=== PATIENT | female | born 1960 | race Caucasian/White ===

== ENCOUNTER → 2016-09-26 | Outpatient (CLI) | payer OTHER ==
[~2016-09-26] MED LIST: ALBUAER19 INH; DIPH-437 PO; FRRS300 PO; LISI-725 PO; METO-217 PO; NAPR-1169 PO; PANT40TA PO; TRAM-453 PO; ZNTT/150 PO
[2016-09-26 13:14] LABS: BASO % 0.7 %; BASO ABS # 0.03 K/uL (0-0.2); COMPLETE YES; EOS % 5.9 %; HEMATOCRIT 54.7 % (37-47); IG% 0.2 %; LYMPH % 27.8 %; LYMPH ABS # 1.28 K/uL (1.2-3.4); MEAN CELL VOLUME 90.3 fL (80-100); MEAN CORPUSCULAR HEMOGLOBIN 30.7 pg (25-34); MEAN PLATELET VOLUME 10.7 fL (7.4-10.4); MONO % 6.7 %; NEUT % 58.7 %; PLATELET COUNT 149 K/uL (130-400); RED BLOOD COUNT 6.06 M/uL (4.2-5.4); WHITE BLOOD COUNT 4.61 K/uL (4.8-10.8)
[2016-09-26 13:47] LABS: ALKALINE PHOSPHATASE 100 U/L (45-117); ALT/SGPT 27 U/L (12-78); AST/SGOT 24 U/L (15-37); BLOOD UREA NITROGEN 14 mg/dl (7-18); BUN/CREATININE RATIO 17.1 (10-20); CARBON DIOXIDE 25 mmol/L (21-32); CHLORIDE 109 mmol/L (98-107); CHOLESTEROL 177 mg/dl (0-200); CHOLESTEROL/HDL RATIO 3.1; CREATININE 0.81 mg/dl (0.60-1.20); GLUCOSE 104 mg/dl (70-99); HDL CHOLESTEROL 58 mg/dl; LDL CHOLESTEROL CALCULATED 87 mg/dl; POTASSIUM 4.4 mmol/L (3.5-5.1); SODIUM 142 mmol/L (136-145); TRIGLYCERIDES 161 mg/dl (0-150); VERY LOW DENSITY LIPOPROT CALC 32 mg/dl
== END | disposition home or self-care (01) ==
LOC: C.LABPVFM 08:36
PROVIDERS: ATTEND Nurse Practitioner
DX: I10 Essential (primary) hypertension (principal); D64.9 Anemia, unspecified

== ENCOUNTER → 2016-10-13 | Outpatient (CLI) | payer OTHER ==
[2016-10-13 12:59] LABS: BASO % 1.5 %; BASO ABS # 0.06 K/uL (0-0.2); COMPLETE YES; EOS % 4.6 %; HEMATOCRIT 40.9 % (37-47); LYMPH % 31.7 %; LYMPH ABS # 1.31 K/uL (1.2-3.4); MEAN CELL VOLUME 90.5 fL (80-100); MEAN CORPUSCULAR HEMOGLOBIN 31.4 pg (25-34); MEAN CORPUSCULAR HGB CONC 34.7 g/dl (32-36); MEAN PLATELET VOLUME 11.5 fL (7.4-10.4); MONO % 7.3 %; NEUT % 54.9 %; PLATELET COUNT 203 K/uL (130-400); RED BLOOD COUNT 4.52 M/uL (4.2-5.4); WHITE BLOOD COUNT 4.13 K/uL (4.8-10.8)
== END | disposition home or self-care (01) ==
LOC: C.LABPVFM 10:41
PROVIDERS: ATTEND Nurse Practitioner
DX: D64.9 Anemia, unspecified (principal)

== ENCOUNTER → 2016-10-13 | Outpatient (CLI) | payer OTHER ==
--- NOTE | 2016-10-14 13:34 | MAMMOGRAPHY REPORT ---
BILATERAL DIGITAL SCREENING MAMMOGRAM TOMOSYNTHESIS WITH CAD: 10/13/2016 CLINICAL HISTORY: Routine screening examination. TECHNIQUE: Breast tomosynthesis in addition to standard 2D mammography was performed. Current study was also evaluated with a Computer Aided Detection (CAD) system. COMPARISON: Comparison is made to exams dated: 03/22/2015 mammogram, 03/20/2013 mammogram, 03/21/2014 mammogram, 03/25/2012 ultrasound, 03/17/2011 mammogram - [facility], and 02/08/2008. BREAST COMPOSITION: The tissue of both breasts is heterogeneously dense, which may obscure small ma sses. FINDINGS: There are scattered round and punctate benign-appearing microcalcifications, stable in eac h breast. Mild vascular calcification bilaterally. No suspicious mass, architectural distortion or cluster of microcalcifications is seen. IMPRESSION: ACR BI-RADS CATEGORY 1: NEGATIVE There is no mammographic evidence of malignancy. A 1 year screening mammogram is recommended. The p atient will receive written notification of the results. Approximately 10% of breast cancers are not detected with mammography. A negative mammographic repor t should not delay biopsy if a clinically suggestive mass is present. Felisha Tay M.D. ay/:10/13/2016 21:56:28 Shoemaking Finisher: Mary WALL(Larisa)(Max), [facility] letter sent: Normal 1/2 BI-RADS Code: ACR BI-RADS Category 1: Negative
== END | disposition home or self-care (01) ==
LOC: C.MAMM 10:05
PROVIDERS: ATTEND Nurse Practitioner
DX: Z12.31 Encounter for screening mammogram for malignant neoplasm of breast (principal)

== ENCOUNTER → 2017-07-06 | Outpatient (CLI) | payer OTHER ==
--- NOTE | 2017-07-06 09:54 | DIAGNOSTIC IMAGING REPORT ---
TEMPORAL BONE CT HISTORY: EAR CHOLESTEATOMA TECHNIQUE: Multiaxial CT images of the temporal bones were performed and reformatted in the coronal plane without the use of intravenous contrast. COMPARISON STUDY: Temporal bone 12/06/2008. FINDINGS: On the right, there is a small tympanostomy tube. Small amount of soft tissue medial and anterior to the ossicles within the epitympanic recess best seen on axial image 132. This is new compared to the prior study. There is no erosions of the ossicles at this time. The scutum appears intact. No evidence for inner ear dysplasia. The mastoid air cells are clear. The 7th cranial nerve describes a normal course. On the left, the external auditory canal is patent. There is progressive soft tissue opacification throughout the epitympanic recess and surrounding the ossicles with associated partial erosion of the ossicles. There is associated erosion of the scutum. Therefore, this is consistent with a cholesteatoma. There is probable focal erosion through tegmen tympani. No evidence for any or dysplasia. The 7th cranial nerve describes a normal course. IMPRESSION: 1. Progressive soft tissue opacification throughout the left epitympanic recess with associated partial erosion of the ossicles, scutum, and probable focal erosion through the tegmen tympani. Therefore, this is consistent with a cholesteatoma. 2. Small amount of soft tissue medial and anterior to the ossicles within the right epitympanic recess which is new compared the prior study. No erosions at this time. Therefore, this could represent inflammatory change or possibly a small cholesteatoma. Electronically signed by: Austin Calderon M.D. 07/06/2017 9:53 AM Dictated Date/Time: 07/06/2017 9:40 AM
== END | disposition home or self-care (01) ==
LOC: C.CTS 09:05
PROVIDERS: ATTEND Otolaryngology
DX: H71.01 Cholesteatoma of attic, right ear (principal)

== ENCOUNTER 2017-07-23 05:29 | Day surgery (SDC) | payer OTHER ==
[2017-07-13 09:32] VITALS: BMI 36.0
--- NOTE | 2017-07-13 10:07 | PAT Medication Instructions ---
Service Date Jul 13, 2017. Current Home Medication List Acetaminophen/Diphenhydramine (Tylenol Pm), 2 TABLETS PO HS PRN for Sleep Ferrous Sulfate (Kp Ferrous Sulfate), 1 TAB PO 2XWK Metoprolol Succ (Toprol Xl) (Toprol-Xl ), 100 MG PO QPM Naproxen (Naprosyn), 500 MG PO BID PRN for Pain Pantoprazole Sodium (Protonix), 40 MG PO QPM Tramadol Hcl (Ultram), 50 MG PO Q8H PRN for Pain [ketoconazole cream], 1 DOSE TOP UD Medication Instructions For Your Scheduled Surgery - Check with surgeon for instructions: Naproxen (Naprosyn), 500 MG PO BID PRN for Pain - Hold the following medications 24 hours prior to surgery: [ketoconazole cream], 1 DOSE TOP UD - Hold the following medications the morning of surgery: Ferrous Sulfate (Kp Ferrous Sulfate), 1 TAB PO 2XWK - Take the following medications the morning of surgery with a sip of water: Tramadol Hcl (Ultram), 50 MG PO Q8H PRN for Pain (okay to take up to 4 hours prior to surgery if needed) - Take the following medications as scheduled the night before surgery: Tramadol Hcl (Ultram), 50 MG PO Q8H PRN for Pain (if needed) Pantoprazole Sodium (Protonix), 40 MG PO QPM Metoprolol Succ (Toprol Xl) (Toprol-Xl ), 100 MG PO QPM Acetaminophen/Diphenhydramine (Tylenol Pm), 2 TABLETS PO HS PRN for Sleep (if needed) If you have any questions please call us at [phone] or [phone] or [phone]
[~2017-07-23] VITALS: Ht 162.6 cm; Wt 94.8 kg
[~2017-07-23 05:29] MED LIST changes: -ALBUAER19 INH; +FERR1TAB13 PO; -FRRS300 PO; -LISI-725 PO; -METO-217 PO; +METO100T44 PO; -ZNTT/150 PO; +ketoconazole cream TOP
[2017-07-23 06:00] VITALS: BP 180/100; PULSE 65; TEMP 36.5; O2SAT 94; Ht 162.6 cm; Wt 94.8 kg
[2017-07-23] MEDS ORDERED: CEFAZOLIN 2000MG IV PUSH 10 ML IV SCH (06:00)
[2017-07-23] MEDS ORDERED: LACTATED RINGER'S 1000ML 1,000 ML IV SCH (06:00)
[2017-07-23] MEDS ORDERED: PROPOFOL IV EMULSION 10 MG/ML 100 ML VIAL IV ONE (06:19)
[2017-07-23] MEDS ORDERED: REMIFENTANIL 1 MG VIAL ONE (06:19)
[2017-07-23] MEDS ORDERED: ROCURONIUM BROMIDE 10 MG/ML 5 ML VIAL IV ONE (06:30)
[2017-07-23] MEDS ORDERED: FENTANYL CITRATE INJ 50 MCG/1 ML 2 ML VIAL ONE (06:30)
[2017-07-23] MEDS ORDERED: PROPOFOL IV EMULSION 10 MG/ML 20 ML VIAL IV ONE ×2 (06:30→08:35)
[2017-07-23] MEDS ORDERED: ONDANSETRON INJ 2 MG/ML 2 ML VIAL ONE (06:30)
[2017-07-23] MEDS ORDERED: DEXAMETHASONE SOD INJ 4 MG/ML VIAL ONE ×2 (06:30→08:10)
[2017-07-23] MEDS ORDERED: LIDOCAINE HCL 2% 2 ML VIAL (20MG/ML) ONE (06:30)
[2017-07-23] MEDS ORDERED: MIDAZOLAM HCL 1 MG/ML 2ML VIAL ONE (06:52)
[2017-07-23] MEDS ORDERED: LIDO 2%/EPINEPHRINE 1:100000 20 ML VIAL INFIL ONE (06:54)
[2017-07-23] MEDS ORDERED: GELATIN SPONGE 12-7MM ONE (06:54)
[2017-07-23] MEDS ORDERED: NEOMYCIN/POLYMYX/BACITR OINT 15 GM TUBE ONE (06:54)
[2017-07-23] MEDS ORDERED: NEOMYCIN/POLYMYX/HYDROCORT OT SUSP 10 ML BTL ONE (06:54)
[2017-07-23] MEDS ORDERED: EpINEphrine INJ 1MG/ML AMP 1 MG/ML AMP ONE (06:55)
[2017-07-23] MEDS ORDERED: EpINEphrine HCL INJ 1 MG/ML 5ML SYRINGE ONE (06:55)
--- NOTE | 2017-07-23 07:03 | History & Physical Bridge Note ---
H&P Re-Evaluation Bridge Note: I have examined the patient, reviewed the History & Physical and in the interval since the performance of the History & Physical I have noted the following changes of clinical significance: No changes noted
[2017-07-23] MEDS ORDERED: OFLOXACIN 0.3% OP SOLN 5 ML BTL ONE (07:22)
[2017-07-23] MEDS ORDERED: NEOMYC/POLYMYX/BACITR/HC OP OI 3.5 GM TUBE ONE (07:23)
[2017-07-23] MEDS ORDERED: NALOXONE HCL 0.4 MG/1 ML VIAL/CARP IV PRN (07:30)
[2017-07-23] MEDS ORDERED: PHENYLEPHRINE 100MCG/ML 5ML SYR IV PRN (07:30)
[2017-07-23] MEDS ORDERED: EpHEDrine SULFATE INJ 50 MG/ML AMP IV PRN (07:30)
[2017-07-23] MEDS ORDERED: HYDROmorphone INJ 2 MG/ML SYR/VIAL IV PRN (07:30)
[2017-07-23] MEDS ORDERED: ATROPINE SULFATE 0.1 MG/ML 5ML SYR IV PRN (07:30)
[2017-07-23] MEDS ORDERED: MEPERIDINE HCL 25 MG/ML CARP IV PRN (07:30)
[2017-07-23] MEDS ORDERED: FLUMAZENIL 0.1 MG/1 ML 10 ML VIAL IV PRN (07:30)
[2017-07-23] MEDS ORDERED: FENTANYL CITRATE INJ 50 MCG/1 ML 2 ML VIAL IV PRN (07:30)
[2017-07-23] MEDS ORDERED: LABETALOL HCL IV 5 MG/ML 20ML IV PRN (07:30)
[2017-07-23] MEDS ORDERED: ONDANSETRON INJ 2 MG/ML 2 ML VIAL IV PRN ×2 (07:30→10:15)
[2017-07-23] MEDS ORDERED: NEOSTIGMINE METHYLSULFATE 5 MG/5 ML SYR ONE (08:09)
[2017-07-23] MEDS ORDERED: GLYCOPYRROLATE INJ 0.2 MG/ML VIAL ONE (08:09)
[2017-07-23] MEDS ORDERED: SODIUM CHLORIDE 0.9% 1000ML 1,000 ML IV SCH (10:09)
[2017-07-23] MEDS ORDERED: OXYC-57 PO (10:10)
--- NOTE | 2017-07-23 10:11 | Discharge Instructions ---
Discharge Instructions Date of Service Jul 23, 2017. Admission Reason for Admission: Right Ear Cholesteatoma, Left Ear Otitis Meidal Discharge Discharge Diagnosis / Problem: same Discharge Goals Goal(s): Improve function, Improve disease control, Therapeutic intervention, Prevent Disease Progression Activity Recommendations Activity Limitations: per Instructions/Follow-up section . Instructions / Follow-Up Instructions / Follow-Up ACTIVITY RECOMMENDATIONS: No limitations OVER THE COUNTER MEDICATIONS: Continue any other previous medications unless otherwise indicated by your surgeon. * You may use Tylenol for mild pain as per bottle instructions. SPECIAL CARE INSTRUCTIONS: * Keep operative ear dry. * Change cotton balls 4 times per day. Leave packing in ear. * Sneeze with your mouth open. * Do not blow your nose. Sniff back instead. * Please call with any increasing pain, increasing drainage, active bleeding, redness and/or swelling, or any concerns. Dr. Cortes's office number is . FOLLOW UP VISIT: If not already scheduled, please call to schedule follow-up appointment with Dr. Cortes. Current Hospital Diet Patient's current hospital diet: Discharge Diet Recommended Diet: Regular Diet Procedures Procedures Performed: Right Tympanomastoidectomy, Left Pressure Equalizer Tube, Balloon Bilateral Eustachian Tube Pending Studies Studies pending at discharge: no Medical Emergencies . Who to Call and When: Medical Emergencies: If at any time you feel your situation is an emergency, please call 911 immediately. . Non-Emergent Contact Non-Emergency issues call your: Primary Care Provider . "Provider Documentation" section prepared by Dary Cortes. . VTE Core Measure Inpt VTE Proph given/why not?: SCD's [place] Drug Monitoring Program Search Results: no issues identified
[2017-07-23] MEDS ORDERED: OXYCODONE/ACETAMINOPHEN 5-325 TAB PO PRN ×2 (10:15)
[2017-07-23 11:15] VITALS: BP 177/81; PULSE 63; TEMP 36.7; O2SAT 96
--- NOTE | 2017-07-23 11:16 | Anesthesiology Progress Note ---
Anesthesia Post Op Note Date & Time Jul 23, 2017 at 11:16 Vital Signs Pain Intensity: 4 Vital Signs Past 12 Hours Date Time Temp Pulse Resp B/P (MAP) Pulse Ox O2 Delivery O2 Flow Rate FiO2 07/23/17 11:10 64 17 145/84 93 Nasal Cannula 2 07/23/17 11:00 61 18 147/83 90 Room Air 07/23/17 10:50 58 13 153/86 90 Room Air 07/23/17 10:40 36.5 61 19 145/89 92 Room Air 07/23/17 10:30 65 22 146/87 91 Room Air 07/23/17 10:20 36.4 75 24 148/87 100 Oxymask 10 07/23/17 10:10 67 16 172/115 99 Oxymask 10 07/23/17 10:02 36.0 68 20 149/82 97 Oxymask 10 07/23/17 06:00 36.5 65 18 180/100 (126) 94 Room Air Notes Mental Status: alert / awake / arousable, participated in evaluation Pt Amnestic to Procedure: Yes Nausea / Vomiting: adequately controlled Pain: adequately controlled Airway Patency, RR, SpO2: stable & adequate BP & HR: stable & adequate Hydration State: stable & adequate Anesthetic Complications: no major complications apparent
--- NOTE | 2017-07-23 11:27 | OPERATIVE REPORT ---
DATE OF OPERATION: 07/23/2017 DIAGNOSES: Cholesteatoma of the right ear and chronic otitis media with effusion of the left ear. PROCEDURES: 1. Tympanomastoidectomy of the right ear, facial recess approach. 2. PE tube insertion, left ear. SURGEON: Dary Cortes MD ANESTHESIA: General endotracheal. COMPLICATIONS: None. BLOOD LOSS: 25 mL HISTORY: This 56-year-old lady had mastoidectomy of the left ear by me 7 years ago and PE tubes inserted by ut 5 years ago; however, she had not returned for a followup until recently when she developed drainage and hearing loss of both ears, was found to have middle ear cholesteatoma of the right ear and retracted tympanic membrane with effusion of the left ear. CT scan documented opacified left mastoid and soft tissue in the middle ear space on the right side. She also has visible cholesteatoma in the right middle ear space. DESCRIPTION OF PROCEDURE: The patient was brought to the operating room and placed in supine position. General endotracheal anesthesia was induced, prepped with Betadine scrubbing and paint and draped in usual sterile manner. The right ear was visualized. The tympanomeatal flap was elevated by incising with a huslia blade at the 6 and 12 o'clock positions and then connecting across the posterior canal wall. The tympanomeatal flap was elevated using round knife. Middle ear space was entered and the hypotympanum. Cholesteatoma was encountered in the middle ear space extending inferiorly into the hypotympanum, extending into the opening of the round window, extending anteriorly underneath the malleus and then extending posteriorly into the facial recess. Superiorly, there was also a retraction pocket. The retraction pocket was elevated and the dissection was started superiorly encountering the chorda tympani nerve, which was preserved through the entire procedure. The chorda tympani nerve was retracted superiorly as the cholesteatoma was dissected around the foot plate of the stapes and around the tensor tympani tendon and from underneath the handle of the malleus. Dissection was continued inferiorly into the hypotympanum. Using Kaye, the [place], the round knife and the triangular knife, also the cholesteatoma and the round window had to be lifted out using an incudostapedial joint knife and also with right angled picks. In this manner, the cholesteatoma and the middle ear space was left attached posterior superiorly. At this point, the postauricular incision was made using the 15 blade, carried down through the skin and subcutaneous layer using the 15 blade exposing the temporalis fascia, which was harvested and set aside for use later in the fascia press. The periosteal incision was made in the shape of a reverse 7. The periosteum was elevated using the [place] and the freer elevators. The Jennifer flap was elevated and the ear was reflected anteriorly with a self-retaining retractor exposing the mastoid and the middle ear space. Cortical mastoidectomy was performed using the Xomed drill at first using the 5 and then using the 3, and then using the 1.5-mm bur exposing the mastoid by delineating the skull base superiorly, which was very tight and also delineating the sinodural angle posteriorly. The mastoid air cells were exposed. The Jennifer septum was opened and the mastoid cavity was widened using the 5 and then the 3-mm drill bit. At this point, the facial recess approach was opened using the 1.5-mm bur exposing the body of the incus and then exposing the malleus to incus joint and then exposing the entire facial recess thinning the canal wall bone from posteriorly. In this manner, the facial recess was opened and was probed on both sides using the Kaye needle and the [place] and the angled picks resecting all evidence of cholesteatoma in the facial recess and the entire cholesteatoma was removed and sent for pathology. The tegmen was low and the sigmoid sinus was anterior, the small bleeder posteriorly had to be packed with bone wax and then packed with bone dust at the end of the procedure. The middle ear space was filled with pieces of dry Gelfoam as a platform and the temporalis fascia was cut so that there was a notch in it and the superior portion was placed over the superior canal wall, over the head of malleus and over the incus. Inferiorly, the graft was tucked underneath the handle of the malleus on top of the Gelfoam bed and then draped on to the posterior canal wall. Tympanomeatal flap was reflected back in its original position and then packed in position with pieces of dry Gelfoam and then pieces of Gelfoam dipped in Cortisporin and then also with Cortisporin ointment. The postauricular incision was closed in layers with interrupted 3-0 chromic sutures on the periosteum and then interrupted 3-0 chromic suture subcutaneously and then a continuous 4-0 nylon suture on the skin. A mastoid dressing was placed on the right side. Attention was turned to the left ear where the middle ear was exposed. There was a retraction pocket inferiorly, which had to be cleaned of cerumen. Laryngotomy incision was made anterior inferiorly and a Paparella tube was inserted. The patient tolerated the procedure well and was taken to the recovery area in satisfactory condition. I attest to the content of the Intraoperative Record and any orders documented therein. Any exceptions are noted below. BELL
[2017-07-23 11:45] VITALS: BP 180/81; PULSE 60; TEMP 36.6; O2SAT 95
[2017-07-23 12:15] VITALS: BP 175/87; PULSE 64; TEMP 36.4; O2SAT 92
== END 2017-07-23 13:00 | disposition home or self-care (01) ==
LOC: C.ACU 05:29
PROVIDERS: ATTEND Otolaryngology
DX: H71.91 Unspecified cholesteatoma, right ear (principal); H65.492 Other chronic nonsuppurative otitis media, left ear

== ENCOUNTER → 2017-10-15 | Outpatient (CLI) | payer OTHER ==
[~2017-10-15] MED LIST changes: +OXYC-57 PO
--- NOTE | 2017-10-18 08:07 | MAMMOGRAPHY REPORT ---
BILATERAL DIGITAL SCREENING MAMMOGRAM TOMOSYNTHESIS WITH CAD: 10/15/2017 CLINICAL HISTORY: Routine screening. Patient has no complaints. TECHNIQUE: Breast tomosynthesis in addition to standard 2D mammography was performed. Current study was also evaluated with a Computer Aided Detection (CAD) system. COMPARISON: Comparison is made to exams dated: 10/13/2016 mammogram, 03/22/2015 mammogram, 03/21/2014 m ammogram, 03/20/2013 mammogram, 03/25/2012 ultrasound, and 03/25/2012 mammogram - [facility]. BREAST COMPOSITION: The tissue of both breasts is heterogeneously dense, which may obscure small mas ses. FINDINGS: There are diffuse bilateral punctate microcalcifications, most numerous in the left upper outer quadrant, which appear similar dating back to at least 03/17/2011, therefore likely benign. Th ere are mild vascular calcifications in the breasts. No new suspicious mass, architectural distortio n or cluster of microcalcifications is seen. IMPRESSION: ACR BI-RADS CATEGORY 1: NEGATIVE There is no mammographic evidence of malignancy. A 1 year screening mammogram is recommended. The pa tient will receive written notification of the results. Approximately 10% of breast cancers are not detected with mammography. A negative mammographic report should not delay biopsy if a clinically suggestive mass is present. Felisha Tay M.D. ay/:10/15/2017 16:26:34 Manager Managed Care: Mary Garcia, [facility] letter sent: Normal 1/2 BI-RADS Code: ACR BI-RADS Category 1: Negative
== END | disposition home or self-care (01) ==
LOC: C.MAMM 10:16
PROVIDERS: ATTEND Nurse Practitioner
DX: Z12.31 Encounter for screening mammogram for malignant neoplasm of breast (principal)

== ENCOUNTER → 2017-10-15 | Outpatient (CLI) | payer OTHER ==
--- NOTE | 2017-10-15 12:01 | DIAGNOSTIC IMAGING REPORT ---
ULTRASOUND SOFT TISSUES NECK CLINICAL HISTORY: Left-sided neck mass. COMPARISON STUDY: No priors. FINDINGS: Real-time, grayscale, and color flow sonography of the soft tissues of the left neck is performed at the indicated site of interest. There are prominent cervical lymph nodes identified at the site of interest. These maintain a normal fatty hilum and are of low suspicion. The largest measures 2.2 x 0.7 x 1.1 cm. No fluid collection is seen. IMPRESSION: The finding of palpable concern corresponds to low suspicion cervical lymph nodes. Clinical follow-up is recommended. If these nodes continue to enlarge then consider a repeat ultrasound. Electronically signed by: Milton Miguel M.D. 10/15/2017 12:00 PM Dictated Date/Time: 10/15/2017 11:58 AM
== END | disposition home or self-care (01) ==
LOC: C.ULTR 11:00
PROVIDERS: ATTEND Nurse Practitioner
DX: R22.1 Localized swelling, mass and lump, neck (principal)

== ENCOUNTER → 2017-10-25 | Outpatient (CLI) | payer OTHER ==
--- NOTE | 2017-10-25 16:30 | DIAGNOSTIC IMAGING REPORT ---
CHEST 2 VIEWS ROUTINE CLINICAL HISTORY: Sternal pain pain COMPARISON STUDY: No previous studies for comparison. FINDINGS: The bones soft tissues and hemidiaphragms are normal. The cardiomediastinal silhouette is normal. The lungs are clear. The pulmonary vasculature is normal. Small hiatal hernia IMPRESSION: Small hiatal hernia. Otherwise negative chest. The above report was generated using voice recognition software. It may contain grammatical, syntax or spelling errors. Electronically signed by: Edilberto Skelton M.D. 10/25/2017 4:28 PM Dictated Date/Time: 10/25/2017 4:28 PM
== END | disposition home or self-care (01) ==
LOC: C.RADPV 16:13
PROVIDERS: ATTEND Nurse Practitioner
DX: K44.9 Diaphragmatic hernia without obstruction or gangrene (principal); R07.89 Other chest pain

== ENCOUNTER → 2017-10-29 | Outpatient (CLI) | payer OTHER ==
--- NOTE | 2017-10-29 11:26 | DIAGNOSTIC IMAGING REPORT ---
GI W/AIR SMALL BOWEL ROUTINE CLINICAL HISTORY: ESOPHAGITIS,STERNAL PAINdysphagia COMPARISON STUDY: None FLUOROSCOPY TIME: 4.4 minutes. FINDINGS: Patient initiates his swallowing function well. Esophageal motility is unremarkable. There is a fixed hiatal hernia. There is mild gastroesophageal reflux. The remainder the stomach is unremarkable in appearance. The duodenal bulb fills well. Mucosal pattern and transit time throughout small bowel are within normal limits. Specific images of the terminal ileum are unremarkable. IMPRESSION: 1. Fixed hiatal hernia.. 2. Mild gastroesophageal reflux. 3. Otherwise normal exam. The above report was generated using voice recognition software. It may contain grammatical, syntax or spelling errors. Electronically signed by: Edilberto Skelton M.D. 10/29/2017 11:25 AM Dictated Date/Time: 10/29/2017 11:20 AM
== END | disposition home or self-care (01) ==
LOC: C.RAD 09:38
PROVIDERS: ATTEND Nurse Practitioner
DX: K44.9 Diaphragmatic hernia without obstruction or gangrene (principal); K20.9 Esophagitis, unspecified

== ENCOUNTER → 2017-11-19 | Day surgery (SDC) | payer OTHER ==
[~2017-11-19] MED LIST changes: +HYDR-5688 PO; +LACTATED RINGER'S 1000ML 1,000 ML IV SCH; +METH-307 PO
--- NOTE | 2017-11-19 10:01 | PAT Medication Instructions ---
Service Date Nov 19, 2017. Current Home Medication List Acetaminophen/Diphenhydramine (Tylenol Pm), 2 TABLETS PO HS PRN for Sleep Ferrous Sulfate (Kp Ferrous Sulfate), 1 TAB PO Q2D Methocarbamol (Robaxin), 0.5-1 TAB PO PRN Metoprolol Succ (Toprol Xl) (Toprol-Xl ), 100 MG PO QPM Naproxen (Naprosyn), 500 MG PO BID PRN for Pain Pantoprazole Sodium (Protonix), 40 MG PO QPM Tramadol Hcl (Ultram), 50 MG PO Q8H PRN for Pain Medication Instructions For Your Scheduled Surgery -Contact your surgeon for instructions for: Naproxen (Naprosyn), 500 MG PO BID PRN for Pain - Hold the following medications the morning of surgery: Ferrous Sulfate (Kp Ferrous Sulfate), 1 TAB PO Q2D Methocarbamol (Robaxin), 0.5-1 TAB PO PRN - Take the following medications the morning of surgery with a sip of water: Tramadol Hcl (Ultram), 50 MG PO Q8H PRN for Pain (if needed, can be taken up to four hours before surgery) - Take the following medications as scheduled the night before surgery: Acetaminophen/Diphenhydramine (Tylenol Pm), 2 TABLETS PO HS PRN for Sleep (if needed) Metoprolol Succ (Toprol Xl) (Toprol-Xl ), 100 MG PO QPM Methocarbamol (Robaxin), 0.5-1 TAB PO PRN (if needed) Pantoprazole Sodium (Protonix), 40 MG PO QPM Tramadol Hcl (Ultram), 50 MG PO Q8H PRN for Pain (if needed) If you have any questions please call us at [phone] or [phone] or [phone]
[2017-11-19 10:19] LABS: BASO % 0.8 %; BASO ABS # 0.04 K/uL (0-0.2); EOS % 3.7 %; EOS ABS # 0.19 K/uL (0-0.5); HEMATOCRIT 43.7 % (37-47); HEMOGLOBIN 14.9 g/dL (12.0-16.0); IG# 0.01 K/uL (0.00-0.02); LYMPH % 25.6 %; MEAN CELL VOLUME 90.1 fL (80-100); MEAN CORPUSCULAR HEMOGLOBIN 30.7 pg (25-34); MEAN CORPUSCULAR HGB CONC 34.1 g/dl (32-36); MONO % 9.1 %; MONO ABS # 0.46 K/uL (0.11-0.59); NEUT % 60.6 %; NEUT ABS # 3.07 K/uL (1.4-6.5); PLATELET COUNT 190 K/uL (130-400); RED CELL DISTRIBUTION WIDTH CV 12.7 % (11.5-14.5); RED CELL DISTRIBUTION WIDTH SD 41.6 fL (36.4-46.3); WHITE BLOOD COUNT 5.07 K/uL (4.8-10.8)
[2017-11-19 10:31] LABS: BLOOD UREA NITROGEN 18 mg/dl (7-18); CALCIUM 8.9 mg/dl (8.5-10.1); CARBON DIOXIDE 25 mmol/L (21-32); CREATININE 0.76 mg/dl (0.60-1.20); GLUCOSE 105 mg/dl (70-99); POTASSIUM 3.9 mmol/L (3.5-5.1); SODIUM 139 mmol/L (136-145)
--- NOTE | 2017-11-25 07:43 | EDITING REQUIRED CODING QUERY ---
Preop testingTREATMENT RENDERED WITHOUT A DIAGNOSIS To promote full compliance with coding requirements relating to patient care, physician participation is requested in all cases of tissue packer uncertainty. Please assist us with the question(s) below: Coding Question: The patient is receiving CBC W/ AUTO DIFF and PARTIAL RENAL PROFILE, as noted in the ORDER HISTORY of the record. Please document the diagnosis that is being addressed by the medication/treatment. Provider Response: Thank you Celeste Murillo
== END | disposition home or self-care (01) ==
LOC: C.ACU 08:36
PROVIDERS: ATTEND Otolaryngology
DX: Z01.812 Encounter for preprocedural laboratory examination (principal)

== ENCOUNTER → 2017-11-26 | Day surgery (SDC) | payer OTHER ==
[2017-11-23 11:40] VITALS: BMI 38.0
--- NOTE | 2017-11-25 15:14 | History and Physical ---
History & Physical Date Nov 25, 2017. Chief Complaint Cholesteatoma of the right mastoid History of Present Illness The patient is a 57 year old female with complaints of cholesteatoma of the right mastoid, status post tympanomastoidectomy of the right ear in July, returns for second look procedure for possible recurrence of cholesteatoma. 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) DO NOT ADMINISTER Inhaled General Anesthetics Desflurane Enflurane Ether Halothane Isoflurane Methoxyflurane Sevoflurane Succinylcholine Adhesives (Verified Allergy, Unknown, SKIN IRRITATION WITH EKG STICKIES, ) Codeine (Verified Adverse Reaction, Mild, TYL W/ CODEINE= HOANG/NAUSEA, ) Home Medications Scheduled Ferrous Sulfate (Kp Ferrous Sulfate), 1 TAB PO Q2D Methocarbamol (Robaxin), 0.5-1 TAB PO PRN Metoprolol Succ (Toprol Xl) (Toprol-Xl ), 100 MG PO QPM Pantoprazole Sodium (Protonix), 40 MG PO QPM Scheduled PRN Acetaminophen/Diphenhydramine (Tylenol Pm), 2 TABLETS PO HS PRN for Sleep Naproxen (Naprosyn), 500 MG PO BID PRN for Pain Tramadol Hcl (Ultram), 50 MG PO Q8H PRN for Pain Physical Examination Skin: warm/dry, no rash Eyes: normal inspection, EOMI, sclerae normal ENT: + pertinent finding (Retracted tympanic membrane with possible recurrence of cholesteatoma in the right ear) Head: normocephalic, atraumatic Neck: supple, no adenopathy, trachea midline Respiratory/Chest: lungs clear, normal breath sounds, no respiratory distress Cardiovascular: regular rate, rhythm, no edema, no murmur Abdomen / GI: normal bowel sounds, non tender Back: normal inspection Extremities: normal inspection, normal range of motion Diagnosis Cholesteatoma of the right ear Plan of Treatment Tympanomastoidectomy of the right ear
[~2017-11-26] VITALS: Ht 157.5 cm; Wt 94.9 kg
[~2017-11-26] MED LIST changes: +ATROPINE SULFATE 0.1 MG/ML 5ML SYR IV PRN; +CEFAZOLIN SOD 2000MG/15 ML IV PUSH IV ONE; +DEXAMETHASONE SOD INJ 4 MG/ML VIAL ONE; +EpHEDrine SULFATE 50MG/5ML SYR ONE; +EpHEDrine SULFATE INJ 50 MG/ML AMP IV PRN; +EpINEphrine HCL INJ 1 MG/ML 1ML SYRINGE ONE; +FENTANYL CITRATE INJ 50 MCG/1 ML 2 ML VIAL ONE; +FLUMAZENIL 0.1 MG/1 ML 10 ML VIAL IV PRN; +GELATIN SPONGE SZ 100 ONE; +GLYCOPYRROLATE INJ 0.2 MG/ML VIAL ONE; +HYDROCODONE/ACETAMIN 5/325MG TAB PO PRN; +HYDROmorphone INJ 0.5 MG/0.5 ML SYR ONE; +HYDROmorphone INJ 1 MG/ML SYR IV PRN; +KETAMINE HCL INJ 50 MG/ML 10 ML VIAL ONE; +LABETALOL HCL IV 5 MG/ML 20ML IV PRN; -LACTATED RINGER'S 1000ML 1,000 ML IV SCH; +LIDO 2%/EPINEPHRINE 1:100000 20 ML VIAL INFIL ONE; +LIDOCAINE HCL 2% 2 ML VIAL (20MG/ML) ONE; +MIDAZOLAM HCL 1 MG/ML 2ML VIAL ONE; +NALOXONE HCL 0.4 MG/1 ML VIAL/CARP IV PRN; +NEOMYC/POLYMYX/BACITR/HC OP OI 3.5 GM TUBE ONE; +NEOMYCIN/POLYMYX/HYDROCORT OT SUSP 10 ML BTL ONE; +NEOSTIGMINE METHYLSULFATE 5 MG/5 ML SYR ONE; +OFLOXACIN 0.3% OP SOLN 5 ML BTL ONE; +ONDANSETRON INJ 2 MG/ML 2 ML VIAL IV PRN; +ONDANSETRON INJ 2 MG/ML 2 ML VIAL ONE; -OXYC-57 PO; +PHENYLEPHRINE 100MCG/ML 5ML SYR ONE; +PROMETHAZINE HCL INJ 12.5 MG in SODIUM CHLORIDE 0.9% 50ML 50 ML IV PRN; +PROPOFOL IV EMULSION 10 MG/ML 100 ML VIAL IV ONE; +PROPOFOL IV EMULSION 10 MG/ML 20 ML VIAL IV ONE; +REMIFENTANIL 1 MG VIAL ONE; +ROCURONIUM BROMIDE 10 MG/ML 5 ML VIAL IV ONE; +SODIUM CHLORIDE 0.9% 1000ML 1,000 ML IV SCH; -ketoconazole cream TOP
[2017-11-26 06:00] VITALS: BP 173/86; PULSE 64; TEMP 36.6; O2SAT 98; Ht 157.5 cm; Wt 94.9 kg
--- NOTE | 2017-11-26 10:28 | [facility] Post Operative Brief Note ---
Immediate Operative Summary Operative Date Nov 26, 2017. Pre-Operative Diagnosis Cholesteatoma of the Right Mastoid Post-Operative Diagnosis Same as preoperative Procedure(s) Performed Right Tympanomastoidectomy Surgeon Dr. Dary Cortes Epic Professional Surgeon(s) None per surgeon Estimated Blood Loss 40ml Findings Consistent with Post-Op Diagnosis Specimens A.) Cholesteatoma, Right Ear Drains None Anesthesia Type General Complication(s) none Disposition Accompanied Pt To Recovery: yes Disposition: Recovery Room / PACU
--- NOTE | 2017-11-26 10:43 | Discharge Instructions ---
Discharge Instructions Date of Service Nov 26, 2017. Admission Reason for Admission: Cholesteatoma Discharge Discharge Diagnosis / Problem: same Discharge Goals Goal(s): Therapeutic intervention Activity Recommendations Activity Limitations: per Instructions/Follow-up section . Instructions / Follow-Up Instructions / Follow-Up ACTIVITY RECOMMENDATIONS: No limitations OVER THE COUNTER MEDICATIONS: Continue any other previous medications unless otherwise indicated by your surgeon. * You may use Tylenol for mild pain as per bottle instructions. SPECIAL CARE INSTRUCTIONS: * Keep operative ear dry. * Change cotton balls 4 times per day. Leave packing in ear. * Sneeze with your mouth open. * Do not blow your nose. Sniff back instead. * Please call with any increasing pain, increasing drainage, active bleeding, redness and/or swelling, or any concerns. Dr. Cortes's office number is . FOLLOW UP VISIT: If not already scheduled, please call to schedule follow-up appointment with Dr. Cortes. Current Hospital Diet Patient's current hospital diet: Discharge Diet Recommended Diet: Regular Diet Procedures Procedures Performed: Right Tympanomastoidectomy Pending Studies Studies pending at discharge: no Medical Emergencies . Who to Call and When: Medical Emergencies: If at any time you feel your situation is an emergency, please call 331 immediately. . Non-Emergent Contact Non-Emergency issues call your: Primary Care Provider . "Provider Documentation" section prepared by Dary Cortes. . [place] Drug Monitoring Program Search Results: no issues identified
[2017-11-26] MEDS: HYDROmorphone INJ 0.5 MG/0.5 ML SYR ONE ×2 (11:05→11:10)
--- NOTE | 2017-11-26 11:18 | OPERATIVE REPORT ---
DATE OF OPERATION: 11/26/2017 PREOPERATIVE DIAGNOSIS: Cholesteatoma of the right ear. POSTOPERATIVE DIAGNOSIS: Same. PROCEDURE: Right tympanomastoidectomy with ossicular reconstruction. SURGEON: Dr. Cortes. ANESTHESIA: General endotracheal. COMPLICATIONS: None. BLOOD LOSS: 40 mL HISTORY: A 57-year-old lady with greater than 4-year history of drainage from the right ear, found to have rather large cholesteatoma extending into the facial recess and sinus tympani, around the stapes. She underwent tympanomastoidectomy in July; however, due to the extensiveness of the disease, cholesteatoma could not be completely removed and she again has recurrent cholesteatoma with retraction pocket into the oval window area. DESCRIPTION OF PROCEDURE: The patient brought to the operating room and placed in supine position. General endotracheal anesthesia was induced, prepped with Betadine paint, draped in usual sterile manner. The right ear was visualized and the postauricular area injected with 2% Xylocaine with 1:100,000 strength epinephrine as was the ear canal. The canal incisions were made at 11 o'clock anteriorly and then 6 o'clock inferiorly. The tympanomeatal flap was incised using the [place] blade and elevated using the [place] blade and then the round knife and then the Kaye needle, lifting the tympanomeatal flap from the posterior and then superior canal wall, entering the middle ear space and the hypotympanum, continuing the elevation superiorly, finding adhesions down to the promontory, which were elevated, finding cholesteatoma extending into the stapes and oval window area and into the facial recess area and into the sinus tympany, delineating the chorda tympani nerve which was preserved through the entire procedure and then continuing the dissection superiorly over the incus which was eroded of its lenticular process and then over the malleus, lifting the tympanic membrane off the lateral process of the malleus down to the handle. At this point, the postauricular incision was made using a 15 blade, carried down through the skin and subcutaneous layer with the 15 blade. Periosteal incision was made in the shape of reverse 7 using the 15 blade and then elevated using the Kelli and Paco periosteal elevators, elevating the Corry flap along with the postauricular soft tissue and reflecting the ear anteriorly with a self-retaining retractor, exposing the mastoid. Elevation of the tympanomeatal flap was continued and dissection into the facial recess and into the sinus tympani and around the oval window, around the stapes bone was continued. The stapes appeared to be intact but was encased in cholesteatoma which had to be removed using the Kaye needle, the right-angle picks, the Gallito and the incudostapedial joint knife, in this manner removing all evidence of cholesteatoma from around the stapes and around the oval window. The incus was found to be eroded off its lenticular process, therefore, was freed from the malleus using the Kaye and the Gallito. At this point, cortical mastoidectomy was performed, enlarging the previous mastoidectomy opening with the 3 mm bur and then with the 1 mm bur, encountering the incus which was then freed and delivered into the middle ear space and then set aside later for use as her own prosthesis for reconstruction. The facial recess approach was opened using the 1 mm bur. Dissection was performed on both sides of the facial recess using the Kaye and the right-angle picks and the Gallito, delivering all evidence of cholesteatoma into the middle ear space and cleaning out the facial recess. The sinus tympani was also dissected of cholesteatoma using the [place] and the right-angle picks, in this manner removing all evidence of cholesteatoma from the mastoid. The sinodural angle was very tight with low tegmen and with an anterior sigmoid. In this manner, the mastoidectomy was completed along with removal of all evidence of middle ear cholesteatoma. The incus was carved with a pothole which was then placed on top of the stapes superstructure underneath the chorda tympani nerve and tucked underneath the handle of the malleus. The T-tube was inserted through the previous perforation in the tympanic membrane and the tympanic membrane was reflected back over a temporalis fascia graft which was draped onto the posterior and superior canal wall over the malleus and over the incus. The tympanomeatal flap was packed in position with pieces of dry Gelfoam and then with Gelfoam soaked in Cortisporin and also with Cortisporin ointment. Postauricular incision was closed with interrupted 4-0 Vicryl sutures on the periosteal layer, interrupted 4-0 Vicryl sutures on the subcutaneous layer and then Steri-Strips on the skin. Cynthia dressing was placed. The patient tolerated the procedure well, was taken to recovery area where facial nerve function was noted to be intact. I attest to the content of the Intraoperative Record and any orders documented therein. Any exception s are noted below.
--- NOTE | 2017-11-26 11:22 | Anesthesiology Progress Note ---
Anesthesia Post Op Note Date & Time Nov 26, 2017 at 11:22 Vital Signs Pain Intensity: 5 Vital Signs Past 12 Hours Date Time Temp Pulse Resp B/P (MAP) Pulse Ox O2 Delivery O2 Flow Rate FiO2 11/26/17 11:10 68 12 128/74 91 Nasal Cannula 4 11/26/17 11:00 65 16 130/81 91 Nasal Cannula 5 11/26/17 10:50 68 14 120/60 92 Oxymask 11 11/26/17 10:40 66 16 140/86 91 Oxymask 11 11/26/17 10:33 36.3 78 14 143/89 91 Oxymask 11 11/26/17 06:00 36.6 64 18 173/86 (115) 98 Room Air Notes Mental Status: alert / awake / arousable, participated in evaluation Pt Amnestic to Procedure: Yes Nausea / Vomiting: adequately controlled Pain: adequately controlled Airway Patency, RR, SpO2: stable & adequate BP & HR: stable & adequate Hydration State: stable & adequate Anesthetic Complications: no major complications apparent
[2017-11-26 11:50] VITALS: BP 115/60; PULSE 57; TEMP 36.5; O2SAT 94
[2017-11-26 12:20] VITALS: BP 123/64; PULSE 66; TEMP 36.6; O2SAT 94
[2017-11-26 12:50] VITALS: BP 99/57; PULSE 65; O2SAT 91
[2017-11-26 13:50] VITALS: BP 138/69; PULSE 58; TEMP 36.4; O2SAT 94
[2017-11-26 15:45] VITALS: BP 137/93; PULSE 70; TEMP 36.4; O2SAT 92
== END | disposition home or self-care (01) ==
LOC: C.ACU 05:37
PROVIDERS: ATTEND Otolaryngology
DX: H71.21 Cholesteatoma of mastoid, right ear (principal); I10 Essential (primary) hypertension; Z98.890 Other specified postprocedural states; Z88.6 Allergy status to analgesic agent; E66.9 Obesity, unspecified; Z68.38 Body mass index [BMI] 38.0-38.9, adult; Z87.891 Personal history of nicotine dependence; Z98.51 Tubal ligation status

== ENCOUNTER → 2017-12-23 | Outpatient (CLI) | payer OTHER ==
[~2017-12-23] MED LIST changes: -ATROPINE SULFATE 0.1 MG/ML 5ML SYR IV PRN; -CEFAZOLIN SOD 2000MG/15 ML IV PUSH IV ONE; -DEXAMETHASONE SOD INJ 4 MG/ML VIAL ONE; -EpHEDrine SULFATE 50MG/5ML SYR ONE; -EpHEDrine SULFATE INJ 50 MG/ML AMP IV PRN; -EpINEphrine HCL INJ 1 MG/ML 1ML SYRINGE ONE; -FENTANYL CITRATE INJ 50 MCG/1 ML 2 ML VIAL ONE; -FLUMAZENIL 0.1 MG/1 ML 10 ML VIAL IV PRN; -GELATIN SPONGE SZ 100 ONE; -GLYCOPYRROLATE INJ 0.2 MG/ML VIAL ONE; -HYDROCODONE/ACETAMIN 5/325MG TAB PO PRN; -HYDROmorphone INJ 0.5 MG/0.5 ML SYR ONE; -HYDROmorphone INJ 1 MG/ML SYR IV PRN; -KETAMINE HCL INJ 50 MG/ML 10 ML VIAL ONE; -LABETALOL HCL IV 5 MG/ML 20ML IV PRN; -LIDO 2%/EPINEPHRINE 1:100000 20 ML VIAL INFIL ONE; -LIDOCAINE HCL 2% 2 ML VIAL (20MG/ML) ONE; -MIDAZOLAM HCL 1 MG/ML 2ML VIAL ONE; -NALOXONE HCL 0.4 MG/1 ML VIAL/CARP IV PRN; -NEOMYC/POLYMYX/BACITR/HC OP OI 3.5 GM TUBE ONE; -NEOMYCIN/POLYMYX/HYDROCORT OT SUSP 10 ML BTL ONE; -NEOSTIGMINE METHYLSULFATE 5 MG/5 ML SYR ONE; -OFLOXACIN 0.3% OP SOLN 5 ML BTL ONE; -ONDANSETRON INJ 2 MG/ML 2 ML VIAL IV PRN; -ONDANSETRON INJ 2 MG/ML 2 ML VIAL ONE; -PHENYLEPHRINE 100MCG/ML 5ML SYR ONE; -PROMETHAZINE HCL INJ 12.5 MG in SODIUM CHLORIDE 0.9% 50ML 50 ML IV PRN; -PROPOFOL IV EMULSION 10 MG/ML 100 ML VIAL IV ONE; -PROPOFOL IV EMULSION 10 MG/ML 20 ML VIAL IV ONE; -REMIFENTANIL 1 MG VIAL ONE; -ROCURONIUM BROMIDE 10 MG/ML 5 ML VIAL IV ONE; -SODIUM CHLORIDE 0.9% 1000ML 1,000 ML IV SCH
== END | disposition home or self-care (01) ==
LOC: C.LABPVFM 11:24
PROVIDERS: ATTEND Nurse Practitioner
DX: I10 Essential (primary) hypertension (principal)

== ENCOUNTER → 2018-03-21 | Outpatient (CLI) | payer OTHER ==
[~2018-03-21] MED LIST changes: -NAPR-1169 PO; +NAPR-22 PO
[2018-03-21 17:46] LABS: BLOOD UREA NITROGEN 13 mg/dl (7-18); CALCIUM 8.6 mg/dl (8.5-10.1); CARBON DIOXIDE 24 mmol/L (21-32); CREATININE 0.85 mg/dl (0.60-1.20); GLUCOSE 87 mg/dl (70-99); POTASSIUM 3.8 mmol/L (3.5-5.1); SODIUM 142 mmol/L (136-145)
== END | disposition home or self-care (01) ==
LOC: C.LABPVFM 13:54
PROVIDERS: ATTEND Nurse Practitioner
DX: R25.2 Cramp and spasm (principal)

== ENCOUNTER → 2018-03-28 | Outpatient (CLI) | payer OTHER ==
--- NOTE | 2018-03-28 10:32 | DIAGNOSTIC IMAGING REPORT ---
PELVIC ULTRASOUND, TRANSABDOMINAL AND TRANSVAGINAL HISTORY: POST MENOPAUSAL BLEEDING COMPARISON: Abdomen and pelvis CT 06/04/2013. FINDINGS: Uterus: 11.1 x 5.5 x 5.1 cm. A few small nabothian cysts. Endometrial stripe: 7 mm in thickness. Right ovary: There is a 13 x 12 x 10 cm solid and cystic mass within the right adnexa. The solid component demonstrates color flow and measures 7.5 cm. Left ovary: Obscured by overlying bowel gas. Miscellaneous:No pelvic free fluid. IMPRESSION: 1. A 13 x 12 x 10 cm solid and cystic mass within the right adnexa which is likely ovarian. This is highly suspicious for an ovarian malignancy. Gynecologic consultation recommended. 2. The endometrial stripe is 7 mm in thickness. This is considered abnormal for a postmenopausal female. 3. These findings were called/faxed to the referring physician's office following dictation. Electronically signed by: Austin Calderon M.D. 03/28/2018 10:31 AM Dictated Date/Time: 03/28/2018 10:24 AM
== END | disposition home or self-care (01) ==
LOC: C.ULTR 09:01
PROVIDERS: ATTEND Nurse Practitioner
DX: N95.0 Postmenopausal bleeding (principal); R93.8 Abnormal findings on diagnostic imaging of other specified body structures; R19.09 Other intra-abdominal and pelvic swelling, mass and lump

== ENCOUNTER 2020-10-10 13:20 | Inpatient (IN) ==
[2020-10-10] MEDS ORDERED: SODIUM CHLORIDE 0.9% 250 ML IV PRN ×2 (13:55→15:45)
--- NOTE | 2020-10-10 14:07 | Emergency Department Note ---
Impression & Plan Symptomatic anemia, Ovarian cancer, Pancytopenia due to chemotherapy, Elevated troponin I level, Neutropenia, Thrombocytopenia ED Provider Note NAME: JULIANE REVELES AGE: 59 SEX: F ARRIVES VIA: Walk-In INFORMANT: Patient, ED PROVIDER(S): Librado Washington MD CHIEF COMPLAINT: Anemia, referred PLAN: Disposition: Admit MEDICAL DECISION MAKING: The patient is a pleasant 59-year-old woman with a past medical history of hypertension, diastolic dysfunction, GERD who presents emerge department referred from her doctor's office for outpatient blood work showing anemia with hemoglobin of 4.8 in the setting of undergoing chemotherapy for ovarian cancer. She reports feeling generalized weakness and easily winded with mild exertion. Has any fevers, chills, cough, congestion, nausea vomiting diarrhea, urinary symptoms. She is agreeable with recommendation for admission given her significant anemia. On arrival the patient is fatigued appearing but no acute distress, afebrile with heart rate in the 100s and respiratory rate in the upper 20s/low 30s with blood pressure stable. moderate pallor. Abdomen is benign. Chest x-ray with possibility of mild vascular congestion though patient with normal oxygen saturation on room air.. EKG without overt acute ischemia. WBC 1.59 with ANC of 0.88. H/H 5.1/14.8 without recent values for comparison. Platelets 8K. Chemistry without acidosis. Magnesium 1.7 with repletion provided. LFTs unremarkable. Troponin 0.065, nonspecific and likely related to the patient's symptomatic anemia. COVID-19 RNA, NAAT was negative. Patient was consented for blood products and ordered for 3 units of PRBCs with 2 units to transfuse immediately. Patient may also require platelets potentially but will defer additional transfusion to admitting team. Case was discussed with Dr. Escalante, [facility] hospitalist, who will evaluate the patient for admission. Triage Nursing notes reviewed and agree them. Prior medical records reviewed Vital Signs: reviewed and remarkable for no significant abnormalities Differential diagnosis: Infection, dehydration, metabolic abnormality, hypo/hyperglycemia, electrolyte disturbance, anemia, hypoxia, cardiac sources, intracerebral event, toxicologic, neurologic, as well as other pathologies. ER treatment provided: See below. Diagnostics interpreted by me: ECG: Normal sinus rhythm, 97 bpm, no ectopy, nonspecific T wave abnormality, no overt ST elevation or depression, QTC 439, QRS 70. Cardiac Monitoring: An order for continuous cardiac monitoring was placed and demonstrated Normal sinus rhythm, 97 bpm, no ectopy. Laboratory studies: See below Imaging studies: XR chest 1V portable CLINICAL HISTORY: Atypical chest pain COMPARISON STUDY: No previous studies for comparison. FINDINGS: The heart is mildly enlarged. There is a left subclavian A-Port catheter. There is mild pulmonary vascular congestion. There is a large hiatal hernia. Both hemidiaphragms appeared obscured. This could indicate small subpulmonic pleural effusions or basilar atelectasis/consolidation IMPRESSION: 1. Cardiomegaly and suspected mild pulmonary vascular congestion/fluid overload 2. Both hemidiaphragms are obscured. This could indicate small subpulmonic pleural effusions or basilar atelectasis/consolidation. Clinical and radiographic follow-up is recommended ACT 112: Negative or not required by law. Consultation(s): Case was discussed with Dr. Escalante, [facility] hospitalist, who will evaluate the patient for admission. HPI: The patient is a pleasant 59-year-old woman with a past medical history of hypertension, diastolic dysfunction, GERD who presents emerge department referred from her doctor's office for outpatient blood work showing anemia with hemoglobin of 4.8 in the setting of undergoing chemotherapy for ovarian cancer. She reports feeling generalized weakness and easily winded with mild exertion. Has any fevers, chills, cough, congestion, nausea vomiting diarrhea, urinary symptoms. She is agreeable with recommendation for admission given her significant anemia. ROS: See above HPI for pertinent positives & negatives. A total of 10 systems reviewed and were otherwise negative. PAST MEDICAL HISTORY:See Below PAST SURGICAL HISTORY:See Below FAMILY HISTORY:See Below SOCIAL HISTORY:See Below HOME MEDICATIONS:See Below ALLERGIES:See Below VITALS:See Below PHYSICAL EXAMINATION: GENERAL: Awake, alert, fatigued-appearing, in no distress HENT: Normocephalic, atraumatic. Oropharynx with dry mucous membranes and otherwise unremarkable. EYES: Normal conjunctiva. Sclera non-icteric. NECK: Supple. No nuchal rigidity. FROM. No JVD. RESPIRATORY: Clear to auscultation. CARDIAC: Regular rate, normal rhythm. Extremities warm and well perfused. Pulses equal. ABDOMEN: Soft, non-distended. No tenderness to palpation. No rebound or guarding. No masses. RECTAL: Deferred. MUSCULOSKELETAL: Chest examination reveals no tenderness. The back is symmetrical on inspection without obvious abnormality. There is no CVA tenderness to palpation. No joint edema. LOWER EXTREMITIES: Calves are equal size bilaterally and non-tender. No edema. No discoloration. NEURO: Normal sensorium. No sensory or motor deficits noted. SKIN: Moderate pallor. No rash or jaundice noted. ED COURSE: Critical Care: I have personally spent greater than 45 minutes of critical care time in the direct management of this patient. This includes bedside care, interpretation of diagnostic studies, and testing, discussion with consultants, patient, and family members, and other required patient management activities. This 45 minutes is in excess of all separately billable procedures. Librado Washington MD Past Med/Surg History Medical History Back pain Cancer OVARIAN CANCER>CHEMO > GETS HALF HR TREATMENTS Q 2 WEEKS @ [facility] Cancer related pain Hiatal hernia MODERATE TO LARGE PER CHEST CT Left ventricular hypertrophy Malignant hyperthermia Nephrolithiasis Osteoarthritis Ovarian cancer Ovarian mass Seasonal allergies Snoring "NO SLEEP STUDY" PER RECORDS Surgical History H/O tympanomastoidectomy History of bilateral tubal ligation History of colonoscopy History of cystoscopy KIDNEY STONE EXTRACTION WITH STENT PLACEMENT History of difficult intubation Right tympanomastoidectomy = 11/26/17= Grade 2 view with glidescope #3, ETT 7.5 at [facility] PT UNAWARE OF THIS History of dilatation and curettage D&C, HYSTEROSCOPY= 04/29/18= LMA#4 AT [facility] History of ear surgery RT/LEFT EAR SURGERIES History of exploratory laparotomy History of myringotomy History of open reduction and internal fixation (ORIF) procedure Right arm History of total abdominal hysterectomy and bilateral salpingo-oophorectomy History of vascular access device A PORT PLACEMENT>LEFT INTACT CURRENTLY S/P exploratory laparotomy Tumor BILAT EAR TUMOR REMOVAL Family History Unknown No problems noted. Denies family history of Ovarian cancer Prostate cancer Myocardial infarction Breast cancer Colorectal cancer Social History Smoking Status: Former smoker Second Hand Exposure: Yes; Do You Dip or Chew Tobacco: No; Tobacco Cessation Education Requested by Patient: No Hx Alcohol Use: No Hx Substance Use: No Preferred Language: Lao Communication Ability: Effective Visual Impairment: No Limitations Project Control Analyst Required: No Beliefs That Will Affect Care: None Current Living Situation: Significant Other Current Living Situation Comment: [facility] Other Information That Helps Us Care for You: No Feels Safe at Home: Yes Safety Concerns: Feels Safe At This Time Assistive Devices: Glasses Allergies Allergies Allergy/AdvReac Type Severity Reaction Status Date / Time desflurane Allergy Severe MALIGNANT Verified 10/10/20 14:14 HYPERTHERMIA adhesive Allergy Mild SKIN Verified 10/10/20 14:14 IRRITATION WITH EKG STICKIES codeine AdvReac Mild headache/na Verified 10/10/20 14:14 [From Tylenol-Codeine] usea Home Meds Home Medications Medication Instructions Recorded Confirmed fexofenadine [Nessa Allergy] 180 mg PO PM 08/07/19 10/10/20 losartan 100 mg PO PM 10/10/20 10/10/20 oxycodone-acetaminophen 1 tab PO DIRECTED PRN 10/10/20 10/10/20 Previous Rx's Medication Instructions Recorded ferrous sulfate 325 mg (65 mg 325 mg PO PM #30 tab 01/22/20 iron) tablet metoprolol succinate 100 mg 100 mg PO DAILY #30 tab 04/23/20 tablet,extended release 24 hr chlorthalidone 25 mg tablet 25 mg PO PM #30 tab 06/13/20 loratadine 10 mg tablet 10 mg PO DAILY PRN #30 tab 08/20/20 escitalopram oxalate 20 mg tablet 20 mg PO DAILY #30 tab 08/29/20 lorazepam 0.5 mg tablet 0.5 mg PO BID PRN #20 tab 08/29/20 pantoprazole 40 mg tablet,delayed 40 mg PO DAILY #30 tab 09/27/20 release Results & Data (ED) Vital Signs Vital Signs - 24 hr 10/10/20 13:21 10/10/20 13:31 10/10/20 13:55 Temperature 36.9 C Temperature Source Oral Pulse Rate 111 H 93 H Pulse Rate from SpO2 Sensor 93 H Respiratory Rate 30 H 23 Respiratory Effort / Characteristics Labored Respiratory Depth Shallow Shallow Respiratory Pattern Tachypnea Tachypnea Blood Pressure 132/78 132/113 H Blood Pressure Mean 96 119 Pulse Oximetry 100 100 Oxygen Delivery Method Room Air Room Air Sepsis Recent Fever Within 48 Hours No Sepsis New/Unexplained Change in Mental Status No Sepsis Action Taken by Nursing No Action Required 10/10/20 14:00 10/10/20 14:11 10/10/20 14:30 Temperature Temperature Source Pulse Rate 96 H 89 Pulse Rate from SpO2 Sensor 96 H 89 Respiratory Rate 17 22 Respiratory Effort / Characteristics Respiratory Depth Respiratory Pattern Blood Pressure 139/91 141/91 H Blood Pressure Mean 107 107 Pulse Oximetry 100 98 100 Oxygen Delivery Method Room Air Sepsis Recent Fever Within 48 Hours Sepsis New/Unexplained Change in Mental Status Sepsis Action Taken by Nursing 10/10/20 15:00 10/10/20 15:30 Temperature Temperature Source Pulse Rate 89 85 Pulse Rate from SpO2 Sensor 89 85 Respiratory Rate Respiratory Effort / Characteristics Respiratory Depth Respiratory Pattern Blood Pressure 149/80 H 142/88 H Blood Pressure Mean 103 106 Pulse Oximetry 99 100 Oxygen Delivery Method Sepsis Recent Fever Within 48 Hours Sepsis New/Unexplained Change in Mental Status Sepsis Action Taken by Nursing Laboratory Data Attestation: I reviewed the patient's lab results. Result diagrams: 10/10/20 13:49 10/10/20 13:49 Lab Results 10/10/20 10/10/20 10/10/20 Range/Units 13:49 13:49 13:49 WBC 1.59 L (4.8-10.8) K/uL RBC 1.50 L (4.2-5.4) M/uL Hgb 5.1 L* (12.0-16.0) g/dL Hct 14.8 L* (37-47) % MCV 98.7 (80-100) fL MCH 34.0 (25-34) pg MCHC 34.5 (32-36) g/dL RDW Std Deviation 55.4 H (36.4-46.3) fL RDW Coeff of Camilo 15.6 H (11.5-14.5) % Plt Count 8 L* (130-400) K/uL MPV 11.6 H (7.4-10.4) fL Immature Gran % (Auto) 0.0 % Neut % (Auto) 55.4 % Lymph % (Auto) 39.0 % [place] % (Auto) 3.1 % Eos % (Auto) 1.9 % Baso % (Auto) 0.6 % Reticulocyte % (Auto) < 0.5 L (0.5-2.0) % Neut # (Auto) 0.88 L* (1.4-6.5) K/uL Lymph # (Auto) 0.62 L (1.2-3.4) K/uL [place] # (Auto) 0.05 L (0.11-0.59) K/uL Eos # (Auto) 0.03 (0-0.5) K/uL Baso # (Auto) 0.01 (0-0.2) K/uL Reticulocyte # < 0.02 L (0.02-0.10) 10^6/uL Immature Gran # (Auto) 0.00 (0.00-0.02) K/uL Platelet Estimate SIGNIFIC DECREASED (Normal) Tear Drop Cells 1+ PT 10.9 (9.0-12.0) Seconds INR 1.1 (0.9-1.1) APTT 22.5 (21.0-31.0) Seconds PTT Ratio 0.9 Sodium 144 (136-145) mmol/L Potassium 3.8 (3.5-5.1) mmol/L Chloride 115 H (98-107) mmol/L Carbon Dioxide 21 (21-32) mmol/L Anion Gap 8.0 (3-11) BUN 34 H (7-18) mg/dl Creatinine 1.09 (0.6-1.2) mg/dl Est Cr Clr Drug Dosing 60.0 ml/min Est GFR ( Amer) 64.3 Est GFR (Non-Af Amer) 55.5 BUN/Creatinine Ratio 31.3 H (10-20) Glucose 138 H (70-99) mg/dl Calcium 9.0 (8.5-10.1) mg/dl Phosphorus 3.7 (2.5-4.9) mg/dl Magnesium 1.7 L (1.8-2.4) mg/dl Iron (35-150) mcg/dl Transferrin (200-360) mg/dl Transferrin % Sat (15-50) % Ferritin (8-388) ng/ml Total Bilirubin 0.5 (0.2-1) mg/dl Direct Bilirubin 0.2 (0-0.2) mg/dl AST 25 (15-37) U/L ALT 25 (12-78) U/L Alkaline Phosphatase 115 (45-117) U/L Troponin I 0.065 H* (0-0.045) ng/ml Total Protein 6.2 L (6.4-8.2) gm/dl Albumin 3.1 L (3.4-5.0) gm/dl Globulin 3.1 (2.5-4.0) gm/dl Albumin/Globulin Ratio 1.0 (0.9-2) Lipase 57 L (73-393) U/L COVID-19 Eval Order SARS-CoV-2, RNA, NAAT (NEGATIVE) Blood Type Blood Type Recheck Antibody Screen Crossmatch 10/10/20 10/10/20 10/10/20 Range/Units 13:49 13:49 13:50 WBC (4.8-10.8) K/uL RBC (4.2-5.4) M/uL Hgb (12.0-16.0) g/dL Hct (37-47) % MCV (80-100) fL MCH (25-34) pg MCHC (32-36) g/dL RDW Std Deviation (36.4-46.3) fL RDW Coeff of Camilo (11.5-14.5) % Plt Count (130-400) K/uL MPV (7.4-10.4) fL Immature Gran % (Auto) % Neut % (Auto) % Lymph % (Auto) % [place] % (Auto) % Eos % (Auto) % Baso % (Auto) % Reticulocyte % (Auto) (0.5-2.0) % Neut # (Auto) (1.4-6.5) K/uL Lymph # (Auto) (1.2-3.4) K/uL [place] # (Auto) (0.11-0.59) K/uL Eos # (Auto) (0-0.5) K/uL Baso # (Auto) (0-0.2) K/uL Reticulocyte # (0.02-0.10) 10^6/uL Immature Gran # (Auto) (0.00-0.02) K/uL Platelet Estimate (Normal) Tear Drop Cells PT (9.0-12.0) Seconds INR (0.9-1.1) APTT (21.0-31.0) Seconds PTT Ratio Sodium (136-145) mmol/L Potassium (3.5-5.1) mmol/L Chloride (98-107) mmol/L Carbon Dioxide (21-32) mmol/L Anion Gap (3-11) BUN (7-18) mg/dl Creatinine (0.6-1.2) mg/dl Est Cr Clr Drug Dosing ml/min Est GFR ( Amer) Est GFR (Non-Af Amer) BUN/Creatinine Ratio (10-20) Glucose (70-99) mg/dl Calcium (8.5-10.1) mg/dl Phosphorus (2.5-4.9) mg/dl Magnesium (1.8-2.4) mg/dl Iron 284 H (35-150) mcg/dl Transferrin 210 (200-360) mg/dl Transferrin % Sat 96 H (15-50) % Ferritin 1182.2 H Cancelled (8-388) ng/ml Total Bilirubin (0.2-1) mg/dl Direct Bilirubin (0-0.2) mg/dl AST (15-37) U/L ALT (12-78) U/L Alkaline Phosphatase (45-117) U/L Troponin I (0-0.045) ng/ml Total Protein (6.4-8.2) gm/dl Albumin (3.4-5.0) gm/dl Globulin (2.5-4.0) gm/dl Albumin/Globulin Ratio (0.9-2) Lipase (73-393) U/L COVID-19 Eval Order SARS-CoV-2, RNA, NAAT (NEGATIVE) Blood Type A Positive Blood Type Recheck Antibody Screen NEGATIVE Crossmatch See Detail 10/10/20 10/10/20 10/10/20 Range/Units 14:09 14:09 14:28 WBC (4.8-10.8) K/uL RBC (4.2-5.4) M/uL Hgb (12.0-16.0) g/dL Hct (37-47) % MCV (80-100) fL MCH (25-34) pg MCHC (32-36) g/dL RDW Std Deviation (36.4-46.3) fL RDW Coeff of Camilo (11.5-14.5) % Plt Count (130-400) K/uL MPV (7.4-10.4) fL Immature Gran % (Auto) % Neut % (Auto) % Lymph % (Auto) % [place] % (Auto) % Eos % (Auto) % Baso % (Auto) % Reticulocyte % (Auto) (0.5-2.0) % Neut # (Auto) (1.4-6.5) K/uL Lymph # (Auto) (1.2-3.4) K/uL [place] # (Auto) (0.11-0.59) K/uL Eos # (Auto) (0-0.5) K/uL Baso # (Auto) (0-0.2) K/uL Reticulocyte # (0.02-0.10) 10^6/uL Immature Gran # (Auto) (0.00-0.02) K/uL Platelet Estimate (Normal) Tear Drop Cells PT (9.0-12.0) Seconds INR (0.9-1.1) APTT (21.0-31.0) Seconds PTT Ratio Sodium (136-145) mmol/L Potassium (3.5-5.1) mmol/L Chloride (98-107) mmol/L Carbon Dioxide (21-32) mmol/L Anion Gap (3-11) BUN (7-18) mg/dl Creatinine (0.6-1.2) mg/dl Est Cr Clr Drug Dosing ml/min Est GFR ( Amer) Est GFR (Non-Af Amer) BUN/Creatinine Ratio (10-20) Glucose (70-99) mg/dl Calcium (8.5-10.1) mg/dl Phosphorus (2.5-4.9) mg/dl Magnesium (1.8-2.4) mg/dl Iron (35-150) mcg/dl Transferrin (200-360) mg/dl Transferrin % Sat (15-50) % Ferritin (8-388) ng/ml Total Bilirubin (0.2-1) mg/dl Direct Bilirubin (0-0.2) mg/dl AST (15-37) U/L ALT (12-78) U/L Alkaline Phosphatase (45-117) U/L Troponin I (0-0.045) ng/ml Total Protein (6.4-8.2) gm/dl Albumin (3.4-5.0) gm/dl Globulin (2.5-4.0) gm/dl Albumin/Globulin Ratio (0.9-2) Lipase (73-393) U/L COVID-19 Eval Order Covid19 IDNow [email or web address] SARS-CoV-2, RNA, NAAT NEGATIVE (NEGATIVE) Blood Type Blood Type Recheck A Positive Antibody Screen Crossmatch Administered Medications Fexofenadine HCl (Fexofenadine Hcl 180 Mg Tab) 180 mg PO PM ALVIN Stop: 11/09/20 20:59 Last Admin: 10/10/20 20:07 Dose: 180 mg Documented by: [id number] Losartan Potassium (Losartan Potassium 50 Mg Tab) 100 mg PO PM ALVIN Stop: 11/09/20 20:59 Last Admin: 10/10/20 20:07 Dose: 100 mg Documented by: [id number] Discontinued Medications Filgrastim (Filgrastim 480 Mcg/1.6 Ml Vial) 480 mcg SC ONE ONE Stop: 10/10/20 17:16 Last Admin: 10/10/20 18:30 Dose: 480 mcg Documented by: [id number] Magnesium Sulfate/Dextrose (Magnesium Sulfate / D5w) 1 gm in 100 mls @ 100 mls/hr IV NOW STA Stop: 10/10/20 15:30 Last Infusion: 10/10/20 16:46 Dose: 0 mls/hr Documented by: [id number] Admin: 10/10/20 14:58 Dose: 100 mls/hr Documented by: [id number] Discharge Plan Visit Data Chief Complaint: Abnormal Labs/Diagnostic Testing Stated Complaint: BLOOD WORK TRANSFUSION ?? PT NOT SURE DOC REF ED Provider: Librado Washington Discharge Problem: Symptomatic anemia, Ovarian cancer, Pancytopenia due to chemotherapy, Elevated troponin I level, Neutropenia, Thrombocytopenia Patient Disposition: Admitted As Inpatient Discharge Instructions Interventions: ED Discharge Assessment Last Done: 10/10/20 17:08 Discharge Problem: Ovarian cancer Qualifiers: Laterality: unspecified laterality Qualified Code(s): C56.9 - Malignant neoplasm of unspecified ovary Neutropenia Qualifiers: Neutropenia type: unspecified Qualified Code(s): D70.9 - Neutropenia, unspecified
[2020-10-10 14:14] LABS: INR 1.1 (0.9-1.1); Partial Thromboplastin Ratio 0.9; Partial Thromboplastin Time 22.5 Seconds (21.0-31.0); Prothrombin Time 10.9 Seconds (9.0-12.0)
[2020-10-10 14:17] LABS: Albumin Level 3.1 gm/dl (3.4-5.0); BUN Creatinine Ratio 31.3 (10-20); Bilirubin Direct 0.2 mg/dl (0-0.2); Est GFR (African American) 64.3; Est GFR (Non-African American) 55.5; Magnesium 1.7 mg/dl (1.8-2.4); Potassium 3.8 mmol/L (3.5-5.1)
[2020-10-10 14:22] LABS: Hematocrit (blood only) 14.8 % (37-47); Hemoglobin 5.1 g/dL (12.0-16.0); Mean Corpuscular Hgb Conc 34.5 g/dL (32-36); Mean Corpuscular Volume 98.7 fL (80-100); Mean Platelet Volume 11.6 fL (7.4-10.4); Platelet Count 8 K/uL (130-400); RDW Coefficient of Variation 15.6 % (11.5-14.5); RDW Standard Deviation 55.4 fL (36.4-46.3); White Blood Count 1.59 K/uL (4.8-10.8)
[2020-10-10 14:23] LABS: Basophils # (auto) 0.01 K/uL (0-0.2); Basophils % (auto) 0.6 %; Eosinophils # (auto) 0.03 K/uL (0-0.5); Eosinophils % (auto) 1.9 %; Lymphocytes # (auto) 0.62 K/uL (1.2-3.4); Monocytes # (auto) 0.05 K/uL (0.11-0.59); Monocytes % (auto) 3.1 %; Neutrophils # (auto) 0.88 K/uL (1.4-6.5); Neutrophils % (auto) 55.4 %; Platelet Estimate SIGNIFIC DECREASED (Normal); Tear Drop Cells 1+
[2020-10-10 14:26] LABS: Bilirubin,Total 0.5 mg/dl (0.2-1); Globulin 3.1 gm/dl (2.5-4.0); Phosphorus 3.7 mg/dl (2.5-4.9); Total Protein 6.2 gm/dl (6.4-8.2); Troponin I 0.065 ng/ml (0-0.045)
[2020-10-10] MEDS ORDERED: MAGNESIUM SULFATE / D5W 1 GM/100 ML BAG IV STA (14:31)
--- NOTE | 2020-10-10 15:08 | XRay Report ---
XR chest 1V portable CLINICAL HISTORY: Atypical chest pain COMPARISON STUDY: No previous studies for comparison. FINDINGS: The heart is mildly enlarged. There is a left subclavian A-Port catheter. There is mild pul monary vascular congestion. There is a large hiatal hernia. Both hemidiaphragms appeared obscured. Th is could indicate small subpulmonic pleural effusions or basilar atelectasis/consolidation IMPRESSION: 1. Cardiomegaly and suspected mild pulmonary vascular congestion/fluid overload 2. Both hemidiaphragms are obscured. This could indicate small subpulmonic pleural effusions or basil ar atelectasis/consolidation. Clinical and radiographic follow-up is recommended ACT 112: Negative or not required by law. Electronically signed by: Derek Carey M.D. 10/10/2020 3:06 PM
[2020-10-10 15:50] LABS: Reticulocyte % < 0.5 % (0.5-2.0); Reticulocytes # < 0.02 10^6/uL (0.02-0.10)
[2020-10-10 16:01] LABS: Ferritin 1182.2 ng/ml (8-388)
--- NOTE | 2020-10-10 16:30 | History & Physical Report ---
Date of Service October 10, 2020 Assessment & Plan (1) Anemia: Ms. Crowley is a 59-year-old female with a history of hypertension, diastolic dysfunction, GERD, recurrent ovarian cancer with peritoneal carcinomatosis who presents acutely today to [facility] ER with Chemotherapy Induced Anemia/Pancytopenia -- outpatient hemoglobin of 4.8 g/dl, platelet count of 8000, and a WBC # 1.59. Patient was started on salvage chemotherapy with Gemcitabine and Carboplatin on 07/29/2020. Her complaints include generalized weakness, dyspnea with minimal exertion, and a mild heaviness in her chest with activity. She has had these symptoms over the past several days. She offers no other complaints. She denies any fevers, chills, cough, sputum production, upper respiratory symptoms, GI upset, poor appetite, nausea, vomiting, diarrhea, or any urinary symptoms. Patient denies any melena, hematochezia, or any hematuria. She has not had any hemoptysis or hematemesis. No excessive bruising. No spontaneous bruising. Despite her pancytopenia and severe anemia, she appears hemodynamically stable. Recommend the following: -- Full admission. -- RBC Indices show a normochromic, normocytic anemia. -- Iron and serum ferritin levels are high. -- Type and cross match packed RBC's. -- Transfuse 2 units of PRBC's now. -- Platelets are 8000. -- Transfuse 1 unit of platelets now. -- Neutropenic with neutrophil # of 0.88 K/uL. -- Neupogen has been ordered. -- Monitor daily CBC with diff. (2) Pancytopenia due to chemotherapy: -- As outlined above. -- Contacted [facility] regarding platelets and Neupogen. (3) Ovarian cancer: -- Followed [facility]. Walker [facility]. -- On Gemcitabine and Carboplatin since 07/29/2020. (4) Hypertension: -- BP is currently elevated at 167/88. -- Continue Chlorthalidone 25 mg daily. -- Continue Qhmscsup870 mg daily. -- Continue Metoprolol Succinate ER 100 mg daily. (5) Elevated troponin I level: -- This is not an ACS. -- Likely demand ischemia secondary to profound anemia. -- No further work-up unless patient were to develop anginal symptoms. History of Present Illness Primary Care Provider: STEPHEN Reardon Ms. Crowley is a 59-year-old female with a history of hypertension, diastolic dysfunction, GERD, recurrent ovarian cancer with peritoneal carcinomatosis who presents acutely today to [facility] ER with Severe Anemia/ Pancytopenia -- outpatient hemoglobin of 4.8 g/dl, platelet count of 8000, and a WBC # 1.59. Patient was started on salvage chemotherapy with Gemcitabine and Carboplatin on 07/29/2020. Patient complains of generalized weakness, dyspnea with minimal exertion, and a mild heaviness in her chest with activity. She has had these symptoms over the past several days. She offers no other complaints. She denies any fevers, chills, cough, sputum production, upper respiratory symptoms, GI upset, poor appetite, nausea, vomiting, diarrhea, or any urinary symptoms. Patient denies any melena, hematochezia, or any hematuria. She has not had any hemoptysis or hematemesis. No excessive bruising. No spontaneous bruising. Her blood pressure is acceptable. Resting heart rate 90 beats per minute, and her respiratory rate is 20. Allergies Allergy/AdvReac Type Severity Reaction Status Date / Time desflurane Allergy Severe MALIGNANT Verified 10/10/20 14:14 HYPERTHERMIA adhesive Allergy Mild SKIN Verified 10/10/20 14:14 IRRITATION WITH EKG STICKIES codeine AdvReac Mild headache/na Verified 10/10/20 14:14 [From Tylenol-Codeine] usea Home Medications Medication Instructions Recorded Confirmed Type fexofenadine [Nessa Allergy] 180 mg PO PM 08/07/19 10/10/20 History ferrous sulfate 325 mg (65 mg 325 mg PO PM #30 tab 01/22/20 10/10/20 Rx iron) tablet metoprolol succinate 100 mg 100 mg PO DAILY #30 tab 04/23/20 10/10/20 Rx tablet,extended release 24 hr chlorthalidone 25 mg tablet 25 mg PO PM #30 tab 06/13/20 10/10/20 Rx loratadine 10 mg tablet 10 mg PO DAILY PRN #30 tab 08/20/20 10/10/20 Rx escitalopram oxalate 20 mg tablet 20 mg PO DAILY #30 tab 08/29/20 10/10/20 Rx lorazepam 0.5 mg tablet 0.5 mg PO BID PRN #20 tab 08/29/20 10/10/20 Rx pantoprazole 40 mg tablet,delayed 40 mg PO DAILY #30 tab 09/27/20 10/10/20 Rx release losartan 100 mg PO PM 10/10/20 10/10/20 History oxycodone-acetaminophen 1 tab PO DIRECTED PRN 10/10/20 10/10/20 History Past Med/Surg History Medical History Back pain Cancer OVARIAN CANCER>CHEMO > GETS HALF HR TREATMENTS Q 2 WEEKS @ [facility] Cancer related pain Hiatal hernia MODERATE TO LARGE PER CHEST CT Left ventricular hypertrophy Malignant hyperthermia Nephrolithiasis Osteoarthritis Ovarian cancer Ovarian mass Seasonal allergies Snoring "NO SLEEP STUDY" PER RECORDS Surgical History H/O tympanomastoidectomy History of bilateral tubal ligation History of colonoscopy History of cystoscopy KIDNEY STONE EXTRACTION WITH STENT PLACEMENT History of difficult intubation Right tympanomastoidectomy = 11/26/17= Grade 2 view with glidescope #3, ETT 7.5 at [facility] PT UNAWARE OF THIS History of dilatation and curettage D&C, HYSTEROSCOPY= 04/29/18= LMA#4 AT [facility] History of ear surgery RT/LEFT EAR SURGERIES History of exploratory laparotomy History of myringotomy History of open reduction and internal fixation (ORIF) procedure Right arm History of total abdominal hysterectomy and bilateral salpingo-oophorectomy History of vascular access device A PORT PLACEMENT>LEFT INTACT CURRENTLY S/P exploratory laparotomy Tumor BILAT EAR TUMOR REMOVAL Family History Unknown No problems noted. Denies family history of Ovarian cancer Prostate cancer Myocardial infarction Breast cancer Colorectal cancer Social History Smoking Status: Former smoker Second Hand Exposure: Yes; Do You Dip or Chew Tobacco: No; Tobacco Cessation Education Requested by Patient: No Hx Alcohol Use: No Hx Substance Use: No Preferred Language: Kinyarwanda Communication Ability: Effective Visual Impairment: No Limitations Clinical Informatics Manager Required: No Beliefs That Will Affect Care: None Current Living Situation: Significant Other Current Living Situation Comment: [place] Other Information That Helps Us Care for You: No Feels Safe at Home: Yes Safety Concerns: Feels Safe At This Time Assistive Devices: Glasses Review of Systems Review of Systems: All systems reviewed & are unremarkable except as noted in Subjective Physical Exam Physical Exam: GENERAL: Patient has a pale complexion, no acute distress.. HEENT: Head is atraumatic, normocephalic. EOM's intact. Facies symmetric. No perioral cyanosis. NECK: No JVD. JVP is not elevated. Carotid upstrokes are + 2 bilaterally. No bruits are noted. CHEST/LUNGS: Clear to auscultation throughout all lung holman. No wheezes, rales, or crackles. CVS: S1 and S2 are regular without obvious murmurs, gallops, or rubs. PMI is nonpalpable. No lifts, heaves, or thrills. No abdominal aortic or renal bruits. ABDOMINAL EXAM: Bowel sounds are present. No masses or tenderness. EXTREMITIES: No clubbing or cyanosis. No edema. Intact posterior tibial and radial pulses bilaterally. NEUROLOGIC EXAM: Patient is awake, alert, and oriented. Hard of hearing. Pleasant and cooperative. Answers questions appropriately. Speech is clear. Normal movement in all 4 extremities. Gait pattern was not assessed. LEAD SLOT TECHNICIAN: -- NSR to sinus tachycardia. Results & Data Results & Data ([facility]) Vital Signs (Past 12 Hours) Vital Signs Temp Pulse Resp BP Pulse Ox 10/10/20 15:00 89 149/80 H 99 10/10/20 14:30 89 22 141/91 H 100 10/10/20 14:11 98 10/10/20 14:00 96 H 17 139/91 100 10/10/20 13:31 93 H 23 132/113 H 100 10/10/20 13:21 36.9 C 111 H 30 H 132/78 100 Laboratory Results Laboratory Results - last 24 hr 10/10/20 10/10/20 10/10/20 13:49 13:49 13:49 WBC 1.59 L RBC 1.50 L Hgb 5.1 L* Hct 14.8 L* MCV 98.7 MCH 34.0 MCHC 34.5 RDW Std Deviation 55.4 H RDW Coeff of Camilo 15.6 H Plt Count 8 L* MPV 11.6 H Immature Gran % (Auto) 0.0 Neut % (Auto) 55.4 Lymph % (Auto) 39.0 [place] % (Auto) 3.1 Eos % (Auto) 1.9 Baso % (Auto) 0.6 Reticulocyte % (Auto) < 0.5 L Neut # (Auto) 0.88 L* Lymph # (Auto) 0.62 L [place] # (Auto) 0.05 L Eos # (Auto) 0.03 Baso # (Auto) 0.01 Reticulocyte # < 0.02 L Immature Gran # (Auto) 0.00 Platelet Estimate SIGNIFIC DECREASED Tear Drop Cells 1+ PT 10.9 INR 1.1 APTT 22.5 PTT Ratio 0.9 Sodium 144 Potassium 3.8 Chloride 115 H Carbon Dioxide 21 Anion Gap 8.0 BUN 34 H Creatinine 1.09 Est Cr Clr Drug Dosing 60.0 Est GFR ( Amer) 64.3 Est GFR (Non-Af Amer) 55.5 BUN/Creatinine Ratio 31.3 H Glucose 138 H Calcium 9.0 Phosphorus 3.7 Magnesium 1.7 L Iron Transferrin Transferrin % Sat Ferritin Total Bilirubin 0.5 Direct Bilirubin 0.2 AST 25 ALT 25 Alkaline Phosphatase 115 Troponin I 0.065 H* Total Protein 6.2 L Albumin 3.1 L Globulin 3.1 Albumin/Globulin Ratio 1.0 Lipase 57 L COVID-19 Eval Order SARS-CoV-2, RNA, NAAT Blood Type Blood Type Recheck Antibody Screen Crossmatch 10/10/20 10/10/20 10/10/20 13:49 13:49 13:50 WBC RBC Hgb Hct MCV MCH MCHC RDW Std Deviation RDW Coeff of Camilo Plt Count MPV Immature Gran % (Auto) Neut % (Auto) Lymph % (Auto) [place] % (Auto) Eos % (Auto) Baso % (Auto) Reticulocyte % (Auto) Neut # (Auto) Lymph # (Auto) [place] # (Auto) Eos # (Auto) Baso # (Auto) Reticulocyte # Immature Gran # (Auto) Platelet Estimate Tear Drop Cells PT INR APTT PTT Ratio Sodium Potassium Chloride Carbon Dioxide Anion Gap BUN Creatinine Est Cr Clr Drug Dosing Est GFR ( Amer) Est GFR (Non-Af Amer) BUN/Creatinine Ratio Glucose Calcium Phosphorus Magnesium Iron 284 H Transferrin 210 Transferrin % Sat 96 H Ferritin 1182.2 H Cancelled Total Bilirubin Direct Bilirubin AST ALT Alkaline Phosphatase Troponin I Total Protein Albumin Globulin Albumin/Globulin Ratio Lipase COVID-19 Eval Order SARS-CoV-2, RNA, NAAT Blood Type A Positive Blood Type Recheck Antibody Screen NEGATIVE Crossmatch See Detail 10/10/20 10/10/20 10/10/20 14:09 14:09 14:28 WBC RBC Hgb Hct MCV MCH MCHC RDW Std Deviation RDW Coeff of Camilo Plt Count MPV Immature Gran % (Auto) Neut % (Auto) Lymph % (Auto) [place] % (Auto) Eos % (Auto) Baso % (Auto) Reticulocyte % (Auto) Neut # (Auto) Lymph # (Auto) [place] # (Auto) Eos # (Auto) Baso # (Auto) Reticulocyte # Immature Gran # (Auto) Platelet Estimate Tear Drop Cells PT INR APTT PTT Ratio Sodium Potassium Chloride Carbon Dioxide Anion Gap BUN Creatinine Est Cr Clr Drug Dosing Est GFR ( Amer) Est GFR (Non-Af Amer) BUN/Creatinine Ratio Glucose Calcium Phosphorus Magnesium Iron Transferrin Transferrin % Sat Ferritin Total Bilirubin Direct Bilirubin AST ALT Alkaline Phosphatase Troponin I Total Protein Albumin Globulin Albumin/Globulin Ratio Lipase COVID-19 Eval [facility] SARS-CoV-2, RNA, NAAT NEGATIVE Blood Type Blood Type Recheck A Positive Antibody Screen Crossmatch Diagnostic Findings CXR 10/10/2020: 1. Cardiomegaly and suspected mild pulmonary vascular congestion/fluid overload 2. Both hemidiaphragms are obscured. This could indicate small subpulmonic pleural effusions or basilar atelectasis/consolidation. 3. Clinical and radiographic follow-up is recommended Code Status & VTE Plan VTE Prophylaxis Plan VTE Prophylaxis will be ordered: Yes Supervising Physician Co-Signing Physician Notes I personally saw and examined the patient. I verified all live points and agree with YASMANY Mc with the following exceptions and/or additions: 59-year-old female undergoing chemotherapy due to ovarian cancer. Referred from oncologist today due to pancytopenia on outpatient labs. Patient is symptomatic with this with shortness of breath and mild heaviness with chest on exertion. Worsening course over the last few days. No nausea, vomiting, change in stools, melena, bright red blood in stool. No hematuria. O/E pale mucous membranes, no acute distress, no respiratory distress at rest, regular rate rhythm with no obvious murmurs, abdomen soft nontender. A/P Antineoplastic induced pancytopenia - discussed with Jessi MITCHELL with [facility] oncology who also discussed with Dr. Walker. Agreed with 2 units of packed red blood cells followed by 1 unit platelets. Neupogen 480mcg subcutaneous ONE. She appears to be hemodynamically stable with this and I do not suspect an acute GI bleed. If repeat Hgb < 7 or Plt < 10 recommend repeat transfusions overnight although will leave it to the discretion of the overnight staff as long as her hemoglobin is improving given high iron saturations and low reticulocyte count would rather schema with Neupogen rather than repeated transfusions. PG Care Time/CCT Total # of Minutes Spent Total Time Spent with Patient: Total time spent is greater than 50% in coordination of care (as documented) at patient's floor/unit and/or counseling patient:50 Coding Level of Care Code 27514 Initial Inpt Care Lvl 3 Diagnoses Anemia D64.9 Pancytopenia due to chemotherapy D61.810 Ovarian cancer C56.9 Hypertension I10 Elevated troponin I level R77.8 Time Spent (min) 65
[2020-10-10] MEDS ORDERED: LORazepam 0.5 MG TAB PO PRN (17:06)
[2020-10-10] MEDS ORDERED: FILGRASTIM 480 MCG/1.6 ML VIAL SC ONE (17:15)
[2020-10-10] MEDS: FEXOFENADINE HCL 180 MG TAB PO SCH (20:07)
[2020-10-10] MEDS: LOSARTAN POTASSIUM 50 MG TAB PO SCH (20:07)
[2020-10-10 20:56] LABS: Folate (Folic Acid) > 20.00 ng/ml (>5.38); Vitamin B12 495 pg/ml (193-986)
[2020-10-11] MEDS ORDERED: ACETAMINOPHEN 325 MG TAB PO ONE (00:35)
[2020-10-11] MEDS: oxyCODONE/ACETAMINOPHEN 5mg/325mg TAB PO PRN ×3 (00:44→20:55)
--- NOTE | 2020-10-11 06:29 | Electrocardiogram Report ---
Test Reason : Blood Pressure : / mmHG Vent. Rate : 097 BPM Atrial Rate : 097 BPM P-R Int : 150 ms QRS Dur : 070 ms QT Int : 346 ms P-R-T Axes : 035 013 169 degrees QTc Int : 439 ms Normal sinus rhythm T wave abnormality, consider lateral ischemia Abnormal ECG When compared with ECG of 12-DEC-2018 11:54, Nonspecific T wave abnormality now evident in Inferior leads T wave inversion now evident in Lateral leads Confirmed by Abel Godinez ([id number]) on 10/11/2020 6:29:04 AM Referred By: REFERRED SELF Confirmed By:Abel Godinez
[2020-10-11 07:34] LABS: BUN Creatinine Ratio 33.8 (10-20); Calcium 8.6 mg/dl (8.5-10.1); Est GFR (Non-African American) 69.1; Potassium 3.8 mmol/L (3.5-5.1)
[2020-10-11 07:57] LABS: Hematocrit (blood only) 19.3 % (37-47); Hemoglobin 6.5 g/dL (12.0-16.0); Mean Corpuscular Hemoglobin 31.6 pg (25-34); Mean Corpuscular Hgb Conc 33.7 g/dL (32-36); Mean Corpuscular Volume 93.7 fL (80-100); Mean Platelet Volume 8.7 fL (7.4-10.4); Platelet Count 14 K/uL (130-400); RDW Coefficient of Variation 16.1 % (11.5-14.5); RDW Standard Deviation 55.1 fL (36.4-46.3); Red Blood Count 2.06 M/uL (4.2-5.4); White Blood Count 3.38 K/uL (4.8-10.8)
[2020-10-11 07:59] LABS: Anisocytosis Present; Basophils # (auto) 0.01 K/uL (0-0.2); Basophils % (auto) 0.3 %; Eosinophils # (auto) 0.04 K/uL (0-0.5); Eosinophils % (auto) 1.2 %; Immature Granulocytes # (auto) 0.02 K/uL (0.00-0.02); Immature Granulocytes % (auto) 0.6 %; Lymphocytes # (auto) 0.83 K/uL (1.2-3.4); Lymphocytes % (auto) 24.6 %; Monocytes # (auto) 0.13 K/uL (0.11-0.59); Monocytes % (auto) 3.8 %; Neutrophils # (auto) 2.35 K/uL (1.4-6.5); Neutrophils % (auto) 69.5 %; Platelet Estimate SIGNIFIC DECREASED (Normal)
[2020-10-11] MEDS: METOPROLOL SUCC 50MG EXT REL TAB PO SCH (08:05)
[2020-10-11] MEDS: PANTOprazole 40 MG TAB PO SCH (08:05)
[2020-10-11] MEDS: ESCITALOPRAM OXALATE 20 MG TAB PO SCH (08:05)
[2020-10-11] MEDS ORDERED: SODIUM CHLORIDE 0.9% 250 ML IV PRN ×2 (09:40→09:41)
--- NOTE | 2020-10-11 09:44 | Hospitalist Progress Note ---
Date of Service October 11, 2020 Assessment & Plan (1) Anemia: anemia due to bone marrow suppression from chemotherapy transfused two units on admission, Hb is 6.5 give two more units today BP is stable, no dyspnea, no light headed sensation repeat H/H in morning, can go home if improved (2) Pancytopenia due to chemotherapy: -- As outlined above. WBC improved with neupogen, no neutropenia plts up to 14k, give two additional units, get above 20k, no bleeding or bruising see above for anemia (3) Ovarian cancer: -- Followed by Dr. Walker with [facility]. -- On Gemcitabine and Carboplatin since 07/29/2020. follow up closely after discharge (4) Hypertension: -- BP remains elevated -- Continue Chlorthalidone 25 mg daily. -- Continue [id number] mg daily. -- Continue Metoprolol Succinate ER 100 mg daily. (5) Elevated troponin I level: -- This is not an ACS. -- Likely demand ischemia secondary to profound anemia. -- No further work-up unless patient were to develop anginal symptoms. Admission and Anticipated Discharge Date Admission Date: October 10, 2020 Subjective patient doing okay, says she ate breakfast, had some nausea at lunch that resolved with Zofran no light headedness, no dyspnea, no syncope with her Hb of 6.5 no bruising or bleeding with her platelets low at 14k so far she has gotten one unit of PRBC and one unit of platelets plan for additional unit of PRBC and platelets this evening no fever/chills/sweats, no chest pain, no diarrhea she thinks she got too much chemo recently, says she got chemo on 09/26 and then again on 09/29 she has never had issues with anemia and low platelets she is hoping to go home, explained that counts are too low, will check in the AM and can likely go home tomorrow Review of Systems Review of Systems: All systems reviewed & are unremarkable except as noted in Subjective Constitutional: no fever, no chills, no sweats, no fatigue and no weakness Cardiovascular: no chest pain and no edema Gastrointestinal: + early satiety and + nausea; no abdominal pain, no vomiting, no constipation and no diarrhea/loose stools Physical Exam Constitutional: WD/WN, vitals as above + obese Neck: trachea midline, no thyromegaly Respiratory: normal respiratory effort, lungs clear to auscultation Cardiovascular: RRR, no murmur, no edema Gastrointestinal (Abdomen): normal bowel sounds, soft, nontender, no hepatosplenomegaly Musculoskeletal: no cyanosis or clubbing, extremities motor strength 5/5 Skin: no rashes, warm and dry Neurologic: patellar DTR's 2+ bilat, sensation intact and PERRL, EOMI, accommodation nl, no face palsy, no dysarthria Psychiatric: A+Ox3, euthymic affect Lymphatic: no cervical or axillary lymphadenopathy Results & Data Results & Data ([facility]) Vital Signs (Past 12 Hours) Vital Signs Temp Pulse Pulse Resp BP BP Pulse Ox 10/11/20 07:21 36.8 C 84 21 143/85 H 94 10/11/20 04:00 36.4 C L 78 18 134/80 93 10/11/20 02:38 36.8 C 87 16 131/79 92 10/11/20 01:51 86 16 127/82 10/11/20 01:21 36.8 C 88 16 125/80 94 10/11/20 00:51 36.7 C 83 18 136/85 96 10/11/20 00:36 36.9 C 88 16 129/82 94 10/11/20 00:16 36.6 C 89 18 135/74 96 10/10/20 22:55 36.7 C 87 18 135/84 97 10/10/20 22:28 36.8 C 88 16 132/83 93 10/10/20 22:27 36.8 C 88 16 132/83 93 10/10/20 22:02 36.7 C 88 16 133/84 94 Laboratory Results Laboratory Results - last 24 hr 10/10/20 10/10/20 10/10/20 13:49 13:49 13:49 WBC 1.59 L RBC 1.50 L Hgb 5.1 L* Hct 14.8 L* MCV 98.7 MCH 34.0 MCHC 34.5 RDW Std Deviation 55.4 H RDW Coeff of Camilo 15.6 H Plt Count 8 L* MPV 11.6 H Immature Gran % (Auto) 0.0 Neut % (Auto) 55.4 Lymph % (Auto) 39.0 [place] % (Auto) 3.1 Eos % (Auto) 1.9 Baso % (Auto) 0.6 Reticulocyte % (Auto) < 0.5 L Neut # (Auto) 0.88 L* Lymph # (Auto) 0.62 L [place] # (Auto) 0.05 L Eos # (Auto) 0.03 Baso # (Auto) 0.01 Reticulocyte # < 0.02 L Immature Gran # (Auto) 0.00 Platelet Estimate SIGNIFIC DECREASED Anisocytosis Tear Drop Cells 1+ PT 10.9 INR 1.1 APTT 22.5 PTT Ratio 0.9 Sodium 144 Potassium 3.8 Chloride 115 H Carbon Dioxide 21 Anion Gap 8.0 BUN 34 H Creatinine 1.09 Est Cr Clr Drug Dosing 60.0 Est GFR ( Amer) 64.3 Est GFR (Non-Af Amer) 55.5 BUN/Creatinine Ratio 31.3 H Glucose 138 H Calcium 9.0 Phosphorus 3.7 Magnesium 1.7 L Iron Transferrin Transferrin % Sat Ferritin Total Bilirubin 0.5 Direct Bilirubin 0.2 AST 25 ALT 25 Alkaline Phosphatase 115 Lactate Dehydrogenase Troponin I 0.065 H* Total Protein 6.2 L Albumin 3.1 L Globulin 3.1 Albumin/Globulin Ratio 1.0 Lipase 57 L Vitamin B12 Folate COVID-19 Eval Order SARS-CoV-2, RNA, NAAT Blood Type Blood Type Recheck Antibody Screen Crossmatch 10/10/20 10/10/20 10/10/20 13:49 13:49 13:50 WBC RBC Hgb Hct MCV MCH MCHC RDW Std Deviation RDW Coeff of Camilo Plt Count MPV Immature Gran % (Auto) Neut % (Auto) Lymph % (Auto) [place] % (Auto) Eos % (Auto) Baso % (Auto) Reticulocyte % (Auto) Neut # (Auto) Lymph # (Auto) [place] # (Auto) Eos # (Auto) Baso # (Auto) Reticulocyte # Immature Gran # (Auto) Platelet Estimate Anisocytosis Tear Drop Cells PT INR APTT PTT Ratio Sodium Potassium Chloride Carbon Dioxide Anion Gap BUN Creatinine Est Cr Clr Drug Dosing Est GFR ( Amer) Est GFR (Non-Af Amer) BUN/Creatinine Ratio Glucose Calcium Phosphorus Magnesium Iron 284 H Transferrin 210 Transferrin % Sat 96 H Ferritin 1182.2 H Cancelled Total Bilirubin Direct Bilirubin AST ALT Alkaline Phosphatase Lactate Dehydrogenase Troponin I Total Protein Albumin Globulin Albumin/Globulin Ratio Lipase Vitamin B12 Folate COVID-19 Eval Order SARS-CoV-2, RNA, NAAT Blood Type A Positive Blood Type Recheck Antibody Screen NEGATIVE Crossmatch See Detail 10/10/20 10/10/20 10/10/20 14:09 14:09 14:28 WBC RBC Hgb Hct MCV MCH MCHC RDW Std Deviation RDW Coeff of Camilo Plt Count MPV Immature Gran % (Auto) Neut % (Auto) Lymph % (Auto) [place] % (Auto) Eos % (Auto) Baso % (Auto) Reticulocyte % (Auto) Neut # (Auto) Lymph # (Auto) [place] # (Auto) Eos # (Auto) Baso # (Auto) Reticulocyte # Immature Gran # (Auto) Platelet Estimate Anisocytosis Tear Drop Cells PT INR APTT PTT Ratio Sodium Potassium Chloride Carbon Dioxide Anion Gap BUN Creatinine Est Cr Clr Drug Dosing Est GFR ( Amer) Est GFR (Non-Af Amer) BUN/Creatinine Ratio Glucose Calcium Phosphorus Magnesium Iron Transferrin Transferrin % Sat Ferritin Total Bilirubin Direct Bilirubin AST ALT Alkaline Phosphatase Lactate Dehydrogenase Troponin I Total Protein Albumin Globulin Albumin/Globulin Ratio Lipase Vitamin B12 Folate COVID-19 Eval [facility] SARS-CoV-2, RNA, NAAT NEGATIVE Blood Type Blood Type Recheck A Positive Antibody Screen Crossmatch 10/10/20 10/10/20 10/11/20 19:32 19:32 06:22 WBC 3.38 L RBC 2.06 L Hgb 6.5 L* Hct 19.3 L* MCV 93.7 D MCH 31.6 MCHC 33.7 RDW Std Deviation 55.1 H RDW Coeff of Camilo 16.1 H Plt Count 14 L* D MPV 8.7 Immature Gran % (Auto) 0.6 Neut % (Auto) 69.5 Lymph % (Auto) 24.6 [place] % (Auto) 3.8 Eos % (Auto) 1.2 Baso % (Auto) 0.3 Reticulocyte % (Auto) Neut # (Auto) 2.35 Lymph # (Auto) 0.83 L [place] # (Auto) 0.13 Eos # (Auto) 0.04 Baso # (Auto) 0.01 Reticulocyte # Immature Gran # (Auto) 0.02 Platelet Estimate SIGNIFIC DECREASED Anisocytosis Present Tear Drop Cells PT INR APTT PTT Ratio Sodium Potassium Chloride Carbon Dioxide Anion Gap BUN Creatinine Est Cr Clr Drug Dosing Est GFR ( Amer) Est GFR (Non-Af Amer) BUN/Creatinine Ratio Glucose Calcium Phosphorus Magnesium Iron Transferrin Transferrin % Sat Ferritin Total Bilirubin Direct Bilirubin AST ALT Alkaline Phosphatase Lactate Dehydrogenase 120 Troponin I Total Protein Albumin Globulin Albumin/Globulin Ratio Lipase Vitamin B12 495 Folate > 20.00 COVID-19 Eval Order SARS-CoV-2, RNA, NAAT Blood Type Blood Type Recheck Antibody Screen Crossmatch 10/11/20 06:22 WBC RBC Hgb Hct MCV MCH MCHC RDW Std Deviation RDW Coeff of Camilo Plt Count MPV Immature Gran % (Auto) Neut % (Auto) Lymph % (Auto) [place] % (Auto) Eos % (Auto) Baso % (Auto) Reticulocyte % (Auto) Neut # (Auto) Lymph # (Auto) [place] # (Auto) Eos # (Auto) Baso # (Auto) Reticulocyte # Immature Gran # (Auto) Platelet Estimate Anisocytosis Tear Drop Cells PT INR APTT PTT Ratio Sodium 144 Potassium 3.8 Chloride 115 H Carbon Dioxide 21 Anion Gap 8.0 BUN 31 H Creatinine 0.91 Est Cr Clr Drug Dosing 72.0 Est GFR ( Amer) 80.0 Est GFR (Non-Af Amer) 69.1 BUN/Creatinine Ratio 33.8 H Glucose 97 Calcium 8.6 Phosphorus Magnesium Iron Transferrin Transferrin % Sat Ferritin Total Bilirubin Direct Bilirubin AST ALT Alkaline Phosphatase Lactate Dehydrogenase Troponin I Total Protein Albumin Globulin Albumin/Globulin Ratio Lipase Vitamin B12 Folate COVID-19 Eval Order SARS-CoV-2, RNA, NAAT Blood Type Blood Type Recheck Antibody Screen Crossmatch Medications Administered Current Inpatient Medications Escitalopram Oxalate (Escitalopram Oxalate 20 Mg Tab) 20 mg PO DAILY ALVIN Stop: 11/10/20 08:59 Last Admin: 10/11/20 08:05 Dose: 20 mg Documented by: Fexofenadine HCl (Fexofenadine Hcl 180 Mg Tab) 180 mg PO PM ALVIN Stop: 11/09/20 20:59 Last Admin: 10/10/20 20:07 Dose: 180 mg Documented by: Sodium Chloride (Nss) 250 mls @ 15 mls/hr IV .[id number] PRN PRN Reason: For Transfusion Stop: 10/11/20 19:40 Sodium Chloride (Nss) 250 mls @ 15 mls/hr IV .[id number] PRN PRN Reason: For Transfusion Stop: 02/19/21 19:42 Lorazepam (Lorazepam 0.5 Mg Tab) 0.5 mg PO Q12H PRN PRN Reason: anxiety Stop: 11/09/20 17:05 Losartan Potassium (Losartan Potassium 50 Mg Tab) 100 mg PO PM ALVIN Stop: 11/09/20 20:59 Last Admin: 10/10/20 20:07 Dose: 100 mg Documented by: Metoprolol Succinate (Metoprolol Succ 50mg Ext Rel Tab) 100 mg PO DAILY ALVIN Stop: 11/10/20 08:59 Last Admin: 10/11/20 08:05 Dose: 100 mg Documented by: Oxycodone/Acetaminophen (Oxycodone/Acetaminophen 5mg/325mg Tab) 1 tab PO QID PRN PRN Reason: Pain Stop: 10/24/20 17:05 Last Admin: 10/11/20 00:44 Dose: 1 tab Documented by: Pantoprazole Sodium (Pantoprazole 40 Mg Tab) 40 mg PO DAILY ALVIN Stop: 11/10/20 08:59 Last Admin: 10/11/20 08:05 Dose: 40 mg Documented by: PG Care Time/CCT Total # of Minutes Spent Total Time Spent: 32 Total Time Spent with Patient: Total time spent is greater than 50% in coordination of care (as documented) at patient's floor/unit and/or counseling patient: Coding Level of Care Code 29166 Subseq Hosp Care Lvl 3 Diagnoses Anemia D64.9 Pancytopenia due to chemotherapy D61.810 Ovarian cancer C56.9 Laterality: unspecified laterality Hypertension I10 Elevated troponin I level R77.8 (1) Ovarian cancer Laterality: unspecified laterality Qualified Code(s): C56.9 - Malignant neoplasm of unspecified ovary
[2020-10-11] MEDS ORDERED: ONDANSETRON INJ 2 MG/ML 2 ML VIAL IV PRN (12:43)
[2020-10-11] MEDS: LOSARTAN POTASSIUM 50 MG TAB PO SCH (20:54)
[2020-10-11] MEDS: FEXOFENADINE HCL 180 MG TAB PO SCH (20:55)
[2020-10-12] MEDS ORDERED: HEPARIN 100 UNIT/ML 5ML FLUSH FLUSH PRN (01:06)
[2020-10-12] MEDS: ESCITALOPRAM OXALATE 20 MG TAB PO SCH (08:16)
[2020-10-12] MEDS: METOPROLOL SUCC 50MG EXT REL TAB PO SCH (08:16)
[2020-10-12] MEDS: PANTOprazole 40 MG TAB PO SCH (08:17)
[2020-10-12 08:30] LABS: Hematocrit (blood only) 28.3 % (37-47); Hemoglobin 9.7 g/dL (12.0-16.0); Mean Corpuscular Hemoglobin 31.6 pg (25-34); Mean Corpuscular Hgb Conc 34.3 g/dL (32-36); Mean Corpuscular Volume 92.2 fL (80-100); Mean Platelet Volume 8.9 fL (7.4-10.4); Platelet Count 48 K/uL (130-400); RDW Coefficient of Variation 15.5 % (11.5-14.5); RDW Standard Deviation 52.7 fL (36.4-46.3); Red Blood Count 3.07 M/uL (4.2-5.4); White Blood Count 4.02 K/uL (4.8-10.8)
[2020-10-12 08:37] LABS: Basophils # (auto) 0.01 K/uL (0-0.2); Basophils % (auto) 0.2 %; Eosinophils % (auto) 2.5 %; Immature Granulocytes # (auto) 0.07 K/uL (0.00-0.02); Immature Granulocytes % (auto) 1.7 %; Lymphocytes # (auto) 0.63 K/uL (1.2-3.4); Lymphocytes % (auto) 15.7 %; Monocytes # (auto) 0.31 K/uL (0.11-0.59); Monocytes % (auto) 7.7 %; Neutrophils % (auto) 72.2 %
[2020-10-12 08:39] LABS: Creatinine Clr Calc Pharmacy 68.2 ml/min; Est GFR (Non-African American) 64.7; Potassium 4.3 mmol/L (3.5-5.1)
--- NOTE | 2020-10-12 10:04 | Discharge Summary ---
Date of Service October 12, 2020 Admission HPI Per Admitting Provider Ms. Crowley is a 59-year-old female with a history of hypertension, diastolic dysfunction, GERD, recurrent ovarian cancer with peritoneal carcinomatosis who presents acutely today to [facility] ER with Severe Anemia/ Pancytopenia -- outpatient hemoglobin of 4.8 g/dl, platelet count of 8000, and a WBC # 1.59. Patient was started on salvage chemotherapy with Gemcitabine and Carboplatin on 07/29/2020. Patient complains of generalized weakness, dyspnea with minimal exertion, and a mild heaviness in her chest with activity. She has had these symptoms over the past several days. She offers no other complaints. She denies any fevers, chills, cough, sputum production, upper respiratory symptoms, GI upset, poor appetite, nausea, vomiting, diarrhea, or any urinary symptoms. Patient denies any melena, hematochezia, or any hematuria. She has not had any hemoptysis or hematemesis. No excessive bruising. No spontaneous bruising. Her blood pressure is acceptable. Resting heart rate 90 beats per minute, and her respiratory rate is 20. Principal Diagnosis Pancytopenia due to anti-neoplastic therapy Discharge Exam Constitutional WD/WN, vitals as above + obese Neck trachea midline, no thyromegaly Respiratory normal respiratory effort, lungs clear to auscultation Cardiovascular RRR, no murmur, no edema Gastrointestinal (Abdomen) normal bowel sounds, soft, nontender, no hepatosplenomegaly Musculoskeletal no cyanosis or clubbing, extremities motor strength 5/5 Skin no rashes, warm and dry Neurologic patellar DTR's 2+ bilat, sensation intact and PERRL, EOMI, accommodation nl, no face palsy, no dysarthria Psychiatric A+Ox3, euthymic affect Lymphatic no cervical or axillary lymphadenopathy Discharge Data Allergies Allergy/AdvReac Type Severity Reaction Status Date / Time desflurane Allergy Severe MALIGNANT Verified 10/10/20 14:14 HYPERTHERMIA adhesive Allergy Mild SKIN Verified 10/10/20 14:14 IRRITATION WITH EKG STICKIES codeine AdvReac Mild headache/na Verified 10/10/20 14:14 [From Tylenol-Codeine] usea Consultations 10/10/20 15:07 ED Decision to Admit Stat Hospital Course (1) Anemia: anemia due to bone marrow suppression from chemotherapy transfused two units on admission, Hb up to 6.5 give two more units on 2/19, Hb up to 9.7 today BP is stable, no dyspnea, no light headed sensation follow up with oncology (2) Pancytopenia due to chemotherapy: -- As outlined above. WBC improved with neupogen, no neutropenia plts up to 48k after three units see above for anemia (3) Ovarian cancer: -- Followed by Dr. Walker with [facility]. -- On Gemcitabine and Carboplatin since 07/29/2020. follow up closely after discharge (4) Hypertension: -- BP remains elevated -- Continue Chlorthalidone 25 mg daily. -- Continue [id number] mg daily. -- Continue Metoprolol Succinate ER 100 mg daily. (5) Elevated troponin I level: -- This is not an ACS. -- Likely demand ischemia secondary to profound anemia. -- No further work-up unless patient were to develop anginal symptoms. Total Time Total Time Spent Total Time Spent (In Minutes): 33 minutes Total Time Includes: Examination of the Patient, Discharge Planning and Medication Reconciliation Discharge Plan Discharge Items Patient Disposition: Home - Self-Care Reason For Visit: CHEMOTHERAPY INDUCED PANCYTOPENIA Discharge Diagnosis: Pancytopenia due to anti-neoplastic therapy Severe anemia and thrombocytopenia, resolved Condition on Discharge: Good Goals: follow up with oncology Activity: Resume your previous activity Weightbearing: Full weightbearing Non-emergency contact: Primary Care Provider and Oncologist Call non-emergency contact if: you have any medication questions Follow-up/Referrals: Nirali Eugene CRNP [Primary Care Provider] - (one week) Emmanuel Walker MD [Hospitalist] - (call this week about appointment, next chemo) Diet: Regular Addtl Attending Provider Instructions: Medications: no changes Pancytopenia due to anti-neoplastic therapy, hemoglobin of 4 and platelets at 8000 transfused total of 4 units of packed red blood cells, hemoglobin up to 9 today transfused total of 3 units of platelets, they are up to 48,000 WBC is up to normal, no neutropenia recommend you call your oncologist on Wednesday to discuss follow up, next round of chemotherapy continue to try to stay well nourished and well hydrated Pending Studies at Discharge: No Stand-Alone Forms: My [employer], Smoking Cessation Medications and DC Order Prescriptions: Continued ferrous sulfate 325 mg (65 mg iron) tablet 325 mg PO PM Qty: 30 RF: 5 metoprolol succinate 100 mg tablet extended release 24 hr 100 mg PO DAILY Qty: 30 RF: 5 chlorthalidone 25 mg tablet 25 mg PO PM Qty: 30 RF: 3 loratadine 10 mg tablet 10 mg PO DAILY PRN (Reason: allergy symptoms) Qty: 30 RF: 5 pantoprazole 40 mg tablet,delayed release (DR/EC) 40 mg PO DAILY Qty: 30 RF: 11 escitalopram oxalate 20 mg tablet 20 mg PO DAILY Qty: 30 RF: 6 lorazepam 0.5 mg tablet 0.5 mg PO BID PRN (Reason: anxiety) Qty: 20 RF: 0 fexofenadine [Nessa Allergy] 180 mg tablet 180 mg PO PM RF: 0 oxycodone-acetaminophen 5-325 mg tablet 1 tab PO DIRECTED PRN (Reason: Pain) RF: 0 losartan 100 mg tablet 100 mg PO PM RF: 0 Discharge Orders: Discharge Order (Routine); Ordered 10/12/20 Ordered By: Babatunde Berry Admission Data Admit Date/Time: 10/10/20 15:52 Attending Provider: Babatunde Berry Admit Provider: Den Escalante Primary Care Provider: Nirali Eugene Other Providers: Den Escalante Other Interventions: Discharge Summary Assessment (RN) Last Done: 10/12/20 09:39 Coding Level of Care Code D/C Day Management >30 mins Diagnoses Anemia D64.9 Pancytopenia due to chemotherapy D61.810 Ovarian cancer C56.9 Laterality: unspecified laterality Hypertension I10 Elevated troponin I level R77.8
== END 2020-10-12 11:16 | disposition home or self-care (01) | DRG 809 ==
LOC: ED 13:20 → SUATTDRO 15:52 → 2S 15:52

== ENCOUNTER 2020-10-16 15:43 | Inpatient (IN) ==
--- NOTE | 2020-10-16 16:28 | Emergency Department Note ---
Impression & Plan Breathlessness, Pulmonary edema, Hypomagnesemia ED Provider Note Provider: Stepan Calderon MD DATE OF SERVICE: 10/16/2020 CHIEF COMPLAINT: Shortness of breath HISTORY OF PRESENT ILLNESS: Patient is a 59-year-old female past medical history including hypertension, diastolic dysfunction, GERD, ovarian cancer with peritoneal carcinomatosis recent admission for chemotherapy-induced anemia/pancy topenia several days ago presenting today stating for the last 3 days she has developed worsening shortness of breath. Patient states a bit of fatigue and some pressure sensation with some gurgling in the lower chest and upper abdomen. Occasionally slight sharp pain in the lower abdomen. Denies any fevers or chills. Patient states she has been on chemotherapy recently but missed her dose last week due to her illness and admission. Patient denies any falls or syncope/near syncope. Patient states it was difficult for get at the time today due to her breathing. States she has been using an incentive spirometer at home without much improvement. Called her doctor's office today and they referred her here given how dyspneic she is with speaking that they appreciated over the phone. Patient denies known sick contact. Breathing and pressure sensation is worse with exertion or when she lies flat. Patient denies any recent travel or leg swelling. REVIEW OF SYSTEMS: A total of 10 review of systems was obtained and negative except as stated above in the HPI. PAST MEDICAL HISTORY: As noted above MEDICATIONS: Reviewed home medication list. SOCIAL HISTORY: Non-smoker, lives at home with boyfriend PHYSICAL EXAM: GENERAL: alert and oriented in no acute distress on stretcher Head: normocephalic and atraumatic EYES: No injection, discharge or icterus. NECK: Trachea midline. Supple. ENT: Mucous membranes LUNGS: Airway patent. No retractions. Breath sounds clear with bilateral breath sounds but several word dyspnea and diminished bases. Slightly tachypneic. HEART: Regular rate and rhythm. No chest wall tenderness with the left upper chest wall port. ABDOMEN: Soft and non-tender, without guarding or rebound. SKIN: Acyanotic, warm, dry, without rashes EXTREMITIES: Without deformity or tenderness with trace pedal edema. NEUROLOGICAL: No focal deficits. No aphasia. No facial droop or slurred speech. EK bpm normal sinus rhythm without PVC or PAC. No acute ST segment elevation or depression. In comparison to previous from October 10 of this year, lateral inferior T wave inversions appear improved. CONTINUOUS CARDIAC MONITORING: was ordered and showed a heart rate of 90 bpm in normal sinus rhythm Patient's laboratory studies and imaging reviewed. Differential includes Infection, dehydration, metabolic abnormality, hypo/hyperglycemia, electrolyte disturbance, anemia, hypoxia, cardiac sources, intracerebral event, toxicologic, neurologic, PE, as well as other pathologies. IMPRESSION/MEDICAL DECISION MAKING: Patient presents today reporting several days of worsening shortness of breath. Question is could be related to recurrent anemia given her recent admission versus underlying cardiac or pulmonary etiology. Cancer puts her at risk for possible VTE. Does have some history of diastolic dysfunction per the chart review. Covid test will be completed. Port will be accessed by nursing and blood work sent. Patient with some slight reports of discomfort in her abdomen does have a history of ovarian cancer. Not peritoneal on exam. Minimal pain on exam if any. Does seem somewhat dyspneic on exam but not significantly hypoxic at rest. Blood work was sent and CT scan of the chest and abdomen pelvis will be obtained to exclude intra-abdominal complications from a cancer as well as for possible PE. Seems atypical for aortic dissection. Type and screen was sent given her recent transfusion as this is a possible etiology as well. CBC shows stable anemia with improving leukopenia and platelet count. Troponin slightly detectable at less than before but proBNP significantly elevated. Covid test is negative and TSH within normal limits. Creatinine appears at baseline. Some hypomagnesemia noted. CT of the chest and abdomen pelvis per radiology report luckily does not show a PE. There are small left and moderate right pleural effusion with some pulmonary edema. Per pelvic mass and carcinomatosis is noted as well without bowel obstruction or other acute intra- abdominal findings per the report. Patient is hypertensive here and per chart appears to have a history of diastolic dysfunction although I do not see a recent echocardiogram in the system. Question if the blood transfusions during her recent stay pushed her into a bit of fluid overloaded state. Does not examine that significantly peripherally overloaded but we will trial a dose of Lasix to see if this improves her respiratory status and tachypnea although again she is not hypoxic. Patient was in agreement. Discussed with the hospitalist. DIAGNOSIS: Shortness of breath, pulmonary edema, hypomagnesemia DISPOSITION: Hospitalist will evaluate Patient was agreeable with this plan. Past Med/Surg History Medical History Back pain Cancer OVARIAN CANCER>CHEMO > GETS HALF HR TREATMENTS Q 2 WEEKS @ [facility] Cancer related pain Elevated troponin I level Hiatal hernia MODERATE TO LARGE PER CHEST CT Left ventricular hypertrophy Malignant hyperthermia Nephrolithiasis Neutropenia Osteoarthritis Ovarian cancer Ovarian mass Pancytopenia due to chemotherapy Seasonal allergies Snoring "NO SLEEP STUDY" PER RECORDS Symptomatic anemia Surgical History H/O tympanomastoidectomy History of bilateral tubal ligation History of colonoscopy History of cystoscopy KIDNEY STONE EXTRACTION WITH STENT PLACEMENT History of difficult intubation Right tympanomastoidectomy = 11/26/17= Grade 2 view with glidescope #3, ETT 7.5 at [facility] PT UNAWARE OF THIS History of dilatation and curettage D&C, HYSTEROSCOPY= 04/29/18= LMA#4 AT [facility] History of ear surgery RT/LEFT EAR SURGERIES History of exploratory laparotomy History of myringotomy History of open reduction and internal fixation (ORIF) procedure Right arm History of total abdominal hysterectomy and bilateral salpingo-oophorectomy History of vascular access device A PORT PLACEMENT>LEFT INTACT CURRENTLY S/P exploratory laparotomy Tumor BILAT EAR TUMOR REMOVAL Family History Unknown No problems noted. Denies family history of Ovarian cancer Prostate cancer Myocardial infarction Breast cancer Colorectal cancer Social History Smoking Status: Former smoker Second Hand Exposure: No; Do You Dip or Chew Tobacco: No; Tobacco Cessation Education Requested by Patient: No Hx Alcohol Use: No Hx Substance Use: Yes Last Used Substance: Unknown Last Used Substance Other:: LAST USED MONTH AGO IF HAS IT TAKES ONCE A DAY AT HS Substance Use Type Other:: MEDICAL WITH CARD Preferred Language: [place]al[place] Communication Ability: Effective Visual Impairment: No Limitations Academic Advisor Required: No Beliefs That Will Affect Care: None Current Living Situation: Significant Other Current Living Situation Comment: [facility] Other Information That Helps Us Care for You: No Feels Safe at Home: Yes Safety Concerns: Feels Safe At This Time Assistive Devices: Glasses Allergies Allergies Allergy/AdvReac Type Severity Reaction Status Date / Time desflurane Allergy Severe MALIGNANT Verified 10/16/20 20:18 HYPERTHERMIA adhesive Allergy Mild SKIN Verified 10/16/20 20:18 IRRITATION WITH EKG STICKIES codeine AdvReac Mild headache/na Verified 10/16/20 20:18 [From Tylenol-Codeine] usea Home Meds Home Medications Medication Instructions Recorded Confirmed fexofenadine [Nessa Allergy] 180 mg PO PM 08/07/19 10/16/20 losartan 100 mg PO PM 10/10/20 10/16/20 oxycodone-acetaminophen 1 tab PO Q8 PRN 10/10/20 10/16/20 prednisone 40 mg PO DAILY 10/16/20 10/16/20 Previous Rx's Medication Instructions Recorded ferrous sulfate 325 mg (65 mg 325 mg PO PM #30 tab 01/22/20 iron) tablet metoprolol succinate 100 mg 100 mg PO DAILY #30 tab 04/23/20 tablet,extended release 24 hr chlorthalidone 25 mg tablet 25 mg PO PM #30 tab 06/13/20 loratadine 10 mg tablet 10 mg PO DAILY PRN #30 tab 08/20/20 escitalopram oxalate 20 mg tablet 20 mg PO DAILY #30 tab 08/29/20 lorazepam 0.5 mg tablet 0.5 mg PO BID PRN #20 tab 08/29/20 pantoprazole 40 mg tablet,delayed 40 mg PO DAILY #30 tab 09/27/20 release Results & Data (ED) Vital Signs Vital Signs - 24 hr 10/16/20 15:39 10/16/20 15:45 10/16/20 16:25 Temperature 36.2 C L Temperature Source Oral Pulse Rate 85 89 90 Pulse Rate from SpO2 Sensor 85 Respiratory Rate 28 H 22 26 H Respiratory Effort / Characteristics Short of Breath SOB on Exertion Respiratory Depth Normal Respiratory Pattern Tachypnea Blood Pressure 145/99 H 194/120 H Blood Pressure Mean 114 144 Blood Pressure Position Sitting Pulse Oximetry 96 96 96 Oxygen Delivery Method Room Air Room Air Sepsis Recent Fever Within 48 Hours No Sepsis New/Unexplained Change in Mental Status N/A Sepsis Action Taken by Nursing No Action Required 10/16/20 18:02 10/16/20 18:30 Temperature Temperature Source Pulse Rate 89 90 Pulse Rate from SpO2 Sensor 88 90 Respiratory Rate 14 26 H Respiratory Effort / Characteristics Respiratory Depth Respiratory Pattern Blood Pressure 190/115 H 191/123 H Blood Pressure Mean 140 145 Blood Pressure Position Pulse Oximetry 94 96 Oxygen Delivery Method Sepsis Recent Fever Within 48 Hours Sepsis New/Unexplained Change in Mental Status Sepsis Action Taken by Nursing Laboratory Data Result diagrams: 10/16/20 17:58 10/16/20 17:58 Lab Results 10/16/20 10/16/20 10/16/20 Range/Units 16:35 16:35 16:46 WBC Cancelled RBC Cancelled Hgb Cancelled Hct Cancelled MCV Cancelled MCH Cancelled MCHC Cancelled RDW Std Deviation Cancelled RDW Coeff of Camilo Cancelled Plt Count Cancelled MPV Cancelled Immature Gran % (Auto) Cancelled Neut % (Auto) Cancelled Lymph % (Auto) Cancelled [place] % (Auto) Cancelled Eos % (Auto) Cancelled Baso % (Auto) Cancelled Neut # (Auto) Cancelled Lymph # (Auto) Cancelled [place] # (Auto) Cancelled Eos # (Auto) Cancelled Baso # (Auto) Cancelled Immature Gran # (Auto) Cancelled Absolute Nucleated RBC Cancelled Nucleated RBC % (auto) Cancelled Neutrophils % (Manual) Cancelled Band Neutrophils % Cancelled Lymphocytes % (Manual) Cancelled Prolymphocyte % Cancelled Reactive Lymphs % (Man) Cancelled Monocytes % (Manual) Cancelled Eosinophils % (Manual) Cancelled Basophils % (Manual) Cancelled Metamyelocytes % (Man) Cancelled Myelocytes % (Man) Cancelled Promyelocytes % (Man) Cancelled Blast Cells % (Manual) Cancelled Plasma Cell % (Manual) Cancelled Other Cells % Cancelled Nucleated RBC % Cancelled Neutrophils # (Manual) Cancelled Band Neutrophils # Cancelled Total Absolute Neuts Cancelled Lymphocytes # (Manual) Cancelled Prolymphocyte # Cancelled Reactive Lymphs # Cancelled Total Abs Lymphocytes Cancelled Monocytes # (Manual) Cancelled Eosinophils # (Manual) Cancelled Basophils # (Manual) Cancelled Metamyelocytes # (Man) Cancelled Myelocytes # (Manual) Cancelled Promyelocytes # (Man) Cancelled Blast Cells # (Man) Cancelled Plasma Cell # (Manual) Cancelled Other Cells # Cancelled Nucleated RBCs # (Man) Cancelled Hypersegmented Neuts Cancelled Hyposegmented Neuts Cancelled Hypogranular Neuts Cancelled Large Granular Lymphs Cancelled # Lrg Granular Lymphs Cancelled Hairy Cells Cancelled Smudge Cells Cancelled Toxic Granulation Cancelled Toxic Vacuolation Cancelled Dohle Bodies Cancelled Marybel Rods Cancelled Platelet Estimate Cancelled Hypogranular Platelets Cancelled Clumped Platelets Cancelled Giant Platelets Cancelled Platelet Satelliting Cancelled RBC Morphology Cancelled Polychromasia Cancelled Hypochromasia Cancelled Poikilocytosis Cancelled Basophilic Stippling Cancelled Anisocytosis Cancelled Microcytosis Cancelled Macrocytosis Cancelled Spherocytes Cancelled Pappenheimer Bodies Cancelled Sickle Cells Cancelled Target Cells Cancelled Tear Drop Cells Cancelled Ovalocytes Cancelled Stomatocytes Cancelled Pendleton-Playita Bodies Cancelled Echinocytes Cancelled Acanthocytes (Spur) Cancelled Rouleaux Cancelled RBC Agglutinates Cancelled Schistocytes Cancelled RBC Morph Comment Cancelled Sezary Cell Cancelled PT INR APTT PTT Ratio Sodium (136-145) mmol/L Potassium (3.5-5.1) mmol/L Chloride (98-107) mmol/L Carbon Dioxide (21-32) mmol/L Anion Gap (3-11) BUN (7-18) mg/dl Creatinine (0.6-1.2) mg/dl Est Cr Clr Drug Dosing ml/min Est GFR ( Amer) Est GFR (Non-Af Amer) BUN/Creatinine Ratio (10-20) Glucose (70-99) mg/dl Calcium (8.5-10.1) mg/dl Magnesium (1.8-2.4) mg/dl Total Bilirubin (0.2-1) mg/dl AST (15-37) U/L ALT (12-78) U/L Alkaline Phosphatase (45-117) U/L Troponin I (0-0.045) ng/ml NT-Pro-B Natriuret Pep (0-900) pg/ml Total Protein (6.4-8.2) gm/dl Albumin (3.4-5.0) gm/dl Globulin (2.5-4.0) gm/dl Albumin/Globulin Ratio (0.9-2) TSH (0.300-4.500) uIu/ml COVID-19 Eval [facility] [place], RNA, NAAT NEGATIVE (NEGATIVE) Blood Type Antibody Screen 10/16/20 10/16/20 10/16/20 Range/Units 16:46 16:46 16:46 WBC RBC Hgb Hct MCV MCH MCHC RDW Std Deviation RDW Coeff of Camilo Plt Count MPV Immature Gran % (Auto) Neut % (Auto) Lymph % (Auto) [place] % (Auto) Eos % (Auto) Baso % (Auto) Neut # (Auto) Lymph # (Auto) [place] # (Auto) Eos # (Auto) Baso # (Auto) Immature Gran # (Auto) Absolute Nucleated RBC Nucleated RBC % (auto) Neutrophils % (Manual) Band Neutrophils % Lymphocytes % (Manual) Prolymphocyte % Reactive Lymphs % (Man) Monocytes % (Manual) Eosinophils % (Manual) Basophils % (Manual) Metamyelocytes % (Man) Myelocytes % (Man) Promyelocytes % (Man) Blast Cells % (Manual) Plasma Cell % (Manual) Other Cells % Nucleated RBC % Neutrophils # (Manual) Band Neutrophils # Total Absolute Neuts Lymphocytes # (Manual) Prolymphocyte # Reactive Lymphs # Total Abs Lymphocytes Monocytes # (Manual) Eosinophils # (Manual) Basophils # (Manual) Metamyelocytes # (Man) Myelocytes # (Manual) Promyelocytes # (Man) Blast Cells # (Man) Plasma Cell # (Manual) Other Cells # Nucleated RBCs # (Man) Hypersegmented Neuts Hyposegmented Neuts Hypogranular Neuts Large Granular Lymphs # Lrg Granular Lymphs Hairy Cells Smudge Cells Toxic Granulation Toxic Vacuolation Dohle Bodies Marybel Rods Platelet Estimate Hypogranular Platelets Clumped Platelets Giant Platelets Platelet Satelliting RBC Morphology Polychromasia Hypochromasia Poikilocytosis Basophilic Stippling Anisocytosis Microcytosis Macrocytosis Spherocytes Pappenheimer Bodies Sickle Cells Target Cells Tear Drop Cells Ovalocytes Stomatocytes Pendleton-Playita Bodies Echinocytes Acanthocytes (Spur) Rouleaux RBC Agglutinates Schistocytes RBC Morph Comment Sezary Cell PT Cancelled INR Cancelled APTT Cancelled PTT Ratio Cancelled Sodium 145 (136-145) mmol/L Potassium (3.5-5.1) mmol/L Chloride 116 H (98-107) mmol/L Carbon Dioxide 24 (21-32) mmol/L Anion Gap 5.0 (3-11) BUN 23 H (7-18) mg/dl Creatinine 0.95 (0.6-1.2) mg/dl Est Cr Clr Drug Dosing 69.9 ml/min Est GFR ( Amer) 76.0 Est GFR (Non-Af Amer) 65.6 BUN/Creatinine Ratio 24.2 H (10-20) Glucose 118 H (70-99) mg/dl Calcium 9.5 (8.5-10.1) mg/dl Magnesium (1.8-2.4) mg/dl Total Bilirubin 0.6 (0.2-1) mg/dl AST (15-37) U/L ALT 22 (12-78) U/L Alkaline Phosphatase 126 H (45-117) U/L Troponin I 0.048 H* (0-0.045) ng/ml NT-Pro-B Natriuret Pep > 10920 H (0-900) pg/ml Total Protein 6.5 (6.4-8.2) gm/dl Albumin 3.3 L (3.4-5.0) gm/dl Globulin 3.2 (2.5-4.0) gm/dl Albumin/Globulin Ratio 1.0 (0.9-2) TSH 3.430 (0.300-4.500) uIu/ml COVID-19 Eval Order SARS-CoV-2, RNA, NAAT (NEGATIVE) Blood Type Cancelled Antibody Screen Cancelled 10/16/20 10/16/20 10/16/20 Range/Units 17:58 17:58 17:58 WBC 4.38 L RBC 2.97 L Hgb 9.4 L Hct 28.1 L MCV 94.6 MCH 31.6 MCHC 33.5 RDW Std Deviation 52.5 H RDW Coeff of Camilo 15.5 H Plt Count 168 MPV 10.2 Immature Gran % (Auto) Neut % (Auto) Lymph % (Auto) [place] % (Auto) Eos % (Auto) Baso % (Auto) Neut # (Auto) Lymph # (Auto) [place] # (Auto) Eos # (Auto) Baso # (Auto) Immature Gran # (Auto) Absolute Nucleated RBC 0.08 H Nucleated RBC % (auto) 1.9 Neutrophils % (Manual) 60.1 Band Neutrophils % Lymphocytes % (Manual) 16.5 Prolymphocyte % Reactive Lymphs % (Man) Monocytes % (Manual) 13.9 Eosinophils % (Manual) 0.9 Basophils % (Manual) Metamyelocytes % (Man) 4.3 Myelocytes % (Man) 4.3 Promyelocytes % (Man) Blast Cells % (Manual) Plasma Cell % (Manual) Other Cells % Nucleated RBC % Neutrophils # (Manual) 2.63 Band Neutrophils # Total Absolute Neuts 2.63 Lymphocytes # (Manual) 0.72 L Prolymphocyte # Reactive Lymphs # Total Abs Lymphocytes 0.72 L Monocytes # (Manual) 0.61 H Eosinophils # (Manual) 0.04 Basophils # (Manual) Metamyelocytes # (Man) 0.19 H Myelocytes # (Manual) 0.19 H Promyelocytes # (Man) Blast Cells # (Man) Plasma Cell # (Manual) Other Cells # Nucleated RBCs # (Man) Hypersegmented Neuts Hyposegmented Neuts Hypogranular Neuts Large Granular Lymphs # Lrg Granular Lymphs Hairy Cells Smudge Cells Toxic Granulation Toxic Vacuolation Dohle Bodies Marybel Rods Platelet Estimate Hypogranular Platelets Clumped Platelets Giant Platelets Platelet Satelliting RBC Morphology Polychromasia 1+ Hypochromasia Poikilocytosis Basophilic Stippling Anisocytosis Microcytosis Macrocytosis Spherocytes Pappenheimer Bodies Sickle Cells Target Cells Tear Drop Cells Ovalocytes Stomatocytes Pendleton-Playita Bodies Echinocytes Acanthocytes (Spur) Rouleaux RBC Agglutinates Schistocytes RBC Morph Comment Sezary Cell PT 11.4 INR 1.1 APTT 24.8 PTT Ratio 0.9 Sodium (136-145) mmol/L Potassium (3.5-5.1) mmol/L Chloride (98-107) mmol/L Carbon Dioxide (21-32) mmol/L Anion Gap (3-11) BUN (7-18) mg/dl Creatinine (0.6-1.2) mg/dl Est Cr Clr Drug Dosing ml/min Est GFR ( Amer) Est GFR (Non-Af Amer) BUN/Creatinine Ratio (10-20) Glucose (70-99) mg/dl Calcium (8.5-10.1) mg/dl Magnesium (1.8-2.4) mg/dl Total Bilirubin (0.2-1) mg/dl AST (15-37) U/L ALT (12-78) U/L Alkaline Phosphatase (45-117) U/L Troponin I (0-0.045) ng/ml NT-Pro-B Natriuret Pep (0-900) pg/ml Total Protein (6.4-8.2) gm/dl Albumin (3.4-5.0) gm/dl Globulin (2.5-4.0) gm/dl Albumin/Globulin Ratio (0.9-2) TSH (0.300-4.500) uIu/ml COVID-19 Eval Order SARS-CoV-2, RNA, NAAT (NEGATIVE) Blood Type A Positive Antibody Screen NEGATIVE 10/16/20 Range/Units 17:58 WBC RBC Hgb Hct MCV MCH MCHC RDW Std Deviation RDW Coeff of Camilo Plt Count MPV Immature Gran % (Auto) Neut % (Auto) Lymph % (Auto) [place] % (Auto) Eos % (Auto) Baso % (Auto) Neut # (Auto) Lymph # (Auto) [place] # (Auto) Eos # (Auto) Baso # (Auto) Immature Gran # (Auto) Absolute Nucleated RBC Nucleated RBC % (auto) Neutrophils % (Manual) Band Neutrophils % Lymphocytes % (Manual) Prolymphocyte % Reactive Lymphs % (Man) Monocytes % (Manual) Eosinophils % (Manual) Basophils % (Manual) Metamyelocytes % (Man) Myelocytes % (Man) Promyelocytes % (Man) Blast Cells % (Manual) Plasma Cell % (Manual) Other Cells % Nucleated RBC % Neutrophils # (Manual) Band Neutrophils # Total Absolute Neuts Lymphocytes # (Manual) Prolymphocyte # Reactive Lymphs # Total Abs Lymphocytes Monocytes # (Manual) Eosinophils # (Manual) Basophils # (Manual) Metamyelocytes # (Man) Myelocytes # (Manual) Promyelocytes # (Man) Blast Cells # (Man) Plasma Cell # (Manual) Other Cells # Nucleated RBCs # (Man) Hypersegmented Neuts Hyposegmented Neuts Hypogranular Neuts Large Granular Lymphs # Lrg Granular Lymphs Hairy Cells Smudge Cells Toxic Granulation Toxic Vacuolation Dohle Bodies Marybel Rods Platelet Estimate Hypogranular Platelets Clumped Platelets Giant Platelets Platelet Satelliting RBC Morphology Polychromasia Hypochromasia Poikilocytosis Basophilic Stippling Anisocytosis Microcytosis Macrocytosis Spherocytes Pappenheimer Bodies Sickle Cells Target Cells Tear Drop Cells Ovalocytes Stomatocytes Pendleton-Playita Bodies Echinocytes Acanthocytes (Spur) Rouleaux RBC Agglutinates Schistocytes RBC Morph Comment Sezary Cell PT INR APTT PTT Ratio Sodium (136-145) mmol/L Potassium 3.8 (3.5-5.1) mmol/L Chloride (98-107) mmol/L Carbon Dioxide (21-32) mmol/L Anion Gap (3-11) BUN (7-18) mg/dl Creatinine (0.6-1.2) mg/dl Est Cr Clr Drug Dosing ml/min Est GFR ( Amer) Est GFR (Non-Af Amer) BUN/Creatinine Ratio (10-20) Glucose (70-99) mg/dl Calcium (8.5-10.1) mg/dl Magnesium 1.5 L (1.8-2.4) mg/dl Total Bilirubin (0.2-1) mg/dl AST 24 (15-37) U/L ALT (12-78) U/L Alkaline Phosphatase (45-117) U/L Troponin I (0-0.045) ng/ml NT-Pro-B Natriuret Pep (0-900) pg/ml Total Protein (6.4-8.2) gm/dl Albumin (3.4-5.0) gm/dl Globulin (2.5-4.0) gm/dl Albumin/Globulin Ratio (0.9-2) TSH (0.300-4.500) uIu/ml COVID-19 Eval Order SARS-CoV-2, RNA, NAAT (NEGATIVE) Blood Type Antibody Screen Administered Medications Fexofenadine HCl (Fexofenadine Hcl 180 Mg Tab) 180 mg PO PM ALVIN Stop: 11/15/20 20:59 Last Admin: 10/16/20 21:28 Dose: 180 mg Documented by: [facility] Magnesium Sulfate/Dextrose (Magnesium Sulfate / D5w) 1 gm in 100 mls @ 50 mls/hr IV Q2H ALVIN Stop: 10/17/20 02:55 Last Admin: 10/16/20 23:38 Dose: 50 mls/hr Documented by: [facility] Infusion: 10/16/20 23:29 Dose: 50 mls/hr Documented by: [facility] Admin: 10/16/20 21:29 Dose: 50 mls/hr Documented by: [facility] Losartan Potassium (Losartan Potassium 50 Mg Tab) 100 mg PO PM ALVIN Stop: 11/15/20 20:59 Last Admin: 10/16/20 21:28 Dose: 100 mg Documented by: [facility] Oxycodone/Acetaminophen (Oxycodone/Acetaminophen 5mg/325mg Tab) 1 tab PO Q8H PRN PRN Reason: Pain Stop: 10/30/20 20:55 Last Admin: 10/16/20 23:15 Dose: 1 tab Documented by: [id number] Discontinued Medications Furosemide (Furosemide 40 Mg/4 Ml Vial) 40 mg IV NOW STA Stop: 10/16/20 18:27 Last Admin: 10/16/20 18:35 Dose: 40 mg Documented by: [id number] Hydralazine HCl (Hydralazine Hcl 20 Mg/Ml Vial) 5 mg IV NOW ONE Stop: 10/16/20 19:50 Last Admin: 10/16/20 20:19 Dose: Not Given Documented by: [id number] Hydralazine HCl (Hydralazine Hcl 20 Mg/Ml Vial) Confirm Administered Dose 20 mg .ROUTE .STK-MED ONE Stop: 10/16/20 19:55 Last Increment: 10/16/20 20:02 Dose: 5 mg Documented by: [id number] Ioversol (Optiray 320 125ml) 118 ml IV ONCE ONE Stop: 10/16/20 17:36 Last Admin: 10/16/20 17:35 Dose: 118 ml Documented by: [id number] Discharge Plan Visit Data Chief Complaint: Shortness of Breath/Dyspnea Stated Complaint: SOB, ABD PAIN ED Provider: Stepan Calderon Discharge Problem: Breathlessness, Pulmonary edema, Hypomagnesemia Patient Disposition: Admitted As Inpatient Discharge Instructions Interventions: ED Discharge Assessment Last Done: 10/16/20 20:31 Discharge Problem: Pulmonary edema Qualifiers: Chronicity: acute Qualified Code(s): J81.0 - Acute pulmonary edema
--- NOTE | 2020-10-16 16:41 | XRay Report ---
XR chest 1V portable HISTORY: 59 years-old Female Dyspnea acute shortness of breath COMPARISON: Chest radiograph 10/10/2020 TECHNIQUE: Portable AP view of the chest FINDINGS: Cardiac silhouette is enlarged. Left subclavian Toizlr-e-Oamu catheter is unchanged. Bilateral pleura l effusions with bibasilar consolidation redemonstrated. No pneumothorax. Pulmonary vascular congesti on. Bones appear grossly intact. IMPRESSION: 1. Cardiomegaly with pulmonary vascular congestion. 2. Unchanged pleural effusions with bibasilar consolidation. ACT 112: Negative or not required by law. The above report was generated using voice recognition software. It may contain grammatical, syntax o r spelling errors. Electronically signed by: Markell Cerda M.D. 10/16/2020 4:39 PM
[2020-10-16 17:28] LABS: Alanine Aminotransferase 22 U/L (12-78); Albumin Level 3.3 gm/dl (3.4-5.0); BUN Creatinine Ratio 24.2 (10-20); Blood Urea Nitrogen 23 mg/dl (7-18); Calcium 9.5 mg/dl (8.5-10.1); Carbon Dioxide 24 mmol/L (21-32); Chloride 116 mmol/L (98-107); Creatinine Clr Calc Pharmacy 69.9 ml/min; Est GFR (Non-African American) 65.6; Glucose 118 mg/dl (70-99); Sodium 145 mmol/L (136-145)
[2020-10-16 17:33] LABS: Alkaline Phosphatase 126 U/L (45-117); Bilirubin,Total 0.6 mg/dl (0.2-1); Globulin 3.2 gm/dl (2.5-4.0); NT Pro B Type Natriuretic Pept > 35000 pg/ml (0-900); Total Protein 6.5 gm/dl (6.4-8.2)
[2020-10-16 17:34] LABS: Troponin I 0.048 ng/ml (0-0.045)
[2020-10-16] MEDS ORDERED: OPTIRAY 320 125ml IV ONE (17:35)
--- NOTE | 2020-10-16 18:05 | CT Scan Report ---
CT angio chest PE protocol, CT abd pelvis IV con only CT DOSE: 1699.85 mGy.cm HISTORY: 59 years-old Female with Dyspnea. Acute shortness of breath in a patient with history of k nown ovarian carcinoma. TECHNIQUE: Multiple CTA images of the chest were obtained after the intravenous administration of 118 ml Optiray 320. Coronal and sagittal MIPS were obtained from the axial data set and were submitted for review. CT abdomen pelvis with IV contrast only also obtained. All measurements were obtained acc ording to NASCET criteria. A dose lowering technique was utilized adhering to the principles of ALARA . COMPARISON: Chest radiograph of same day FINDINGS: Motion degraded exam. CTA: Cardiac silhouette is upper limits of normal in size. Mild coronary artery calcifications. No thoraci c aortic aneurysm or dissection. Patency of the imaged great vessels. Left IJ [id number] catheter distal tip terminates in the mid SVC. The pulmonary artery is opacified to the level of the proximal subsegmental branches and demonstrates no filling defects to suggest thromboembolic disease. Respirat ory motion artifact limits the exam. CT CHEST: Unremarkable thyroid. Mildly enlarged subcarinal lymph nodes measure up to 10 mm, nonspecific. Small left with small to moderate right pleural effusion. No pneumothorax. Mild bibasilar consolidation. Gr oundglass densities with mild intralobular septal thickening. Central airways are patent. Unremarkabl e soft tissues. No acute fracture. CT ABDOMEN/PELVIS: No pneumatosis or pneumoperitoneum. Spleen is upper limits of normal in size. Moderate pancreatic atr ophy. Unremarkable adrenal glands. Cholelithiasis without CT evidence of acute cholecystitis. Indeter minate hypodense 2.5 cm posterior right hepatic lobe, incompletely characterized on this exam seconda ry to motion artifact and single phase study. Patency of the hepatic and portal veins. Probable cyst of the inferior pole left kidney, 1.5 cm. No hydronephrosis. Partial distention of the urinary bladder. Heterogeneous right adnexal mass measuring 5.0 x 4.1 x 4.0 cm is noted with a contig uous or adjacent soft tissue mass of the midline pelvis measuring 3.3 cm abutting and tethering adjac ent loops of bowel and abutting the posterior urinary bladder. Numerous adjacent small soft tissue no dules are noted within the pelvic mesentery. 7 mm retroperitoneal lymph node seen on image 2:30 serie s 6. Large hiatal hernia. Stomach, large bowel and pancreas. There is no small bowel obstruction. Residual enteric contrast is noted within the large bowel. Appendix is not diagnostically visualized. Omental /peritoneal nodule of the abdominal left upper quadrant and right pericolic gutter. Tiny ventral abdo ping wall fat filled hernias. No acute fracture. No definite suspicious bony mass lesion. IMPRESSION: 1. No pulmonary emboli. 2. Small left and small to moderate right pleural effusion. 3. Bibasilar consolidation suggestive of atelectasis versus pneumonia. 4. Cardiomegaly with pulmonary edema. 5. Right adnexal pelvic mass measuring up to 5 cm likely correlates with the patient's known ovarian carcinoma. Numerous additional soft tissue lesions of the pelvis are noted along with omental/periton eal carcinomatosis. 6. No bowel obstruction. 7. Large hiatal hernia. 8. Cholelithiasis. 9. Additional findings as above. ACT 112: Negative or not required by law. The above report was generated using voice recognition software. It may contain grammatical, syntax o r spelling errors. Electronically signed by: Markell Cerda M.D. 10/16/2020 6:04 PM
[2020-10-16 18:21] LABS: Hematocrit (blood only) 28.1 % (37-47); Hemoglobin 9.4 g/dL (12.0-16.0); Mean Corpuscular Hemoglobin 31.6 pg (25-34); Mean Corpuscular Hgb Conc 33.5 g/dL (32-36); Mean Corpuscular Volume 94.6 fL (80-100); Mean Platelet Volume 10.2 fL (7.4-10.4); Nucleated RBC # (auto) 0.08 K/uL (0-0); Nucleated RBC % (auto) 1.9 %; Platelet Count 168 K/uL (130-400); RDW Coefficient of Variation 15.5 % (11.5-14.5); RDW Standard Deviation 52.5 fL (36.4-46.3); Red Blood Count 2.97 M/uL (4.2-5.4); White Blood Count 4.38 K/uL (4.8-10.8)
[2020-10-16] MEDS ORDERED: FUROSEMIDE 40 MG/4 ML VIAL IV STA (18:26)
[2020-10-16 18:33] LABS: Potassium 3.8 mmol/L (3.5-5.1)
[2020-10-16 18:38] LABS: Magnesium 1.5 mg/dl (1.8-2.4)
[2020-10-16 18:39] LABS: ALC (manual) 0.72 K/uL (1.2-3.4); ANC (manual) 2.63 K/uL (1.4-6.5); Eosinophils # (manual) 0.04 K/uL (0-0.5); Eosinophils % (manual) 0.9 %; Lymphocytes # (manual) 0.72 K/uL (1.2-3.4); Lymphocytes % (manual) 16.5 %; Metamyelocytes # (manual) 0.19 K/uL (0-0); Metamyelocytes % (manual) 4.3 %; Monocytes # (manual) 0.61 K/uL (0.11-0.59); Monocytes % (manual) 13.9 %; Myelocytes # (manual) 0.19 K/uL (0-0); Myelocytes % (manual) 4.3 %; Neutrophils # (manual) 2.63 K/uL (1.4-6.5); Neutrophils % (manual) 60.1 %; Polychromasia 1+
[2020-10-16 18:43] LABS: INR 1.1 (0.9-1.1); Partial Thromboplastin Ratio 0.9; Partial Thromboplastin Time 24.8 Seconds (21.0-31.0); Prothrombin Time 11.4 Seconds (9.0-12.0)
--- NOTE | 2020-10-16 19:33 | History & Physical Report ---
Date of Service October 16, 2020 Assessment & Plan (1) Breathlessness: Jessi Crowley is a 59-year-old female with PMH of ovarian cancer w/ peritoneal carcinomatosis, hypertension, GERD, diastolic dysfunction who has complaint of dyspnea and fatigue. Dyspnea -- [place] [id number] - Chest CTA negative for PE, showing cardiomegaly with pulmonary edema and pleural effusion - Trop elevation--likely demand ischemia but will trend as below - Admit to telemetry for observation - Consult cardiology - Lasix 40mg IV qAM - TTE ordered--no previous Echo found in our system - Troponin tonight and tomorrow AM - EKG in AM - CMP in AM - Strict I/Os - Daily weights Hypertension - Received hydralazine 5mg IV x1 in ED - Continue home losartan 100mg daily - Continue home metoprolol succinate 100mg daily - Hold home chlorthalidone - Hydralazine 10mg IV q4h PRN SBP >190 or DBP >110 Hypomagnesemia - Mag 1.5 in ED - Given Mag sulfate 1g - Check AM Mag level Anemia -- recently admitted for chemotherapy-induced anemia requiring transfusion, now stable - Hgb 9.4 on admission - CBC in AM - Continue to monitor Ovarian Cancer w/ peritoneal carcinomatosis -- s/p debulking surgery, follows with Sofía Estes/Onc - Last seen on 10/10/20 receiving salvage chemo with carboplatin and gemcitabine - Has received Taxol, Doxil, Avastin in the past - Patient reports she thinks she's seen palliative care as an outpatient - Consider palliative consult Depression/Anxiety - Continue home escitalopram 20mg daily - Continue lorazepam 0.5mg PO BID PRN GERD - Continue home pantoprazole 40mg PO daily Back Pain - Continue home Percocet PRN FENGI: Heart healthy DVT prophylaxis: Lovenox 40mg SQ daily Dispo: [facility] for cardiac monitoring Code Status: Full (2) Pulmonary edema: (3) GERD (gastroesophageal reflux disease): (4) Anxiety: (5) Depression: (6) Hypertension: (7) Ovarian cancer: History of Present Illness Chief Complaint: Dyspnea Primary Care Provider: STEPHEN Reardon Jessi Crowley is a 59-year-old female with PMH of ovarian cancer w/ peritoneal carcinomatosis, hypertension, GERD, diastolic dysfunction who arrived at the hospital due to shortness of breath for the past 3 days. She says she also felt significantly fatigued. [place] it was more difficult to walk around her home and to climb onto her truck. She reached out to her PCP who spoke to her over the phone and suggested she come into the hospital for evaluation as she sounded very dyspneic. She also reports chest pressure on-and-off within that time but no chest pain. Was recently admitted for chemotherapy-induced anemia/pancytopenia. She follows with Sofía estes/onc currently on gemcitabine and carboplatin for chemotherapy, but she has had chemo with doxorubicin in the past. In the ED was given a single dose of Lasix 40mg IV. Had a BNP of 35,000, elevated troponin at 0.048, EKG showing NSR, CBC showing stable anemia with Hgb of 9.4 (9.7 on 10/12). Chest CTA was negative for PE, showed cardiomegaly with pulmonary edema, bibasilar consolidation suggestive of atelectasis vs pneumonia, right adnexal mass likely correlates with ovarian ca. Allergies Allergy/AdvReac Type Severity Reaction Status Date / Time desflurane Allergy Severe MALIGNANT Verified 10/16/20 20:18 HYPERTHERMIA adhesive Allergy Mild SKIN Verified 10/16/20 20:18 IRRITATION WITH EKG STICKIES codeine AdvReac Mild headache/na Verified 10/16/20 20:18 [From Tylenol-Codeine] usea Home Medications Medication Instructions Recorded Confirmed Type fexofenadine [Nessa Allergy] 180 mg PO PM 08/07/19 10/16/20 History ferrous sulfate 325 mg (65 mg 325 mg PO PM #30 tab 01/22/20 10/16/20 Rx iron) tablet metoprolol succinate 100 mg 100 mg PO DAILY #30 tab 04/23/20 10/16/20 Rx tablet,extended release 24 hr chlorthalidone 25 mg tablet 25 mg PO PM #30 tab 06/13/20 10/16/20 Rx loratadine 10 mg tablet 10 mg PO DAILY PRN #30 tab 08/20/20 10/16/20 Rx escitalopram oxalate 20 mg tablet 20 mg PO DAILY #30 tab 08/29/20 10/16/20 Rx lorazepam 0.5 mg tablet 0.5 mg PO BID PRN #20 tab 08/29/20 10/16/20 Rx pantoprazole 40 mg tablet,delayed 40 mg PO DAILY #30 tab 09/27/20 10/16/20 Rx release losartan 100 mg PO PM 10/10/20 10/16/20 History oxycodone-acetaminophen 1 tab PO Q8 PRN 10/10/20 10/16/20 History prednisone 40 mg PO DAILY 10/16/20 10/16/20 History Past Med/Surg History Medical History Back pain Cancer OVARIAN CANCER>CHEMO > GETS HALF HR TREATMENTS Q 2 WEEKS @ [facility] Cancer related pain Elevated troponin I level Hiatal hernia MODERATE TO LARGE PER CHEST CT Left ventricular hypertrophy Malignant hyperthermia Nephrolithiasis Neutropenia Osteoarthritis Ovarian cancer Ovarian mass Pancytopenia due to chemotherapy Seasonal allergies Snoring "NO SLEEP STUDY" PER RECORDS Symptomatic anemia Surgical History H/O tympanomastoidectomy History of bilateral tubal ligation History of colonoscopy History of cystoscopy KIDNEY STONE EXTRACTION WITH STENT PLACEMENT History of difficult intubation Right tympanomastoidectomy = 11/26/17= Grade 2 view with glidescope #3, ETT 7.5 at [facility] PT UNAWARE OF THIS History of dilatation and curettage D&C, HYSTEROSCOPY= 04/29/18= LMA#4 AT [facility] History of ear surgery RT/LEFT EAR SURGERIES History of exploratory laparotomy History of myringotomy History of open reduction and internal fixation (ORIF) procedure Right arm History of total abdominal hysterectomy and bilateral salpingo-oophorectomy History of vascular access device A PORT PLACEMENT>LEFT INTACT CURRENTLY S/P exploratory laparotomy Tumor BILAT EAR TUMOR REMOVAL Family History Unknown No problems noted. Denies family history of Ovarian cancer Prostate cancer Myocardial infarction Breast cancer Colorectal cancer Social History Smoking Status: Former smoker Second Hand Exposure: No; Do You Dip or Chew Tobacco: No; Tobacco Cessation Education Requested by Patient: No Hx Alcohol Use: No Hx Substance Use: Yes Last Used Substance: Unknown Last Used Substance Other:: LAST USED MONTH AGO IF HAS IT TAKES ONCE A DAY AT Substance Use Type Other:: MEDICAL WITH CARD Preferred Language: Macedonian Communication Ability: Effective Visual Impairment: No Limitations Anesthetist Required: No Beliefs That Will Affect Care: None Current Living Situation: Significant Other Current Living Situation Comment: [place] Other Information That Helps Us Care for You: No Feels Safe at Home: Yes Safety Concerns: Feels Safe At This Time Assistive Devices: Glasses Review of Systems Constitutional: + fatigue; no fever, no chills and no body aches Eyes: no diplopia and no worsening vision Ear, Nose, Mouth, Throat: no ear pain, no sore throat and no dysphagia Respiratory: + dyspnea and + dyspnea on exertion; no cough, no hemoptysis, no pain on inspiration and no wheezing Cardiovascular: + dyspnea on exertion and + orthopnea; no chest pain Gastrointestinal: no abdominal pain, no nausea and no vomiting Genitourinary: no dysuria Musculoskeletal: no problem reported Integumentary: no problem reported Neurologic: no problem reported Psychiatric: no problem reported Physical Exam Constitutional: + obese; no acute distress Eyes: PERRL, conjunctivae normal, anicteric sclerae ENMT: external ear and nose normal, oropharynx normal Neck: normal visual inspection Respiratory: + labored breathing Auscultation: lungs clear to auscultation bilaterally; no crackles, no rales, no rhonchi and no wheezes Cardiovascular: RRR, no murmur, no edema Heart Sounds: normal S1 and normal S2 Extremities: + edema Gastrointestinal (Abdomen): normal bowel sounds, soft, nontender, no hepatosplenomegaly Musculoskeletal: no cyanosis or clubbing, extremities motor strength 5/5 Skin: no rashes, warm and dry Neurologic: CN's II-XI intact bilaterally Psychiatric: A+Ox3, euthymic affect Results & Data Results & Data ([facility]) Vital Signs (Past 12 Hours) Vital Signs Temp Pulse Resp BP Pulse Ox 10/16/20 19:04 79 15 200/138 H 96 10/16/20 19:03 88 28 H 95 10/16/20 18:30 90 26 H 191/123 H 96 10/16/20 18:02 89 14 190/115 H 94 10/16/20 16:25 90 26 H 96 10/16/20 15:45 36.2 C L 89 22 194/120 H 96 10/16/20 15:39 85 28 H 145/99 H 96 Laboratory Results Lab Results 10/16/20 10/16/20 10/16/20 Range/Units 16:35 16:35 16:46 WBC Cancelled RBC Cancelled Hgb Cancelled Hct Cancelled MCV Cancelled MCH Cancelled MCHC Cancelled RDW Std Deviation Cancelled RDW Coeff of Camilo Cancelled Plt Count Cancelled MPV Cancelled Immature Gran % (Auto) Cancelled Neut % (Auto) Cancelled Lymph % (Auto) Cancelled [place] % (Auto) Cancelled Eos % (Auto) Cancelled Baso % (Auto) Cancelled Neut # (Auto) Cancelled Lymph # (Auto) Cancelled [place] # (Auto) Cancelled Eos # (Auto) Cancelled Baso # (Auto) Cancelled Immature Gran # (Auto) Cancelled Absolute Nucleated RBC Cancelled Nucleated RBC % (auto) Cancelled Neutrophils % (Manual) Cancelled Band Neutrophils % Cancelled Lymphocytes % (Manual) Cancelled Prolymphocyte % Cancelled Reactive Lymphs % (Man) Cancelled Monocytes % (Manual) Cancelled Eosinophils % (Manual) Cancelled Basophils % (Manual) Cancelled Metamyelocytes % (Man) Cancelled Myelocytes % (Man) Cancelled Promyelocytes % (Man) Cancelled Blast Cells % (Manual) Cancelled Plasma Cell % (Manual) Cancelled Other Cells % Cancelled Nucleated RBC % Cancelled Neutrophils # (Manual) Cancelled Band Neutrophils # Cancelled Total Absolute Neuts Cancelled Lymphocytes # (Manual) Cancelled Prolymphocyte # Cancelled Reactive Lymphs # Cancelled Total Abs Lymphocytes Cancelled Monocytes # (Manual) Cancelled Eosinophils # (Manual) Cancelled Basophils # (Manual) Cancelled Metamyelocytes # (Man) Cancelled Myelocytes # (Manual) Cancelled Promyelocytes # (Man) Cancelled Blast Cells # (Man) Cancelled Plasma Cell # (Manual) Cancelled Other Cells # Cancelled Nucleated RBCs # (Man) Cancelled Hypersegmented Neuts Cancelled Hyposegmented Neuts Cancelled Hypogranular Neuts Cancelled Large Granular Lymphs Cancelled # Lrg Granular Lymphs Cancelled Hairy Cells Cancelled Smudge Cells Cancelled Toxic Granulation Cancelled Toxic Vacuolation Cancelled Dohle Bodies Cancelled Marybel Rods Cancelled Platelet Estimate Cancelled Hypogranular Platelets Cancelled Clumped Platelets Cancelled Giant Platelets Cancelled Platelet Satelliting Cancelled RBC Morphology Cancelled Polychromasia Cancelled Hypochromasia Cancelled Poikilocytosis Cancelled Basophilic Stippling Cancelled Anisocytosis Cancelled Microcytosis Cancelled Macrocytosis Cancelled Spherocytes Cancelled Pappenheimer Bodies Cancelled Sickle Cells Cancelled Target Cells Cancelled Tear Drop Cells Cancelled Ovalocytes Cancelled Stomatocytes Cancelled [place] Bodies Cancelled Echinocytes Cancelled Acanthocytes (Spur) Cancelled Rouleaux Cancelled RBC Agglutinates Cancelled Schistocytes Cancelled RBC Morph Comment Cancelled Sezary Cell Cancelled PT INR APTT PTT Ratio Sodium (136-145) mmol/L Potassium (3.5-5.1) mmol/L Chloride (98-107) mmol/L Carbon Dioxide (21-32) mmol/L Anion Gap (3-11) BUN (7-18) mg/dl Creatinine (0.6-1.2) mg/dl Est Cr Clr Drug Dosing ml/min Est GFR ( Amer) Est GFR (Non-Af Amer) BUN/Creatinine Ratio (10-20) Glucose (70-99) mg/dl Calcium (8.5-10.1) mg/dl Magnesium (1.8-2.4) mg/dl Total Bilirubin (0.2-1) mg/dl AST (15-37) U/L ALT (12-78) U/L Alkaline Phosphatase (45-117) U/L Troponin I (0-0.045) ng/ml NT-Pro-B Natriuret Pep (0-900) pg/ml Total Protein (6.4-8.2) gm/dl Albumin (3.4-5.0) gm/dl Globulin (2.5-4.0) gm/dl Albumin/Globulin Ratio (0.9-2) TSH (0.300-4.500) uIu/ml Urine Color Urine Appearance (Clear) Urine pH (4.5-7.5) Ur Specific [place] (1.000-1.030) Urine Protein (Negative) Urine Glucose (UA) (Negative) Urine Ketones (Negative) Urine Blood (Negative) Urine Nitrite (Negative) Urine Bilirubin (Negative) Urine Urobilinogen (Negative) Ur Leukocyte Esterase (Negative) Urine WBC (Auto) (0-5) /hpf Urine RBC (Auto) (0-4) /hpf U Hyaline Cast (Auto) (0-5) /lpf U Epithel Cells (Auto) (0-5) /lpf Urine Bacteria (Auto) (Negative) COVID-19 Eval Order Covid19 IDNow atMALC SARS-CoV-2, RNA, NAAT NEGATIVE (NEGATIVE) Blood Type Antibody Screen 10/16/20 10/16/20 10/16/20 Range/Units 16:46 16:46 16:46 WBC RBC Hgb Hct MCV MCH MCHC RDW Std Deviation RDW Coeff of Camilo Plt Count MPV Immature Gran % (Auto) Neut % (Auto) Lymph % (Auto) [place] % (Auto) Eos % (Auto) Baso % (Auto) Neut # (Auto) Lymph # (Auto) [place] # (Auto) Eos # (Auto) Baso # (Auto) Immature Gran # (Auto) Absolute Nucleated RBC Nucleated RBC % (auto) Neutrophils % (Manual) Band Neutrophils % Lymphocytes % (Manual) Prolymphocyte % Reactive Lymphs % (Man) Monocytes % (Manual) Eosinophils % (Manual) Basophils % (Manual) Metamyelocytes % (Man) Myelocytes % (Man) Promyelocytes % (Man) Blast Cells % (Manual) Plasma Cell % (Manual) Other Cells % Nucleated RBC % Neutrophils # (Manual) Band Neutrophils # Total Absolute Neuts Lymphocytes # (Manual) Prolymphocyte # Reactive Lymphs # Total Abs Lymphocytes Monocytes # (Manual) Eosinophils # (Manual) Basophils # (Manual) Metamyelocytes # (Man) Myelocytes # (Manual) Promyelocytes # (Man) Blast Cells # (Man) Plasma Cell # (Manual) Other Cells # Nucleated RBCs # (Man) Hypersegmented Neuts Hyposegmented Neuts Hypogranular Neuts Large Granular Lymphs # Lrg Granular Lymphs Hairy Cells Smudge Cells Toxic Granulation Toxic Vacuolation Dohle Bodies Marybel Rods Platelet Estimate Hypogranular Platelets Clumped Platelets Giant Platelets Platelet Satelliting RBC Morphology Polychromasia Hypochromasia Poikilocytosis Basophilic Stippling Anisocytosis Microcytosis Macrocytosis Spherocytes Pappenheimer Bodies Sickle Cells Target Cells Tear Drop Cells Ovalocytes Stomatocytes [place] Bodies Echinocytes Acanthocytes (Spur) Rouleaux RBC Agglutinates Schistocytes RBC Morph Comment Sezary Cell PT Cancelled INR Cancelled APTT Cancelled PTT Ratio Cancelled Sodium 145 (136-145) mmol/L Potassium (3.5-5.1) mmol/L Chloride 116 H (98-107) mmol/L Carbon Dioxide 24 (21-32) mmol/L Anion Gap 5.0 (3-11) BUN 23 H (7-18) mg/dl Creatinine 0.95 (0.6-1.2) mg/dl Est Cr Clr Drug Dosing 69.9 ml/min Est GFR ( Amer) 76.0 Est GFR (Non-Af Amer) 65.6 BUN/Creatinine Ratio 24.2 H (10-20) Glucose 118 H (70-99) mg/dl Calcium 9.5 (8.5-10.1) mg/dl Magnesium (1.8-2.4) mg/dl Total Bilirubin 0.6 (0.2-1) mg/dl AST (15-37) U/L ALT 22 (12-78) U/L Alkaline Phosphatase 126 H (45-117) U/L Troponin I 0.048 H* (0-0.045) ng/ml NT-Pro-B Natriuret Pep > 19488 H (0-900) pg/ml Total Protein 6.5 (6.4-8.2) gm/dl Albumin 3.3 L (3.4-5.0) gm/dl Globulin 3.2 (2.5-4.0) gm/dl Albumin/Globulin Ratio 1.0 (0.9-2) TSH 3.430 (0.300-4.500) uIu/ml Urine Color Urine Appearance (Clear) Urine pH (4.5-7.5) Ur Specific [place] (1.000-1.030) Urine Protein (Negative) Urine Glucose (UA) (Negative) Urine Ketones (Negative) Urine Blood (Negative) Urine Nitrite (Negative) Urine Bilirubin (Negative) Urine Urobilinogen (Negative) Ur Leukocyte Esterase (Negative) Urine WBC (Auto) (0-5) /hpf Urine RBC (Auto) (0-4) /hpf U Hyaline Cast (Auto) (0-5) /lpf U Epithel Cells (Auto) (0-5) /lpf Urine Bacteria (Auto) (Negative) COVID-19 Eval Order SARS-CoV-2, RNA, NAAT (NEGATIVE) Blood Type Cancelled Antibody Screen Cancelled 10/16/20 10/16/20 10/16/20 Range/Units 17:58 17:58 17:58 WBC 4.38 L RBC 2.97 L Hgb 9.4 L Hct 28.1 L MCV 94.6 MCH 31.6 MCHC 33.5 RDW Std Deviation 52.5 H RDW Coeff of Camilo 15.5 H Plt Count 168 MPV 10.2 Immature Gran % (Auto) Neut % (Auto) Lymph % (Auto) [place] % (Auto) Eos % (Auto) Baso % (Auto) Neut # (Auto) Lymph # (Auto) [place] # (Auto) Eos # (Auto) Baso # (Auto) Immature Gran # (Auto) Absolute Nucleated RBC 0.08 H Nucleated RBC % (auto) 1.9 Neutrophils % (Manual) 60.1 Band Neutrophils % Lymphocytes % (Manual) 16.5 Prolymphocyte % Reactive Lymphs % (Man) Monocytes % (Manual) 13.9 Eosinophils % (Manual) 0.9 Basophils % (Manual) Metamyelocytes % (Man) 4.3 Myelocytes % (Man) 4.3 Promyelocytes % (Man) Blast Cells % (Manual) Plasma Cell % (Manual) Other Cells % Nucleated RBC % Neutrophils # (Manual) 2.63 Band Neutrophils # Total Absolute Neuts 2.63 Lymphocytes # (Manual) 0.72 L Prolymphocyte # Reactive Lymphs # Total Abs Lymphocytes 0.72 L Monocytes # (Manual) 0.61 H Eosinophils # (Manual) 0.04 Basophils # (Manual) Metamyelocytes # (Man) 0.19 H Myelocytes # (Manual) 0.19 H Promyelocytes # (Man) Blast Cells # (Man) Plasma Cell # (Manual) Other Cells # Nucleated RBCs # (Man) Hypersegmented Neuts Hyposegmented Neuts Hypogranular Neuts Large Granular Lymphs # Lrg Granular Lymphs Hairy Cells Smudge Cells Toxic Granulation Toxic Vacuolation Dohle Bodies Marybel Rods Platelet Estimate Hypogranular Platelets Clumped Platelets Giant Platelets Platelet Satelliting RBC Morphology Polychromasia 1+ Hypochromasia Poikilocytosis Basophilic Stippling Anisocytosis Microcytosis Macrocytosis Spherocytes Pappenheimer Bodies Sickle Cells Target Cells Tear Drop Cells Ovalocytes Stomatocytes [place] Bodies Echinocytes Acanthocytes (Spur) Rouleaux RBC Agglutinates Schistocytes RBC Morph Comment Sezary Cell PT 11.4 INR 1.1 APTT 24.8 PTT Ratio 0.9 Sodium (136-145) mmol/L Potassium (3.5-5.1) mmol/L Chloride (98-107) mmol/L Carbon Dioxide (21-32) mmol/L Anion Gap (3-11) BUN (7-18) mg/dl Creatinine (0.6-1.2) mg/dl Est Cr Clr Drug Dosing ml/min Est GFR ( Amer) Est GFR (Non-Af Amer) BUN/Creatinine Ratio (10-20) Glucose (70-99) mg/dl Calcium (8.5-10.1) mg/dl Magnesium (1.8-2.4) mg/dl Total Bilirubin (0.2-1) mg/dl AST (15-37) U/L ALT (12-78) U/L Alkaline Phosphatase (45-117) U/L Troponin I (0-0.045) ng/ml NT-Pro-B Natriuret Pep (0-900) pg/ml Total Protein (6.4-8.2) gm/dl Albumin (3.4-5.0) gm/dl Globulin (2.5-4.0) gm/dl Albumin/Globulin Ratio (0.9-2) TSH (0.300-4.500) uIu/ml Urine Color Urine Appearance (Clear) Urine pH (4.5-7.5) Ur Specific [place] (1.000-1.030) Urine Protein (Negative) Urine Glucose (UA) (Negative) Urine Ketones (Negative) Urine Blood (Negative) Urine Nitrite (Negative) Urine Bilirubin (Negative) Urine Urobilinogen (Negative) Ur Leukocyte Esterase (Negative) Urine WBC (Auto) (0-5) /hpf Urine RBC (Auto) (0-4) /hpf U Hyaline Cast (Auto) (0-5) /lpf U Epithel Cells (Auto) (0-5) /lpf Urine Bacteria (Auto) (Negative) COVID-19 Eval Order SARS-CoV-2, RNA, NAAT (NEGATIVE) Blood Type A Positive Antibody Screen NEGATIVE 10/16/20 10/16/20 Range/Units 17:58 19:25 WBC RBC Hgb Hct MCV MCH MCHC RDW Std Deviation RDW Coeff of Camilo Plt Count MPV Immature Gran % (Auto) Neut % (Auto) Lymph % (Auto) [place] % (Auto) Eos % (Auto) Baso % (Auto) Neut # (Auto) Lymph # (Auto) [place] # (Auto) Eos # (Auto) Baso # (Auto) Immature Gran # (Auto) Absolute Nucleated RBC Nucleated RBC % (auto) Neutrophils % (Manual) Band Neutrophils % Lymphocytes % (Manual) Prolymphocyte % Reactive Lymphs % (Man) Monocytes % (Manual) Eosinophils % (Manual) Basophils % (Manual) Metamyelocytes % (Man) Myelocytes % (Man) Promyelocytes % (Man) Blast Cells % (Manual) Plasma Cell % (Manual) Other Cells % Nucleated RBC % Neutrophils # (Manual) Band Neutrophils # Total Absolute Neuts Lymphocytes # (Manual) Prolymphocyte # Reactive Lymphs # Total Abs Lymphocytes Monocytes # (Manual) Eosinophils # (Manual) Basophils # (Manual) Metamyelocytes # (Man) Myelocytes # (Manual) Promyelocytes # (Man) Blast Cells # (Man) Plasma Cell # (Manual) Other Cells # Nucleated RBCs # (Man) Hypersegmented Neuts Hyposegmented Neuts Hypogranular Neuts Large Granular Lymphs # Lrg Granular Lymphs Hairy Cells Smudge Cells Toxic Granulation Toxic Vacuolation Dohle Bodies Marybel Rods Platelet Estimate Hypogranular Platelets Clumped Platelets Giant Platelets Platelet Satelliting RBC Morphology Polychromasia Hypochromasia Poikilocytosis Basophilic Stippling Anisocytosis Microcytosis Macrocytosis Spherocytes Pappenheimer Bodies Sickle Cells Target Cells Tear Drop Cells Ovalocytes Stomatocytes [place] Bodies Echinocytes Acanthocytes (Spur) Rouleaux RBC Agglutinates Schistocytes RBC Morph Comment Sezary Cell PT INR APTT PTT Ratio Sodium (136-145) mmol/L Potassium 3.8 (3.5-5.1) mmol/L Chloride (98-107) mmol/L Carbon Dioxide (21-32) mmol/L Anion Gap (3-11) BUN (7-18) mg/dl Creatinine (0.6-1.2) mg/dl Est Cr Clr Drug Dosing ml/min Est GFR ( Amer) Est GFR (Non-Af Amer) BUN/Creatinine Ratio (10-20) Glucose (70-99) mg/dl Calcium (8.5-10.1) mg/dl Magnesium 1.5 L (1.8-2.4) mg/dl Total Bilirubin (0.2-1) mg/dl AST 24 (15-37) U/L ALT (12-78) U/L Alkaline Phosphatase (45-117) U/L Troponin I (0-0.045) ng/ml NT-Pro-B Natriuret Pep (0-900) pg/ml Total Protein (6.4-8.2) gm/dl Albumin (3.4-5.0) gm/dl Globulin (2.5-4.0) gm/dl Albumin/Globulin Ratio (0.9-2) TSH (0.300-4.500) uIu/ml Urine Color Yellow Urine Appearance Clear (Clear) Urine pH 6.0 (4.5-7.5) Ur Specific [place] 1.013 (1.000-1.030) Urine Protein Negative (Negative) Urine Glucose (UA) Negative (Negative) Urine Ketones Negative (Negative) Urine Blood Negative (Negative) Urine Nitrite Negative (Negative) Urine Bilirubin Negative (Negative) Urine Urobilinogen Negative (Negative) Ur Leukocyte Esterase Trace H (Negative) Urine WBC (Auto) 1-5 (0-5) /hpf Urine RBC (Auto) 0-4 (0-4) /hpf U Hyaline Cast (Auto) 0 (0-5) /lpf U Epithel Cells (Auto) 10-20 H (0-5) /lpf Urine Bacteria (Auto) Negative (Negative) COVID-19 Eval Order SARS-CoV-2, RNA, NAAT (NEGATIVE) Blood Type Antibody Screen Diagnostic Findings XR chest 1V portable HISTORY: 59 years-old Female Dyspnea acute shortness of breath COMPARISON: Chest radiograph 10/10/2020 TECHNIQUE: Portable AP view of the chest FINDINGS: Cardiac silhouette is enlarged. Left subclavian Ahfvqf-s-Jfro catheter is unchanged. Bilateral pleural effusions with bibasilar consolidation redemonstrated. No pneumothorax. Pulmonary vascular congestion. Bones appear grossly intact. IMPRESSION: 1. Cardiomegaly with pulmonary vascular congestion. 2. Unchanged pleural effusions with bibasilar consolidation. ACT 112: Negative or not required by law. The above report was generated using voice recognition software. It may contain grammatical, syntax or spelling errors. Electronically signed by: Markell Cerda M.D. 10/16/2020 4:39 PM Dictated: 10/16/201637Transcribed: 10/16/201637 CT angio chest PE protocol, CT abd pelvis IV con only CT DOSE: 1699.85 mGy.cm HISTORY: 59 years-old Female with Dyspnea. Acute shortness of breath in a patient with history of known ovarian carcinoma. TECHNIQUE: Multiple CTA images of the chest were obtained after the intravenous administration of 118 ml Optiray 320. Coronal and sagittal MIPS were obtained from the axial data set and were submitted for review. CT abdomen pelvis with IV contrast only also obtained. All measurements were obtained according to NASCET criteria. A dose lowering technique was utilized adhering to the principles of ALARA. COMPARISON: Chest radiograph of same day FINDINGS: Motion degraded exam. CTA: Cardiac silhouette is upper limits of normal in size. Mild coronary artery calcifications. No thoracic aortic aneurysm or dissection. Patency of the imaged great vessels. Left IJ Orxgjx-q-[id number] catheter distal tip terminates in the mid SVC. The pulmonary artery is opacified to the level of the proximal subsegmental branches and demonstrates no filling defects to suggest thromboembolic disease. Respiratory motion artifact limits the exam. CT CHEST: Unremarkable thyroid. Mildly enlarged subcarinal lymph nodes measure up to 10 mm, nonspecific. Small left with small to moderate right pleural effusion. No pneumothorax. Mild bibasilar consolidation. Groundglass densities with mild intralobular septal thickening. Central airways are patent. Unremarkable soft tissues. No acute fracture. CT ABDOMEN/PELVIS: No pneumatosis or pneumoperitoneum. Spleen is upper limits of normal in size. Moderate pancreatic atrophy. Unremarkable adrenal glands. Cholelithiasis without CT evidence of acute cholecystitis. Indeterminate hypodense 2.5 cm posterior right hepatic lobe, incompletely characterized on this exam secondary to motion artifact and single phase study. Patency of the hepatic and portal veins. Probable cyst of the inferior pole left kidney, 1.5 cm. No hydronephrosis. Partial distention of the urinary bladder. Heterogeneous right adnexal mass measuring 5.0 x 4.1 x 4.0 cm is noted with a contiguous or adjacent soft tissue mass of the midline pelvis measuring 3.3 cm abutting and tethering adjacent loops of bowel and abutting the posterior urinary bladder. Numerous adjacent small soft tissue nodules are noted within the pelvic mesentery. 7 mm retroperitoneal lymph node seen on image 2:30 series 6. Large hiatal hernia. Stomach, large bowel and pancreas. There is no small bowel obstruction. Residual enteric contrast is noted within the large bowel. Appendix is not diagnostically visualized. Omental/peritoneal nodule of the abdominal left upper quadrant and right pericolic gutter. Tiny ventral abdominal wall fat filled hernias. No acute fracture. No definite suspicious bony mass lesion. IMPRESSION: 1. No pulmonary emboli. 2. Small left and small to moderate right pleural effusion. 3. Bibasilar consolidation suggestive of atelectasis versus pneumonia. 4. Cardiomegaly with pulmonary edema. 5. Right adnexal pelvic mass measuring up to 5 cm likely correlates with the patient's known ovarian carcinoma. Numerous additional soft tissue lesions of the pelvis are noted along with omental/peritoneal carcinomatosis. 6. No bowel obstruction. 7. Large hiatal hernia. 8. Cholelithiasis. 9. Additional findings as above. ACT 112: Negative or not required by law. The above report was generated using voice recognition software. It may contain grammatical, syntax or spelling errors. Electronically signed by: Markell Cerda M.D. 10/16/2020 6:04 PM Dictated: 10/16/201748Transcribed: 10/16/201748 CT angio chest PE protocol, CT abd pelvis IV con only CT DOSE: 1699.85 mGy.cm HISTORY: 59 years-old Female with Dyspnea. Acute shortness of breath in a patient with history of known ovarian carcinoma. TECHNIQUE: Multiple CTA images of the chest were obtained after the intravenous administration of 118 ml Optiray 320. Coronal and sagittal MIPS were obtained from the axial data set and were submitted for review. CT abdomen pelvis with IV contrast only also obtained. All measurements were obtained according to NASCET criteria. A dose lowering technique was utilized adhering to the principles of ALARA. COMPARISON: Chest radiograph of same day FINDINGS: Motion degraded exam. CTA: Cardiac silhouette is upper limits of normal in size. Mild coronary artery calcifications. No thoracic aortic aneurysm or dissection. Patency of the imaged great vessels. Left IJ [id number] catheter distal tip terminates in the mid SVC. The pulmonary artery is opacified to the level of the proximal subsegmental branches and demonstrates no filling defects to suggest thromboembolic disease. Respiratory motion artifact limits the exam. CT CHEST: Unremarkable thyroid. Mildly enlarged subcarinal lymph nodes measure up to 10 mm, nonspecific. Small left with small to moderate right pleural effusion. No pneumothorax. Mild bibasilar consolidation. Groundglass densities with mild intralobular septal thickening. Central airways are patent. Unremarkable soft tissues. No acute fracture. CT ABDOMEN/PELVIS: No pneumatosis or pneumoperitoneum. Spleen is upper limits of normal in size. Moderate pancreatic atrophy. Unremarkable adrenal glands. Cholelithiasis without CT evidence of acute cholecystitis. Indeterminate hypodense 2.5 cm posterior right hepatic lobe, incompletely characterized on this exam secondary to motion artifact and single phase study. Patency of the hepatic and portal veins. Probable cyst of the inferior pole left kidney, 1.5 cm. No hydronephrosis. Partial distention of the urinary bladder. Heterogeneous right adnexal mass measuring 5.0 x 4.1 x 4.0 cm is noted with a contiguous or adjacent soft tissue mass of the midline pelvis measuring 3.3 cm abutting and tethering adjacent loops of bowel and abutting the posterior urinary bladder. Numerous adjacent small soft tissue nodules are noted within the pelvic mesentery. 7 mm retroperitoneal lymph node seen on image 2:30 series 6. Large hiatal hernia. Stomach, large bowel and pancreas. There is no small bowel obstruction. Residual enteric contrast is noted within the large bowel. Appendix is not diagnostically visualized. Omental/peritoneal nodule of the abdominal left upper quadrant and right pericolic gutter. Tiny ventral abdominal wall fat filled hernias. No acute fracture. No definite suspicious bony mass lesion. IMPRESSION: 1. No pulmonary emboli. 2. Small left and small to moderate right pleural effusion. 3. Bibasilar consolidation suggestive of atelectasis versus pneumonia. 4. Cardiomegaly with pulmonary edema. 5. Right adnexal pelvic mass measuring up to 5 cm likely correlates with the patient's known ovarian carcinoma. Numerous additional soft tissue lesions of the pelvis are noted along with omental/peritoneal carcinomatosis. 6. No bowel obstruction. 7. Large hiatal hernia. 8. Cholelithiasis. 9. Additional findings as above. ACT 112: Negative or not required by law. The above report was generated using voice recognition software. It may contain grammatical, syntax or spelling errors. Electronically signed by: Markell Cerda M.D. 10/16/2020 6:04 PM Dictated: 10/16/201748Transcribed: 10/16/201748 ECG Additional Comments: NSR at 87, no acute ischemic changes Code Status & VTE Plan VTE Prophylaxis Plan VTE Prophylaxis will be ordered: Yes Supervising Physician Co-Signing Physician Notes Patient seen and examined, chart reviewed, case discussed with Dr. Yana Tomlinson and I agree with his assessment and plan as documented above. Briefly, patient is a 59yo female with history of ovarian cancer with peritoneal carci nomatosis presenting with dyspnea and fatigue. Concern for CHF exacerbation with elevated BNP, vascular congestion and effusions noted on imaging. She has elevated weight from baseline On exam she is afebrile, HD stable, NAD. Breathing comfortably and speaking in complete sentences Skin - no rash HEENT - NC/AT, PERRL, EOMI, Neck supple, no JVD Heart - +S1/S2, regular Lungs - CTA Abd - +BS, soft, NT/ND Ext - edema, 1+ bilateral LE Labs and images reviewed. Covid NEGATIVE Trop = 0.048 BNP>[id number] Assessment/Plan: Concern for CHF exacerbation leading to dyspnea -Diuresis with Lasix 40mg IV daily -Daily weights, I/O monitoring -Check 2D echo -Remainder of plan as above Resident Activity Tracking Resident Involvement: Resident Care Provided Care Provided: Adult Hospital Medicine (1) Ovarian cancer Laterality: unspecified laterality Qualified Code(s): C56.9 - Malignant neoplasm of unspecified ovary (2) Pulmonary edema Chronicity: acute Qualified Code(s): J81.0 - Acute pulmonary edema
[2020-10-16 19:44] LABS: Appearance Urine Clear (Clear); Bacteria Urine Automated Negative (Negative); Bilirubin Urine Negative (Negative); Blood Urine Negative (Negative); Cast Urine Automated 0 /lpf (0-5); Color Urine Yellow; Glucose Urine UA Negative (Negative); Ketones Urine Negative (Negative); Leukocyte Esterase Urine Trace (Negative); Nitrite Urine Negative (Negative); Protein Urine Negative (Negative); RBC Urine Automated 0-4 /hpf (0-4); Specific Gravity Urine 1.013 (1.000-1.030); Urobilinogen Urine Negative (Negative)
[2020-10-16] MEDS ORDERED: hydrALAZINE HCL 20 MG/ML VIAL IV ONE (19:49)
[2020-10-16] MEDS ORDERED: hydrALAZINE HCL 20 MG/ML VIAL ONE (19:54)
[2020-10-16] MEDS ORDERED: ACETAMINOPHEN 325 MG TAB PO PRN (20:56)
[2020-10-16] MEDS ORDERED: LORazepam 0.5 MG TAB PO PRN (20:56)
[2020-10-16] MEDS ORDERED: hydrALAZINE HCL 20 MG/ML VIAL IV PRN (20:56)
[2020-10-16] MEDS ORDERED: ONDANSETRON INJ 2 MG/ML 2 ML VIAL IV PRN (20:56)
[2020-10-16] MEDS: LOSARTAN POTASSIUM 50 MG TAB PO SCH (21:28)
[2020-10-16] MEDS: FEXOFENADINE HCL 180 MG TAB PO SCH (21:28)
[2020-10-16] MEDS: MAGNESIUM SULFATE / D5W 1 GM/100 ML BAG IV SCH ×2 (21:29→23:38)
[2020-10-16] MEDS: oxyCODONE/ACETAMINOPHEN 5mg/325mg TAB PO PRN (23:15)
--- NOTE | 2020-10-17 00:01 | Billing Data ---
Date of Service October 16, 2020 Coding Level of Care Code 79458 OBS Care - Level 3
[2020-10-17] MEDS: MAGNESIUM SULFATE / D5W 1 GM/100 ML BAG IV SCH (01:44)
[2020-10-17 06:11] LABS: Hematocrit (blood only) 28.7 % (37-47); Hemoglobin 9.7 g/dL (12.0-16.0); Mean Corpuscular Hgb Conc 33.8 g/dL (32-36); Mean Corpuscular Volume 94.7 fL (80-100); Mean Platelet Volume 9.6 fL (7.4-10.4); Nucleated RBC % (auto) 1.9 %; Platelet Count 178 K/uL (130-400); RDW Coefficient of Variation 15.8 % (11.5-14.5); RDW Standard Deviation 52.8 fL (36.4-46.3); Red Blood Count 3.03 M/uL (4.2-5.4); White Blood Count 5.24 K/uL (4.8-10.8)
[2020-10-17 06:34] LABS: Albumin Level 2.9 gm/dl (3.4-5.0); BUN Creatinine Ratio 22.7 (10-20); Calcium 9.1 mg/dl (8.5-10.1); Creatinine Clr Calc Pharmacy 75.5 ml/min; Est GFR (African American) 83.4; Est GFR (Non-African American) 71.9; Magnesium 2.3 mg/dl (1.8-2.4); Potassium 3.3 mmol/L (3.5-5.1)
[2020-10-17 06:39] LABS: Albumin Globulin Ratio 1.1 (0.9-2); Bilirubin,Total 0.6 mg/dl (0.2-1); Globulin 2.7 gm/dl (2.5-4.0); Phosphorus 3.7 mg/dl (2.5-4.9); Total Protein 5.6 gm/dl (6.4-8.2); Troponin I 0.038 ng/ml (0-0.045)
[2020-10-17] MEDS: ENOXAPARIN INJ 40 MG/0.4 ML SYR SQ SCH (08:04)
[2020-10-17] MEDS: METOPROLOL SUCC 50MG EXT REL TAB PO SCH (08:04)
[2020-10-17] MEDS: FUROSEMIDE 40 MG in SYRINGE 0 ML IV SCH (08:04)
[2020-10-17] MEDS: PANTOprazole 40 MG TAB PO SCH (08:04)
[2020-10-17] MEDS: ESCITALOPRAM OXALATE 20 MG TAB PO SCH (08:04)
[2020-10-17] MEDS ORDERED: HEPARIN 100 UNIT/ML 5ML FLUSH ONE (08:07)
[2020-10-17] MEDS ORDERED: Nursing to Pharmacy Communication SCH (08:30)
[2020-10-17] MEDS ORDERED: FUROSEMIDE 40 MG/4 ML VIAL IV SCH (09:00)
--- NOTE | 2020-10-17 10:15 | Cardiology Consultation ---
Date of Consultation October 17, 2020 Assessment & Plan (1) Acute heart failure with preserved ejection fraction (HFpEF): 59-year-old female with longstanding history of hypertension for which she is on losartan and metoprolol as an outpatient, as well as recurrent ovarian carcinoma presents with progressive dyspnea. Physical exam, radiographic findings, laboratory findings all consistent with volume overload with interval development of right greater than left pleural effusions. Echocardiogram reveals preserved biventricular systolic function, no significant valvular disease, Doppler evidence of increased filling pressures. Patient recently hospitalized from 10/10/2020 to 10/12/2020 with post chemotherapy pancytopenia including profound anemia, presenting hemoglobin 5.1g/dl. Would speculate the volume she received including transfusion of packed red blood cells likely to turn to volume overload. She has received 2 doses of IV furosemide thus far 40 mg last evening at 1835, and another 40 mg this morning at 8 AM. Potassium was low this morning, and replacement has been ordered by the primary team. Recommend continue treatment with prior to hospital doses of metoprolol and losartan. Continue current diuretic regimen, furosemide 40 mg IV every 24 hours. I have added low-dose spironolactone. It is encouraging that her renal function is within normal limits, and the CT of the abdomen and pelvis reveals no suggestion of hydronephrosis or urinary outflow tract obstruction. The mild, flat troponin I elevation is consistent with myocardial strain from volume overload, I do not think the patient's presentation is consistent with an acute coronary syndrome. Agree with Lovenox 40 mg subcu every 24 hours for DVT prophylaxis. Case discussed by phone with Dr Gold. History of Present Illness Attending Physician: Den Gold History of Present Illness Jessi Crowley is a 59 year old female seen in cardiology consultation per the requ est of Dr Kishore Baltazar for the evaluation of congestive heart failure. This is the patient's first cardiac assessment. She has a history of recurrent ovarian cancer with peritoneal carcinomatosis. She is followed by Dr Walker of [facility] medical oncology. On 09/16/18, she underwent exploratory laparotomy, lysis of adhesion, resection of pelvic mass, total abdominal hysterectomy and resection of an anterior abdominal wall nodule at [facility]. She previously undergone 3 cycles of Taxol and carboplatin chemotherapy. She received a combination of Doxil and Avastin starting on 10/18/2018 however after 4 cycles this combination she had an allergic reaction to Doxil and this was discontinued. She was treated with Avastin until 06/26/2020. More recently, she has been treated with salvage chemotherapy including gemcitabine and carboplatin with first treatment on 07/29/2021. Most recent treatment on 10/03/2020. A week ago, she was admitted to [facility] with pancytopenia including severe anemia, hemoglobin 5.1 g/dl on 10/10/20. She received treatment including 4 units of packed red blood cells. She represented to the emergency room yesterday complaining of 3 days of progressive shortness of breath when lying down and abdominal bloating. CT angiogram of the chest performed yesterday 10/16/2020 revealed no pulmonary embolism. A small left and moderate right pleural effusion noted on CT report as well as right adnexal pelvic mass maximum dimension 5 cm. Compared to the recent CT performed at [facility] on 10/09/2020, interval development of pleural effusions noted. NT pro BNP: > 35,000 EKG performed today 10/17/2020 and reviewed independently revealed normal sinus rhythm at 85 bpm, mild diffuse nonspecific T wave abnormality, unchanged compared to 10/16/2020. Echocardiogram performed 10/17/2020 and reviewed independently this morning: Mild concentric left ventricular hypertrophy, normal LV wall motion The LVEF is normal 55 to 60% The right ventricle is not well visualized but the chamber size and systolic function are grossly normal on limited visualization. Mild left atrial dilatation noted Doppler findings are consistent with elevated left-sided filling pressure. -Compared to the report of the outpatient echocardiogram performed 10/14/2018, normal LVEF, grade 1 diastolic dysfunction noted at that time. Allergies Allergy/AdvReac Type Severity Reaction Status Date / Time desflurane Allergy Severe MALIGNANT Verified 10/16/20 20:18 HYPERTHERMIA adhesive Allergy Mild SKIN Verified 10/16/20 20:18 IRRITATION WITH EKG STICKIES codeine AdvReac Mild headache/na Verified 10/16/20 20:18 [From Tylenol-Codeine] usea Home Medications Medication Instructions Recorded Confirmed Type fexofenadine [Nessa Allergy] 180 mg PO PM 08/07/19 10/16/20 History ferrous sulfate 325 mg (65 mg 325 mg PO PM #30 tab 01/22/20 10/16/20 Rx iron) tablet metoprolol succinate 100 mg 100 mg PO DAILY #30 tab 04/23/20 10/16/20 Rx tablet,extended release 24 hr chlorthalidone 25 mg tablet 25 mg PO PM #30 tab 06/13/20 10/16/20 Rx loratadine 10 mg tablet 10 mg PO DAILY PRN #30 tab 08/20/20 10/16/20 Rx escitalopram oxalate 20 mg tablet 20 mg PO DAILY #30 tab 08/29/20 10/16/20 Rx lorazepam 0.5 mg tablet 0.5 mg PO BID PRN #20 tab 08/29/20 10/16/20 Rx pantoprazole 40 mg tablet,delayed 40 mg PO DAILY #30 tab 09/27/20 10/16/20 Rx release losartan 100 mg PO PM 10/10/20 10/16/20 History oxycodone-acetaminophen 1 tab PO Q8 PRN 10/10/20 10/16/20 History prednisone 40 mg PO DAILY 10/16/20 10/16/20 History Patient History Medical History Back pain Cancer OVARIAN CANCER>CHEMO > GETS HALF HR TREATMENTS Q 2 WEEKS @ [facility] Cancer related pain Elevated troponin I level Hiatal hernia MODERATE TO LARGE PER CHEST CT Left ventricular hypertrophy Malignant hyperthermia Nephrolithiasis Neutropenia Osteoarthritis Ovarian cancer Ovarian mass Pancytopenia due to chemotherapy Seasonal allergies Snoring "NO SLEEP STUDY" PER RECORDS Symptomatic anemia Surgical History H/O tympanomastoidectomy History of bilateral tubal ligation History of colonoscopy History of cystoscopy KIDNEY STONE EXTRACTION WITH STENT PLACEMENT History of difficult intubation Right tympanomastoidectomy = 11/26/17= Grade 2 view with glidescope #3, ETT 7.[address] [facility] PT UNAWARE OF THIS History of dilatation and curettage D&C, HYSTEROSCOPY= 04/29/18= LMA#[address] [facility] History of ear surgery RT/LEFT EAR SURGERIES History of exploratory laparotomy History of myringotomy History of open reduction and internal fixation (ORIF) procedure Right arm History of total abdominal hysterectomy and bilateral salpingo-oophorectomy History of vascular access device A PORT PLACEMENT>LEFT INTACT CURRENTLY S/P exploratory laparotomy Tumor BILAT EAR TUMOR REMOVAL Family History Unknown No problems noted. Denies family history of Ovarian cancer Prostate cancer Myocardial infarction Breast cancer Colorectal cancer Social History Smoking Status: Former smoker Second Hand Exposure: No; Do You Dip or Chew Tobacco: No; Tobacco Cessation Education Requested by Patient: No Hx Alcohol Use: No Hx Substance Use: Yes Last Used Substance: Unknown Last Used Substance Other:: LAST USED MONTH AGO IF HAS IT TAKES ONCE A DAY AT HS Substance Use Type Other:: MEDICAL WITH CARD Preferred Language: Niuean Communication Ability: Effective Visual Impairment: No Limitations Polygraph Technician Required: No Beliefs That Will Affect Care: None Current Living Situation: Significant Other Current Living Situation Comment: [facility] Other Information That Helps Us Care for You: No Feels Safe at Home: Yes Safety Concerns: Feels Safe At This Time Assistive Devices: Glasses Review of Systems Review of Systems: All systems reviewed & are unremarkable except as noted in HPI & below No chest pain or palpitations noted. Physical Exam Physical Exam: Temp Pulse Resp BP Pulse Ox 36.5 C 78 18 166/97 H 93 10/17/20 07:27 10/17/20 07:27 10/17/20 07:27 10/17/20 07:27 10/17/20 07:27 Constitutional: WD/WN, vitals as above Respiratory: Decreased breath sounds bilaterally at the bases Cardiovascular: RRR, no murmur, no edema Gastrointestinal (Abdomen): normal bowel sounds, soft, nontender, no hepatosplenomegaly Neurologic: PERRL, EOMI, accommodation nl, no face palsy, no dysarthria Results & Data ([facility]) Vital Signs (Past 12 Hours) Vital Signs Temp Pulse Pulse Resp BP Pulse Ox 10/17/20 07:27 36.5 C 78 18 166/97 H 93 10/17/20 02:51 36.5 C 85 18 148/85 H 95 10/17/20 01:31 82 10/16/20 23:26 36.5 C 84 18 157/90 H 95 10/16/20 22:51 87 Laboratory Results Cardiac Enzymes 10/16/20 10/16/20 10/16/20 Range/Units 16:46 17:58 23:41 AST 24 (15-37) U/L Troponin I 0.048 H* 0.036 (0-0.045) ng/ml 10/17/20 Range/Units 05:49 AST 26 (15-37) U/L Troponin I 0.038 (0-0.045) ng/ml Coagulation 10/16/20 10/16/20 Range/Units 16:46 17:58 PT Cancelled 11.4 APTT Cancelled 24.8 CBC 10/16/20 10/16/20 10/17/20 Range/Units 16:46 17:58 05:49 WBC Cancelled 4.38 L 5.24 RBC Cancelled 2.97 L 3.03 L Hgb Cancelled 9.4 L 9.7 L Hct Cancelled 28.1 L 28.7 L Plt Count Cancelled 168 178 Neut # (Auto) Cancelled Lymph # (Auto) Cancelled [place] # (Auto) Cancelled Eos # (Auto) Cancelled Baso # (Auto) Cancelled Comprehensive Metabolic Panel 10/16/20 10/16/20 10/17/20 Range/Units 16:46 17:58 05:49 Sodium 145 144 (136-145) mmol/L Potassium 3.8 3.3 L (3.5-5.1) mmol/L Chloride 116 H 112 H (98-107) mmol/L Carbon Dioxide 24 24 (21-32) mmol/L BUN 23 H 20 H (7-18) mg/dl Creatinine 0.95 0.88 (0.6-1.2) mg/dl Glucose 118 H 87 (70-99) mg/dl Calcium 9.5 9.1 (8.5-10.1) mg/dl AST 24 26 (15-37) U/L ALT 22 23 (12-78) U/L Alkaline Phosphatase 126 H 112 (45-117) U/L Total Protein 6.5 5.6 L (6.4-8.2) gm/dl Albumin 3.3 L 2.9 L (3.4-5.0) gm/dl Intake and Output 10/16/20 10/17/20 10/17/20 22:59 06:59 14:59 Intake Total 450 / 450 Output Total 925 / 1425 500 / 1425 Balance -925 / -975 -50 / -975 Intake: IV 300 / 300 MAGNESIUM SULFATE / D5W 1 gm In 300 / 300 100 ml @ 50 mls/hr IV Q2H [facility] Rx#:[id number] Oral 150 / 150 Output: Urine 925 / 1425 500 / 1425 Other: # Unmeasured Voids 1 Weight 95 kg Weight Measurement Method Standing Scale
[2020-10-17] MEDS ORDERED: POTASSIUM CHLORIDE CRTAB 20 MEQ TABCR PO ONE (10:30)
[2020-10-17] MEDS: SPIRONOLACTONE 12.5 MG TAB PO SCH (10:57)
[2020-10-17] MEDS: oxyCODONE/ACETAMINOPHEN 5mg/325mg TAB PO PRN ×2 (13:37→21:50)
[2020-10-17] MEDS: POLYETHYLENE (MIRALAX) 17 GM PACK PO SCH (13:57)
--- NOTE | 2020-10-17 16:44 | Electrocardiogram Report ---
Test Reason : Blood Pressure : / mmHG Vent. Rate : 087 BPM Atrial Rate : 087 BPM P-R Int : 166 ms QRS Dur : 066 ms QT Int : 372 ms P-R-T Axes : 023 004 019 degrees QTc Int : 447 ms Normal sinus rhythm Nonspecific T wave abnormality Abnormal ECG When compared with ECG of 10-OCT-2020 13:32, Nonspecific T wave abnormality has replaced inverted T waves in Lateral leads Confirmed by Gurdeep Callahan ([id number]) on 10/17/2020 4:44:27 PM Referred By: REFERRED SELF Confirmed By:Finn Callahan
--- NOTE | 2020-10-17 16:52 | Electrocardiogram Report ---
Test Reason : Blood Pressure : / mmHG Vent. Rate : 085 BPM Atrial Rate : 085 BPM P-R Int : 168 ms QRS Dur : 072 ms QT Int : 396 ms P-R-T Axes : 034 029 050 degrees QTc Int : 471 ms Normal sinus rhythm Nonspecific T wave abnormality Prolonged QT Abnormal ECG When compared with ECG of 16-OCT-2020 16:31, (unconfirmed) No significant change was found Confirmed by Gurdeep Callahan ([id number]) on 10/17/2020 4:51:44 PM Referred By: REFERRED SELF Confirmed By:Finn Callahan
[2020-10-17] MEDS: POTASSIUM CHLORIDE CRTAB 20 MEQ TABCR PO SCH (17:49)
[2020-10-17] MEDS: LOSARTAN POTASSIUM 50 MG TAB PO SCH (20:34)
[2020-10-17] MEDS: FEXOFENADINE HCL 180 MG TAB PO SCH (20:34)
--- NOTE | 2020-10-18 06:09 | Hospitalist Progress Note ---
Date of Service October 18, 2020 Assessment & Plan (1) Acute heart failure with preserved ejection fraction (HFpEF): echo with normal EF. presentation consistent with acute diastolic CHF. patient had received 4 units of PRBCs during the recent hospital stay. suspect she had developed volume overload in that setting. she is diuresing well thus far. continue lasix 40mg IV daily. appreciate Dr Olvera's consultation - he has added low-dose aldactone 12.5mg daily. replace K. BMP in am. Continue metoprolol succinate and losartan. (2) GERD (gastroesophageal reflux disease): Cont PPI has known hiatal hernia (3) Anxiety: Cont SSRI Cont ativan prn (chronic for her) (4) Depression: Cont SSRI (5) Hypertension: Uncontrolled, but improving. Aldactone in addition to BB and ARB will help. Diuresis will help BP control as well. Follow BPs. Adjust meds further if needed. 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 less FUENTES. LE edema is slightly worse than baseline. telemetry without dysrhythmia overnight. eating fine. no cough. Review of Systems Constitutional: + fatigue; no fever and no chills Respiratory: no wheezing Cardiovascular: no chest pain Gastrointestinal: no abdominal pain Physical Exam Constitutional: no acute distress and no altered mental status ENMT: external ear and nose normal, oropharynx normal Ears: + hearing impairment Respiratory: no respiratory distress Auscultation: + diminished lung sounds and + crackles; no wheezes Cardiovascular: Rate/Rhythm: regular rate and regular rhythm Heart Sounds: normal S1 and normal S2; no murmur Vessels: no JVD (None seen - patient was sitting upright in bed ) Extremities: + edema (1+ b/l ) Gastrointestinal (Abdomen): normal bowel sounds, soft, nontender, no hepatosplenomegaly Psychiatric: Orientation: alert and oriented x 3 Results & Data Results & Data ([facility]) Vital Signs (Past 12 Hours) Vital Signs Temp Pulse Pulse Resp BP BP Pulse Ox 10/18/20 03:20 36.5 C 60 18 122/64 95 10/17/20 23:29 69 10/17/20 23:15 36.3 C L 58 L 20 119/69 96 10/17/20 19:00 36.6 C 69 18 142/89 H 94 Laboratory Results Laboratory Results - last 24 hr 10/17/20 10/17/20 05:49 05:49 WBC 5.24 RBC 3.03 L Hgb 9.7 L Hct 28.7 L MCV 94.7 MCH 32.0 MCHC 33.8 RDW Std Deviation 52.8 H RDW Coeff of Camilo 15.8 H Plt Count 178 MPV 9.6 Absolute Nucleated RBC 0.10 H Nucleated RBC % (auto) 1.9 Sodium 144 Potassium 3.3 L Chloride 112 H Carbon Dioxide 24 Anion Gap 8.0 BUN 20 H Creatinine 0.88 Est Cr Clr Drug Dosing 75.5 Est GFR ( Amer) 83.4 Est GFR (Non-Af Amer) 71.9 BUN/Creatinine Ratio 22.7 H Glucose 87 Calcium 9.1 Phosphorus 3.7 Magnesium 2.3 Total Bilirubin 0.6 AST 26 ALT 23 Alkaline Phosphatase 112 Troponin I 0.038 Total Protein 5.6 L Albumin 2.9 L Globulin 2.7 Albumin/Globulin Ratio 1.1 PG Care Time/CCT Total # of Minutes Spent Total Time Spent with Patient: Total time spent is greater than 50% in coordination of care (as documented) at patient's floor/unit and/or counseling patient: Coding Level of Care Code 65932 Subseq Obs Care Lvl 2 Diagnoses Acute heart failure with preserved ejection fraction (HFpEF) I50.31 GERD (gastroesophageal reflux disease) K21.9 Anxiety F41.9 Depression F32.9 Hypertension I10 Ovarian cancer C56.9 Laterality: unspecified laterality Hypomagnesemia E83.42 Hypokalemia E87.6 DVT prophylaxis Z29.9 (1) Ovarian cancer Laterality: unspecified laterality Qualified Code(s): C56.9 - Malignant neoplasm of unspecified ovary
[2020-10-18 07:19] LABS: BUN Creatinine Ratio 21.1 (10-20); Calcium 8.5 mg/dl (8.5-10.1); Est GFR (Non-African American) 69.1; Magnesium 1.9 mg/dl (1.8-2.4); Potassium 3.9 mmol/L (3.5-5.1)
[2020-10-18 07:34] LABS: Hematocrit (blood only) 29.8 % (37-47); Hemoglobin 9.9 g/dL (12.0-16.0); Mean Corpuscular Hemoglobin 31.8 pg (25-34); Mean Corpuscular Hgb Conc 33.2 g/dL (32-36); Mean Corpuscular Volume 95.8 fL (80-100); Mean Platelet Volume 10.2 fL (7.4-10.4); Nucleated RBC # (auto) 0.13 K/uL (0-0); Nucleated RBC % (auto) 1.8 %; Platelet Count 242 K/uL (130-400); RDW Coefficient of Variation 16.6 % (11.5-14.5); RDW Standard Deviation 53.9 fL (36.4-46.3); Red Blood Count 3.11 M/uL (4.2-5.4); White Blood Count 6.86 K/uL (4.8-10.8)
[2020-10-18] MEDS: FUROSEMIDE 40 MG in SYRINGE 0 ML IV SCH ×2 (08:04→13:36)
[2020-10-18] MEDS: METOPROLOL SUCC 50MG EXT REL TAB PO SCH (08:05)
[2020-10-18] MEDS: ESCITALOPRAM OXALATE 20 MG TAB PO SCH (08:05)
[2020-10-18] MEDS: SPIRONOLACTONE 12.5 MG TAB PO SCH (08:05)
[2020-10-18] MEDS: PANTOprazole 40 MG TAB PO SCH (08:06)
[2020-10-18] MEDS: POTASSIUM CHLORIDE CRTAB 20 MEQ TABCR PO SCH ×2 (08:06→15:58)
[2020-10-18] MEDS: POLYETHYLENE (MIRALAX) 17 GM PACK PO SCH ×3 (08:07→15:57)
[2020-10-18] MEDS: ENOXAPARIN INJ 40 MG/0.4 ML SYR SQ SCH (08:07)
--- NOTE | 2020-10-18 09:58 | Cardiology Progress Note ---
Date of Service October 18, 2020 Assessment & Plan (1) Acute heart failure with preserved ejection fraction (HFpEF): Increase furosemide to 40 mg IV twice daily, next dose at 2 PM. Increase spironolactone to 25 mg daily. Blood pressure trended up to 160/101 on most recent reading. This was prior to receiving her new medications, and she is due for a second dose of furosemide as noted above. Continue to follow for now. (2) Hypokalemia: Potassium 3.3 yesterday improved to 3.9 mmol/l this am. Continue potassium chloride 20 mEq twice daily,spironolactone. Repeat in am. (3) Ovarian cancer: Recent pancytopenia improved. Hemoglobin stable. Chemotherapy while hospitalized. I reviewed her chemotherapy regimens, I do not see any agent that can be implicated in terms of cardiac toxicity. As noted, her LVEF on echocardiogram was normal. Suspect volume overload occurred in the setting of chronic LV diastolic dysfunction related to age/ hypertension with recent administration of IV fluid / blood transfusion. Continue lovenox 40 mg SQ daily for DVT prophylaxis. Admission and Anticipated Discharge Date Admission Date: October 16, 2020 Subjective Ms Crowley is seen in follow-up of volume overload and hypertension. She notes mild subjective improvement, has ongoing dyspnea and orthopnea. Subjectively she does not feel like she is urinated much. Telemetry reveals sinus rhythm in the 70 bpm range while in bed, in the 90s with activity. Review of Systems Review of Systems: All systems reviewed & are unremarkable except as noted in HPI & below Physical Exam Physical Exam: Temp Pulse Resp BP Pulse Ox 36.6 C 71 18 160/101 H 92 10/18/20 07:16 10/18/20 07:16 10/18/20 07:16 10/18/20 07:16 10/18/20 07:16 Constitutional: WD/WN, vitals as above Respiratory: normal respiratory effort, lungs clear to auscultation Cardiovascular: RRR, no murmur, no edema Gastrointestinal (Abdomen): normal bowel sounds, soft, nontender, no hepatosplenomegaly Neurologic: PERRL, EOMI, accommodation nl, no face palsy, no dysarthria Results & Data ([facility]) Vital Signs (Past 12 Hours) Vital Signs Temp Pulse Pulse Resp BP BP Pulse Ox 10/18/20 07:16 36.6 C 71 18 160/101 H 92 10/18/20 03:20 36.5 C 60 18 122/64 95 10/17/20 23:29 69 10/17/20 23:15 36.3 C L 58 L 20 119/69 96 Laboratory Results CBC 10/18/20 Range/Units 05:27 WBC 6.86 (4.8-10.8) K/uL RBC 3.11 L (4.2-5.4) M/uL Hgb 9.9 L (12.0-16.0) g/dL Hct 29.8 L (37-47) % Plt Count 242 (130-400) K/uL Comprehensive Metabolic Panel 10/18/20 Range/Units 05:30 Sodium 143 (136-145) mmol/L Potassium 3.9 D (3.5-5.1) mmol/L Chloride 109 H (98-107) mmol/L Carbon Dioxide 26 (21-32) mmol/L BUN 19 H (7-18) mg/dl Creatinine 0.91 (0.6-1.2) mg/dl Glucose 85 (70-99) mg/dl Calcium 8.5 (8.5-10.1) mg/dl Intake and Output 10/17/20 10/18/20 10/18/20 22:59 06:59 14:59 Intake Total 150 / 705 100 / 705 Output Total 400 / 800 250 / 800 100 / 100 Balance -250 / -95 -150 / -95 -100 / -100 Intake: Oral 150 / 705 100 / 705 Output: Urine 400 / 800 250 / 800 100 / 100 Other: Weight 95 kg (1) Ovarian cancer Laterality: unspecified laterality Qualified Code(s): C56.9 - Malignant neoplasm of unspecified ovary
[2020-10-18] MEDS: oxyCODONE/ACETAMINOPHEN 5mg/325mg TAB PO PRN (19:12)
[2020-10-18] MEDS: FEXOFENADINE HCL 180 MG TAB PO SCH (20:31)
[2020-10-18] MEDS: LOSARTAN POTASSIUM 50 MG TAB PO SCH (20:31)
--- NOTE | 2020-10-18 20:37 | Hospitalist Progress Note ---
Date of Service October 18, 2020 Assessment & Plan (1) Acute heart failure with preserved ejection fraction (HFpEF): volume status slowly improving. agree w/ increase in lasix to 40mg BID as advised by Dr Olvera. agree w/ increase in aldactone to 25mg daily. echo with normal EF this admission.. patient had received 4 units of PRBCs during the recent hospital stay. suspect she had developed volume overload in that setting. BMP in am. Continue metoprolol succinate and losartan. (2) GERD (gastroesophageal reflux disease): Cont PPI has known hiatal hernia (3) Anxiety: Cont SSRI Cont ativan prn (chronic for her) (4) Depression: Cont SSRI (5) Hypertension: Uncontrolled, but improving with diuresis and increase in aldactone. Continue beta bianca. Continue losartan. 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 FUENTES is improving. no cough. does get short of breath if she talks too long on the phone. tele wnl. no other new complaints. Review of Systems Constitutional: no fever, no chills, no fatigue and no anorexia Respiratory: + dyspnea on exertion Cardiovascular: + dyspnea on exertion, + orthopnea and + edema; no chest pain and no dyspnea at rest Gastrointestinal: no abdominal pain, no nausea and no vomiting Physical Exam Constitutional: no acute distress and no altered mental status ENMT: external ear and nose normal, oropharynx normal Ears: + hearing impairment Respiratory: no respiratory distress Auscultation: + diminished lung sounds (but improved today) and + crackles (minimal - bases); no wheezes Cardiovascular: Rate/Rhythm: regular rate and regular rhythm Heart Sounds: normal S1 and normal S2; no murmur Vessels: no JVD Extremities: + edema (trace b/l) Gastrointestinal (Abdomen): normal bowel sounds, soft, nontender, no hepatosplenomegaly Psychiatric: Orientation: alert and oriented x 3 Results & Data Results & Data ([facility]) Vital Signs (Past 12 Hours) Vital Signs Temp Pulse Pulse Pulse Resp BP BP 10/18/20 19:39 36.4 C L 71 20 138/89 10/18/20 16:20 77 10/18/20 16:03 36.4 C L 70 20 142/89 H 10/18/20 11:17 36.5 C 66 16 127/82 10/18/20 10:04 140/85 Pulse Ox 10/18/20 19:39 95 10/18/20 16:20 10/18/20 16:03 95 10/18/20 11:17 93 10/18/20 10:04 Laboratory Results Laboratory Results - last 24 hr 10/18/20 10/18/20 05:27 05:30 WBC 6.86 RBC 3.11 L Hgb 9.9 L Hct 29.8 L MCV 95.8 MCH 31.8 MCHC 33.2 RDW Std Deviation 53.9 H RDW Coeff of Camilo 16.6 H Plt Count 242 MPV 10.2 Absolute Nucleated RBC 0.13 H Nucleated RBC % (auto) 1.8 Sodium 143 Potassium 3.9 D Chloride 109 H Carbon Dioxide 26 Anion Gap 8.0 BUN 19 H Creatinine 0.91 Est Cr Clr Drug Dosing 73.0 Est GFR ( Amer) 80.0 Est GFR (Non-Af Amer) 69.1 BUN/Creatinine Ratio 21.1 H Glucose 85 Calcium 8.5 Magnesium 1.9 PG Care Time/CCT Total # of Minutes Spent Total Time Spent with Patient: Total time spent is greater than 50% in coordination of care (as documented) at patient's floor/unit and/or counseling patient: Coding Level of Care Code 02372 Subseq Hosp Care Lvl 2 Diagnoses Acute heart failure with preserved ejection fraction (HFpEF) I50.31 GERD (gastroesophageal reflux disease) K21.9 Anxiety F41.9 Depression F32.9 Hypertension I10 Ovarian cancer C56.9 Laterality: unspecified laterality Hypomagnesemia E83.42 Hypokalemia E87.6 DVT prophylaxis Z29.9 (1) Ovarian cancer Laterality: unspecified laterality Qualified Code(s): C56.9 - Malignant neoplasm of unspecified ovary
[2020-10-18] MEDS: MAGNESIUM OXIDE 400 MG TAB PO SCH (22:28)
[2020-10-19] MEDS: FUROSEMIDE 40 MG in SYRINGE 0 ML IV SCH ×2 (06:05→15:30)
[2020-10-19 07:01] LABS: BUN Creatinine Ratio 20.9 (10-20); Calcium 8.6 mg/dl (8.5-10.1); Creatinine Clr Calc Pharmacy 68.8 ml/min; Est GFR (Non-African American) 65.6; Potassium 4.2 mmol/L (3.5-5.1)
[2020-10-19] MEDS: MAGNESIUM OXIDE 400 MG TAB PO SCH ×2 (08:48→20:36)
[2020-10-19] MEDS: ESCITALOPRAM OXALATE 20 MG TAB PO SCH (08:48)
[2020-10-19] MEDS: ENOXAPARIN INJ 40 MG/0.4 ML SYR SQ SCH (08:48)
[2020-10-19] MEDS: POTASSIUM CHLORIDE CRTAB 20 MEQ TABCR PO SCH ×2 (08:48→16:49)
[2020-10-19] MEDS: SPIRONOLACTONE 25 MG TAB PO SCH (08:48)
[2020-10-19] MEDS: METOPROLOL SUCC 50MG EXT REL TAB PO SCH (08:48)
[2020-10-19] MEDS: PANTOprazole 40 MG TAB PO SCH (08:48)
[2020-10-19] MEDS: oxyCODONE/ACETAMINOPHEN 5mg/325mg TAB PO PRN ×2 (09:00→21:12)
--- NOTE | 2020-10-19 14:28 | Cardiology Progress Note ---
Date of Service October 19, 2020 Assessment & Plan (1) Acute heart failure with preserved ejection fraction (HFpEF): (2) Hypokalemia: (3) Ovarian cancer: (1) Acute heart failure with preserved ejection fraction (HFpEF): Continue furosemide to 40 mg IV twice daily, 7 am, 1400. Continue spironolactone to 25 mg daily. Volume status and BP improving. Update CXR am 10/20. Patient with findings of a 13 beat run of wide-complex tachycardia, 131 bpm, consistent with nonsustained VT 10/18/2020 at 2124 hrs. patient believes she was asleep at this time without subjective symptoms. Potassium within normal limits on metabolic panel today. Continue oral metoprolol. (2) Hypokalemia: Normal. 4.2 today. Continue potassium chloride and spironolactone. (3) Ovarian cancer: Recent pancytopenia improved. Hemoglobin stable. Chemotherapy on hold while hospitalized. I reviewed her chemotherapy regimens, I do not see any agent that can be implicated in terms of cardiac toxicity. As noted, her LVEF on echocardiogram was normal. Suspect volume overload occurred in the setting of chronic LV diastolic dysfunction related to age/ hypertension with recent administration of IV fluid / blood transfusion. Continue lovenox 40 mg SQ daily for DVT prophylaxis. Admission and Anticipated Discharge Date Admission Date: October 18, 2020 Subjective Patient seen in follow-up of chief complaint of shortness of breath, orthopnea. She notes improvement since increasing furosemide dose yesterday. Urine output increased, and she was net -1.9 L thus far today. Review of Systems Review of Systems: All systems reviewed & are unremarkable except as noted in HPI & below Physical Exam Physical Exam: Temp Pulse Resp BP Pulse Ox 36.7 C 70 18 122/69 95 10/19/20 11:12 10/19/20 11:12 10/19/20 11:12 10/19/20 11:12 10/19/20 11:12 Constitutional: no acute distress Respiratory: Mildly decreased breath sounds bilaterally at the bases no rales or rhonchi Cardiovascular: RRR, no murmur, no edema Vessels: no JVD Gastrointestinal (Abdomen): normal bowel sounds, soft, nontender, no hepato splenomegaly Neurologic: PERRL, EOMI, accommodation nl, no face palsy, no dysarthria Results & Data ([facility]) Vital Signs (Past 12 Hours) Vital Signs Temp Pulse Pulse Resp BP BP Pulse Ox 10/19/20 11:12 36.7 C 70 18 122/69 95 10/19/20 08:00 69 10/19/20 07:50 36.4 C L 72 20 139/91 92 10/19/20 07:00 36.6 C 65 20 155/100 H 165/100 H 95 10/19/20 04:03 36.5 C 69 20 143/93 H 93 Laboratory Results Comprehensive Metabolic Panel 10/19/20 Range/Units 06:05 Sodium 142 (136-145) mmol/L Potassium 4.2 (3.5-5.1) mmol/L Chloride 109 H (98-107) mmol/L Carbon Dioxide 27 (21-32) mmol/L BUN 20 H (7-18) mg/dl Creatinine 0.95 (0.6-1.2) mg/dl Glucose 92 (70-99) mg/dl Calcium 8.6 (8.5-10.1) mg/dl Intake and Output 10/18/20 10/19/20 10/19/20 22:59 06:59 14:59 Intake Total 240 / 540 100 / 540 Output Total 975 / 2475 200 / 2475 Balance - / -1935 -100 / -193 Intake: Oral 240 / 540 100 / 540 Output: Urine 975 / 2475 200 / 2475 (1) Ovarian cancer Laterality: unspecified laterality Qualified Code(s): C56.9 - Malignant neoplasm of unspecified ovary
[2020-10-19] MEDS: POLYETHYLENE (MIRALAX) 17 GM PACK PO SCH (16:49)
[2020-10-19] MEDS: FEXOFENADINE HCL 180 MG TAB PO SCH (20:35)
[2020-10-19] MEDS: LOSARTAN POTASSIUM 50 MG TAB PO SCH (20:36)
--- NOTE | 2020-10-19 20:36 | Hospitalist Progress Note ---
Date of Service October 19, 2020 Assessment & Plan (1) Acute heart failure with preserved ejection fraction (HFpEF): continues to improve with BID IV lasix and aldactone 25mg daily. dry weight is about 200 pounds. echo with normal EF this admission. patient had received 4 units of PRBCs during the recent hospital stay. suspect she had developed volume overload in that setting. repeat BMP in am. daily weights. Continue metoprolol succinate and losartan. (2) GERD (gastroesophageal reflux disease): Cont PPI has known hiatal hernia (3) Anxiety: Cont SSRI Cont ativan prn (4) Depression: Cont SSRI (5) Hypertension: Control improving. Continue beta bianca. Continue losartan. Continue aldactone & lasix. 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 Admission and Anticipated Discharge Date Admission Date: October 18, 2020 Subjective tele overnight - run of nonsustained v-tach, NO SYMPTOMS (pt denies having had palpitations, dizziness, lightheadedness, etc) around the time of the event. breathing slowly improving. no orthopnea. LE edema improved. eating well. no new complaints. Review of Systems Constitutional: no fatigue and no anorexia Respiratory: + dyspnea on exertion; no cough Cardiovascular: no chest pain, no dyspnea at rest and no orthopnea Gastrointestinal: no abdominal pain, no nausea and no vomiting Physical Exam Constitutional: no acute distress and no altered mental status ENMT: external ear and nose normal, oropharynx normal Ears: + hearing impairment Respiratory: no respiratory distress Auscultation: + diminished lung sounds (bases); no crackles and no wheezes Cardiovascular: Rate/Rhythm: regular rate and regular rhythm Heart Sounds: normal S1 and normal S2; no murmur Vessels: no JVD Extremities: + edema (trace b/l) Gastrointestinal (Abdomen): normal bowel sounds, soft, nontender, no hepatosplenomegaly Psychiatric: Orientation: alert and oriented x 3 Results & Data Results & Data ([facility]) Vital Signs (Past 12 Hours) Vital Signs Temp Pulse Pulse Resp BP Pulse Ox 10/19/20 18:38 36.3 C L 65 20 127/77 91 10/19/20 15:28 63 10/19/20 15:19 36.3 C L 66 20 119/76 94 10/19/20 11:12 36.7 C 70 18 122/69 95 Laboratory Results Laboratory Results - last 24 hr 10/19/20 06:05 Sodium 142 Potassium 4.2 Chloride 109 H Carbon Dioxide 27 Anion Gap 6.0 BUN 20 H Creatinine 0.95 Est Cr Clr Drug Dosing 68.8 Est GFR ( Amer) 76.0 Est GFR (Non-Af Amer) 65.6 BUN/Creatinine Ratio 20.9 H Glucose 92 Calcium 8.6 PG Care Time/CCT Total # of Minutes Spent Total Time Spent with Patient: Total time spent is greater than 50% in coordin ation of care (as documented) at patient's floor/unit and/or counseling patient: Coding Level of Care Code 61001 Subseq Hosp Care Lvl 2 Diagnoses Acute heart failure with preserved ejection fraction (HFpEF) I50.31 GERD (gastroesophageal reflux disease) K21.9 Anxiety F41.9 Depression F32.9 Hypertension I10 Ovarian cancer C56.9 Laterality: unspecified laterality Hypomagnesemia E83.42 Hypokalemia E87.6 DVT prophylaxis Z29.9 (1) Ovarian cancer Laterality: unspecified laterality Qualified Code(s): C56.9 - Malignant neoplasm of unspecified ovary
[2020-10-20 05:23] LABS: Hematocrit (blood only) 30.2 % (37-47); Hemoglobin 9.8 g/dL (12.0-16.0); Mean Corpuscular Hemoglobin 31.7 pg (25-34); Mean Corpuscular Hgb Conc 32.5 g/dL (32-36); Mean Corpuscular Volume 97.7 fL (80-100); Mean Platelet Volume 9.8 fL (7.4-10.4); Nucleated RBC # (auto) 0.05 K/uL (0-0); Nucleated RBC % (auto) 0.6 %; Platelet Count 308 K/uL (130-400); RDW Coefficient of Variation 17.3 % (11.5-14.5); RDW Standard Deviation 56.8 fL (36.4-46.3); Red Blood Count 3.09 M/uL (4.2-5.4); White Blood Count 8.07 K/uL (4.8-10.8)
[2020-10-20 05:58] LABS: BUN Creatinine Ratio 23.8 (10-20); Calcium 8.2 mg/dl (8.5-10.1); Creatinine Clr Calc Pharmacy 68.1 ml/min; Est GFR (Non-African American) 64.7; Magnesium 1.7 mg/dl (1.8-2.4); Potassium 4.3 mmol/L (3.5-5.1)
[2020-10-20] MEDS: FUROSEMIDE 40 MG in SYRINGE 0 ML IV SCH ×2 (06:10→13:55)
[2020-10-20 06:59] LABS: Polychromasia 1+
[2020-10-20 07:00] LABS: ALC (manual) 2.76 K/uL (1.2-3.4); ANC (manual) 2.91 K/uL (1.4-6.5); Blast # (manual) 0.14 K/uL (0-0); Blast Cells % (manual) 1.7 %; Lymphocytes # (manual) 2.76 K/uL (1.2-3.4); Lymphocytes % (manual) 34.2 %; Metamyelocytes # (manual) 0.55 K/uL (0-0); Metamyelocytes % (manual) 6.8 %; Monocytes # (manual) 1.03 K/uL (0.11-0.59); Monocytes % (manual) 12.8 %; Myelocytes # (manual) 0.69 K/uL (0-0); Myelocytes % (manual) 8.5 %; Neutrophils # (manual) 2.91 K/uL (1.4-6.5)
[2020-10-20] MEDS: MAGNESIUM SULFATE / D5W 1 GM/100 ML BAG IV SCH (07:11)
[2020-10-20] MEDS: SPIRONOLACTONE 25 MG TAB PO SCH (07:12)
[2020-10-20] MEDS: METOPROLOL SUCC 50MG EXT REL TAB PO SCH (07:12)
[2020-10-20] MEDS: ESCITALOPRAM OXALATE 20 MG TAB PO SCH (07:12)
[2020-10-20] MEDS: ENOXAPARIN INJ 40 MG/0.4 ML SYR SQ SCH (07:12)
[2020-10-20] MEDS: MAGNESIUM OXIDE 400 MG TAB PO SCH ×2 (07:12→20:15)
[2020-10-20] MEDS: POTASSIUM CHLORIDE CRTAB 20 MEQ TABCR PO SCH ×2 (07:13→17:07)
[2020-10-20] MEDS: PANTOprazole 40 MG TAB PO SCH (07:13)
[2020-10-20] MEDS: oxyCODONE/ACETAMINOPHEN 5mg/325mg TAB PO PRN ×2 (07:15→22:38)
--- NOTE | 2020-10-20 09:24 | XRay Report ---
XR chest 2V PA/lateral CLINICAL HISTORY: follow up , pleural effusions COMPARISON STUDY: Chest CT and chest radiograph October 16, 2020. FINDINGS: Left subclavian [id number] is in place. A large hiatal hernia is again noted. Cardiomedi astinal silhouette is stable. There is no pneumothorax. Small bilateral pleural effusions have slight ly decreased. Associated bibasilar opacities have slightly improved. There is no evidence for pulmona ry edema. IMPRESSION: 1. Slight decrease in small bilateral pleural effusions. Improved bibasilar opacities. 2. Hiatal hernia. ACT 112: Negative or not required by law. Electronically signed by: Connor Roman M.D. 10/20/2020 9:23 AM
--- NOTE | 2020-10-20 12:49 | Cardiology Progress Note ---
Date of Service October 20, 2020 Assessment & Plan (1) Acute heart failure with preserved ejection fraction (HFpEF): Making slow but steady improvement. Blood pressure is little on the lower side this morning, therefore I think it is most prudent to maintain her current dose of furosemide 40 mg IV 2 times per day, spironolactone 25 mg daily. Magnesium replacement ordered by the primary team. Continue Lovenox 40 mg subcutaneously every 24 hours for DVT prophylaxis. Continue metoprolol and losartan for hypertension. Admission and Anticipated Discharge Date Admission Date: October 18, 2020 Subjective Ms Crowley is seen in follow-up of shortness of breath, orthopnea. She notes minimal improvement. Chest x-ray reveals slight improvement, but ongoing bilateral pleural effusions noted. Telemetry reveals sinus rhythm without significant arrhythmia. Review of Systems Review of Systems: All systems reviewed & are unremarkable except as noted in HPI & below Physical Exam Physical Exam: Temp Pulse Resp BP Pulse Ox 36.4 C L 66 20 105/69 93 10/20/20 11:34 10/20/20 11:34 10/20/20 11:34 10/20/20 11:34 10/20/20 11:34 Constitutional: WD/WN, vitals as above Respiratory: no respiratory distress and does not use accessory muscles Auscultation: + diminished lung sounds (Diminished breath sounds bilaterally at the bases); no rales and no wheezes Cardiovascular: RRR, no murmur, no edema Neurologic: PERRL, EOMI, accommodation nl, no face palsy, no dysarthria Results & Data ([facility]) Vital Signs (Past 12 Hours) Vital Signs Temp Pulse Pulse Resp BP BP Pulse Ox 10/20/20 11:34 36.4 C L 66 20 105/69 93 10/20/20 08:00 65 10/20/20 07:00 36.4 C L 68 20 142/92 H 93 10/20/20 03:19 36.4 C L 67 20 142/83 H 92 Laboratory Results CBC 10/20/20 Range/Units 04:35 WBC 8.07 (4.8-10.8) K/uL RBC 3.09 L (4.2-5.4) M/uL Hgb 9.8 L (12.0-16.0) g/dL Hct 30.2 L (37-47) % Plt Count 308 (130-400) K/uL Comprehensive Metabolic Panel 10/20/20 Range/Units 04:35 Sodium 143 (136-145) mmol/L Potassium 4.3 (3.5-5.1) mmol/L Chloride 109 H (98-107) mmol/L Carbon Dioxide 28 (21-32) mmol/L BUN 23 H (7-18) mg/dl Creatinine 0.96 (0.6-1.2) mg/dl Glucose 88 (70-99) mg/dl Calcium 8.2 L (8.5-10.1) mg/dl Intake and Output 10/19/20 10/20/20 10/20/20 22:59 06:59 14:59 Intake Total 150 / 680 250 / 680 100 / 100 Output Total 950 / 2400 350 / 2400 Balance -800 / -1720 -100 / -1720 100 / 100 Intake: IV 100 / 100 MAGNESIUM SULFATE / D5W 1 gm In 100 / 100 100 ml @ 50 mls/hr IV Q2H [facility] Rx#:[id number] Oral 150 / 680 250 / 680 Output: Urine 950 / 2400 350 / 2400 Other: Weight 92.5 kg Weight Measurement Method Standing Scale
[2020-10-20] MEDS: POLYETHYLENE (MIRALAX) 17 GM PACK PO SCH (13:55)
[2020-10-20] MEDS ORDERED: bisacodyL 10 MG SUPP PR STA (14:01)
[2020-10-20 15:54] LABS: Appearance Urine Clear (Clear); Bacteria Urine Automated 1+ (Negative); Bilirubin Urine Negative (Negative); Blood Urine Negative (Negative); Color Urine Yellow; Glucose Urine UA Negative (Negative); Ketones Urine Negative (Negative); Leukocyte Esterase Urine 1+ (Negative); Nitrite Urine Negative (Negative); Protein Urine Negative (Negative); RBC Urine Automated 0-4 /hpf (0-4); Specific Gravity Urine 1.009 (1.000-1.030); Urobilinogen Urine Negative (Negative); pH Urine 6.5 (4.5-7.5)
[2020-10-20] MEDS: SENNA 8.6 MG TAB PO SCH (17:06)
--- NOTE | 2020-10-20 19:59 | Hospitalist Progress Note ---
Date of Service October 20, 2020 Assessment & Plan (1) Acute heart failure with preserved ejection fraction (HFpEF): IMPROVING. Cont BID IV lasix and aldactone 25mg daily. dry weight is about 200 pounds per her recollection. echo with normal EF this admission. patient had received 4 units of PRBCs during the recent hospital stay. suspect she had developed volume overload in that setting. repeat BMP in am. daily weights. Continue metoprolol succinate and losartan. LOWER the K supplement from BID to qdaily dosing as K level slowly rising day-to-day. May not need any K supplement at discharge due to aldactone and losartan use. Appreciate cardiology assistance. (2) GERD (gastroesophageal reflux disease): Cont PPI has known hiatal hernia (3) Anxiety: Cont SSRI Cont ativan prn (4) Depression: Cont SSRI (5) Hypertension: Control much improved with addition of aldactone and diuresis. Continue beta bianca, losartan, aldactone, lasix. (6) Ovarian cancer: Currently undergoing treatment for such Recent severe chemo-induced anemia requiring hospital stay and 4 units PRBCs follows with [facility] (7) Hypomagnesemia: replaced and resolved (8) Hypokalemia: replaced and resolved cont daily supplementation but drop to once daily dosing --- see above (9) Abnormal CBC: blasts seen on cbc today significance in the setting of her ovarian ca?? 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 Admission and Anticipated Discharge Date Admission Date: October 18, 2020 Subjective tele overnight - 3 beat PVC run, otherwise wnl. patient sitting on side of bed eating during the visit. offers no new complaints except feeling tired. minimal FUENTES reported. no orthopnea or dyspnea at rest. no cough. Review of Systems Constitutional: + fatigue; no fever, no chills and no anorexia Respiratory: no wheezing Cardiovascular: no chest pain Gastrointestinal: no abdominal pain, no nausea and no vomiting Physical Exam Constitutional: no acute distress and no altered mental status ENMT: external ear and nose normal, oropharynx normal Ears: + hearing impairment Respiratory: no respiratory distress Auscultation: + diminished lung sounds (bases - but airation improved from 10/19 exam ); no crackles and no wheezes Cardiovascular: Rate/Rhythm: regular rate and regular rhythm Heart Sounds: normal S1 and normal S2; no murmur Vessels: no JVD Extremities: + edema (trace b/l) Gastrointestinal (Abdomen): normal bowel sounds, soft, nontender, no hepatosplenomegaly Psychiatric: Orientation: alert and oriented x 3 Results & Data Results & Data ([facility]) Vital Signs (Past 12 Hours) Vital Signs Temp Pulse Pulse Resp BP Pulse Ox 10/20/20 18:38 36.5 C 72 18 121/72 94 10/20/20 15:34 62 10/20/20 15:03 36.4 C L 58 L 18 115/76 94 10/20/20 11:34 36.4 C L 66 20 105/69 93 10/20/20 08:00 65 Laboratory Results Laboratory Results - last 24 hr 10/20/20 10/20/20 10/20/20 04:35 04:35 15:45 WBC 8.07 RBC 3.09 L Hgb 9.8 L Hct 30.2 L MCV 97.7 MCH 31.7 MCHC 32.5 RDW Std Deviation 56.8 H RDW Coeff of Camilo 17.3 H Plt Count 308 MPV 9.8 Absolute Nucleated RBC 0.05 H Nucleated RBC % (auto) 0.6 Neutrophils % (Manual) 36.0 Lymphocytes % (Manual) 34.2 Monocytes % (Manual) 12.8 Metamyelocytes % (Man) 6.8 Myelocytes % (Man) 8.5 Blast Cells % (Manual) 1.7 Neutrophils # (Manual) 2.91 Total Absolute Neuts 2.91 Lymphocytes # (Manual) 2.76 Total Abs Lymphocytes 2.76 Monocytes # (Manual) 1.03 H Metamyelocytes # (Man) 0.55 H Myelocytes # (Manual) 0.69 H Blast Cells # (Man) 0.14 H Blood Smear Review Polychromasia 1+ Sodium 143 Potassium 4.3 Chloride 109 H Carbon Dioxide 28 Anion Gap 6.0 BUN 23 H Creatinine 0.96 Est Cr Clr Drug Dosing 68.1 Est GFR ( Amer) 75.0 Est GFR (Non-Af Amer) 64.7 BUN/Creatinine Ratio 23.8 H Glucose 88 Calcium 8.2 L Magnesium 1.7 L Urine Color Yellow Urine Appearance Clear Urine pH 6.5 Ur Specific [place] 1.009 Urine Protein Negative Urine Glucose (UA) Negative Urine Ketones Negative Urine Blood Negative Urine Nitrite Negative Urine Bilirubin Negative Urine Urobilinogen Negative Ur Leukocyte Esterase 1+ H Urine WBC (Auto) 5-10 H Urine RBC (Auto) 0-4 U Hyaline Cast (Auto) 1-5 U Epithel Cells (Auto) 10-20 H Urine Bacteria (Auto) 1+ H cxr - mild improvement in pulm edema; effusions b/l PG Care Time/CCT Total # of Minutes Spent Total Time Spent with Patient: Total time spent is greater than 50% in coordination of care (as documented) at patient's floor/unit and/or counseling patient: Coding Level of Care Code 31829 Subseq Hosp Care Lvl 2 Diagnoses Acute heart failure with preserved ejection fraction (HFpEF) I50.31 GERD (gastroesophageal reflux disease) K21.9 Anxiety F41.9 Depression F32.9 Hypertension I10 Ovarian cancer C56.9 Laterality: unspecified laterality Hypomagnesemia E83.42 Hypokalemia E87.6 Abnormal CBC R79.89 DVT prophylaxis Z29.9 (1) Ovarian cancer Laterality: unspecified laterality Qualified Code(s): C56.9 - Malignant neoplasm of unspecified ovary
[2020-10-20] MEDS: FEXOFENADINE HCL 180 MG TAB PO SCH (20:15)
[2020-10-20] MEDS: LOSARTAN POTASSIUM 50 MG TAB PO SCH (20:15)
[2020-10-21] MEDS: FUROSEMIDE 40 MG in SYRINGE 0 ML IV SCH (06:08)
[2020-10-21 07:31] LABS: Hematocrit (blood only) 32.7 % (37-47); Hemoglobin 10.8 g/dL (12.0-16.0); Mean Corpuscular Hemoglobin 32.3 pg (25-34); Mean Corpuscular Volume 97.9 fL (80-100); Mean Platelet Volume 9.7 fL (7.4-10.4); Nucleated RBC # (auto) 0.06 K/uL (0-0); Nucleated RBC % (auto) 0.7 %; Platelet Count 332 K/uL (130-400); RDW Coefficient of Variation 17.6 % (11.5-14.5); RDW Standard Deviation 58.8 fL (36.4-46.3); Red Blood Count 3.34 M/uL (4.2-5.4)
[2020-10-21 08:03] LABS: BUN Creatinine Ratio 22.7 (10-20); Calcium 9.5 mg/dl (8.5-10.1); Creatinine Clr Calc Pharmacy 55.9 ml/min; Est GFR (African American) 59.1; Magnesium 2.1 mg/dl (1.8-2.4); Potassium 4.5 mmol/L (3.5-5.1)
[2020-10-21] MEDS: MAGNESIUM OXIDE 400 MG TAB PO SCH ×2 (08:24→20:35)
[2020-10-21] MEDS: SENNA 8.6 MG TAB PO SCH (08:24)
[2020-10-21] MEDS: METOPROLOL SUCC 50MG EXT REL TAB PO SCH (08:24)
[2020-10-21] MEDS: ESCITALOPRAM OXALATE 20 MG TAB PO SCH (08:24)
[2020-10-21] MEDS: SPIRONOLACTONE 25 MG TAB PO SCH (08:24)
[2020-10-21] MEDS: ENOXAPARIN INJ 40 MG/0.4 ML SYR SQ SCH (08:24)
[2020-10-21] MEDS: PANTOprazole 40 MG TAB PO SCH (08:24)
[2020-10-21] MEDS: POLYETHYLENE (MIRALAX) 17 GM PACK PO SCH (08:25)
[2020-10-21 08:38] LABS: ALC (manual) 2.46 K/uL (1.2-3.4); ANC (manual) 4.03 K/uL (1.4-6.5); Basophils # (manual) 0.07 K/uL (0-0.2); Basophils % (manual) 0.9 %; Eosinophils # (manual) 0.07 K/uL (0-0.5); Eosinophils % (manual) 0.9 %; Lymphocytes # (manual) 2.46 K/uL (1.2-3.4); Lymphocytes % (manual) 29.6 %; Metamyelocytes # (manual) 0.22 K/uL (0-0); Metamyelocytes % (manual) 2.6 %; Monocytes # (manual) 0.58 K/uL (0.11-0.59); Myelocytes # (manual) 0.86 K/uL (0-0); Myelocytes % (manual) 10.4 %; Neutrophils # (manual) 4.03 K/uL (1.4-6.5); Neutrophils % (manual) 48.6 %; Polychromasia 1+
[2020-10-21] MEDS ORDERED: POTASSIUM CHLORIDE CRTAB 20 MEQ TABCR PO SCH (09:00)
--- NOTE | 2020-10-21 09:31 | Hospitalist Progress Note ---
Date of Service October 21, 2020 Assessment & Plan (1) Acute heart failure with preserved ejection fraction (HFpEF): IMPROVING. Cont BID IV lasix and aldactone 25mg daily. dry weight is about 200 pounds per her recollection. echo with normal EF this admission. patient had received 4 units of PRBCs during the recent hospital stay. suspect she had developed volume overload in that setting. repeat BMP in am. daily weights. Continue metoprolol succinate and losartan. LOWER the K supplement from BID to qdaily dosing as K level slowly rising day-to-day. May not need any K supplement at discharge due to aldactone and losartan use. Appreciate cardiology assistance. 3-1 weight 91.1kg down from 95kg still with dyspnea on exertion so giving lasix 20mg IV once likely home tomorrow (2) GERD (gastroesophageal reflux disease): Cont PPI has known hiatal hernia (3) Anxiety: Cont SSRI Cont ativan prn (4) Depression: Cont SSRI (5) Hypertension: Control much improved with addition of aldactone and diuresis Continue beta bianca, losartan, aldactone, lasix (6) Ovarian cancer: Currently undergoing treatment for such Recent severe chemo-induced anemia requiring hospital stay and 4 units PRBCs follows with [facility] (7) Hypomagnesemia: replaced and resolved (8) Hypokalemia: replaced and resolved cont daily supplementation but drop to once daily dosing --- see above (9) Abnormal CBC: blasts seen on cbc today significance in the setting of her ovarian ca?? 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 Denies cough, orthopnea Her lower extremity edema and abdominal edema has improved. She has been dizzy when standing, alleviated by sitting down She had a BM today Tolerating meals, no nausea or vomiting Review of Systems Constitutional: no fever, no chills, no fatigue, no weakness, no anorexia, no weight loss and no weight gain Ear, Nose, Mouth, Throat: no nasal congestion, no sore throat and no dysphagia Respiratory: no cough and no dyspnea Cardiovascular: + dyspnea on exertion and + edema; no chest pain, no orthopnea and no palpitations Gastrointestinal: no abdominal pain, no nausea, no vomiting, no hematemesis, no dysphagia, no constipation, no diarrhea/loose stools, no blood in stools and no melena Genitourinary: no dysuria, no urinary frequency, no hematuria and no flank pain Musculoskeletal: no back pain, no joint pain, no myalgia and no muscle weakness Integumentary: no rash, no lesions, no skin ulcer, no erythema, no dry skin and no pruritus Neurologic: + dizziness; no falls, no localized weakness, no generalized weakness, no numbness, no paresthesia, no tremor(s) and no headache(s) Psychiatric: no depression, no suicidal ideation, no homicidal ideation and no anxiety Endocrine: no cold intolerance and no heat intolerance Hematologic / Lymphatic: no easy bleeding and no easy bruising Physical Exam Constitutional: well developed and well nourished; no acute distress Eyes: PERRL, conjunctivae normal, anicteric sclerae ENMT: Mouth: oral mucous membranes not dry Respiratory: normal respiratory effort; no respiratory distress and no labored breathing Auscultation: lungs clear to auscultation bilaterally; no crackles, no rales, no rhonchi and no wheezes Cardiovascular: Rate/Rhythm: regular rate and regular rhythm Heart Sounds: no murmur and no cardiac rub Vessels: normal peripheral pulses and radial pulses present; no JVD Extremities: no edema Gastrointestinal (Abdomen): Inspection/Auscultation: abdomen normal to inspection and normal bowel sounds; abdomen not distended Percussion/Palpation: abdomen soft; abdomen nontender, no guarding, abdomen not rigid and no hepatosplenomegaly Musculoskeletal: Head/Neck/Chest: normocephalic and head atraumatic Spine: no cervical spinal tenderness, no cervical muscular tenderness, no thoracic spinal tenderness and no lumbar spinal tenderness Skin: no rashes, warm and dry Neurologic: CN's II-XI intact bilaterally and moves all extremities Motor/Sensory: no tremor and no sensory deficit Psychiatric: Orientation: alert, oriented to person, oriented to place and oriented to time Apperance: appropriately groomed; not disheveled Affect: euthymic affect; no anxious affect and no tearful affect Genitourinary: no CVA tenderness no Barrera catheter Results & Data Results & Data ([facility]) Vital Signs (Past 12 Hours) Vital Signs Temp Pulse Pulse Resp BP Pulse Ox 10/21/20 07:00 36.5 C 65 20 144/86 H 92 10/21/20 04:16 36.7 C 72 20 135/77 91 10/21/20 00:16 64 10/20/20 23:00 36.4 C L 64 20 122/81 93 Laboratory Results Abnormal lab results 10/20/20 10/21/20 10/21/20 Range/Units 15:45 07:06 07:06 RBC 3.34 L (4.2-5.4) M/uL Hgb 10.8 L (12.0-16.0) g/dL Hct 32.7 L (37-47) % RDW Std Deviation 58.8 H (36.4-46.3) fL RDW Coeff of Camilo 17.6 H (11.5-14.5) % Absolute Nucleated RBC 0.06 H (0-0) K/uL Metamyelocytes # (Man) 0.22 H (0-0) K/uL Myelocytes # (Manual) 0.86 H (0-0) K/uL BUN 27 H (7-18) mg/dl BUN/Creatinine Ratio 22.7 H (10-20) Ur Leukocyte Esterase 1+ H (Negative) Urine WBC (Auto) 5-10 H (0-5) /hpf U Epithel Cells (Auto) 10-20 H (0-5) /lpf Urine Bacteria (Auto) 1+ H (Negative) Medications Administered Current Inpatient Medications Acetaminophen (Acetaminophen 325 Mg Tab) 650 mg PO Q4H PRN PRN Reason: pain/fever Stop: 11/15/20 20:55 Enoxaparin Sodium (Enoxaparin Inj 40 Mg/0.4 Ml Syr) 40 mg SQ Q24H ALVIN Stop: 11/16/20 08:59 Last Admin: 10/21/20 08:24 Dose: 40 mg Documented by: Escitalopram Oxalate (Escitalopram Oxalate 20 Mg Tab) 20 mg PO DAILY ALVIN Stop: 11/16/20 08:59 Last Admin: 10/21/20 08:24 Dose: 20 mg Documented by: Fexofenadine HCl (Fexofenadine Hcl 180 Mg Tab) 180 mg PO PM ALVIN Stop: 11/15/20 20:59 Last Admin: 10/20/20 20:15 Dose: 180 mg Documented by: Heparin Sodium (Porcine) (Heparin 100 Unit/Ml 5ml Flush 5 Ml Syr) 5 ml IV PRN PRN PRN Reason: Flush Stop: 11/16/20 08:29 Last Admin: 10/20/20 04:36 Dose: 3 ml Documented by: Hydralazine HCl (Hydralazine Hcl 20 Mg/Ml Vial) 10 mg IV Q4H PRN PRN Reason: SBP > 190 or DBP > 110 Stop: 11/15/20 20:55 Furosemide 40 mg/ Syringe 4 mls @ 4 mls/min IV [id number] [facility] Stop: 11/17/20 13:59 Last Admin: 10/21/20 06:08 Dose: 4 mls/min Documented by: Lorazepam (Lorazepam 0.5 Mg Tab) 0.5 mg PO BID PRN PRN Reason: anxiety Stop: 11/15/20 20:55 Losartan Potassium (Losartan Potassium 50 Mg Tab) 100 mg PO PM ALVIN Stop: 11/15/20 20:59 Last Admin: 10/20/20 20:15 Dose: 100 mg Documented by: Magnesium Oxide (Magnesium Oxide 400 Mg Tab) 400 mg PO BID [facility] Stop: 11/17/20 20:59 Last Admin: 10/21/20 08:24 Dose: 400 mg Documented by: Metoprolol Succinate (Metoprolol Succ 50mg Ext Rel Tab) 100 mg PO DAILY [facility] Stop: 11/16/20 08:59 Last Admin: 10/21/20 08:24 Dose: 100 mg Documented by: Ondansetron HCl (Ondansetron Inj 2 Mg/Ml 2 Ml Vial) 4 mg IV Q4H PRN PRN Reason: Nausea Stop: 11/15/20 20:55 Oxycodone/Acetaminophen (Oxycodone/Acetaminophen 5mg/325mg Tab) 1 tab PO Q8H PRN PRN Reason: Pain Stop: 10/30/20 20:55 Last Admin: 10/20/20 22:38 Dose: 1 tab Documented by: Pantoprazole Sodium (Pantoprazole 40 Mg Tab) 40 mg PO DAILY [facility] Stop: 11/16/20 08:59 Last Admin: 10/21/20 08:24 Dose: 40 mg Documented by: Polyethylene Glycol (Polyethylene (Miralax) 17 Gm Pack) 17 gm PO DAILY [facility] Stop: 11/16/20 14:29 Last Admin: 10/21/20 08:25 Dose: 17 gm Documented by: Potassium Chloride (Potassium Chloride Crtab 20 Meq Tabcr) 20 meq PO DAILY [facility]VIN Stop: 11/20/20 08:59 Last Admin: 10/21/20 08:24 Dose: 20 meq Documented by: Sennosides (Senna 8.6 Mg Tab) 17.2 mg PO QAM ALVIN Stop: 11/19/20 14:29 Last Admin: 10/21/20 08:24 Dose: 17.2 mg Documented by: Spironolactone (Spironolactone 25 Mg Tab) 25 mg PO DAILY ALVIN Stop: 11/18/20 08:59 Last Admin: 10/21/20 08:24 Dose: 25 mg Documented by: PG Care Time/CCT Total # of Minutes Spent Total Time Spent with Patient: Total time spent is greater than 50% in coordination of care (as documented) at patient's floor/unit and/or counseling patient: Coding Level of Care Code 83123 Subseq Hosp Care Lvl 2 Diagnoses Acute heart failure with preserved ejection fraction (HFpEF) I50.31 GERD (gastroesophageal reflux disease) K21.9 Anxiety F41.9 Depression F32.9 Hypertension I10 Ovarian cancer C56.9 Laterality: unspecified laterality Hypomagnesemia E83.42 Hypokalemia E87.6 Abnormal CBC R79.89 DVT prophylaxis Z29.9 (1) Ovarian cancer Laterality: unspecified laterality Qualified Code(s): C56.9 - Malignant neoplasm of unspecified ovary
--- NOTE | 2020-10-21 10:56 | Cardiology Progress Note ---
Date of Service October 21, 2020 Assessment & Plan (1) Acute heart failure with preserved ejection fraction (HFpEF): Patient presents with volume overload in the setting of h/o HTN, with normal LVEF, diastolic dysfunction on echo, recent IV fluid (4 units of PRBCs at time of hospital stay in early September,. Improved clinially. DC IV furosemide. Consider DC on furosemide 20 mg PO daily (replaced home chlorthalidone) Spironolactone 25 mg daily. Pt not sure if she wants to follow up with PCP only or also with me at [facility]. She is going to think about it. If she agrees to see cardiology, can be seen in 2-4 weeks with PCP follow up in ther interim. (2) Hypertension: Continue prior to hospital metoprolol and losartan. Furosemide 20 mg PO daily and spironolactone [address] of chlorthal[address]. (3) Ovarian cancer: Follow up with medical oncology. Admission and Anticipated Discharge Date Admission Date: October 18, 2020 Subjective Ms Crowley is seen in follow up of chief complaint and orthopnia. She feels her breathing is back to prior to baseline. Notes dizziness when she walked to bathroom this am. Telemetry reveals SR in the 60s. Physical Exam Physical Exam: Temp Pulse Resp BP Pulse Ox 36.5 C 65 20 144/86 H 92 10/21/20 07:00 10/21/20 07:00 10/21/20 07:00 10/21/20 07:00 10/21/20 07:00 Constitutional: WD/WN, vitals as above Respiratory: Auscultation: + diminished lung sounds (mildly decreased BS at the bases bilaterally); breath sounds present, no rales and no rhonchi Cardiovascular: RRR, no murmur, no edema Gastrointestinal (Abdomen): normal bowel sounds, soft, nontender, no hepatosplenomegaly Neurologic: PERRL, EOMI, accommodation nl, no face palsy, no dysarthria Results & Data ([facility]) Vital Signs (Past 12 Hours) Vital Signs Temp Pulse Pulse Resp BP Pulse Ox 10/21/20 07:00 36.5 C 65 20 144/86 H 92 10/21/20 04:16 36.7 C 72 20 135/77 91 10/21/20 00:16 64 10/20/20 23:00 36.4 C L 64 20 122/81 93 Laboratory Results CBC 10/21/20 Range/Units 07:06 WBC 8.30 (4.8-10.8) K/uL RBC 3.34 L (4.2-5.4) M/uL Hgb 10.8 L (12.0-16.0) g/dL Hct 32.7 L (37-47) % Plt Count 332 (130-400) K/uL Comprehensive Metabolic Panel 10/21/20 Range/Units 07:06 Sodium 140 (136-145) mmol/L Potassium 4.5 (3.5-5.1) mmol/L Chloride 104 (98-107) mmol/L Carbon Dioxide 29 (21-32) mmol/L BUN 27 H (7-18) mg/dl Creatinine 1.17 (0.6-1.2) mg/dl Glucose 98 (70-99) mg/dl Calcium 9.5 D (8.5-10.1) mg/dl Intake and Output 10/20/20 10/21/20 10/21/20 22:59 06:59 14:59 Intake Total 420 / 1260 Output Total 1300 / 2300 Balance -880 / -1040 Intake: Oral 420 / 1160 Output: Urine 1300 / 2300 Other: Weight 91.1 kg Weight Measurement Method Standing Scale Patient Weight 10/22/20 06:59 Weight 91.1 kg (1) Ovarian cancer Laterality: unspecified laterality Qualified Code(s): C56.9 - Malignant neoplasm of unspecified ovary
[2020-10-21] MEDS: oxyCODONE/ACETAMINOPHEN 5mg/325mg TAB PO PRN ×2 (11:07→21:15)
[2020-10-21] MEDS ORDERED: FUROSEMIDE 20 MG in SYRINGE 0 ML IV ONE (16:15)
[2020-10-21] MEDS: LOSARTAN POTASSIUM 50 MG TAB PO SCH (20:35)
[2020-10-21] MEDS: FEXOFENADINE HCL 180 MG TAB PO SCH (20:35)
[2020-10-22 06:35] LABS: Hematocrit (blood only) 30.8 % (37-47); Hemoglobin 9.9 g/dL (12.0-16.0); Mean Corpuscular Hgb Conc 32.1 g/dL (32-36); Mean Corpuscular Volume 99.7 fL (80-100); Mean Platelet Volume 9.8 fL (7.4-10.4); Nucleated RBC # (auto) 0.08 K/uL (0-0); Platelet Count 341 K/uL (130-400); RDW Standard Deviation 60.1 fL (36.4-46.3); Red Blood Count 3.09 M/uL (4.2-5.4); White Blood Count 8.42 K/uL (4.8-10.8)
[2020-10-22 07:09] LABS: BUN Creatinine Ratio 26.3 (10-20); Calcium 8.7 mg/dl (8.5-10.1); Est GFR (African American) 58.5; Est GFR (Non-African American) 50.4; Magnesium 2.1 mg/dl (1.8-2.4); Phosphorus 3.9 mg/dl (2.5-4.9); Potassium 4.8 mmol/L (3.5-5.1)
[2020-10-22] MEDS: METOPROLOL SUCC 50MG EXT REL TAB PO SCH (07:55)
[2020-10-22] MEDS: PANTOprazole 40 MG TAB PO SCH (07:56)
[2020-10-22] MEDS: ENOXAPARIN INJ 40 MG/0.4 ML SYR SQ SCH (07:56)
[2020-10-22] MEDS: SPIRONOLACTONE 25 MG TAB PO SCH (07:56)
[2020-10-22] MEDS: SENNA 8.6 MG TAB PO SCH (07:56)
[2020-10-22] MEDS: ESCITALOPRAM OXALATE 20 MG TAB PO SCH (07:56)
--- NOTE | 2020-10-22 07:59 | Discharge Summary ---
Date of Service October 22, 2020 Admission HPI Per Admitting Provider Jessi Crowley is a 59-year-old female with PMH of ovarian cancer w/ peritoneal carcinomatosis, hypertension, GERD, diastolic dysfunction who arrived at the hospital due to shortness of breath for the past 3 days. She says she also felt significantly fatigued. Cut Off it was more difficult to walk around her home and to climb onto her truck. She reached out to her PCP who spoke to her over the phone and suggested she come into the hospital for evaluation as she sounded very dyspneic. She also reports chest pressure on-and-off within that time but no chest pain. Was recently admitted for chemotherapy-induced anemia/pancytopenia. She follows with [facility] currently on gemcitabine and carboplatin for chemotherapy, but she has had chemo with doxorubicin in the past. In the ED was given a single dose of Lasix 40mg IV. Had a BNP of 35,000, elevated troponin at 0.048, EKG showing NSR, CBC showing stable anemia with Hgb of 9.4 (9.7 on 10/12). Chest CTA was negative for PE, showed cardiomegaly with pulmonary edema, bibasilar consolidation suggestive of atelectasis vs pneumonia, right adnexal mass likely correlates with ovarian ca. Principal Diagnosis congestive heart failure Discharge Exam Constitutional well developed and well nourished; no acute distress Eyes PERRL, conjunctivae normal, anicteric sclerae ENMT Mouth: oral mucous membranes not dry Respiratory normal respiratory effort; no respiratory distress and no labored breathing Auscultation: lungs clear to auscultation bilaterally; no crackles, no rales, no rhonchi and no wheezes Cardiovascular Rate/Rhythm: regular rate and regular rhythm Heart Sounds: no murmur and no cardiac rub Vessels: normal peripheral pulses and radial pulses present; no JVD Extremities: no edema Gastrointestinal (Abdomen) Inspection/Auscultation: abdomen normal to inspection and normal bowel sounds; abdomen not distended Percussion/Palpation: abdomen soft; abdomen nontender, no guarding, abdomen not rigid and no hepatosplenomegaly Musculoskeletal Head/Neck/Chest: normocephalic and head atraumatic Spine: no cervical spinal tenderness, no cervical muscular tenderness, no thoracic spinal tenderness and no lumbar spinal tenderness Skin no rashes, warm and dry Neurologic CN's II-XI intact bilaterally and moves all extremities Motor/Sensory: no tremor and no sensory deficit Psychiatric Orientation: alert, oriented to person, oriented to place and oriented to time Apperance: appropriately groomed; not disheveled Affect: euthymic affect; no anxious affect and no tearful affect Genitourinary no CVA tenderness Discharge Data Allergies Allergy/AdvReac Type Severity Reaction Status Date / Time desflurane Allergy Severe MALIGNANT Verified 10/16/20 20:18 HYPERTHERMIA adhesive Allergy Mild SKIN Verified 10/16/20 20:18 IRRITATION WITH EKG STICKIES codeine AdvReac Mild headache/na Verified 10/16/20 20:18 [From Tylenol-Codeine] usea Consultations 10/16/20 18:43 ED Decision to Admit Stat 10/16/20 20:56 Consult Cardiology Routine Ordered Studies 10/16/20 16:22 CT abd pelvis IV con only Stat CT angio chest PE protocol Stat Hospital Course (1) Acute heart failure with preserved ejection fraction (HFpEF): IMPROVING. Cont BID IV lasix and aldactone 25mg daily. dry weight is about 200 pounds per her recollection. echo with normal EF this admission. patient had received 4 units of PRBCs during the recent hospital stay. suspect she had developed volume overload in that setting. repeat BMP in am. daily weights. Continue metoprolol succinate and losartan. LOWER the K supplement from BID to qdaily dosing as K level slowly rising day-to-day. May not need any K supplement at discharge due to aldactone and losartan use. Appreciate cardiology assistance. 3-1 weight 91.1kg down from 95kg still with dyspnea on exertion so giving lasix 20mg IV once likely home tomorrow 3-2 weight 91kg discharge on lasix 20mg oral daily follow up with cardio 2-4 weeks (2) GERD (gastroesophageal reflux disease): Cont PPI has known hiatal hernia (3) Anxiety: Cont SSRI Cont ativan prn (4) Depression: Cont SSRI (5) Hypertension: Control much improved with addition of aldactone and diuresis Continue beta bianca, losartan, aldactone, lasix (6) Ovarian cancer: Currently undergoing treatment for such Recent severe chemo-induced anemia requiring hospital stay and 4 units PRBCs follows with [facility] (7) Hypomagnesemia: replaced and resolved 3-2 Mg 2.1 (8) Hypokalemia: replaced and resolved cont daily supplementation but drop to once daily dosing --- see above 3-2 potassium 4.8 (9) Abnormal CBC: blasts seen on cbc today significance in the setting of her ovarian ca?? 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 as listed in chart twice over last 4 days Total Time Total Time Spent Total Time Spent (In Minutes): 35 Total Time Includes: Examination of the Patient, Discharge Planning, Medication Reconciliation and Communication With Other Providers Discharge Plan Discharge Items Patient Disposition: Home - Self-Care Reason For Visit: ACUTE CHF Discharge Diagnosis: congestive heart failure Activity: Resume your previous activity Non-emergency contact: Primary Care Provider Call non-emergency contact if: you have any medication questions Follow-up/Referrals: Nirali Eugene CRNP [Primary Care Provider] - (within one week for hospital follow up and BMP) Doyle Olvera DO [Collection Technician] - (see in 2-4 weeks for follow up of CHF) Diet: Heart Healthy Addmalaika Attending Provider Instructions: For your diastolic congestive heart failure Please see cardiology within 2-4 weeks Start taking furosemide (lasix) 20mg oral daily Start taking spironolactone 25mg oral daily Stop taking chlorthalidone Addtl Bit Sharpener Provider Instructions: Call 911 and go to the Emergency Room if: * You have tightness or pain in your chest that does not go away with rest or Nitroglycerin * You are very short of breath even with rest Call your doctor if any of the following symptoms or problems start or get worse: * Shortness of breath or difficulty breathing * Wake up at night short of breath * Chest pain * Cough * Swelling of your hands, fee, or legs * More fatigued or tired with your normal activity * Palpitations - sudden fast heart beats WEIGHT * Weigh yourself every morning after using the bathroom. * Use the same scale. * Wear the same amount of clothing. * Write your weight down on your chart. * Call your doctor if you gain more than 2-3 pounds in 1-2 days. MEDICATIONS * Use this discharge instruction sheet for instructions. * Take your medications at the time your doctor ordered. * Do not skip a dose of your medicines. * If you miss a dose of medicine, take as soon as possible, but DO NOT DOUBLE A DOSE. * Read your medicine information when you get home. * Know all of the side effects of your medicine. * Call your doctor's office if you have any side effects. * Be sure all of your doctors know what medicine and herbs you take (including cold, flu, and herbal medicine). * Pain Medicine: If you do not get relief from your pain, please call your doctor for help. Take the following with you to your follow-up doctor appointments: * Weight Chart * Medication List * List of questions Do not drink excessive alcohol, beer or wine. Pending Studies at Discharge: No Stand-Alone Forms: My [facility] [place], Smoking Cessation Medications and DC Order Prescriptions: New spironolactone 25 mg Tablet 25 mg PO DAILY 30 Days Qty: 30 RF: 2 furosemide 20 mg Tablet 20 mg PO QAM Qty: 30 RF: 2 Continued ferrous sulfate 325 mg (65 mg iron) tablet 325 mg PO PM Qty: 30 RF: 5 metoprolol succinate 100 mg tablet extended release 24 hr 100 mg PO DAILY Qty: 30 RF: 5 loratadine 10 mg tablet 10 mg PO DAILY PRN (Reason: allergy symptoms) Qty: 30 RF: 5 pantoprazole 40 mg tablet,delayed release (DR/EC) 40 mg PO DAILY Qty: 30 RF: 11 escitalopram oxalate 20 mg tablet 20 mg PO DAILY Qty: 30 RF: 6 lorazepam 0.5 mg tablet 0.5 mg PO BID PRN (Reason: anxiety) Qty: 20 RF: 0 fexofenadine [Nessa Allergy] 180 mg tablet 180 mg PO PM RF: 0 prednisone 20 mg tablet 40 mg PO DAILY RF: 0 oxycodone-acetaminophen 5-325 mg tablet 1 tab PO Q8 PRN (Reason: Pain) RF: 0 losartan 100 mg tablet 100 mg PO PM RF: 0 Discontinued chlorthalidone 25 mg tablet 25 mg PO PM Qty: 30 RF: 3 Discharge Orders: Discharge Order (Routine); Ordered 10/22/20 Ordered By: Rebecca Abdalla Admission Data Admit Date/Time: 10/18/20 18:03 Attending Provider: Rebecca Abdalla Admit Provider: Mateo Baltazar Primary Care Provider: Nirali Eugene Other Providers: Mateo Baltazar ; Doyle Olvera Other Interventions: Discharge Summary Assessment (RN) Last Done: 10/22/20 10:42 Coding Level of Care Code D/C Day Management >30 mins Diagnoses Acute heart failure with preserved ejection fraction (HFpEF) I50.31 GERD (gastroesophageal reflux disease) K21.9 Anxiety F41.9 Depression F32.9 Hypertension I10 Ovarian cancer C56.9 Laterality: unspecified laterality Hypomagnesemia E83.42 Hypokalemia E87.6 Abnormal CBC R79.89 DVT prophylaxis Z29.9
[2020-10-22] MEDS: MAGNESIUM OXIDE 400 MG TAB PO SCH (08:38)
[2020-10-22] MEDS ORDERED: FUROSEMIDE 20 MG TAB PO SCH (09:00)
--- NOTE | 2020-10-22 09:38 | Cardiology Progress Note ---
Date of Service October 22, 2020 Assessment & Plan (1) Acute heart failure with preserved ejection fraction (HFpEF): Patient presents with volume overload in the setting of h/o HTN, with normal LVEF, diastolic dysfunction on echo, recent IV fluid (4 units of PRBCs at time of hospital stay in early September,. Improved clinically. Stable for discharge on furosemide 20 mg PO daily (replaced home chlorthalidone) Spironolactone 25 mg daily. I once again discussed follow up with her. She lives in [facility]. Pt not sure if she wants to follow up with PCP only or also with me at [facility]. She is going to think about it. If she agrees to see cardiology, can be seen in 2-4 weeks with PCP follow up in the interim. Non-sustained ventricular tachycardia: Patient with findings of a 13 beat run of wide-complex tachycardia, 131 bpm, consistent with nonsustained VT 10/18/2020 at 2124 hrs. patient believes was asleep at this time without subjective symptoms. Continue oral metoprolol. (2) Hypertension: Continue prior to hospital metoprolol and losartan. Furosemide 20 mg PO daily and spironolactone [address] of chlorthalidone. (3) Ovarian cancer: Follow up with medical oncology. Admission and Anticipated Discharge Date Admission Date: October 18, 2020 Subjective Ms. Crowley is seen in follow up of her chief complain of shortness of breath and orthopea. She notes progressive improvement. Telemetry reveals SR in the 70s Review of Systems Review of Systems: All systems reviewed & are unremarkable except as noted in HPI & below Physical Exam Physical Exam: Temp Pulse Resp BP Pulse Ox 36.5 C 62 18 123/82 92 10/22/20 07:11 10/22/20 07:45 10/22/20 07:11 10/22/20 07:11 10/22/20 07:11 Constitutional: WD/WN, vitals as above Respiratory: Auscultation: + diminished lung sounds (mildly reduced BS at bases, improvement); no rales and no rhonchi Gastrointestinal (Abdomen): normal bowel sounds, soft, nontender, no hepatosplenomegaly Neurologic: PERRL, EOMI, accommodation nl, no face palsy, no dysarthria Results & Data ([facility]) Vital Signs (Past 12 Hours) Vital Signs Temp Pulse Pulse Resp BP BP Pulse Ox 10/22/20 07:45 62 10/22/20 07:11 36.5 C 67 18 123/82 92 10/22/20 04:00 36.5 C 68 20 139/83 92 10/22/20 00:27 69 10/21/20 23:15 36.7 C 65 20 123/78 93 Laboratory Results CBC 10/22/20 Range/Units 05:59 WBC 8.42 (4.8-10.8) K/uL RBC 3.09 L (4.2-5.4) M/uL Hgb 9.9 L (12.0-16.0) g/dL Hct 30.8 L (37-47) % Plt Count 341 (130-400) K/uL Comprehensive Metabolic Panel 10/22/20 Range/Units 05:59 Sodium 143 (136-145) mmol/L Potassium 4.8 (3.5-5.1) mmol/L Chloride 108 H (98-107) mmol/L Carbon Dioxide 28 (21-32) mmol/L BUN 31 H (7-18) mg/dl Creatinine 1.18 (0.6-1.2) mg/dl Glucose 91 (70-99) mg/dl Calcium 8.7 (8.5-10.1) mg/dl Intake and Output 10/21/20 10/22/20 10/22/20 22:59 06:59 14:59 Intake Total 650 / 1350 Output Total 950 / 2050 Balance -300 / -700 Intake: Oral 650 / 1350 Output: Urine 950 / 2050 Other: Weight 91 kg Weight Measurement Method Standing Scale (1) Ovarian cancer Laterality: unspecified laterality Qualified Code(s): C56.9 - Malignant neoplasm of unspecified ovary
== END 2020-10-22 15:45 | disposition home or self-care (01) | DRG 640 ==
LOC: ED 15:43 → 2W 15:43 → SUATTDRO 18:57 → 2W 20:31 → SUATTDRO 10-18 18:03

== ENCOUNTER 2020-12-10 11:40 | Inpatient (IN) ==
--- NOTE | 2020-12-10 12:08 | Emergency Department Note ---
History of Present Illness General Chief complaint: Shortness of Breath/Dyspnea Stated complaint: SOB, ACHES, STOMACH PAIN, LEG PAIN Time Seen by Provider: 12/10/20 11:52 Source: patient Mode of arrival: ambulatory Limitations: no limitations History of Present Illness Provider complaint: Shortness of breath Maximum Pain Intensity: 3 This is a 60-year-old female who presents to the ED with a chief complaint of feeling weak and achy. She states that she is concerned about being anemic aga in. The patient states that she also has a little trouble breathing. She has history of ovarian cancer. Her last chemotherapy treatment was about 3 weeks ago. She missed last week. She normally gets it every couple of weeks. The patient denies any other complaints at this time. She has not had any fevers or cold symptoms. No blood in her rectum or black stools. Home Medications Medication Instructions Recorded Confirmed Type fexofenadine [Nessa Allergy] 180 mg PO PM 08/07/19 12/10/20 History ferrous sulfate 325 mg (65 mg 325 mg PO PM #30 tab 01/22/20 12/10/20 Rx iron) tablet loratadine 10 mg tablet 10 mg PO DAILY PRN #30 tab 08/20/20 12/10/20 Rx escitalopram oxalate 20 mg tablet 20 mg PO DAILY #30 tab 08/29/20 12/10/20 Rx pantoprazole 40 mg tablet,delayed 40 mg PO DAILY #30 tab 09/27/20 12/10/20 Rx release losartan 100 mg PO PM 10/10/20 12/10/20 History oxycodone-acetaminophen 1 tab PO Q8 PRN 10/10/20 12/10/20 History furosemide 20 mg PO QAM #30 tab 10/22/20 12/10/20 Rx spironolactone 25 mg PO DAILY 30 Days #30 tab 10/22/20 12/10/20 Rx lorazepam 0.5 mg tablet 0.5 mg PO BID PRN #30 tab 11/19/20 12/10/20 Rx metoprolol succinate 100 mg 100 mg PO DAILY #30 tab 11/19/20 12/10/20 Rx tablet,extended release 24 hr Allergies Allergy/AdvReac Type Severity Reaction Status Date / Time desflurane Allergy Severe MALIGNANT Verified 11/29/20 10:32 HYPERTHERMIA adhesive Allergy Mild SKIN Verified 11/29/20 10:32 IRRITATION WITH EKG STICKIES codeine AdvReac Mild headache/na Verified 11/29/20 10:32 [From Tylenol-Codeine] usea Past Med/Surg History Medical History Back pain Breathlessness Cancer OVARIAN CANCER>CHEMO > GETS HALF HR TREATMENTS Q 2 WEEKS @ [facility] [place] Cancer related pain Elevated troponin I level Hiatal hernia MODERATE TO LARGE PER CHEST CT Hypomagnesemia Left ventricular hypertrophy Malignant hyperthermia Nephrolithiasis Neutropenia Osteoarthritis Ovarian cancer Ovarian mass Pancytopenia due to chemotherapy Seasonal allergies Snoring "NO SLEEP STUDY" PER RECORDS Symptomatic anemia Surgical History H/O tympanomastoidectomy History of bilateral tubal ligation History of colonoscopy History of cystoscopy KIDNEY STONE EXTRACTION WITH STENT PLACEMENT History of difficult intubation Right tympanomastoidectomy = 11/26/17= Grade 2 view with glidescope #3, ETT 7.5 at [facility] PT UNAWARE OF THIS History of dilatation and curettage D&C, HYSTEROSCOPY= 04/29/18= LMA#4 AT [facility] History of ear surgery RT/LEFT EAR SURGERIES History of exploratory laparotomy History of myringotomy History of open reduction and internal fixation (ORIF) procedure Right arm History of total abdominal hysterectomy and bilateral salpingo-oophorectomy History of vascular access device A PORT PLACEMENT>LEFT INTACT CURRENTLY S/P exploratory laparotomy Tumor BILAT EAR TUMOR REMOVAL Family History Unknown No problems noted. Denies family history of Ovarian cancer Prostate cancer Myocardial infarction Breast cancer Colorectal cancer Social History Smoking Status: Never smoker Second Hand Exposure: No; Hx Alcohol Use: No Hx Substance Use: Yes Last Used Substance: Unknown Last Used Substance Other:: LAST USED MONTH AGO IF HAS IT TAKES ONCE A DAY AT Substance Use Type Other:: MEDICAL WITH CARD Preferred Language: Micronesian Communication Ability: Effective Visual Impairment: No Limitations Methods Study Analyst Required: No Beliefs That Will Affect Care: None marital status: Life Partner Current Living Situation: Significant Other Current Living Situation Comment: [place] Feels Safe at Home: Yes Assistive Devices: None Review of Systems A total of 10 systems reviewed and were otherwise negative Physical Exam Vital Signs Vital Signs - 24 hr 12/10/20 11:46 12/10/20 12:41 Temperature 37.1 C Temperature Source Skin Pulse Rate 79 Respiratory Rate 18 Respiratory Effort / Characteristics Non-Labored Spontaneous Short of Breath SOB on Exertion Respiratory Depth Normal Respiratory Pattern Regular Blood Pressure 131/90 Blood Pressure Mean 103 Blood Pressure Position Sitting Pulse Oximetry 97 95 Oxygen Delivery Method Room Air Room Air Sepsis Recent Fever Within 48 Hours No Sepsis New/Unexplained Change in Mental Status N/A Sepsis Action Taken by Nursing No Action Required CONSTITUTIONAL/VITAL SIGNS: Reviewed / noted above. GENERAL: Non-toxic in appearance. INTEGUMENTARY: Warm, dry, and [place]. HEAD: Normocephalic. EYES: without scleral icterus or trauma. ENT/OROPHARYNX: clear and moist. LYMPHADENOPATHY/NECK: Is supple without lymphadenopathy or meningismus. RESPIRATORY: Lungs clear and equal. CARDIOVASCULAR: Regular rate and rhythm. GI/ABDOMEN: Soft and nontender. No organomegaly or pulsatile mass. No rebound or guarding. Normal bowel sounds. EXTREMITIES: Warm and well perfused. BACK: No CVA tenderness. NEUROLOGICAL: Intact without focal deficits. PSYCHIATRIC: normal affect. MUSCULOSKELETAL: Normally developed with good muscle tone. TRIAGE NURSING DOCUMENTATION REVIEWED. Medical Decision Making Differential Diagnosis Differential includes acute coronary syndrome, myocardial infarction, CVA, TIA, anemia, infection, pneumonia, UTI, pyelonephritis, poor nutrition, dehydration, electrolyte disturbance,hypoglycemia. Medical Records Attestation: I reviewed the patient's medical records. Home Medications Current Medication List: was personally reviewed by me Laboratory Data Attestation: I reviewed the patient's lab results. Result diagrams: 12/10/20 13:18 12/10/20 13:18 Lab Results 12/10/20 12/10/20 12/10/20 Range/Units 13:18 13:18 13:18 WBC 3.60 L (4.8-10.8) K/uL RBC 2.05 L (4.2-5.4) M/uL Hgb 6.7 L* (12.0-16.0) g/dL Hct 19.3 L* (37-47) % MCV 94.1 (80-100) fL MCH 32.7 (25-34) pg MCHC 34.7 (32-36) g/dL RDW Std Deviation 51.0 H (36.4-46.3) fL RDW Coeff of Camilo 14.9 H (11.5-14.5) % Plt Count 16 L* (130-400) K/uL MPV 11.4 H (7.4-10.4) fL Immature Gran % (Auto) 0.0 % Neut % (Auto) 58.3 % Lymph % (Auto) 24.2 % Sevier % (Auto) 16.9 % Eos % (Auto) 0.3 % Baso % (Auto) 0.3 % Neut # (Auto) 2.10 (1.4-6.5) K/uL Lymph # (Auto) 0.87 L (1.2-3.4) K/uL Sevier # (Auto) 0.61 H (0.11-0.59) K/uL Eos # (Auto) 0.01 (0-0.5) K/uL Baso # (Auto) 0.01 (0-0.2) K/uL Immature Gran # (Auto) 0.00 (0.00-0.02) K/uL Platelet Estimate SIGNIFIC DECREASED (Normal) PT 9.9 (9.0-12.0) Seconds INR 1.0 (0.9-1.1) APTT < 20.0 L (21.0-31.0) Seconds PTT Ratio 0.8 Sodium 143 (136-145) mmol/L Potassium 4.1 (3.5-5.1) mmol/L Chloride 113 H (98-107) mmol/L Carbon Dioxide 25 (21-32) mmol/L Anion Gap 5.0 (3-11) BUN 36 H (7-18) mg/dl Creatinine 1.21 H (0.6-1.2) mg/dl Est Cr Clr Drug Dosing 54.4 ml/min Est GFR ( Amer) 56.3 Est GFR (Non-Af Amer) 48.6 BUN/Creatinine Ratio 29.8 H (10-20) Glucose 98 (70-99) mg/dl Calcium 9.8 (8.5-10.1) mg/dl Total Bilirubin 0.6 (0.2-1) mg/dl AST 33 (15-37) U/L ALT 29 (12-78) U/L Alkaline Phosphatase 107 (45-117) U/L Total Protein 6.3 L (6.4-8.2) gm/dl Albumin 3.3 L (3.4-5.0) gm/dl Globulin 3.0 (2.5-4.0) gm/dl Albumin/Globulin Ratio 1.1 (0.9-2) Crossmatch 12/10/20 Range/Units 13:18 WBC (4.8-10.8) K/uL RBC (4.2-5.4) M/uL Hgb (12.0-16.0) g/dL Hct (37-47) % MCV (80-100) fL MCH (25-34) pg MCHC (32-36) g/dL RDW Std Deviation (36.4-46.3) fL RDW Coeff of Camilo (11.5-14.5) % Plt Count (130-400) K/uL MPV (7.4-10.4) fL Immature Gran % (Auto) % Neut % (Auto) % Lymph % (Auto) % Sevier % (Auto) % Eos % (Auto) % Baso % (Auto) % Neut # (Auto) (1.4-6.5) K/uL Lymph # (Auto) (1.2-3.4) K/uL Sevier # (Auto) (0.11-0.59) K/uL Eos # (Auto) (0-0.5) K/uL Baso # (Auto) (0-0.2) K/uL Immature Gran # (Auto) (0.00-0.02) K/uL Platelet Estimate (Normal) PT (9.0-12.0) Seconds INR (0.9-1.1) APTT (21.0-31.0) Seconds PTT Ratio Sodium (136-145) mmol/L Potassium (3.5-5.1) mmol/L Chloride (98-107) mmol/L Carbon Dioxide (21-32) mmol/L Anion Gap (3-11) BUN (7-18) mg/dl Creatinine (0.6-1.2) mg/dl Est Cr Clr Drug Dosing ml/min Est GFR ( Amer) Est GFR (Non-Af Amer) BUN/Creatinine Ratio (10-20) Glucose (70-99) mg/dl Calcium (8.5-10.1) mg/dl Total Bilirubin (0.2-1) mg/dl AST (15-37) U/L ALT (12-78) U/L Alkaline Phosphatase (45-117) U/L Total Protein (6.4-8.2) gm/dl Albumin (3.4-5.0) gm/dl Globulin (2.5-4.0) gm/dl Albumin/Globulin Ratio (0.9-2) Crossmatch See Detail Imaging Data Radiologist's Impression: Chest X-Ray 12/10/20 12:03 XR chest 1V portable CLINICAL HISTORY: Dyspnea COMPARISON STUDY: 10/29/2020 FINDINGS: The heart is borderline enlarged. There is a left-sided A-Port catheter. There is a large hiatal hernia with intrathoracic stomach. There is mild elevation of interstitium. While likely representing mild pulmonary vascular congestion, an interstitial infectious/inflammatory process could appear similar. There are no significant pleural effusions[ IMPRESSION: 1. Large hiatal hernia 2. Mild elevation of interstitium. While likely secondary to mild pulmonary vascular congestion, an interstitial infectious/inflammatory process could appear similar. ACT 112: Negative or not required by law. Electronically signed by: Derek Carey M.D. 12/10/2020 12:38 PM MDM Narrative Patient presents with weakness and achiness and is concerned about anemia. History of ovarian cancer. Details above. Her vital signs are normal. Her physical exam was unremarkable. Hemoglobin is 6.7. Platelet count was 16. The patient was typed and crossed. She will be transfused once this is available. She will be seen by the hospitalist for further inpatient evaluation and care. Impression & Plan Anemia, Thrombocytopenia, Exertional dyspnea, Weakness Discharge Plan Visit Data Chief Complaint: Shortness of Breath/Dyspnea Stated Complaint: SOB, ACHES, STOMACH PAIN, LEG PAIN ED Provider: Roberto Skaggs Discharge Problem: Anemia, Thrombocytopenia, Exertional dyspnea, Weakness Patient Disposition: Being Evaluated by Hospitalist Forms Stand Alone Forms: [facility] Prescriptions Prescriptions: No Action ferrous sulfate 325 mg (65 mg iron) tablet 325 mg PO PM Qty: 30 RF: 5 loratadine 10 mg tablet 10 mg PO DAILY PRN (Reason: allergy symptoms) Qty: 30 RF: 5 pantoprazole 40 mg tablet,delayed release (DR/EC) 40 mg PO DAILY Qty: 30 RF: 11 metoprolol succinate 100 mg tablet extended release 24 hr 100 mg PO DAILY Qty: 30 RF: 11 lorazepam 0.5 mg tablet 0.5 mg PO BID PRN (Reason: anxiety) Qty: 30 RF: 0 escitalopram oxalate 20 mg tablet 20 mg PO DAILY Qty: 30 RF: 6 fexofenadine [Nessa Allergy] 180 mg tablet 180 mg PO PM RF: 0 spironolactone 25 mg Tablet 25 mg PO DAILY 30 Days Qty: 30 RF: 2 furosemide 20 mg Tablet 20 mg PO QAM Qty: 30 RF: 2 oxycodone-acetaminophen 5-325 mg tablet 1 tab PO Q8 PRN (Reason: Pain) RF: 0 losartan 100 mg tablet 100 mg PO PM RF: 0 Referrals Referrals: Nirali Eugene CRNP [Primary Care Provider] - Discharge Problem: Anemia Qualifiers: Anemia type: unspecified type Qualified Code(s): D64.9 - Anemia, unspecified
--- NOTE | 2020-12-10 12:39 | XRay Report ---
XR chest 1V portable CLINICAL HISTORY: Dyspnea COMPARISON STUDY: 10/29/2020 FINDINGS: The heart is borderline enlarged. There is a left-sided A-Port catheter. There is a large h iatal hernia with intrathoracic stomach. There is mild elevation of interstitium. While likely repres enting mild pulmonary vascular congestion, an interstitial infectious/inflammatory process could appe ar similar. There are no significant pleural effusions[ IMPRESSION: 1. Large hiatal hernia 2. Mild elevation of interstitium. While likely secondary to mild pulmonary vascular congestion, an i nterstitial infectious/inflammatory process could appear similar. ACT 112: Negative or not required by law. Electronically signed by: Derek Carey M.D. 12/10/2020 12:38 PM
[2020-12-10 13:38] LABS: Partial Thromboplastin Ratio 0.8; Prothrombin Time 9.9 Seconds (9.0-12.0)
[2020-12-10 13:43] LABS: Albumin Level 3.3 gm/dl (3.4-5.0); BUN Creatinine Ratio 29.8 (10-20); Calcium 9.8 mg/dl (8.5-10.1); Creatinine Clr Calc Pharmacy 54.4 ml/min; Est GFR (African American) 56.3; Est GFR (Non-African American) 48.6; Potassium 4.1 mmol/L (3.5-5.1)
[2020-12-10 13:45] LABS: Albumin Globulin Ratio 1.1 (0.9-2); Bilirubin,Total 0.6 mg/dl (0.2-1); Total Protein 6.3 gm/dl (6.4-8.2)
[2020-12-10 13:49] LABS: Partial Thromboplastin Time < 20.0 Seconds (21.0-31.0)
[2020-12-10] MEDS ORDERED: SODIUM CHLORIDE 0.9% 250 ML IV PRN (14:03)
[2020-12-10 14:10] LABS: Hematocrit (blood only) 19.3 % (37-47); Hemoglobin 6.7 g/dL (12.0-16.0); Mean Corpuscular Hemoglobin 32.7 pg (25-34); Mean Corpuscular Hgb Conc 34.7 g/dL (32-36); Mean Corpuscular Volume 94.1 fL (80-100); Mean Platelet Volume 11.4 fL (7.4-10.4); Platelet Count 16 K/uL (130-400); RDW Coefficient of Variation 14.9 % (11.5-14.5); Red Blood Count 2.05 M/uL (4.2-5.4)
[2020-12-10 14:11] LABS: Basophils # (auto) 0.01 K/uL (0-0.2); Basophils % (auto) 0.3 %; Eosinophils # (auto) 0.01 K/uL (0-0.5); Eosinophils % (auto) 0.3 %; Lymphocytes # (auto) 0.87 K/uL (1.2-3.4); Lymphocytes % (auto) 24.2 %; Monocytes # (auto) 0.61 K/uL (0.11-0.59); Monocytes % (auto) 16.9 %; Neutrophils % (auto) 58.3 %; Platelet Estimate SIGNIFIC DECREASED (Normal)
--- NOTE | 2020-12-10 14:54 | Electrocardiogram Report ---
Test Reason : Blood Pressure : / mmHG Vent. Rate : 075 BPM Atrial Rate : 075 BPM P-R Int : 166 ms QRS Dur : 068 ms QT Int : 402 ms P-R-T Axes : 027 005 -77 degrees QTc Int : 448 ms Normal sinus rhythm Nonspecific T wave abnormality Abnormal ECG When compared with ECG of 17-OCT-2020 07:23, No significant change was found Confirmed by Gurdeep Callahan ([id number]) on 12/10/2020 2:54:18 PM Referred By: REFERRED SELF Confirmed By:Finn Callahan
--- NOTE | 2020-12-10 15:12 | History & Physical Report ---
Date of Service December 10, 2020 Assessment & Plan (1) Anemia: Chemo induced anemia/pancytopenia- Normocytic/normochromic anema --- RDW 14.9 - Patient is hemodynamically stable with HR 70's and normotensive at 132/91- no evidence of bruising, bleeding gums, or instability - HGB 6.7 on admission with symptoms of dyspnea, and fatigue pale conjunctivae - Consent obtained by EMD, type and cross done by EMD- thank you - Transfuse 1-2 Units of PRBC pending patient's response. Goal 8.0 - Diurese if needing 2 units of PRBC or evidence of congestion -Transfuse 1 unit of platelets- Goal >20 (2) Pancytopenia: As above - WBC 3, ANC 2.97 - Platlet count 16 - Acute needs as above - CBC 4 hours following infusion and then in morning (3) Diastolic dysfunction: Patient with no acute signs of exacerbation - appears euvolemic on exam and minimal congestion on CXR and peripherally - Continue Metoprolol Succ 100 mg Qd - Continue Lasix 20 mg PO QD - Continue Spironolactone 25 PO QD - Continue Losartan 100mg PO QD (4) Hypertension: As above patient appears well controlled goal <140 (5) GERD (gastroesophageal reflux disease): Continue with Pantoprazole 40 mg daily - no acute needs or complaints- symptoms appear controlled (6) Hiatal hernia: As above (7) Iron deficiency: Iron studies pending - Continue iron supplementation - Hope to have labs prior to transfusion (8) Ovarian cancer: As per HPI - Follows with Dr. 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 She is followed by palliative medicine in [facility] and is on salvage therapy. She does endorse she wants to be full code. She receives this on a 2 week basis and then has a week off. The patient has recurrent ovarian cancer with peritoneal carcinomatosis, She originally received 3 doses of Taxol and Carboplatin and showed disease progression where she then underwent and Exlap with debulking and lysis of adhesions, with a DANI and BSO with resection of abdominal wall nodule in 2018. She was then started on Doxil and Avastin which she had an allergic reaction and was continued on single agent Avastin. 06/26/20 she was found again to have disease progression on her CT scan and is now receiving Gemcitabine and Carboplatin. Patient came to the emergency room today for 3 day progression of dyspnea and fatigue. Dyspnea is noted with ambulation and relieved with rest. The patient denies any shortness of breath. She does fell some lightheadedness when she stands up. She denies any blood loss, nausea, vomiting, or abdominal pain. Her stools are reported normal color and consistency. She denies any black stools or blood in stools. Patient had a similar admission in September where she received 4 units of PRB and 3 units of platelets, as well as Neupogen. After that admission she was admitted for CHF exacerbation and was diuresed well, with EF 55-60% with normal mitral and aortic valves. Patient will be admitted for transfusion of PRBC and 1 six pack of platelets. I have reached out to her Oncologist Dr. Mari and no further treatment was recommended. Allergies Allergy/AdvReac Type Severity Reaction Status Date / Time desflurane Allergy Severe MALIGNANT Verified 11/29/20 10:32 HYPERTHERMIA adhesive Allergy Mild SKIN Verified 11/29/20 10:32 IRRITATION WITH EKG STICKIES codeine AdvReac Mild headache/na Verified 11/29/20 10:32 [From Tylenol-Codeine] usea Home Medications Medication Instructions Recorded Confirmed Type fexofenadine [Nessa Allergy] 180 mg PO PM 08/07/19 12/10/20 History ferrous sulfate 325 mg (65 mg 325 mg PO PM #30 tab 01/22/20 12/10/20 Rx iron) tablet loratadine 10 mg tablet 10 mg PO DAILY PRN #30 tab 08/20/20 12/10/20 Rx escitalopram oxalate 20 mg tablet 20 mg PO DAILY #30 tab 08/29/20 12/10/20 Rx pantoprazole 40 mg tablet,delayed 40 mg PO DAILY #30 tab 09/27/20 12/10/20 Rx release losartan 100 mg PO PM 10/10/20 12/10/20 History oxycodone-acetaminophen 1 tab PO Q8 PRN 10/10/20 12/10/20 History furosemide 20 mg PO QAM #30 tab 10/22/20 12/10/20 Rx spironolactone 25 mg PO DAILY 30 Days #30 tab 10/22/20 12/10/20 Rx lorazepam 0.5 mg tablet 0.5 mg PO BID PRN #30 tab 11/19/20 12/10/20 Rx metoprolol succinate 100 mg 100 mg PO DAILY #30 tab 11/19/20 12/10/20 Rx tablet,extended release 24 hr Past Med/Surg History Medical History Back pain Breathlessness Cancer OVARIAN CANCER>CHEMO > GETS HALF HR TREATMENTS Q 2 WEEKS @ [facility] Cancer related pain Elevated troponin I level Hiatal hernia MODERATE TO LARGE PER CHEST CT Hypomagnesemia Left ventricular hypertrophy Malignant hyperthermia Nephrolithiasis Neutropenia Osteoarthritis Ovarian cancer Ovarian mass Pancytopenia due to chemotherapy Seasonal allergies Snoring "NO SLEEP STUDY" PER RECORDS Symptomatic anemia Surgical History H/O tympanomastoidectomy History of bilateral tubal ligation History of colonoscopy History of cystoscopy KIDNEY STONE EXTRACTION WITH STENT PLACEMENT History of difficult intubation Right tympanomastoidectomy = 11/26/17= Grade 2 view with glidescope #3, ETT 7.5 at [facility] PT UNAWARE OF THIS History of dilatation and curettage D&C, HYSTEROSCOPY= 04/29/18= LMA#4 AT [facility] History of ear surgery RT/LEFT EAR SURGERIES History of exploratory laparotomy History of myringotomy History of open reduction and internal fixation (ORIF) procedure Right arm History of total abdominal hysterectomy and bilateral salpingo-oophorectomy History of vascular access device A PORT PLACEMENT>LEFT INTACT CURRENTLY S/P exploratory laparotomy Tumor BILAT EAR TUMOR REMOVAL Family History Unknown No problems noted. Denies family history of Ovarian cancer Prostate cancer Myocardial infarction Breast cancer Colorectal cancer Social History Smoking Status: Former smoker Cigarettes Per Day: Quit smokimg 20-30 years ago; Second Hand Exposure: No; Hx Alcohol Use: No Hx Substance Use: Yes (Percocet per MD prescribed.) Last Used Substance: Unknown Last Used Substance Other:: LAST USED MONTH AGO IF HAS IT TAKES ONCE A DAY AT HS Substance Use Type Other:: MEDICAL WITH CARD Preferred Language: Panamanian Communication Ability: Effective Visual Impairment: No Limitations Home Care Administrator Required: Yes Beliefs That Will Affect Care: None marital status: Life Partner Current Living Situation: Significant Other Current Living Situation Comment: POLLY Feels Safe at Home: Yes Assistive Devices: Glasses Review of Systems Review of Systems: REVIEW OF SYSTEMS: Constitutional: (+) fatigue, No fever, sweats or chills Eyes: No diplopia, no worsening or blurred vision ENT: (+) difficulty hearing, no trouble swallowing Respiratory: (+) on exertion, No cough, sputum, dyspnea at rest Cardiovascular: No chest pain, tightness or palpitations Abdomen: (+) constipation last week resolved with Mirilax, No pain, nausea, vomiting, diarrhea or constipation Musculoskeletal: No joint pain, calf pain, swelling Neurologic: No weakness, numbness/tingling, or balance problems Psychiatric: No anxiety or depression Skin: No rash or itch Physical Exam Physical Exam: PHYSICAL EXAM: General: awake, alert, no apparent distress Head: Normocephalic, atraumatic ENT: PERRL, EOMI, pale conjunctivae, normal gums, no pharyngeal exudate, mucous membranes moist Neuro: AAO x 3, speech clear and appropriate, strength intact bilaterally 5/5, sensation intact and equal all extremities and dermatomes, no pronator drift Chest: equal rise and fall of the chest, no accessory muscle use, no heaves or thirlls, Clear to auscultation, on room air, Cardiac: Regular rate and rhythm, telemetry reviewed, skin warm dry, cap refill <3 seconds, peripheral pules +2 no JVD, no murmur, 1+ edema to bilateral lower extremities GI: NABS x 4 quadrants, soft, nontender to palpation, no rebound, guarding or tenderness : Spontaneously voiding, no pain, no CVA tenderness, Extremities: Normal inspection, no peripheral edema or erythema, calfs nontender to palpation Psych: Normal mood and affect Skin: no rash or erythema Results & Data Results & Data ([facility]) Vital Signs (Past 12 Hours) Vital Signs Temp Pulse Resp BP Pulse Ox 12/10/20 12:41 95 12/10/20 11:46 37.1 C 79 18 131/90 97 Laboratory Results Abnormal lab results 12/10/20 12/10/20 12/10/20 Range/Units 13:18 13:18 13:18 WBC 3.60 L (4.8-10.8) K/uL RBC 2.05 L (4.2-5.4) M/uL Hgb 6.7 L* (12.0-16.0) g/dL Hct 19.3 L* (37-47) % RDW Std Deviation 51.0 H (36.4-46.3) fL RDW Coeff of Camilo 14.9 H (11.5-14.5) % Plt Count 16 L* (130-400) K/uL MPV 11.4 H (7.4-10.4) fL Lymph # (Auto) 0.87 L (1.2-3.4) K/uL [place] # (Auto) 0.61 H (0.11-0.59) K/uL APTT < 20.0 L (21.0-31.0) Seconds Chloride 113 H (98-107) mmol/L BUN 36 H (7-18) mg/dl Creatinine 1.21 H (0.6-1.2) mg/dl BUN/Creatinine Ratio 29.8 H (10-20) Total Protein 6.3 L (6.4-8.2) gm/dl Albumin 3.3 L (3.4-5.0) gm/dl Crossmatch 12/10/20 Range/Units 13:18 WBC (4.8-10.8) K/uL RBC (4.2-5.4) M/uL Hgb (12.0-16.0) g/dL Hct (37-47) % RDW Std Deviation (36.4-46.3) fL RDW Coeff of Camilo (11.5-14.5) % Plt Count (130-400) K/uL MPV (7.4-10.4) fL Lymph # (Auto) (1.2-3.4) K/uL [place] # (Auto) (0.11-0.59) K/uL APTT (21.0-31.0) Seconds Chloride (98-107) mmol/L BUN (7-18) mg/dl Creatinine (0.6-1.2) mg/dl BUN/Creatinine Ratio (10-20) Total Protein (6.4-8.2) gm/dl Albumin (3.4-5.0) gm/dl Crossmatch See Detail Diagnostic Findings XR chest 1V portable CLINICAL HISTORY: Dyspnea COMPARISON STUDY: 10/29/2020 FINDINGS: The heart is borderline enlarged. There is a left-sided A-Port catheter. There is a large hiatal hernia with intrathoracic stomach. There is mild elevation of interstitium. While likely representing mild pulmonary vascular congestion, an interstitial infectious/inflammatory process could appear similar. There are no significant pleural effusions[ IMPRESSION: 1. Large hiatal hernia 2. Mild elevation of interstitium. While likely secondary to mild pulmonary vascular congestion, an interstitial infectious/inflammatory process could appear similar. Medications Administered Home Medication fexofenadine [Nessa Allergy] 180 mg PO PM 08/07/19 [History Confirmed 12/10/20] ferrous sulfate 325 mg (65 mg iron) tablet 325 mg PO PM #30 tab 01/22/20 [Rx Confirmed 12/10/20] loratadine 10 mg tablet 10 mg PO DAILY PRN #30 tab 08/20/20 [Rx Confirmed 12/10/20] escitalopram oxalate 20 mg tablet 20 mg PO DAILY #30 tab 08/29/20 [Rx Confirmed 12/10/20] pantoprazole 40 mg tablet,delayed release 40 mg PO DAILY #30 tab 09/27/20 [Rx Confirmed 12/10/20] losartan 100 mg PO PM 10/10/20 [History Confirmed 12/10/20] oxycodone-acetaminophen 1 tab PO Q8 PRN 10/10/20 [History Confirmed 12/10/20] furosemide 20 mg PO QAM #30 tab 10/22/20 [Rx Confirmed 12/10/20] spironolactone 25 mg PO DAILY 30 Days #30 tab 10/22/20 [Rx Confirmed 12/10/20] lorazepam 0.5 mg tablet 0.5 mg PO BID PRN #30 tab 11/19/20 [Rx Confirmed 12/10/20] metoprolol succinate 100 mg tablet,extended release 24 hr 100 mg PO DAILY #30 tab 11/19/20 [Rx Confirmed 12/10/20] Active Medications Sodium Chloride (Nss) 250 mls @ 15 mls/hr IV .[id number] PRN PRN Reason: For Transfusion Stop: 12/11/20 00:03 ECG Additional Comments: Normal sinus rhythm Nonspecific T wave abnormality Abnormal ECG When compared with ECG of 17-OCT-2020 07:23, No significant change was found Code Status & VTE Plan Code Status CODE: FULL VTE: SCD's, Lovenox VTE Prophylaxis Plan VTE Prophylaxis will be ordered: Yes Supervising Physician Co-Signing Physician Notes During my face to face encounter, I obtained a history and physical examination. I reviewed above note and agree with it. I discussed plan of care with patient and GOOD Aguilar. I answered all of the patient's questions. Patient is being treated for pancytopenia. will transfuse 2 PRBC. PG Care Time/CCT Total # of Minutes Spent Total Time Spent with Patient: Total time spent is greater than 50% in coordination of care (as documented) at patient's floor/unit and/or counseling patient: Coding Level of Care Code 43418 Initial Inpt Care Lvl 3 Diagnoses Anemia D64.9 Anemia type: unspecified type Pancytopenia D61.818 Diastolic dysfunction I51.89 Hypertension I10 Hypertension type: essential hypertension GERD (gastroesophageal reflux disease) K21.00 Esophagitis bleeding: without hemorrhage Esophagitis presence: with esophagitis Hiatal hernia K44.9 Iron deficiency E61.1 Ovarian cancer C56.9 Laterality: unspecified laterality Depression F32.9 Depression Type: unspecified Chronic pain G89.3 Chronic pain type: due to neoplasm (1) Ovarian cancer Laterality: unspecified laterality Qualified Code(s): C56.9 - Malignant neoplasm of unspecified ovary (2) Chronic pain Chronic pain type: due to neoplasm Qualified Code(s): G89.3 - Neoplasm related pain (acute) (chronic) (3) Anemia Anemia type: unspecified type Qualified Code(s): D64.9 - Anemia, unspecified (4) Depression Depression Type: unspecified Qualified Code(s): F32.9 - Major depressive disorder, single episode, unspecified (5) GERD (gastroesophageal reflux disease) Esophagitis bleeding: without hemorrhage Esophagitis presence: with esophagitis Qualified Code(s): K21.00 - Gastro-esophageal reflux disease with esophagitis, without bleeding (6) Hypertension Hypertension type: essential hypertension Qualified Code(s): I10 - Essential (primary) hypertension
[2020-12-10 16:37] LABS: Influenza A virus by PCR Negative (Neg); Influenza B virus by PCR Negative (Neg); RSV by PCR Negative (Neg); SARS CoV2 RNA(COVID-19) InHosp NEGATIVE (Negative)
[2020-12-10] MEDS ORDERED: LORazepam 0.5 MG TAB PO PRN (18:09)
[2020-12-10] MEDS ORDERED: ONDANSETRON INJ 2 MG/ML 2 ML VIAL IV PRN (18:09)
[2020-12-10] MEDS ORDERED: POLYETHYLENE (MIRALAX) 17 GM PACK PO PRN (18:09)
[2020-12-10] MEDS ORDERED: LORATADINE 10 MG TAB PO PRN (18:09)
[2020-12-10] MEDS ORDERED: ACETAMINOPHEN 325 MG TAB PO PRN (18:09)
[2020-12-10] MEDS: FERROUS SULFATE 325 MG TAB PO SCH (20:30)
[2020-12-10] MEDS: ENOXAPARIN INJ 40 MG/0.4 ML SYR SQ SCH (20:30)
[2020-12-10] MEDS: LOSARTAN POTASSIUM 50 MG TAB PO SCH (20:31)
[2020-12-10] MEDS: FEXOFENADINE HCL 180 MG TAB PO SCH (20:31)
[2020-12-10] MEDS: oxyCODONE/ACETAMINOPHEN 5mg/325mg TAB PO PRN (21:41)
[2020-12-11 00:02] LABS: Hemoglobin 7.5 g/dL (12.0-16.0); Mean Corpuscular Hemoglobin 32.1 pg (25-34); Mean Corpuscular Hgb Conc 35.7 g/dL (32-36); Mean Corpuscular Volume 89.7 fL (80-100); Mean Platelet Volume 9.6 fL (7.4-10.4); Platelet Count 40 K/uL (130-400); RDW Coefficient of Variation 15.7 % (11.5-14.5); Red Blood Count 2.34 M/uL (4.2-5.4); White Blood Count 3.97 K/uL (4.8-10.8)
[2020-12-11 00:08] LABS: Basophils # (auto) 0.01 K/uL (0-0.2); Basophils % (auto) 0.3 %; Eosinophils # (auto) 0.02 K/uL (0-0.5); Eosinophils % (auto) 0.5 %; Immature Granulocytes # (auto) 0.01 K/uL (0.00-0.02); Immature Granulocytes % (auto) 0.3 %; Lymphocytes % (auto) 27.7 %; Monocytes # (auto) 0.63 K/uL (0.11-0.59); Monocytes % (auto) 15.9 %; Neutrophils % (auto) 55.3 %; RBC Morphology Unremarkable
[2020-12-11] MEDS ORDERED: SODIUM CHLORIDE 0.9% 250 ML IV PRN (00:08)
[2020-12-11] MEDS ORDERED: HEPARIN 100 UNIT/ML 5ML FLUSH FLUSH PRN (02:13)
--- NOTE | 2020-12-11 07:40 | Hospitalist Progress Note ---
Date of Service December 11, 2020 Assessment & Plan (1) Anemia: Chemo induced anemia/pancytopenia- Normocytic/normochromic anema - did have rise in hgb from 7.5->9 after transfusion of 2 units prbc no evidence of bruising, bleeding gums, or instability - Transfuse 1-2 Units of PRBC pending patient's response. Goal 8.0 -Transfuse 1 unit of platelets-platelet count 16->36 (2) Pancytopenia: As above - WBC 3, ANC 2.97 - transfusion support (3) Diastolic dysfunction: Patient with no acute signs of exacerbation - appears euvolemic on exam and minimal congestion on CXR and peripherally - Continue Metoprolol Succ 100 mg Qd - Continue Lasix 20 mg PO QD - Continue Spironolactone 25 PO QD - Continue Losartan 100mg PO QD (4) Hypertension: As above patient appears well controlled (5) GERD (gastroesophageal reflux disease): Continue with Pantoprazole 40 mg daily - no acute needs or complaints- symptoms appear controlled (6) Hiatal hernia: As above (7) Iron deficiency: Iron studies pending - Continue iron supplementation (8) Ovarian cancer: As per HPI - Follows with Dr. Mari at [facility] - Currently no acute needs other than pancytopenia (9) Depression: Normal mood and affect of patient - Continue escitalopram daily 20 mg PO (10) Chronic pain: Chronic pain to legs and back - Continue oxycodone-acetaminophen 1 tab PRN q8 hours Admission and Anticipated Discharge Date Admission Date: December 10, 2020 Subjective pt is fatigued but feels somewhat improved since blood transfusion, she has no signs of blood loss Review of Systems Review of Systems: Mild distress and moderate fatigue no headache, blurry or double vision no speech or swallowing issues no chest pain, pressure or palpitations some jackson but no cough or wheezes no abdominal pain, nausea or vomiting, diarrhea or constipation no dysuria, hematuria or frequency no focal joint pain or swelling no back pain, CVA tenderness or radicular pain no bruising, bleeding or rashes no focal signs of weakness or numbness or altered sensation no complaints of anxiety or depression.. Physical Exam Physical Exam: The patient appeared chronically ill Vital signs as documented. Head exam is normocephalic atraumatic no scleral icterus Neck is without JVD, thyromegaly, or carotid bruits. Lungs are clear to auscultation, no focal loss of breath sounds Cardiac exam, Rhythm is regular.. No murmurs, rubs or gallops. Abdominal exam reveals normal bowel sounds, soft non tender, no masses Extremities are trace edematous and both pedal pulses are present Neurologic exam is alert and oriented, no focal loss of strength or sensation Skin is without bruises or rashes Psychologically is without concerns for anxiety or depression Results & Data Results & Data ([facility]) Vital Signs (Past 12 Hours) Vital Signs Temp Pulse Pulse Resp BP BP BP 12/11/20 02:10 98.4 F 18 139/87 12/11/20 01:40 99.0 F 79 18 155/97 H 12/11/20 01:27 98.8 F 80 18 141/86 H 12/11/20 01:25 98.8 F 76 18 138/86 12/11/20 01:06 97.7 F 84 16 142/87 H 12/10/20 22:30 98.4 F 88 18 132/84 12/10/20 21:22 98.8 F 77 18 146/86 H 12/10/20 20:31 98.6 F 76 18 129/80 12/10/20 20:04 98.2 F 76 18 139/83 12/10/20 19:48 98.4 F 79 18 145/91 H Pulse Ox 12/11/20 02:10 93 12/11/20 01:40 94 12/11/20 01:27 12/11/20 01:25 92 12/11/20 01:06 12/10/20 22:30 97 12/10/20 21:22 97 12/10/20 20:31 98 12/10/20 20:04 100 12/10/20 19:48 100 PG Care Time/CCT Total # of Minutes Spent Total Time Spent with Patient: Total time spent is greater than 50% in coordination of care (as documented) at patient's floor/unit and/or counseling patient: Coding Level of Care Code 38943 Subseq Hosp Care Lvl 2 Diagnoses Anemia D64.9 Anemia type: unspecified type Pancytopenia D61.818 Diastolic dysfunction I51.89 Hypertension I10 Hypertension type: essential hypertension GERD (gastroesophageal reflux disease) K21.00 Esophagitis bleeding: without hemorrhage Esophagitis presence: with esophagitis Hiatal hernia K44.9 Iron deficiency E61.1 Ovarian cancer C56.9 Laterality: unspecified laterality Depression F32.9 Depression Type: unspecified Chronic pain G89.3 Chronic pain type: due to neoplasm (1) Ovarian cancer Laterality: unspecified laterality Qualified Code(s): C56.9 - Malignant neoplasm of unspecified ovary (2) Chronic pain Chronic pain type: due to neoplasm Qualified Code(s): G89.3 - Neoplasm related pain (acute) (chronic) (3) Anemia Anemia type: unspecified type Qualified Code(s): D64.9 - Anemia, unspecified (4) Depression Depression Type: unspecified Qualified Code(s): F32.9 - Major depressive disorder, single episode, unspecified (5) GERD (gastroesophageal reflux disease) Esophagitis bleeding: without hemorrhage Esophagitis presence: with esophagitis Qualified Code(s): K21.00 - Gastro-esophageal reflux disease with esophagitis, without bleeding (6) Hypertension Hypertension type: essential hypertension Qualified Code(s): I10 - Essential (primary) hypertension
[2020-12-11 07:58] LABS: Hematocrit (blood only) 25.7 % (37-47); Mean Corpuscular Volume 88.6 fL (80-100); RDW Coefficient of Variation 15.8 % (11.5-14.5); RDW Standard Deviation 50.7 fL (36.4-46.3)
[2020-12-11 08:05] LABS: Platelet Count 36 K/uL (130-400)
[2020-12-11 08:24] LABS: Basophils # (auto) 0.01 K/uL (0-0.2); Basophils % (auto) 0.3 %; Eosinophils # (auto) 0.02 K/uL (0-0.5); Eosinophils % (auto) 0.6 %; Lymphocytes % (auto) 28.1 %; Monocytes # (auto) 0.64 K/uL (0.11-0.59); Neutrophils # (auto) 1.63 K/uL (1.4-6.5); RBC Morphology Unremarkable
[2020-12-11 08:28] LABS: BUN Creatinine Ratio 30.3 (10-20); Calcium 9.3 mg/dl (8.5-10.1); Est GFR (African American) 70.9; Est GFR (Non-African American) 61.2; Potassium 3.7 mmol/L (3.5-5.1)
[2020-12-11 08:33] LABS: Ferritin 1210.3 ng/ml (8-388)
[2020-12-11] MEDS: PANTOprazole 40 MG TAB PO SCH (08:33)
[2020-12-11] MEDS: FUROSEMIDE 20 MG TAB PO SCH (08:33)
[2020-12-11] MEDS: ESCITALOPRAM OXALATE 20 MG TAB PO SCH (08:33)
[2020-12-11] MEDS: METOPROLOL SUCC 50MG EXT REL TAB PO SCH (08:33)
[2020-12-11] MEDS: SPIRONOLACTONE 25 MG TAB PO SCH (08:34)
[2020-12-11] MEDS: oxyCODONE/ACETAMINOPHEN 5mg/325mg TAB PO PRN ×2 (10:21→23:15)
[2020-12-11] MEDS: ENOXAPARIN INJ 40 MG/0.4 ML SYR SQ SCH (18:08)
[2020-12-11] MEDS: FERROUS SULFATE 325 MG TAB PO SCH (20:06)
[2020-12-11] MEDS: LOSARTAN POTASSIUM 50 MG TAB PO SCH (20:06)
[2020-12-11] MEDS: FEXOFENADINE HCL 180 MG TAB PO SCH (20:06)
[2020-12-12 07:11] LABS: Hematocrit (blood only) 24.2 % (37-47); Hemoglobin 8.7 g/dL (12.0-16.0); Mean Corpuscular Hemoglobin 31.6 pg (25-34); RDW Coefficient of Variation 15.5 % (11.5-14.5); RDW Standard Deviation 49.8 fL (36.4-46.3); Red Blood Count 2.75 M/uL (4.2-5.4); White Blood Count 3.02 K/uL (4.8-10.8)
[2020-12-12 07:42] LABS: Basophils # (auto) 0.01 K/uL (0-0.2); Basophils % (auto) 0.3 %; Eosinophils # (auto) 0.02 K/uL (0-0.5); Eosinophils % (auto) 0.7 %; Immature Granulocytes # (auto) 0.01 K/uL (0.00-0.02); Immature Granulocytes % (auto) 0.3 %; Lymphocytes # (auto) 0.83 K/uL (1.2-3.4); Lymphocytes % (auto) 27.5 %; Mean Platelet Volume 10.9 fL (7.4-10.4); Monocytes # (auto) 0.64 K/uL (0.11-0.59); Monocytes % (auto) 21.2 %; Neutrophils # (auto) 1.51 K/uL (1.4-6.5); Platelet Count 33 K/uL (130-400); Platelet Estimate SIGNIFIC DECREASED (Normal)
[2020-12-12 07:44] LABS: BUN Creatinine Ratio 26.1 (10-20); Calcium 8.6 mg/dl (8.5-10.1); Creatinine Clr Calc Pharmacy 67.7 ml/min; Est GFR (African American) 71.8; Est GFR (Non-African American) 61.9; Potassium 3.8 mmol/L (3.5-5.1)
[2020-12-12] MEDS: METOPROLOL SUCC 50MG EXT REL TAB PO SCH (10:12)
[2020-12-12] MEDS: FUROSEMIDE 20 MG TAB PO SCH (10:12)
[2020-12-12] MEDS: ESCITALOPRAM OXALATE 20 MG TAB PO SCH (10:12)
[2020-12-12] MEDS: SPIRONOLACTONE 25 MG TAB PO SCH (10:13)
[2020-12-12] MEDS: PANTOprazole 40 MG TAB PO SCH (10:13)
--- NOTE | 2020-12-12 15:50 | Discharge Summary ---
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 She is followed by palliative medicine in [facility] and is on salvage therapy. She does endorse she wants to be full code. She receives this on a 2 week basis and then has a week off. The patient has recurrent ovarian cancer with peritoneal carcinomatosis, She originally received 3 doses of Taxol and Carboplatin and showed disease progression where she then underwent and Exlap with debulking and lysis of adhesions, with a DANI and BSO with resection of abdominal wall nodule in 2019. She was then started on Doxil and Avastin which she had an allergic reaction and was continued on single agent Avastin. 06/26/20 she was found again to have disease progression on her CT scan and is now receiving Gemcitabine and Carboplatin. Patient came to the emergency room today for 3 day progression of dyspnea and fatigue. Dyspnea is noted with ambulation and relieved with rest. The patient denies any shortness of breath. She does fell some lightheadedness when she stands up. She denies any blood loss, nausea, vomiting, or abdominal pain. Her stools are reported normal color and consistency. She denies any black stools or blood in stools. Patient had a similar admission in September where she received 4 units of PRB and 3 units of platelets, as well as Neupogen. After that admission she was admitted for CHF exacerbation and was diuresed well, with EF 55-60% with normal mitral and aortic valves. Patient will be admitted for transfusion of PRBC and 1 six pack of platelets. I have reached out to her Oncologist Dr. Mari and no further treatment was recommended. Principal Diagnosis pancytopenia associated with chemotherapy anemia s/p transfusion of 2 units prbc Discharge Exam The patient appeared chronically ill Vital signs as documented. Lungs are clear to auscultation and appear unlabored Cardiac exam, Rhythm is regular.. No murmurs, rubs or gallops. Abdominal exam reveals normal bowel sounds, soft non tender, no masses Extremities are nonedematous and both pedal pulses are normal. Neurologic exam is alert and oriented, no focal loss of strength or sensation Skin is without bruises or rashes Psychologically is without concerns for anxiety or depression. Discharge Data Allergies Allergy/AdvReac Type Severity Reaction Status Date / Time desflurane Allergy Severe MALIGNANT Verified 11/29/20 10:32 HYPERTHERMIA adhesive Allergy Mild SKIN Verified 11/29/20 10:32 IRRITATION WITH EKG STICKIES codeine AdvReac Mild headache/na Verified 11/29/20 10:32 [From Tylenol-Codeine] usea Consultations 12/10/20 14:35 ED Decision to Admit Stat Hospital Course (1) Anemia: Chemo induced anemia/pancytopenia- Normocytic/normochromic anema - did have rise in hgb from 7.5->9 after transfusion of 2 units prbc no evidence of bruising, bleeding gums, or instability - Transfuse 2 Units of PRBC pending patient's response. Goal 8.0 -Transfuse 1 unit of platelets-platelet count 16->36 (2) Pancytopenia: As above - WBC 3, ANC 2.97 -stable pt wishes to go home (3) Diastolic dysfunction: Patient with no acute signs of exacerbation - appears euvolemic on exam and minimal congestion on CXR and peripherally - Continue Metoprolol Succ 100 mg Qd - Continue Lasix 20 mg PO QD - Continue Spironolactone 25 PO QD - Continue Losartan 100mg PO QD (4) Hypertension: As above patient appears well controlled (5) GERD (gastroesophageal reflux disease): Continue with Pantoprazole 40 mg daily - no acute needs or complaints- symptoms appear controlled (6) Hiatal hernia: As above (7) Iron deficiency: Iron studies pending - Continue iron supplementation (8) Ovarian cancer: As per HPI - Follows with Dr. Mari at [facility] - Currently no acute needs other than pancytopenia (9) Depression: Normal mood and affect of patient - Continue escitalopram daily 20 mg PO (10) Chronic pain: Chronic pain to legs and back - Continue oxycodone-acetaminophen 1 tab PRN q8 hours Total Time Total Time Spent Total Time Spent (In Minutes): It required greater than 30 minutes to prepare this patient for discharge Discharge Plan Discharge Items Patient Disposition: Home - Self-Care Reason For Visit: ANEMIA Discharge Diagnosis: low blood counts associated with chemotherapy Activity: Per Instructions section Non-emergency contact: Primary Care Provider and Oncologist Call non-emergency contact if: you have any medication questions, your symptoms worsen and you have a fever Follow-up/Referrals: Nirali Eugene CRNP [Primary Care Provider] - Diet: Regular Addtl Attending Provider Instructions: How should I balance rest with activity? Rest when needed. Rest will help you save energy for other activities. Do activities when your energy levels are the highest. Know your limits and do not plan too many activities for one day. How do I prevent or control bleeding? Do not take aspirin or NSAIDs. These medicines can cause you to bleed and bruise more easily. Use caution with skin and mouth care. Use a soft washcloth and a soft toothbrush. This can keep your skin and gums from bleeding. Keep your nails trimmed to prevent scratches. If you shave, use an electric shaver. Apply firm, steady pressure to stop bleeding from a wound. Apply pressure with a clean gauze or towel for 5 to 10 minutes. Call 911 if bleeding becomes heavy or does not stop. Do not play contact sports or do activities that can cause bleeding. Ask your healthcare provider what activities are safe for you to do. What can I do to prevent infections? Wash your hands often. Use an alcohol-based hand rub if soap and water are not available. Handwashing Stay away from crowds and anyone who may be sick. Ask your healthcare provider if you need to wear a mask in public places. Eat a low-bacteria diet as directed. This will help decrease your risk for an infection. Choose, prepare, and cook foods that contain a low amount of bacteria. Examples include pasteurized milk, well-cooked meats, and cooked pasta. Ask your healthcare provider for more information about a low-bacteria diet. Pending Studies at Discharge: No Stand-Alone Forms: [facility], Smoking Cessation Medications and DC Order Prescriptions: Continued ferrous sulfate 325 mg (65 mg iron) tablet 325 mg PO PM Qty: 30 RF: 5 loratadine 10 mg tablet 10 mg PO DAILY PRN (Reason: allergy symptoms) Qty: 30 RF: 5 pantoprazole 40 mg tablet,delayed release (DR/EC) 40 mg PO DAILY Qty: 30 RF: 11 metoprolol succinate 100 mg tablet extended release 24 hr 100 mg PO DAILY Qty: 30 RF: 11 lorazepam 0.5 mg tablet 0.5 mg PO BID PRN (Reason: anxiety) Qty: 30 RF: 0 escitalopram oxalate 20 mg tablet 20 mg PO DAILY Qty: 30 RF: 6 fexofenadine [Nessa Allergy] 180 mg tablet 180 mg PO PM RF: 0 spironolactone 25 mg Tablet 25 mg PO DAILY 30 Days Qty: 30 RF: 2 furosemide 20 mg Tablet 20 mg PO QAM Qty: 30 RF: 2 oxycodone-acetaminophen 5-325 mg tablet 1 tab PO Q8 PRN (Reason: Pain) RF: 0 losartan 100 mg tablet 100 mg PO PM RF: 0 Discharge Orders: Discharge Order (Routine); Ordered 12/12/20 Ordered By: Jamal Campos Admission Data Admit Date/Time: 12/10/20 16:14 Attending Provider: Jamal Campos Admit Provider: Alan aPz Primary Care Provider: Nirali Eugene Other Providers: Alan Paz Coding Level of Care Code D/C Day Management >30 mins Diagnoses Anemia D64.9 Anemia type: unspecified type Pancytopenia D61.818 Diastolic dysfunction I51.89 Hypertension I10 Hypertension type: essential hypertension GERD (gastroesophageal reflux disease) K21.00 Esophagitis presence: with esophagitis Esophagitis bleeding: without hemorrhage Hiatal hernia K44.9 Iron deficiency E61.1 Ovarian cancer C56.9 Laterality: unspecified laterality Depression F32.9 Depression Type: unspecified Chronic pain G89.3 Chronic pain type: due to neoplasm
== END 2020-12-12 17:11 | disposition home or self-care (01) | DRG 808 ==
LOC: ED 11:40 → SUATTDRO 16:14 → 2N 16:14 → 3N 12-11 10:35

== ENCOUNTER 2020-12-24 16:56 | Inpatient (IN) ==
[2020-12-24 18:25] LABS: Hematocrit (blood only) 22.5 % (37-47); Hemoglobin 7.6 g/dL (12.0-16.0); Mean Corpuscular Hemoglobin 32.2 pg (25-34); Mean Corpuscular Hgb Conc 33.8 g/dL (32-36); Mean Corpuscular Volume 95.3 fL (80-100); Platelet Count 78 K/uL (130-400); RDW Coefficient of Variation 20.3 % (11.5-14.5); RDW Standard Deviation 67.1 fL (36.4-46.3); Red Blood Count 2.36 M/uL (4.2-5.4); White Blood Count 4.06 K/uL (4.8-10.8)
[2020-12-24 18:35] LABS: Partial Thromboplastin Time 25.3 Seconds (21.0-31.0); Prothrombin Time 10.3 Seconds (9.0-12.0)
[2020-12-24 18:42] LABS: Alanine Aminotransferase 13 U/L (12-78); Aspartate Aminotransferase 19 U/L (15-37); BUN Creatinine Ratio 21.7 (10-20); Blood Urea Nitrogen 25 mg/dl (7-18); Carbon Dioxide 24 mmol/L (21-32); Chloride 114 mmol/L (98-107); Creatinine Clr Calc Pharmacy 57.7 ml/min; Est GFR (African American) 60.5; Est GFR (Non-African American) 52.2; Glucose 108 mg/dl (70-99); Potassium 3.8 mmol/L (3.5-5.1); Sodium 144 mmol/L (136-145)
[2020-12-24 18:46] LABS: Basophils # (auto) 0.02 K/uL (0-0.2); Basophils % (auto) 0.5 %; Eosinophils # (auto) 0.05 K/uL (0-0.5); Eosinophils % (auto) 1.2 %; Immature Granulocytes # (auto) 0.01 K/uL (0.00-0.02); Immature Granulocytes % (auto) 0.2 %; Lymphocytes # (auto) 1.04 K/uL (1.2-3.4); Lymphocytes % (auto) 25.6 %; Monocytes # (auto) 0.56 K/uL (0.11-0.59); Monocytes % (auto) 13.8 %; Neutrophils # (auto) 2.38 K/uL (1.4-6.5); Neutrophils % (auto) 58.7 %
[2020-12-24 18:46] LABS: Albumin Globulin Ratio 1.1 (0.9-2); Alkaline Phosphatase 101 U/L (45-117); Bilirubin,Total 0.6 mg/dl (0.2-1); Globulin 2.8 gm/dl (2.5-4.0); NT Pro B Type Natriuretic Pept 12828 pg/ml (0-900); Total Protein 5.9 gm/dl (6.4-8.2); Troponin I < 0.015 ng/ml (0-0.045)
--- NOTE | 2020-12-24 18:56 | XRay Report ---
XR chest 1V portable CLINICAL HISTORY: Dyspnea COMPARISON STUDY: 12/10/2020 FINDINGS: The heart is enlarged. There is a retrocardiac opacity consistent with a hiatal hernia. The re is a left-sided A-Port catheter. There is diffuse elevation of interstitium consistent with conges tive failure/fluid overload. There are small bilateral pleural effusions.[ IMPRESSION: 1. Large hiatal hernia 2. Elevation of the interstitium consistent with congestive failure/fluid overload 2. Small pleural effusions ACT 112: Negative or not required by law. Electronically signed by: Derek Carey M.D. 12/24/2020 6:54 PM
[2020-12-24 19:07] LABS: Influenza A virus by PCR Negative (Neg); Influenza B virus by PCR Negative (Neg); RSV by PCR Negative (Neg); SARS CoV2 RNA(COVID-19) InHosp NEGATIVE (Negative)
--- NOTE | 2020-12-24 19:16 | Emergency Department Note ---
Impression & Plan Symptomatic anemia, SOB (shortness of breath), Ovarian cancer, CHF (congestive heart failure) ED Provider Note INFORMANT: Patient ED PROVIDER(S): Silvano Lazcano MD CHIEF COMPLAINT: Shortness of breath PLAN: Disposition: Admitted Condition: Good Outpatient prescription management: none Referral: None MEDICAL DECISION MAKING: Patient presented to the emergency department because of shortness of breath. She also noted some body aches. She has trouble lying flat. She feels like she is filling up with fluid again. She has a history of ovarian cancer and recent anemia requiring blood transfusion. At that time it felt similar. She had blood work obtained. Chest x-ray was ordered. Covid testing was performed. Covid testing negative. Chest x-ray is concerning for CHF. The patient's blood work revealed thrombocytopenia as well as significant anemia. Chemistry panel was unremarkable. The patient's ECG does not show any significant change. She is quite symptomatic. She is approaching the similar level that required admission last time. Given her symptoms I discussed risk and benefits of transfusion. The patient agreed. She was given IV Lasix. Packed red blood cell transfusion was ordered. Consultation was made with Dr. Guzman of the hospitalist service. Patient was evaluated in the ER for further management. Triage Nursing notes reviewed and agree them. Vital Signs: reviewed and remarkable for no significant abnormalities Differential diagnosis: Reactive airway disease, pneumonia, pneumothorax, COPD, CHF, infections, cardiac ischemia, pulmonary embolism, musculoskeletal, gastrointestinal, as well as other pathologies. Diagnostics interpreted by me: ECG: Twelve-lead ECG reveals a normal sinus rhythm with sinus arrhythmia at 76 bpm. There is a lateral T wave abnormality present. No ST elevation. No PVCs or PACs. When compared to December 11 there is no significant change. Cardiac Monitoring: Cardiac monitoring ordered by me: The patient was placed on continuous cardiac monitoring and observed. It revealed a normal sinus rhythm at 72 beats per minute without ectopy or evidence of dysrhythmia. Imaging studies: Chest x-ray is consistent with mild CHF. HPI: The patient is a 60 year old female who presents to the Emergency Room with complaints of shortness of breath. This started a few days ago and is slightly worse. The patient also notes the following associated symptoms, orthopnea, generalized weakness, abdominal bloating. The patient has found no relieving factors. Current pain is rated as 0/10. Patient has a history of ovarian cancer and has had anemia and thrombocytopenia. She was admitted to the hospital recently for the same. She has had symptoms similar in the past when she required blood transfusion. She did see her balancer scale yesterday and they did not recommend any testing or change in medications. Pt denies LOC, headache, fevers, chills, diaphoresis, visual changes, neck pain, chest pain, nausea, vomiting, abdominal pain, back pain, melena, hematochezia, urinary symptoms, numbness, weakness, lymphadenopathy, rash, or other complaints. ROS: See above HPI for pertinent positives & negatives. A total of 10 systems reviewed and were otherwise negative. PAST MEDICAL HISTORY:See Below , ovarian cancer, anemia PAST SURGICAL HISTORY:See Below, FAMILY HISTORY:See Below SOCIAL HISTORY:See Below, non-smoker HOME MEDICATIONS:See Below ALLERGIES:See Below VITALS:See Below PHYSICAL EXAMINATION: GENERAL: Awake, alert, [id number], in no distress HENT: Normocephalic, atraumatic. Oropharynx unremarkable. EYES: Normal conjunctiva. Sclera non-icteric. NECK: Inspection normal. Non-tender. Supple. No nuchal rigidity. FROM. No masses. RESPIRATORY: Clear to auscultation. No wheezes. No rales. Normal respiratory effort. CARDIAC: Normal rate. Normal rhythm. No murmurs. No rubs. Extremities warm and well perfused. Pulses equal. No JVD. GI: Soft, full but non-distended. No tenderness to palpation. No rebound or guarding. No masses. RECTAL: Deferred. MUSCULOSKELETAL: Atraumatic. Chest examination reveals no tenderness. The back is symmetrical on inspection without obvious abnormality. There is no CVA tenderness to palpation. No joint edema. LOWER EXTREMITIES: Calves are equal size bilaterally and non-tender. No edema. No discoloration. NEURO: Normal sensorium. No sensory or motor deficits noted. SKIN: No rash or jaundice noted. Silvano Lazcano MD Past Med/Surg History Medical History Back pain Breathlessness Cancer OVARIAN CANCER>CHEMO > GETS HALF HR TREATMENTS Q 2 WEEKS @ [facility] Cancer related pain Elevated troponin I level Hiatal hernia MODERATE TO LARGE PER CHEST CT Hypomagnesemia Left ventricular hypertrophy Malignant hyperthermia Nephrolithiasis Neutropenia Osteoarthritis Ovarian cancer Ovarian mass Pancytopenia due to chemotherapy Seasonal allergies Snoring "NO SLEEP STUDY" PER RECORDS Symptomatic anemia Surgical History H/O tympanomastoidectomy History of bilateral tubal ligation History of colonoscopy History of cystoscopy KIDNEY STONE EXTRACTION WITH STENT PLACEMENT History of difficult intubation Right tympanomastoidectomy = 11/26/17= Grade 2 view with glidescope #3, ETT 7.5 at [facility] PT UNAWARE OF THIS History of dilatation and curettage D&C, HYSTEROSCOPY= 04/29/18= LMA#4 AT [facility] History of ear surgery RT/LEFT EAR SURGERIES History of exploratory laparotomy History of myringotomy History of open reduction and internal fixation (ORIF) procedure Right arm History of total abdominal hysterectomy and bilateral salpingo-oophorectomy History of vascular access device A PORT PLACEMENT>LEFT INTACT CURRENTLY S/P exploratory laparotomy Tumor BILAT EAR TUMOR REMOVAL Family History Unknown No problems noted. Denies family history of Ovarian cancer Prostate cancer Myocardial infarction Breast cancer Colorectal cancer Social History Smoking Status: Never smoker Cigarettes Per Day: Quit smokimg 20-30 years ago; Second Hand Exposure: No; Hx Alcohol Use: No Hx Substance Use: Yes (Percocet per MD prescribed.) Last Used Substance: Unknown Last Used Substance Other:: LAST USED MONTH AGO IF HAS IT TAKES ONCE A DAY AT Substance Use Type Other:: MEDICAL WITH CARD Preferred Language: Polish Communication Ability: Effective Visual Impairment: No Limitations Credit Assistant Required: Yes Beliefs That Will Affect Care: None marital status: Life Partner Current Living Situation: Significant Other Current Living Situation Comment: [place] Feels Safe at Home: Yes Assistive Devices: Glasses Allergies Allergies Allergy/AdvReac Type Severity Reaction Status Date / Time desflurane Allergy Severe MALIGNANT Verified 12/24/20 20:24 HYPERTHERMIA adhesive Allergy Mild SKIN Verified 12/24/20 20:24 IRRITATION WITH EKG STICKIES codeine AdvReac Mild headache/na Verified 12/24/20 20:24 [From Tylenol-Codeine] usea Home Meds Home Medications Medication Instructions Recorded Confirmed fexofenadine [Nessa Allergy] 180 mg PO PM 08/07/19 12/24/20 losartan 100 mg PO PM 10/10/20 12/24/20 oxycodone-acetaminophen 1 tab PO Q8 PRN 10/10/20 12/24/20 lidocaine-prilocaine 1 applic TOPICAL UD 12/24/20 12/24/20 Previous Rx's Medication Instructions Recorded ferrous sulfate 325 mg (65 mg 325 mg PO PM #30 tab 01/22/20 iron) tablet loratadine 10 mg tablet 10 mg PO DAILY PRN #30 tab 08/20/20 escitalopram oxalate 20 mg tablet 20 mg PO DAILY #30 tab 08/29/20 pantoprazole 40 mg tablet,delayed 40 mg PO DAILY #30 tab 09/27/20 release furosemide 20 mg PO QAM #30 tab 10/22/20 spironolactone 25 mg PO DAILY 30 Days #30 tab 10/22/20 lorazepam 0.5 mg tablet 0.5 mg PO BID PRN #30 tab 11/19/20 metoprolol succinate 100 mg 100 mg PO DAILY #30 tab 11/19/20 tablet,extended release 24 hr Results & Data (ED) Vital Signs Vital Signs - 24 hr 12/24/20 17:02 12/24/20 17:50 12/24/20 18:00 Temperature 36.8 C Temperature Source Temporal Artery Scan Pulse Rate 78 75 79 Pulse Rate from SpO2 Sensor 75 79 Respiratory Rate 16 24 16 Blood Pressure 125/80 Blood Pressure Mean 95 Pulse Oximetry 96 91 95 Oxygen Delivery Method Sepsis Recent Fever Within 48 Hours No Sepsis New/Unexplained Change in Mental Status No Sepsis Action Taken by Nursing No Action Required 12/24/20 18:04 12/24/20 18:10 12/24/20 18:15 Temperature Temperature Source Pulse Rate 76 76 80 Pulse Rate from SpO2 Sensor 77 76 81 Respiratory Rate 26 H 21 16 Blood Pressure 144/91 H 139/85 Blood Pressure Mean 108 103 Pulse Oximetry 94 97 98 Oxygen Delivery Method Sepsis Recent Fever Within 48 Hours Sepsis New/Unexplained Change in Mental Status Sepsis Action Taken by Nursing 12/24/20 18:20 12/24/20 18:30 12/24/20 18:31 Temperature Temperature Source Pulse Rate 77 75 78 Pulse Rate from SpO2 Sensor 77 75 75 Respiratory Rate 25 H 25 H 23 Blood Pressure 189/121 H Blood Pressure Mean 143 Pulse Oximetry 96 92 92 Oxygen Delivery Method Sepsis Recent Fever Within 48 Hours Sepsis New/Unexplained Change in Mental Status Sepsis Action Taken by Nursing 12/24/20 18:40 12/24/20 18:46 12/24/20 18:47 Temperature Temperature Source Pulse Rate 76 77 82 Pulse Rate from SpO2 Sensor 76 79 82 Respiratory Rate 22 26 H 17 Blood Pressure 175/115 H Blood Pressure Mean 135 Pulse Oximetry 98 97 96 Oxygen Delivery Method Sepsis Recent Fever Within 48 Hours Sepsis New/Unexplained Change in Mental Status Sepsis Action Taken by Nursing 12/24/20 18:50 12/24/20 19:00 12/24/20 19:01 Temperature Temperature Source Pulse Rate 76 74 72 Pulse Rate from SpO2 Sensor 76 74 72 Respiratory Rate 26 H 21 24 Blood Pressure 139/102 H Blood Pressure Mean 114 Pulse Oximetry 97 96 94 Oxygen Delivery Method Room Air Sepsis Recent Fever Within 48 Hours Sepsis New/Unexplained Change in Mental Status Sepsis Action Taken by Nursing 12/24/20 19:10 12/24/20 19:15 12/24/20 19:20 Temperature Temperature Source Pulse Rate 75 74 72 Pulse Rate from SpO2 Sensor 75 74 72 Respiratory Rate 23 19 22 Blood Pressure 146/95 H Blood Pressure Mean 112 Pulse Oximetry 92 95 96 Oxygen Delivery Method Sepsis Recent Fever Within 48 Hours Sepsis New/Unexplained Change in Mental Status Sepsis Action Taken by Nursing 12/24/20 19:30 12/24/20 19:31 12/24/20 19:40 Temperature Temperature Source Pulse Rate 72 70 70 Pulse Rate from SpO2 Sensor 73 70 70 Respiratory Rate 24 18 21 Blood Pressure 147/100 H Blood Pressure Mean 115 Pulse Oximetry 94 93 95 Oxygen Delivery Method Sepsis Recent Fever Within 48 Hours Sepsis New/Unexplained Change in Mental Status Sepsis Action Taken by Nursing 12/24/20 19:45 12/24/20 19:54 12/24/20 19:55 Temperature Temperature Source Pulse Rate 73 81 77 Pulse Rate from SpO2 Sensor 74 83 78 Respiratory Rate 25 H 19 25 H Blood Pressure 158/89 H 166/99 H Blood Pressure Mean 112 121 Pulse Oximetry 96 97 97 Oxygen Delivery Method Sepsis Recent Fever Within 48 Hours Sepsis New/Unexplained Change in Mental Status Sepsis Action Taken by Nursing 12/24/20 20:00 12/24/20 20:01 12/24/20 20:10 Temperature Temperature Source Pulse Rate 81 76 75 Pulse Rate from SpO2 Sensor 80 76 75 Respiratory Rate 22 23 25 H Blood Pressure 168/106 H Blood Pressure Mean 126 Pulse Oximetry 95 96 92 Oxygen Delivery Method Sepsis Recent Fever Within 48 Hours Sepsis New/Unexplained Change in Mental Status Sepsis Action Taken by Nursing 12/24/20 20:15 12/24/20 20:20 Temperature Temperature Source Pulse Rate 78 80 Pulse Rate from SpO2 Sensor 78 80 Respiratory Rate 23 20 Blood Pressure 154/107 H Blood Pressure Mean 122 Pulse Oximetry 92 93 Oxygen Delivery Method Sepsis Recent Fever Within 48 Hours Sepsis New/Unexplained Change in Mental Status Sepsis Action Taken by Nursing Laboratory Data Result diagrams: 12/24/20 17:35 12/24/20 17:41 Lab Results 12/24/20 12/24/20 12/24/20 Range/Units 17:35 17:35 17:35 WBC 4.06 L (4.8-10.8) K/uL RBC 2.36 L (4.2-5.4) M/uL Hgb 7.6 L (12.0-16.0) g/dL Hct 22.5 L (37-47) % MCV 95.3 (80-100) fL MCH 32.2 (25-34) pg MCHC 33.8 (32-36) g/dL RDW Std Deviation 67.1 H (36.4-46.3) fL RDW Coeff of Camilo 20.3 H (11.5-14.5) % Plt Count 78 L (130-400) K/uL MPV 10.0 (7.4-10.4) fL Immature Gran % (Auto) 0.2 % Neut % (Auto) 58.7 % Lymph % (Auto) 25.6 % [place] % (Auto) 13.8 % Eos % (Auto) 1.2 % Baso % (Auto) 0.5 % Neut # (Auto) 2.38 (1.4-6.5) K/uL Lymph # (Auto) 1.04 L (1.2-3.4) K/uL [place] # (Auto) 0.56 (0.11-0.59) K/uL Eos # (Auto) 0.05 (0-0.5) K/uL Baso # (Auto) 0.02 (0-0.2) K/uL Immature Gran # (Auto) 0.01 (0.00-0.02) K/uL PT 10.3 (9.0-12.0) Seconds INR 1.0 (0.9-1.1) APTT 25.3 (21.0-31.0) Seconds PTT Ratio 1.0 Sodium (136-145) mmol/L Potassium (3.5-5.1) mmol/L Chloride (98-107) mmol/L Carbon Dioxide (21-32) mmol/L Anion Gap (3-11) BUN (7-18) mg/dl Creatinine (0.6-1.2) mg/dl Est Cr Clr Drug Dosing ml/min Est GFR ( Amer) Est GFR (Non-Af Amer) BUN/Creatinine Ratio (10-20) Glucose (70-99) mg/dl Calcium (8.5-10.1) mg/dl Total Bilirubin (0.2-1) mg/dl AST (15-37) U/L ALT (12-78) U/L Alkaline Phosphatase (45-117) U/L Troponin I (0-0.045) ng/ml NT-Pro-B Natriuret Pep (0-900) pg/ml Total Protein (6.4-8.2) gm/dl Albumin (3.4-5.0) gm/dl Globulin (2.5-4.0) gm/dl Albumin/Globulin Ratio (0.9-2) COVID-19 Eval Order SARS-CoV-2 (PCR) (Negative) Influenza Type A (PCR) (Neg) Influenza Type B (PCR) (Neg) RSV (RT-PCR) (Neg) Blood Type A Positive Antibody Screen NEGATIVE Crossmatch See Detail 12/24/20 12/24/20 12/24/20 Range/Units 17:41 18:20 18:20 WBC (4.8-10.8) K/uL RBC (4.2-5.4) M/uL Hgb (12.0-16.0) g/dL Hct (37-47) % MCV (80-100) fL MCH (25-34) pg MCHC (32-36) g/dL RDW Std Deviation (36.4-46.3) fL RDW Coeff of Camilo (11.5-14.5) % Plt Count (130-400) K/uL MPV (7.4-10.4) fL Immature Gran % (Auto) % Neut % (Auto) % Lymph % (Auto) % [place] % (Auto) % Eos % (Auto) % Baso % (Auto) % Neut # (Auto) (1.4-6.5) K/uL Lymph # (Auto) (1.2-3.4) K/uL [place] # (Auto) (0.11-0.59) K/uL Eos # (Auto) (0-0.5) K/uL Baso # (Auto) (0-0.2) K/uL Immature Gran # (Auto) (0.00-0.02) K/uL PT (9.0-12.0) Seconds INR (0.9-1.1) APTT (21.0-31.0) Seconds PTT Ratio Sodium 144 (136-145) mmol/L Potassium 3.8 (3.5-5.1) mmol/L Chloride 114 H (98-107) mmol/L Carbon Dioxide 24 (21-32) mmol/L Anion Gap 6.0 (3-11) BUN 25 H (7-18) mg/dl Creatinine 1.14 (0.6-1.2) mg/dl Est Cr Clr Drug Dosing 57.7 ml/min Est GFR ( Amer) 60.5 Est GFR (Non-Af Amer) 52.2 BUN/Creatinine Ratio 21.7 H (10-20) Glucose 108 H (70-99) mg/dl Calcium 9.0 (8.5-10.1) mg/dl Total Bilirubin 0.6 (0.2-1) mg/dl AST 19 (15-37) U/L ALT 13 (12-78) U/L Alkaline Phosphatase 101 (45-117) U/L Troponin I < 0.015 (0-0.045) ng/ml NT-Pro-B Natriuret Pep 31379 H (0-900) pg/ml Total Protein 5.9 L (6.4-8.2) gm/dl Albumin 3.0 L (3.4-5.0) gm/dl Globulin 2.8 (2.5-4.0) gm/dl Albumin/Globulin Ratio 1.1 (0.9-2) COVID-19 Eval Order CovFluRsv at [facility] SARS-CoV-2 (PCR) NEGATIVE (Negative) Influenza Type A (PCR) Negative (Neg) Influenza Type B (PCR) Negative (Neg) RSV (RT-PCR) Negative (Neg) Blood Type Antibody Screen Crossmatch Administered Medications Discontinued Medications Furosemide (Furosemide 40 Mg/4 Ml Vial) 40 mg IV NOW STA Stop: 12/24/20 20:04 Last Admin: 12/24/20 20:11 Dose: 40 mg Documented by: [id number] Imaging Data Radiologist's Impression: Chest X-Ray 12/24/20 17:35 XR chest 1V portable CLINICAL HISTORY: Dyspnea COMPARISON STUDY: 12/10/2020 FINDINGS: The heart is enlarged. There is a retrocardiac opacity consistent with a hiatal hernia. There is a left-sided A-Port catheter. There is diffuse elevation of interstitium consistent with congestive failure/fluid overload. There are small bilateral pleural effusions.[ IMPRESSION: 1. Large hiatal hernia 2. Elevation of the interstitium consistent with congestive failure/fluid overload 2. Small pleural effusions ACT 112: Negative or not required by law. Electronically signed by: Derek Carey M.D. 12/24/2020 6:54 PM Discharge Plan Visit Data Chief Complaint: Illness Stated Complaint: SOB, BODY ACHES, ABDOMINAL PAIN ED Provider: Silvano Lazcano Discharge Problem: Symptomatic anemia, SOB (shortness of breath), Ovarian cancer, CHF (congestive heart failure) Forms Stand Alone Forms: My [facility] Prescriptions Prescriptions: No Action ferrous sulfate 325 mg (65 mg iron) tablet 325 mg PO PM Qty: 30 RF: 5 loratadine 10 mg tablet 10 mg PO DAILY PRN (Reason: allergy symptoms) Qty: 30 RF: 5 pantoprazole 40 mg tablet,delayed release (DR/EC) 40 mg PO DAILY Qty: 30 RF: 11 metoprolol succinate 100 mg tablet extended release 24 hr 100 mg PO DAILY Qty: 30 RF: 11 lorazepam 0.5 mg tablet 0.5 mg PO BID PRN (Reason: anxiety) Qty: 30 RF: 0 escitalopram oxalate 20 mg tablet 20 mg PO DAILY Qty: 30 RF: 6 fexofenadine [Nessa Allergy] 180 mg tablet 180 mg PO PM RF: 0 spironolactone 25 mg Tablet 25 mg PO DAILY 30 Days Qty: 30 RF: 2 furosemide 20 mg Tablet 20 mg PO QAM Qty: 30 RF: 2 oxycodone-acetaminophen 5-325 mg tablet 1 tab PO Q8 PRN (Reason: Pain) RF: 0 losartan 100 mg tablet 100 mg PO PM RF: 0 lidocaine-prilocaine 2.5-2.5 % cream 1 applic topical UD RF: 0
[2020-12-24] MEDS ORDERED: FUROSEMIDE 40 MG/4 ML VIAL IV STA (20:03)
[2020-12-24] MEDS ORDERED: SODIUM CHLORIDE 0.9% 250 ML IV PRN ×2 (20:03→21:50)
--- NOTE | 2020-12-24 20:47 | History & Physical Report ---
Date of Service December 24, 2020 Assessment & Plan (1) Acute heart failure with preserved ejection fraction (HFpEF): Jessi is a 60-year-old female with a notable past medical history of ovarian cancer currently undergoing chemotherapy, pancytopenia requiring multiple transfusions over the last several months, GERD, HFpEF (last echo 09/2020), and recent hospitalization for symptomatic anemia on 12/16 who presents for dyspnea on exertion, orthopnea, and PND worsening over the period of 3 days, subsequently found to have evidence of volume overload on exam and imaging, as well as a decreased hemoglobin to 7.6, concerning for acute HFpEF and component from symptomatic anemia. She is hemodynamically stable. Respiratory Distress - Likely secondary to symptomatic anemia and component of acute HFpEF, as below - Not requiring supplemental oxygen at present -- maintain >90%, utilize p.r.n. - Diuresis, transfusion -- as below Acute HFpEF - Given +orthopnea, +PND, signs of volume overload on exam, CXR demonstrating pulmonary edema, and BNP >12076, do suspect there is a component of acute HFpEF - Last echo in 10/13 demonstrating elevated left-sided filling pressures, LVEF 55 to 60%, mild LVH - Lasix 40 IV qAM (hold home Lasix) - Additional diuresis may be required given need for transfusion - Continue home metoprolol, spironolactone, losartan - Strict I+Os - Daily weights - Low sodium, heart healthy diets Symptomatic Anemia -- in setting of Chronic Pancytopenia - Do suspect that normocytic anemia/pancytopenia is likely borne of chemotherapy -- no sxs of active bleeding - Hemodynamically stable - normotensive, normal HRs, no O2 requirement - Given chronic ongoing FUENTES, admission Hgb 7.6, mild conjunctival pallor, do suspect that this is likely contributory to her symptoms at present - Transfusion 1 pRBC in ED -- consider diuresis p.r.n. as above - Recheck CBC in 4 hours s/p transfusion - Goal Hgb > 8 -- consider transfusion if below and symptomatic Chronic Pancytopenia - Admission pancytopenia: 4 > 7.6 / 22.5 < 78 - Did require 2U pRBC + 1U platelets during last admission in 11/2020 - Suspect largely d/t chemotherapy, as above - Platelet goal > 20 - CBC qAM Chronic Medical Problems HTN - Continue home medications, as above GERD - Continue pantoprazole Iron Deficiency - continue iron supplement / transfusion as above Ovarian Cancer - Follows with Sofía Rosas / Dr. Mari -- currently gemcitabine/carbplatin salvage palliative chemorx. In process of changing doses given pancytopenia / symptomatic anemia recurrence Depression - continue escitalopram Chronic Pain / Malignancy - continue Percocet Code: FULL CODE Dispo: MS/Tele Diet: HH/Low sodium PPX: SCDs, no pharm ppx given thrombocytopenia (2) Pancytopenia: (3) Anemia: (4) Iron deficiency: (5) Thrombocytopenia: (6) Depression: (7) Hypertension: (8) Ovarian cancer: (9) Murmur: History of Present Illness Primary Care Provider: STEPHEN Reardon Jesis is A 60-year-old female with a notable past medical history of ovarian cancer with ongoing salvage palliative chemotherapy, pancytopenia, HFpEF, major depressive disorder, and hypertension who presents to [facility] for shortness of breath and fatigue for multiple days. Jessi notes that at baseline she does have shortness of breath with exertion, which is gone on for several months. In fact, she has required multiple hospitalizations (September, and a few weeks ago at the end of November) for symptomatic anemia as well as volume overload. However, over the last 3 days or so, her shortness of breath with exertion has gotten much worse. No associated chest pain. She does endorse orthopnea and PND. She does report frequent coughing when she lies down. She notes that her appetite has also been decreased. No recent fevers, chills, night sweats. No dark or discolored stools or blood in her stool. No difficulty with urination. No other bleeding of which she is aware. Of note, patient was seen by her sports editor yesterday. Based on review of the notes and prior studies, impression was that her ongoing shortness of breath with exertion was not due to a cardiac process, and is more likely due to her pancytopenia. She is currently working with her oncologist to adjust her medications with a goal to decrease the degree of pancytopenia. She follows with Sofía Rosas. Her current chemotherapy is inclusive of gemcitabine and carboplatin. She is status post total abdominal hysterectomy and bilateral salpingo-oophorectomy. In the ER, where he was found to be hemodynamically stable without hypotension and having normal heart rate. No need for supplemental oxygen. Her hemoglobin was noted to be 7.6, platelets 78. Chest x-ray did demonstrate diffuse interstitial markings consistent with volume overload/pulmonary edema. BNP was noted to be over 12,000. She underwent received 1 unit of packed red blood cells as well as a dose of Lasix. Allergies Allergy/AdvReac Type Severity Reaction Status Date / Time desflurane Allergy Severe MALIGNANT Verified 12/24/20 20:24 HYPERTHERMIA adhesive Allergy Mild SKIN Verified 12/24/20 20:24 IRRITATION WITH EKG STICKIES codeine AdvReac Mild headache/na Verified 12/24/20 20:24 [From Tylenol-Codeine] usea Home Medications Medication Instructions Recorded Confirmed Type fexofenadine [Nessa Allergy] 180 mg PO PM 08/07/19 12/24/20 History ferrous sulfate 325 mg (65 mg 325 mg PO PM #30 tab 01/22/20 12/24/20 Rx iron) tablet loratadine 10 mg tablet 10 mg PO DAILY PRN #30 tab 08/20/20 12/24/20 Rx escitalopram oxalate 20 mg tablet 20 mg PO DAILY #30 tab 08/29/20 12/24/20 Rx pantoprazole 40 mg tablet,delayed 40 mg PO DAILY #30 tab 09/27/20 12/24/20 Rx release losartan 100 mg PO PM 10/10/20 12/24/20 History oxycodone-acetaminophen 1 tab PO Q8 PRN 10/10/20 12/24/20 History furosemide 20 mg PO QAM #30 tab 10/22/20 12/24/20 Rx spironolactone 25 mg PO DAILY 30 Days #30 tab 10/22/20 12/24/20 Rx lorazepam 0.5 mg tablet 0.5 mg PO BID PRN #30 tab 11/19/20 12/24/20 Rx metoprolol succinate 100 mg 100 mg PO DAILY #30 tab 11/19/20 12/24/20 Rx tablet,extended release 24 hr lidocaine-prilocaine 1 applic TOPICAL UD 12/24/20 12/24/20 History Past Med/Surg History Medical History Back pain Breathlessness Cancer OVARIAN CANCER>CHEMO > GETS HALF HR TREATMENTS Q 2 WEEKS @ [facility] Cancer related pain Elevated troponin I level Hiatal hernia MODERATE TO LARGE PER CHEST CT Hypomagnesemia Left ventricular hypertrophy Malignant hyperthermia Nephrolithiasis Neutropenia Osteoarthritis Ovarian cancer Ovarian mass Pancytopenia due to chemotherapy Seasonal allergies Snoring "NO SLEEP STUDY" PER RECORDS Symptomatic anemia Surgical History H/O tympanomastoidectomy History of bilateral tubal ligation History of colonoscopy History of cystoscopy KIDNEY STONE EXTRACTION WITH STENT PLACEMENT History of difficult intubation Right tympanomastoidectomy = 11/26/17= Grade 2 view with glidescope #3, ETT 7.5 at [facility] PT UNAWARE OF THIS History of dilatation and curettage D&C, HYSTEROSCOPY= 04/29/18= LMA#4 AT [facility] History of ear surgery RT/LEFT EAR SURGERIES History of exploratory laparotomy History of myringotomy History of open reduction and internal fixation (ORIF) procedure Right arm History of total abdominal hysterectomy and bilateral salpingo-oophorectomy History of vascular access device A PORT PLACEMENT>LEFT INTACT CURRENTLY S/P exploratory laparotomy Tumor BILAT EAR TUMOR REMOVAL Family History Unknown No problems noted. 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 HEENT: NCAT. Eyes - Sclera are white, anicteric, and without injection. Mild conjunctival pallor. PERRL. Mouth - MMM with no tonsillar edema or exudates. Neck supple and without LAD, +JVD as below. Cardiac: Normal rate and regular rhythm; S1 and S2 present with soft grade 1/6 NADIYA best heard at the RUSB. Neck - at 45 degrees, JVP appreciated just under the mandible. Hepatojugular reflex positive. No peripheral edema in the lower extremities bilaterally. Pulmonary: Good respiratory effort with symmetric expansion of the chest. No use of accessory muscles. Mild crackles appreciated at the right base, mildly decreased breath sounds throughout otherwise. Abdominal: Normoactive bowel sounds. Abdomen was soft, mildly distended, and non-tender to palpation. No hepatomegaly or splenomegaly. Psych: Well-developed, well-nourished, appropriately dressed for occasion. Behavior is cooperative and appropriate. Affect is best described as constricted / tired. Insight is appropriate. Results & Data Results & Data ([facility]) Vital Signs (Past 12 Hours) Vital Signs Temp Pulse Resp BP Pulse Ox 12/24/20 20:20 80 20 93 12/24/20 20:15 78 23 154/107 H 92 12/24/20 20:10 75 25 H 92 12/24/20 20:01 76 23 96 12/24/20 20:00 81 22 168/106 H 95 12/24/20 19:55 77 25 H 97 12/24/20 19:54 81 19 166/99 H 97 12/24/20 19:45 73 25 H 158/89 H 96 12/24/20 19:40 70 21 95 12/24/20 19:31 70 18 93 12/24/20 19:30 72 24 147/100 H 94 12/24/20 19:20 72 22 96 12/24/20 19:15 74 19 146/95 H 95 12/24/20 19:10 75 23 92 12/24/20 19:01 72 24 94 12/24/20 19:00 74 21 139/102 H 96 12/24/20 18:50 76 26 H 97 12/24/20 18:47 82 17 96 12/24/20 18:46 77 26 H 175/115 H 97 12/24/20 18:40 76 22 98 12/24/20 18:31 78 23 189/121 H 92 12/24/20 18:30 75 25 H 92 12/24/20 18:20 77 25 H 96 12/24/20 18:15 80 16 139/85 98 05/04/21 18:10 76 21 97 12/24/20 18:04 76 26 H 144/91 H 94 12/24/20 18:00 79 16 95 12/24/20 17:50 75 24 91 12/24/20 17:02 36.8 C 78 16 125/80 96 Supervising Physician Co-Signing Physician Notes Patient seen and examined, chart reviewed, case discussed with Dr. Avalos and I agree with his assessment and plan as above. Briefly, patient is a 60yo female with history of ovarian cancer on salvage chemotherapy, pancytopenia requiring PRBC transfusion in the past presenting with SOB/Orthopnea/FUENTES x 3 days On exam patient is afebrile, HD stable, pale and chronically ill in appearance +S1/S2, regular, 1/6 NADIYA at RUSB +JVD Labs and images reviewed Assessment/Plan - transfusion 1u PRBCs, diuresis with Lasix 40mg IV now and daily, monitor electrolytes and renal function. Remainder of plan as above Resident Activity Tracking Resident Involvement: Resident Care Provided Care Provided: Adult Hospital Medicine (1) Anemia Anemia type: unspecified type Qualified Code(s): D64.9 - Anemia, unspecified (2) Depression Depression Type: unspecified Qualified Code(s): F32.9 - Major depressive disorder, single episode, unspecified (3) Hypertension Hypertension type: essential hypertension Qualified Code(s): I10 - Essential (primary) hypertension
[2020-12-24] MEDS ORDERED: LORazepam 0.5 MG TAB PO PRN (21:45)
[2020-12-24] MEDS ORDERED: LORATADINE 10 MG TAB PO PRN (21:45)
[2020-12-24] MEDS ORDERED: FEXOFENADINE HCL 180 MG TAB PO SCH (21:45)
[2020-12-24] MEDS ORDERED: ACETAMINOPHEN 325 MG TAB PO PRN (21:45)
[2020-12-24] MEDS ORDERED: POLYETHYLENE (MIRALAX) 17 GM PACK PO PRN (21:45)
[2020-12-24] MEDS ORDERED: oxyCODONE/ACETAMINOPHEN 5mg/325mg TAB PO PRN (21:45)
[2020-12-24] MEDS ORDERED: LOSARTAN POTASSIUM 50 MG TAB PO SCH (21:45)
[2020-12-24 22:58] LABS: Appearance Urine Clear (Clear); Bacteria Urine Automated Negative (Negative); Bilirubin Urine Negative (Negative); Blood Urine Negative (Negative); Cast Urine Automated 0 /lpf (0-5); Color Urine Yellow; Glucose Urine UA Negative (Negative); Ketones Urine Negative (Negative); Leukocyte Esterase Urine Trace (Negative); Nitrite Urine Negative (Negative); Protein Urine Negative (Negative); RBC Urine Automated 0-4 /hpf (0-4); Specific Gravity Urine 1.008 (1.000-1.030); Urobilinogen Urine Negative (Negative)
--- NOTE | 2020-12-25 01:58 | Billing Data ---
Date of Service December 24, 2020 Coding Level of Care Code 15478 Initial Inpt Care Lvl 3
[2020-12-25 02:53] LABS: Hematocrit (blood only) 25.7 % (37-47); Hemoglobin 8.7 g/dL (12.0-16.0); Mean Corpuscular Hemoglobin 31.8 pg (25-34); Mean Corpuscular Hgb Conc 33.9 g/dL (32-36); Mean Corpuscular Volume 93.8 fL (80-100); RDW Coefficient of Variation 19.1 % (11.5-14.5); RDW Standard Deviation 61.6 fL (36.4-46.3); Red Blood Count 2.74 M/uL (4.2-5.4)
[2020-12-25 02:55] LABS: Mean Platelet Volume 9.9 fL (7.4-10.4); Platelet Count 73 K/uL (130-400)
[2020-12-25 03:15] LABS: Basophils # (auto) 0.01 K/uL (0-0.2); Basophils % (auto) 0.3 %; Eosinophils # (auto) 0.05 K/uL (0-0.5); Eosinophils % (auto) 1.5 %; Immature Granulocytes # (auto) 0.01 K/uL (0.00-0.02); Immature Granulocytes % (auto) 0.3 %; Lymphocytes # (auto) 1.09 K/uL (1.2-3.4); Lymphocytes % (auto) 32.1 %; Monocytes # (auto) 0.58 K/uL (0.11-0.59); Monocytes % (auto) 17.1 %; Neutrophils # (auto) 1.66 K/uL (1.4-6.5); Neutrophils % (auto) 48.7 %; RBC Morphology Unremarkable
[2020-12-25 03:25] LABS: BUN Creatinine Ratio 23.8 (10-20); Calcium 8.7 mg/dl (8.5-10.1); Creatinine Clr Calc Pharmacy 59.5 ml/min; Est GFR (African American) 63.2; Est GFR (Non-African American) 54.5; Potassium 3.9 mmol/L (3.5-5.1)
--- NOTE | 2020-12-25 08:00 | Hospitalist Progress Note ---
Date of Service December 25, 2020 Assessment & Plan (1) Acute heart failure with preserved ejection fraction (HFpEF): Jessi is a 60-year-old female with a notable past medical history of ovarian cancer currently undergoing chemotherapy, pancytopenia requiring multiple transfusions over the last several months, GERD, HFpEF (last echo 09/2020), and recent hospitalization for symptomatic anemia on 12/16 who presents for dyspnea on exertion, orthopnea, and PND worsening over the period of 3 days, subsequently found to have evidence of volume overload on exam and imaging, as well as a decreased hemoglobin to 7.6, concerning for acute HFpEF and component from symptomatic anemia. She is hemodynamically stable. Respiratory Distress - Likely secondary to symptomatic anemia and component of acute HFpEF, as below - Not requiring supplemental oxygen at present -- maintain >90%, utilize p.r.n. - Diuresis, transfusion -- as below Acute HFpEF - Given +orthopnea, +PND, signs of volume overload on exam, CXR demonstrating pulmonary edema, and BNP >78121, do suspect there is a component of acute HFpEF - Last echo in 10/13 demonstrating elevated left-sided filling pressures, LVEF 55 to 60%, mild LVH - Lasix 40 IV qAM (hold home Lasix) - Additional diuresis may be required given need for transfusion - Continue home metoprolol, spironolactone, losartan - Strict I+Os - Daily weights - Low sodium, heart healthy diets Symptomatic Anemia -- in setting of Chronic Pancytopenia - Do suspect that normocytic anemia/pancytopenia is likely borne of chemotherapy -- no sxs of active bleeding - Hemodynamically stable - normotensive, normal HRs, no O2 requirement - Given chronic ongoing FUENTES, admission Hgb 7.6, mild conjunctival pallor, do suspect that this is likely contributory to her symptoms at present - Transfusion 1 pRBC in ED -- consider diuresis p.r.n. as above - Recheck CBC in 4 hours s/p transfusion - Goal Hgb > 8 -- consider transfusion if below and symptomatic Chronic Pancytopenia - Admission pancytopenia: 4 > 7.6 / 22.5 < 78 - Did require 2U pRBC + 1U platelets during last admission in 11/2020 - Suspect largely d/t chemotherapy, as above - Platelet goal > 20 - CBC qAM Chronic Medical Problems HTN - Continue home medications, as above GERD - Continue pantoprazole Iron Deficiency - continue iron supplement / transfusion as above Ovarian Cancer - Follows with Sofía Rosas / Dr. Mari -- currently gemcitabine/carbplatin salvage palliative chemorx. In process of changing doses given pancytopenia / symptomatic anemia recurrence Depression - continue escitalopram Chronic Pain / Malignancy - continue Percocet Code: FULL CODE Dispo: MS/Tele Diet: HH/Low sodium PPX: SCDs, no pharm ppx given thrombocytopenia (2) Pancytopenia: (3) Anemia: (4) Iron deficiency: (5) Thrombocytopenia: (6) Depression: (7) Hypertension: (8) Ovarian cancer: (9) Murmur: Admission and Anticipated Discharge Date Admission Date: December 24, 2020 Results & Data Results & Data ([facility]) Vital Signs (Past 12 Hours) Vital Signs Temp Pulse Pulse Resp BP BP Pulse Ox 12/25/20 07:20 97.7 F 74 18 117/78 92 12/25/20 03:19 97.9 F 69 16 126/84 91 12/25/20 01:25 98.1 F 77 18 119/80 93 12/25/20 00:23 97.7 F 81 18 134/82 92 12/24/20 23:23 98.1 F 84 18 123/80 93 12/24/20 22:53 98.2 F 79 18 123/70 91 12/24/20 22:38 97.5 F L 86 18 135/82 93 12/24/20 22:30 97.9 F 82 20 135/86 97 12/24/20 22:15 97.9 F 81 20 145/81 H 97 12/24/20 20:20 80 20 93 12/24/20 20:15 78 23 154/107 H 92 12/24/20 20:10 75 25 H 92 12/24/20 20:01 76 23 96 12/24/20 20:00 81 22 168/106 H 95 PG Care Time/CCT Total # of Minutes Spent Total Time Spent with Patient: Total time spent is greater than 50% in coordination of care (as documented) at patient's floor/unit and/or counseling patient: Coding Diagnoses Acute heart failure with preserved ejection fraction (HFpEF) I50.31 Pancytopenia D61.818 Anemia D64.9 Anemia type: unspecified type Iron deficiency E61.1 Thrombocytopenia D69.6 Depression F32.9 Depression Type: unspecified Hypertension I10 Hypertension type: essential hypertension Ovarian cancer C56.9 Murmur R01.1 (1) Anemia Anemia type: unspecified type Qualified Code(s): D64.9 - Anemia, unspecified (2) Depression Depression Type: unspecified Qualified Code(s): F32.9 - Major depressive disorder, single episode, unspecified (3) Hypertension Hypertension type: essential hypertension Qualified Code(s): I10 - Essential (primary) hypertension
--- NOTE | 2020-12-25 08:42 | Electrocardiogram Report ---
Test Reason : Blood Pressure : / mmHG Vent. Rate : 076 BPM Atrial Rate : 076 BPM P-R Int : 160 ms QRS Dur : 066 ms QT Int : 394 ms P-R-T Axes : 005 006 234 degrees QTc Int : 443 ms Normal sinus rhythm with sinus arrhythmia Diffuse Minor Nonspecific T wave abnormality Abnormal ECG When compared with ECG of 10-DEC-2020 12:32, No significant change was found Confirmed by Bradley Whatley ([id number]) on 12/25/2020 8:42:31 AM Referred By: Nirali Euegne Confirmed By:Bradley Whatley
[2020-12-25] MEDS ORDERED: FUROSEMIDE 40 MG in SYRINGE 0 ML IV SCH (09:00)
[2020-12-25] MEDS ORDERED: METOPROLOL SUCC 50MG EXT REL TAB PO SCH (09:00)
[2020-12-25] MEDS ORDERED: PANTOprazole 40 MG TAB PO SCH (09:00)
[2020-12-25] MEDS ORDERED: SPIRONOLACTONE 25 MG TAB PO SCH (09:00)
[2020-12-25] MEDS ORDERED: FUROSEMIDE 40 MG/4 ML VIAL IV SCH (09:00)
[2020-12-25] MEDS ORDERED: FUROSEMIDE 20 MG TAB PO SCH ×2 (09:00)
[2020-12-25] MEDS ORDERED: ESCITALOPRAM OXALATE 20 MG TAB PO SCH (09:00)
--- NOTE | 2020-12-25 15:00 | Discharge Summary ---
Date of Service December 25, 2020 Admission HPI Per Admitting Provider Jessi is A 60-year-old female with a notable past medical history of ovarian cancer with ongoing salvage palliative chemotherapy, pancytopenia, HFpEF, major depressive disorder, and hypertension who presents to [facility] for shortness of breath and fatigue for multiple days. Jessi notes that at baseline she does have shortness of breath with exertion, which is gone on for several months. In fact, she has required multiple hospitalizations (September, and a few weeks ago at the end of November) for symptomatic anemia as well as volume overload. However, over the last 3 days or so, her shortness of breath with exertion has gotten much worse. No associated chest pain. She does endorse orthopnea and PND. She does report frequent coughing when she lies down. She notes that her appetite has also been decreased. No recent fevers, chills, night sweats. No dark or discolored stools or blood in her stool. No difficulty with urination. No other bleeding of which she is aware. Of note, patient was seen by her limnologist yesterday. Based on review of the notes and prior studies, impression was that her ongoing shortness of breath with exertion was not due to a cardiac process, and is more likely due to her pancytopenia. She is currently working with her oncologist to adjust her medications with a goal to decrease the degree of pancytopenia. She follows with Sofía Rosas. Her current chemotherapy is inclusive of gemcitabine and carboplatin. She is status post total abdominal hysterectomy and bilateral salpingo-oophorectomy. In the ER, where he was found to be hemodynamically stable without hypotension and having normal heart rate. No need for supplemental oxygen. Her hemoglobin was noted to be 7.6, platelets 78. Chest x-ray did demonstrate diffuse interstitial markings consistent with volume overload/pulmonary edema. BNP was noted to be over 12,000. She underwent received 1 unit of packed red blood cells as well as a dose of Lasix. Principal Diagnosis heart failure preserved Ejection fraction malignancy associated pancytopenia Discharge Exam The patient appeared chronically ill but wishes to be able to go home to make oncology appointment 12/26 Vital signs as documented. Lungs are clear to auscultation and appear unlabored Cardiac exam, Rhythm is regular.. No murmurs, rubs or gallops. Abdominal exam reveals normal bowel sounds, soft non tender, no masses Extremities are mildly edematous and both pedal pulses are normal. Neurologic exam is alert and oriented, no focal loss of strength or sensation Skin is without bruises or rashes Psychologically is without concerns for anxiety or depression. Discharge Data Allergies Allergy/AdvReac Type Severity Reaction Status Date / Time desflurane Allergy Severe MALIGNANT Verified 12/24/20 20:24 HYPERTHERMIA adhesive Allergy Mild SKIN Verified 12/24/20 20:24 IRRITATION WITH EKG STICKIES codeine AdvReac Mild headache/na Verified 12/24/20 20:24 [From Tylenol-Codeine] usea Consultations 12/24/20 20:06 ED Decision to Admit Stat Hospital Course (1) Acute heart failure with preserved ejection fraction (HFpEF): Jessi is a 60-year-old female with a notable past medical history of ovarian cancer currently undergoing chemotherapy, pancytopenia requiring multiple transfusions over the last several months, GERD, HFpEF (last echo 09/2020), and recent hospitalization for symptomatic anemia on 12/16 who presents for dyspnea on exertion, orthopnea, and PND worsening over the period of 3 days, subsequently found to have evidence of volume overload on exam and imaging, concerning for acute HFpEF and component from symptomatic anemia. She is hemodynamically stable. Respiratory Distress - Likely secondary to symptomatic anemia and component of acute HFpEF, as below - Not requiring supplemental oxygen pt felt improved with increased diuretic, wants to make oncology appointment 12/26, was instructed on low salt diet and increase lasix to 40 mg and continue spironolactone Acute HFpEF - Given +orthopnea, +PND, signs of volume overload on exam, CXR demonstrating pulmonary edema, and BNP >50145, do suspect there is a component of acute HFpEF - Last echo in 10/13 demonstrating, LVEF 55 to 60%, mild LVH - Lasix 40 qAM instructed to increase at discharge, and CHF instructions given for weighing herself - Continue home metoprolol, spironolactone, losartan - Low sodium, and potassum favorable diet given Symptomatic Anemia -- in setting of Chronic Pancytopenia, in the setting of oncology treatemtn - Do suspect that normocytic anemia/pancytopenia is likely borne of chemotherapy -- - Given chronic ongoing FUENTES, admission Hgb 7.6, mild conjunctival pallor, do suspect that this is likely contributory to her symptoms at present - Transfusion 1 pRBC in ED with appropriate rise in hgb Chronic Pancytopenia - Admission pancytopenia: 4 > 7.6 / 22.5 < 78 - Did require 2U pRBC + 1U platelets during last admission in 11/2020 - Suspect largely d/t chemotherapy, as above - Platelet goal 73 Chronic Medical Problems HTN - Continue home medications, as above GERD - Continue pantoprazole Iron Deficiency - continue iron supplement / transfusion as above Ovarian Cancer - Follows with Sofía Rosas / Dr. Mari -- currently gemcitabine/carbplatin salvage palliative chemorx. In process of changing doses given pancytopenia / symptomatic anemia recurrence-> reportedly has appointment 12/26 Depression - continue escitalopram Chronic Pain / Malignancy - continue Percocet Code: FULL CODE (2) Pancytopenia: (3) Anemia: (4) Iron deficiency: (5) Thrombocytopenia: (6) Depression: (7) Hypertension: (8) Ovarian cancer: (9) Murmur: Total Time Total Time Spent Total Time Spent (In Minutes): It required greater than 30 minutes to prepare this patient for discharge Discharge Plan Discharge Items Patient Disposition: Home - Self-Care Reason For Visit: SOB, PND, ORTHOPNEA Discharge Diagnosis: fluid retention Activity: Resume your previous activity Non-emergency contact: Primary Care Provider and Oncologist Call non-emergency contact if: you have any medication questions and your symptoms worsen Follow-up/Referrals: Nirali Eugene CRNP [Primary Care Provider] - 01/07/21 10:30 am Diet: Low Sodium (2gm) Addtl Attending Provider Instructions: We are going to double your water medicine, you may take 2 of your 20 mg tablets to make 40 and then when you run out there will be a new Rx available, please eat a low salt diet and also eat foods favorable to give you potassium Call 911 and go to the Emergency Room if: * You have tightness or pain in your chest that does not go away with rest or Nitroglycerin * You are very short of breath even with rest Call your doctor if any of the following symptoms or problems start or get worse: * Shortness of breath or difficulty breathing * Wake up at night short of breath * Chest pain * Cough * Swelling of your hands, fee, or legs * More fatigued or tired with your normal activity * Palpitations - sudden fast heart beats WEIGHT * Weigh yourself every morning after using the bathroom. * Use the same scale. * Wear the same amount of clothing. * Write your weight down on your chart. * Call your doctor if you gain more than 2-3 pounds in 1-2 days. MEDICATIONS * Use this discharge instruction sheet for instructions. * Take your medications at the time your doctor ordered. * Do not skip a dose of your medicines. * If you miss a dose of medicine, take as soon as possible, but DO NOT DOUBLE A DOSE. * Read your medicine information when you get home. * Know all of the side effects of your medicine. * Call your doctor's office if you have any side effects. * Be sure all of your doctors know what medicine and herbs you take (including cold, flu, and herbal medicine). * Pain Medicine: If you do not get relief from your pain, please call your doctor for help. Take the following with you to your follow-up doctor appointments: * Weight Chart * Medication List * List of questions Do not drink excessive alcohol, beer or wine. Pending Studies at Discharge: No Stand-Alone Forms: [facility], Smoking Cessation Medications and DC Order Prescriptions: New furosemide [Lasix] 40 mg tablet 40 mg PO DAILY Qty: 30 RF: 5 Continued ferrous sulfate 325 mg (65 mg iron) tablet 325 mg PO PM Qty: 30 RF: 5 loratadine 10 mg tablet 10 mg PO DAILY PRN (Reason: allergy symptoms) Qty: 30 RF: 5 pantoprazole 40 mg tablet,delayed release (DR/EC) 40 mg PO DAILY Qty: 30 RF: 11 metoprolol succinate 100 mg tablet extended release 24 hr 100 mg PO DAILY Qty: 30 RF: 11 lorazepam 0.5 mg tablet 0.5 mg PO BID PRN (Reason: anxiety) Qty: 30 RF: 0 escitalopram oxalate 20 mg tablet 20 mg PO DAILY Qty: 30 RF: 6 fexofenadine [Nessa Allergy] 180 mg tablet 180 mg PO PM RF: 0 spironolactone 25 mg Tablet 25 mg PO DAILY 30 Days Qty: 30 RF: 2 oxycodone-acetaminophen 5-325 mg tablet 1 tab PO Q8 PRN (Reason: Pain) RF: 0 losartan 100 mg tablet 100 mg PO PM RF: 0 lidocaine-prilocaine 2.5-2.5 % cream 1 applic topical UD RF: 0 Discontinued furosemide 20 mg Tablet 20 mg PO QAM Qty: 30 RF: 2 Discharge Orders: Discharge Order (Routine); Ordered 12/25/20 Ordered By: Jamal Roberson/Other Patient Handouts: Low-Salt Choices, ED Potassium-Rich Foods Admission Data Admit Date/Time: 12/24/20 20:58 Attending Provider: Jamal Campos Admit Provider: Dell Avalos Primary Care Provider: Nirali Eugene Other Providers: Alondra Guzman Coding Level of Care Code D/C Day Management >30 mins Diagnoses Acute heart failure with preserved ejection fraction (HFpEF) I50.31 Pancytopenia D61.818 Anemia D64.9 Anemia type: unspecified type Iron deficiency E61.1 Thrombocytopenia D69.6 Depression F32.9 Depression Type: unspecified Hypertension I10 Hypertension type: essential hypertension Ovarian cancer C56.9 Murmur R01.1
[2020-12-25] MEDS ORDERED: HEPARIN 100 UNIT/ML 5ML FLUSH ONE (15:26)
[2020-12-25] MEDS ORDERED: FERROUS SULFATE 325 MG TAB PO SCH (17:00)
== END 2020-12-25 16:15 | disposition home or self-care (01) | DRG 291 ==
LOC: ED 16:56 → 2S 20:58 → SUATTDRO 20:58 → 2S 21:25

== ENCOUNTER 2021-02-23 18:49 | Inpatient (IN) ==
--- NOTE | 2021-02-23 19:17 | Emergency Department Note ---
Impression & Plan Anemia, Weakness, Myalgia, Decreased oral intake ED Provider Note Provider: Stepan Calderon MD DATE OF SERVICE: 02/23/2021 CHIEF COMPLAINT: Muscle cramps, weakness HISTORY OF PRESENT ILLNESS: Patient is a 60-year-old female unfortunately with a history of ovarian cancer, pancytopenia, heart failure, depression, hypertension presenting here today complaining of increasing fatigue for several days with diffuse muscle aches of her arms and legs. Patient he feels a bit weak and a bit short of breath at times. Denies chest pain. Patient states she is not been eating well. Denies significant leg swelling. Patient states on she had a chemo infusion but her blood counts were dropping. States she has felt like this before when her blood counts were low. Reports a history of mu ltiple blood transfusions and states at some point she has had fluid overload from transfusions in the past. Patient states she feels very weak even trying to get around her home. No trauma reported or fevers. Denies any evidence of nosebleeds or significant bleeding or blood in the stool. REVIEW OF SYSTEMS: A total of 10 review of systems was obtained and negative except as stated above in the HPI. PAST MEDICAL HISTORY: As noted above MEDICATIONS: Reviewed home medications. SOCIAL HISTORY: Lives by herself, former smoker PHYSICAL EXAM: GENERAL: alert and oriented in no acute distress on stretcher appears fatigued. Head: normocephalic and atraumatic EYES: No injection, discharge or icterus. NECK: Trachea midline. ENT: Mucous membranes pink and moist. LUNGS: Airway patent. No retractions. Breath sounds clear with good air entry bilaterally. HEART: Regular rate and rhythm. Left chest wall port. ABDOMEN: Soft and non-tender, without guarding or rebound. SKIN: Acyanotic, warm, dry, without rashes EXTREMITIES: With trace bilateral pedal edema. No significant cords appreciated in the calves. No obvious deformity of the lower upper extremities otherwise. NEUROLOGICAL: No focal deficits. No aphasia. No facial droop or slurred speech. Normal strength and tone in the extremities. Sensation to gross touch normal. Ambulatory. EK bpm normal sinus rhythm. No PVC. No acute ST segment elevation with inferior and anterior lateral T wave inversions with a QTC of 439. Compared to previous on December 24 of this year inverted T waves now present anteriorly. CONTINUOUS CARDIAC MONITORING: was ordered and showed a heart rate of 60s-80s bpm in normal sinus rhythm 1 view chest x-ray per my interpretation: No pneumothorax. Chest port appears intact. No significant pleural effusions or opacities concerning for pneumonia. Some increased interstitial markings appears improved compared to previous x- ray. Patient's laboratory studies and imaging reviewed. Differential includes Infection, dehydration, metabolic abnormality, hypo/hyperglycemia, electrolyte disturbance, anemia, hypoxia, cardiac sources, intracerebral event, toxicologic, neurologic, as well as other pathologies. IMPRESSION/MEDICAL DECISION MAKING: Patient presents complaining of some diffuse body aches increased fatigue and weakness with some amount of shortness of breath. Patient in the sports does not return blood and difficulty obtaining blood initially; I obtained the ultrasound venous blood sampling for the patient tonight. No fever or other infectious symptoms reported and doubt she has represents sepsis. Patient is on chemotherapy. Patient not neutropenic. History of significant anemia requiring multiple transfusions in the recent past. Denies any active bleeding it appears that she has had some marrow suppression in the past causing need for transfusion. EKG with some slightly increased T wave inversions but no evidence of troponin elevation. Patient not having chest pain. Lower suspicion at this time for ACS. Patient not significant hypoxic or tachycardic and without evidence of fluid overload. Lower suspicion at this time for occult pneumonia or PE. Patient without significant swelling or tenderness of the lower extremities but some mild diffuse nonspecific myalgia which she states is been similar when she has had low blood count before. Lower suspicion at this time for DVT. Anemia of 7.1 noted. Given this patient was consented for blood and a unit of packed red blood cells was ordered. Renal function a little bit worse today but given her history of fluid overload we will not aggressively administer IV fluids and let the transfusion help with fluid status as she has not been eating and drinking well. No evidence of TSH abnormality or severe electrolyte abnormality. Given her significant weakness the patient was agreed the plan for admission here to monitor improvement of her symptoms with transfusion. Patient in the past has done well with a hemoglobin goal in the mid to high eights. The hospitalist was contacted. DIAGNOSIS: Anemia, myalgias, weakness DISPOSITION: Hospitalist will evaluate Patient was agreeable with this plan. Discussed return precautions and advised follow up. Critical Care I have personally spent 35 minutes of critical care time in the direct management of this patient. This includes bedside care, interpretation of diagnostic studies, and testing, discussion with consultants, patient, and family members, and other required patient management activities. These 35 minutes is in excess of all separately billable procedures. Past Med/Surg History Medical History Back pain Breathlessness Cancer Cancer related pain Elevated troponin I level Hiatal hernia Hypomagnesemia Left ventricular hypertrophy Malignant hyperthermia Nephrolithiasis Neutropenia Osteoarthritis Ovarian cancer Ovarian mass Pancytopenia due to chemotherapy Seasonal allergies Snoring Symptomatic anemia Surgical History H/O tympanomastoidectomy History of bilateral tubal ligation History of colonoscopy History of cystoscopy History of difficult intubation History of dilatation and curettage History of ear surgery History of exploratory laparotomy History of myringotomy History of open reduction and internal fixation (ORIF) procedure History of total abdominal hysterectomy and bilateral salpingo-oophorectomy History of vascular access device S/P exploratory laparotomy Tumor Family History Unknown No problems noted. 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 Beliefs That Will Affect Care: None marital status: Life Partner Current Living Situation: Significant Other Current Living Situation Comment: POLLY Feels Safe at Home: Yes Assistive Devices: Glasses Allergies Allergies Allergy/AdvReac Type Severity Reaction Status Date / Time desflurane Allergy Severe MALIGNANT Verified 02/23/21 20:13 HYPERTHERMIA adhesive Allergy Mild SKIN Verified 02/23/21 20:13 IRRITATION WITH EKG STICKIES codeine AdvReac Mild headache/na Verified 02/23/21 20:13 [From Tylenol-Codeine] usea Home Meds Home Medications Medication Instructions Recorded Confirmed fexofenadine [Nessa Allergy] 180 mg PO PM 08/07/19 02/23/21 losartan 100 mg PO PM 10/10/20 02/23/21 oxycodone-acetaminophen 1 tab PO Q8 PRN 10/10/20 02/23/21 lidocaine-prilocaine 1 applic TOPICAL UD 12/24/20 02/23/21 Previous Rx's Medication Instructions Recorded ferrous sulfate 325 mg (65 mg 325 mg PO PM #30 tab 01/22/20 iron) tablet loratadine 10 mg tablet 10 mg PO DAILY PRN #30 tab 08/20/20 escitalopram oxalate 20 mg tablet 20 mg PO DAILY #30 tab 08/29/20 pantoprazole 40 mg tablet,delayed 40 mg PO DAILY #30 tab 09/27/20 release spironolactone 25 mg PO DAILY 30 Days #30 tab 10/22/20 lorazepam 0.5 mg tablet 0.5 mg PO BID PRN #30 tab 11/19/20 metoprolol succinate 100 mg 100 mg PO DAILY #30 tab 11/19/20 tablet,extended release 24 hr furosemide [Lasix] 40 mg PO DAILY #30 tab 12/25/20 Results & Data (ED) Vital Signs Vital Signs - 24 hr 02/23/21 18:59 02/23/21 19:24 02/23/21 20:44 Temperature 36.6 C Temperature Source Oral Pulse Rate 80 71 Pulse Rhythm Regular Pulse Strength Normal Respiratory Rate 18 16 Respiratory Effort / Characteristics Non-Labored Spontaneous Respiratory Depth Normal Respiratory Pattern Regular Blood Pressure 106/74 97/63 L Blood Pressure Mean 84 74 Blood Pressure Position Sitting Pulse Oximetry 98 99 99 Oxygen Delivery Method Room Air Room Air Room Air Sepsis Recent Fever Within 48 Hours No Sepsis New/Unexplained Change in Mental Status No Sepsis Action Taken by Nursing No Action Required 02/23/21 22:04 02/23/21 22:13 02/23/21 22:30 Temperature 37.0 C 37.0 C Temperature Source Oral Oral Pulse Rate 73 79 74 Pulse Rhythm Pulse Strength Respiratory Rate 22 18 16 Respiratory Effort / Characteristics Respiratory Depth Respiratory Pattern Blood Pressure 103/52 L 103/52 L 124/78 Blood Pressure Mean 69 69 93 Blood Pressure Position Sitting Sitting Pulse Oximetry 96 99 98 Oxygen Delivery Method Sepsis Recent Fever Within 48 Hours Sepsis New/Unexplained Change in Mental Status Sepsis Action Taken by Nursing Laboratory Data Result diagrams: 02/23/21 20:58 02/23/21 20:58 Lab Results 02/23/21 02/23/21 02/23/21 Range/Units 20:58 20:58 20:58 WBC 5.32 (4.8-10.8) K/uL RBC 2.02 L (4.2-5.4) M/uL Hgb 7.1 L (12.0-16.0) g/dL Hct 21.4 L (37-47) % MCV 105.9 H (80-100) fL MCH 35.1 H (25-34) pg MCHC 33.2 (32-36) g/dL RDW Std Deviation 58.1 H (36.4-46.3) fL RDW Coeff of Camilo 15.2 H (11.5-14.5) % Plt Count 96 L (130-400) K/uL MPV 10.3 (7.4-10.4) fL Immature Gran % (Auto) 0.0 % Neut % (Auto) 83.6 % Lymph % (Auto) 13.0 % [place] % (Auto) 1.1 % Eos % (Auto) 2.1 % Baso % (Auto) 0.2 % Neut # (Auto) 4.45 (1.4-6.5) K/uL Lymph # (Auto) 0.69 L (1.2-3.4) K/uL [place] # (Auto) 0.06 L (0.11-0.59) K/uL Eos # (Auto) 0.11 (0-0.5) K/uL Baso # (Auto) 0.01 (0-0.2) K/uL Immature Gran # (Auto) 0.00 (0.00-0.02) K/uL Poikilocytosis Present PT Cancelled INR Cancelled Sodium (136-145) mmol/L Potassium (3.5-5.1) mmol/L Chloride (98-107) mmol/L Carbon Dioxide (21-32) mmol/L Anion Gap (3-11) BUN (7-18) mg/dl Creatinine (0.6-1.2) mg/dl Est Cr Clr Drug Dosing ml/min Est GFR ( Amer) ml/min Est GFR (Non-Af Amer) ml/min BUN/Creatinine Ratio (10-20) Glucose (70-99) mg/dl Lactate (0.4-2.0) mmol/L Calcium (8.5-10.1) mg/dl Magnesium (1.8-2.4) mg/dl Total Bilirubin (0.2-1) mg/dl AST (15-37) U/L ALT (12-78) U/L Alkaline Phosphatase (45-117) U/L Total Creatine Kinase (26-192) U/L Troponin I (0-0.045) ng/ml Total Protein (6.4-8.2) gm/dl Albumin (3.4-5.0) gm/dl Globulin (2.5-4.0) gm/dl Albumin/Globulin Ratio (0.9-2) TSH (0.300-4.500) uIu/ml Blood Type A Positive Antibody Screen NEGATIVE Crossmatch See Detail 02/23/21 02/23/21 Range/Units 20:58 20:58 WBC (4.8-10.8) K/uL RBC (4.2-5.4) M/uL Hgb (12.0-16.0) g/dL Hct (37-47) % MCV (80-100) fL MCH (25-34) pg MCHC (32-36) g/dL RDW Std Deviation (36.4-46.3) fL RDW Coeff of Camilo (11.5-14.5) % Plt Count (130-400) K/uL MPV (7.4-10.4) fL Immature Gran % (Auto) % Neut % (Auto) % Lymph % (Auto) % [place] % (Auto) % Eos % (Auto) % Baso % (Auto) % Neut # (Auto) (1.4-6.5) K/uL Lymph # (Auto) (1.2-3.4) K/uL [place] # (Auto) (0.11-0.59) K/uL Eos # (Auto) (0-0.5) K/uL Baso # (Auto) (0-0.2) K/uL Immature Gran # (Auto) (0.00-0.02) K/uL Poikilocytosis PT INR Sodium 139 (136-145) mmol/L Potassium 4.0 (3.5-5.1) mmol/L Chloride 106 (98-107) mmol/L Carbon Dioxide 26 (21-32) mmol/L Anion Gap 7.0 (3-11) BUN 31 H (7-18) mg/dl Creatinine 1.48 H (0.6-1.2) mg/dl Est Cr Clr Drug Dosing 44.0 ml/min Est GFR ( Amer) 44.1 ml/min Est GFR (Non-Af Amer) 38.1 ml/min BUN/Creatinine Ratio 20.8 H (10-20) Glucose 111 H (70-99) mg/dl Lactate 1.1 (0.4-2.0) mmol/L Calcium 8.8 (8.5-10.1) mg/dl Magnesium 2.0 (1.8-2.4) mg/dl Total Bilirubin 0.5 (0.2-1) mg/dl AST 49 H (15-37) U/L ALT 46 (12-78) U/L Alkaline Phosphatase 106 (45-117) U/L Total Creatine Kinase 29 (26-192) U/L Troponin I < 0.015 (0-0.045) ng/ml Total Protein 5.9 L (6.4-8.2) gm/dl Albumin 2.7 L (3.4-5.0) gm/dl Globulin 3.2 (2.5-4.0) gm/dl Albumin/Globulin Ratio 0.8 L (0.9-2) TSH 3.840 (0.300-4.500) uIu/ml Blood Type Antibody Screen Crossmatch Discharge Plan Visit Data Chief Complaint: Leg Weakness, Bilateral Stated Complaint: ACHE AND PAINS IN LEGS ED Provider: Stepan Calderon Discharge Problem: Anemia, Weakness, Myalgia, Decreased oral intake Patient Disposition: Being Evaluated by Hospitalist Forms Stand Alone Forms: [facility] Prescriptions Prescriptions: No Action ferrous sulfate 325 mg (65 mg iron) tablet 325 mg PO PM Qty: 30 RF: 5 loratadine 10 mg tablet 10 mg PO DAILY PRN (Reason: allergy symptoms) Qty: 30 RF: 5 pantoprazole 40 mg tablet,delayed release (DR/EC) 40 mg PO DAILY Qty: 30 RF: 11 metoprolol succinate 100 mg tablet extended release 24 hr 100 mg PO DAILY Qty: 30 RF: 11 lorazepam 0.5 mg tablet 0.5 mg PO BID PRN (Reason: anxiety) Qty: 30 RF: 0 escitalopram oxalate 20 mg tablet 20 mg PO DAILY Qty: 30 RF: 6 fexofenadine [Nessa Allergy] 180 mg tablet 180 mg PO PM RF: 0 spironolactone 25 mg Tablet 25 mg PO DAILY 30 Days Qty: 30 RF: 2 oxycodone-acetaminophen 5-325 mg tablet 1 tab PO Q8 PRN (Reason: Pain) RF: 0 losartan 100 mg tablet 100 mg PO PM RF: 0 lidocaine-prilocaine 2.5-2.5 % cream 1 applic topical UD RF: 0 furosemide [Lasix] 40 mg tablet 40 mg PO DAILY Qty: 30 RF: 5 Referrals Referrals: Nirali Eugene CRNP [Primary Care Provider] -
[2021-02-23 21:13] LABS: Hematocrit (blood only) 21.4 % (37-47); Hemoglobin 7.1 g/dL (12.0-16.0); Mean Corpuscular Hemoglobin 35.1 pg (25-34); Mean Corpuscular Hgb Conc 33.2 g/dL (32-36); Mean Corpuscular Volume 105.9 fL (80-100); RDW Coefficient of Variation 15.2 % (11.5-14.5); RDW Standard Deviation 58.1 fL (36.4-46.3); Red Blood Count 2.02 M/uL (4.2-5.4); White Blood Count 5.32 K/uL (4.8-10.8)
[2021-02-23 21:15] LABS: Mean Platelet Volume 10.3 fL (7.4-10.4); Platelet Count 96 K/uL (130-400)
[2021-02-23] MEDS ORDERED: SODIUM CHLORIDE 0.9% 250 ML IV PRN (21:25)
[2021-02-23 21:29] LABS: Alanine Aminotransferase 46 U/L (12-78); Albumin Level 2.7 gm/dl (3.4-5.0); Aspartate Aminotransferase 49 U/L (15-37); BUN Creatinine Ratio 20.8 (10-20); Blood Urea Nitrogen 31 mg/dl (7-18); Calcium 8.8 mg/dl (8.5-10.1); Carbon Dioxide 26 mmol/L (21-32); Chloride 106 mmol/L (98-107); Est GFR (African American) 44.1 ml/min; Est GFR (Non-African American) 38.1 ml/min; Glucose 111 mg/dl (70-99); Sodium 139 mmol/L (136-145)
[2021-02-23 21:40] LABS: Albumin Globulin Ratio 0.8 (0.9-2); Alkaline Phosphatase 106 U/L (45-117); Bilirubin,Total 0.5 mg/dl (0.2-1); Creatine Kinase 29 U/L (26-192); Globulin 3.2 gm/dl (2.5-4.0); Total Protein 5.9 gm/dl (6.4-8.2); Troponin I < 0.015 ng/ml (0-0.045)
[2021-02-23 21:41] LABS: Basophils # (auto) 0.01 K/uL (0-0.2); Basophils % (auto) 0.2 %; Eosinophils # (auto) 0.11 K/uL (0-0.5); Eosinophils % (auto) 2.1 %; Lymphocytes # (auto) 0.69 K/uL (1.2-3.4); Monocytes # (auto) 0.06 K/uL (0.11-0.59); Monocytes % (auto) 1.1 %; Neutrophils # (auto) 4.45 K/uL (1.4-6.5); Neutrophils % (auto) 83.6 %
[2021-02-23 21:44] LABS: Poikilocytosis Present
[2021-02-23 22:48] LABS: Appearance Urine Clear (Clear); Bacteria Urine Automated Negative (Negative); Bilirubin Urine Negative (Negative); Blood Urine Negative (Negative); Color Urine Yellow; Epithelial Cell Urine Auto >30 /lpf (0-5); Glucose Urine UA Negative (Negative); Ketones Urine Negative (Negative); Leukocyte Esterase Urine 2+ (Negative); Nitrite Urine Negative (Negative); Protein Urine Negative (Negative); RBC Urine Automated 0-4 /hpf (0-4); Specific Gravity Urine 1.015 (1.000-1.030); Urobilinogen Urine Negative (Negative); WBC Urine Automated >30 /hpf (0-5)
--- NOTE | 2021-02-23 22:55 | History & Physical Report ---
Date of Service February 23, 2021 Assessment & Plan (1) Symptomatic anemia: 60 yo F Hx ovarian cancer, HTN, HFpEF, GERD, depression/anxiety admitted for symptomatic anemia requiring PRBC transfusion and BRIAN. Symptomatic anemia: - Presented to ER with full body weakness, similar presentation to previous episodes of symptomatic anemia. - Hypotensive systolic 90s, otherwise hemodynamically stable. - Has required transfusion in the past due to bone marrow suppression from chemotherapy; baseline Hgb for her is about 8.5. - Started transfusion with 1u leukoreduced PRBCs in ER; will check Hgb following completion of transfusion and transfuse further as needed. HTN: - BP hypotensive on arrival to ER. Suspect due to low volume state. - Will hold antihypertensives given hypotension. -Resume as able. BRIAN: - Creatinine in ER of 1.48; baseline 1.10. - Elevated BUN/Cr ratio. - Suspect multifactorial with low blood volume and poor oral intake of fluids over the last several days. - Given Hx CHF will hold off on fluids and encourage PO intake. - Suspect improvement with blood volume. - Repeat BMP in AM. Consider bolus-reassess if not improved. CHF: - History of diastolic heart failure, last Echo 09/2020 showed EF 55-60%. - Takes daily spironolactone and furosemide, will hold these given BRIAN. - Resume 02/25. Ovarian cancer: - Currently undergoing chemotherapy (gemcitabine), last treatment . - Has a history of pancytopenia due to chemo, and has required transfusions previously (last admission in early December for the same. GERD: - Continue home PPI. Depression/Anxiety: - Continue escitalopram. Code Status: FULL CODE FEN: Low Sodium diet DVT ppx: Lovenox Dispo: Med Surg with Telemetry for cardiac monitoring given symptomatic anemia and hypotension (2) CHF (congestive heart failure): (3) GERD (gastroesophageal reflux disease): (4) Anxiety: (5) Hypertension: (6) Depression: (7) Ovarian cancer: History of Present Illness Chief Complaint: symptomatic anemia Primary Care Provider: STEPHEN Reardon 60 yo F Hx ovarian cancer on chemo, HTN, HFpEF, GERD, depression/anxiety presented to the ER for complaints of full body weakness and aches. Has a history of requiring admission for blood transfusion as recently as early December due to chemotherapy regimen causing bone marrow suppression. Does endorse some breathlessness with activity like climbing stairs over the last several days; has felt this way in the past when significantly anemic. No recent bleeding. Denies chest pain, dizziness, headaches, fevers or chills. In the ER patient's labwork revealed Hgb 7.1. Was hypotensive on arrival to systolic 90s, improved to 120s on my interview after receiving some blood. CXR without signs of pneumonia or fluid overload. Patient was ordered 1u PRBCs and hospitalist service was consulted for admission. Allergies Allergy/AdvReac Type Severity Reaction Status Date / Time desflurane Allergy Severe MALIGNANT Verified 02/23/21 20:13 HYPERTHERMIA adhesive Allergy Mild SKIN Verified 02/23/21 20:13 IRRITATION WITH EKG STICKIES codeine AdvReac Mild headache/na Verified 02/23/21 20:13 [From Tylenol-Codeine] usea Home Medications Medication Instructions Recorded Confirmed Type fexofenadine [Nessa Allergy] 180 mg PO PM 08/07/19 02/23/21 History ferrous sulfate 325 mg (65 mg 325 mg PO PM #30 tab 01/22/20 02/23/21 Rx iron) tablet loratadine 10 mg tablet 10 mg PO DAILY PRN #30 tab 08/20/20 02/23/21 Rx escitalopram oxalate 20 mg tablet 20 mg PO DAILY #30 tab 08/29/20 02/23/21 Rx pantoprazole 40 mg tablet,delayed 40 mg PO DAILY #30 tab 09/27/20 02/23/21 Rx release losartan 100 mg PO PM 10/10/20 02/23/21 History oxycodone-acetaminophen 1 tab PO Q8 PRN 10/10/20 02/23/21 History spironolactone 25 mg PO DAILY 30 Days #30 tab 10/22/20 02/23/21 Rx lorazepam 0.5 mg tablet 0.5 mg PO BID PRN #30 tab 11/19/20 02/23/21 Rx metoprolol succinate 100 mg 100 mg PO DAILY #30 tab 11/19/20 02/23/21 Rx tablet,extended release 24 hr lidocaine-prilocaine 1 applic TOPICAL UD 12/24/20 02/23/21 History furosemide [Lasix] 40 mg PO DAILY #30 tab 12/25/20 02/23/21 Rx Past Med/Surg History Medical History Back pain Breathlessness Cancer OVARIAN CANCER>CHEMO > GETS HALF HR TREATMENTS Q 2 WEEKS @ [facility] Cancer related pain Elevated troponin I level Hiatal hernia MODERATE TO LARGE PER CHEST CT Hypomagnesemia Left ventricular hypertrophy Malignant hyperthermia Nephrolithiasis Neutropenia Osteoarthritis Ovarian cancer Ovarian mass Pancytopenia due to chemotherapy Seasonal allergies Snoring "NO SLEEP STUDY" PER RECORDS Symptomatic anemia Surgical History H/O tympanomastoidectomy History of bilateral tubal ligation History of colonoscopy History of cystoscopy KIDNEY STONE EXTRACTION WITH STENT PLACEMENT History of difficult intubation Right tympanomastoidectomy = 11/26/17= Grade 2 view with glidescope #3, ETT 7.5 at [facility] PT UNAWARE OF THIS History of dilatation and curettage D&C, HYSTEROSCOPY= 04/29/18= LMA#4 AT [facility] History of ear surgery RT/LEFT EAR SURGERIES History of exploratory laparotomy History of myringotomy History of open reduction and internal fixation (ORIF) procedure Right arm History of total abdominal hysterectomy and bilateral salpingo-oophorectomy History of vascular access device A PORT PLACEMENT>LEFT INTACT CURRENTLY S/P exploratory laparotomy Tumor BILAT EAR TUMOR REMOVAL Family History Unknown No problems noted. Denies family history of Ovarian cancer Prostate cancer Myocardial infarction Breast cancer Colorectal cancer Social History Smoking Status: Former smoker Cigarettes Per Day: Quit smokimg 20-30 years ago; Second Hand Exposure: No; Hx Alcohol Use: No Hx Substance Use: No Preferred Language: Lao Communication Ability: Effective Visual Impairment: No Limitations Framing Mechanic Required: Yes Beliefs That Will Affect Care: None marital status: Current Living Situation: Significant Other Current Living Situation Comment: POLLY Feels Safe at Home: Yes Assistive Devices: Glasses Review of Systems Review of Systems: All systems reviewed & are unremarkable except as noted in HPI & below Constitutional: + fatigue and + weakness; no fever and no chills Respiratory: no cough and no dyspnea Cardiovascular: no chest pain, no palpitations and no edema Gastrointestinal: no abdominal pain, no constipation and no diarrhea/loose stools Genitourinary: no dysuria and no hematuria Physical Exam Constitutional: WD/WN, vitals as above Eyes: PERRL, conjunctivae normal, anicteric sclerae ENMT: external ear and nose normal, oropharynx normal Neck: normal visual inspection Respiratory: normal respiratory effort, lungs clear to auscultation Cardiovascular: RRR, no murmur, no edema Heart Sounds: + murmur (systolic murmur at RUSB 2/6) Gastrointestinal (Abdomen): normal bowel sounds, soft, nontender, no hepatosplenomegaly Musculoskeletal: no cyanosis or clubbing, extremities motor strength 5/5 Skin: no rashes, warm and dry Neurologic: AAOx3, normal speech Psychiatric: A+Ox3, euthymic affect Results & Data Results & Data ([facility]) Vital Signs (Past 12 Hours) Vital Signs Temp Pulse Resp BP Pulse Ox 02/23/21 22:30 37.0 C 74 16 124/78 98 02/23/21 22:13 37.0 C 79 18 103/52 L 99 02/23/21 22:04 73 22 103/52 L 96 02/23/21 20:44 71 16 97/63 L 99 02/23/21 19:24 99 02/23/21 18:59 36.6 C 80 18 106/74 98 Supervising Physician Co-Signing Physician Notes Patient seen and examined, chart reviewed, case discussed with Dr. Mcfadden and I agree with the assessment and plan as documented above. Briefly, patient is a 60 yo female with history of ovarian cancer on gemcitabine therapy (last treatment on 02/20/21) presenting with symptomatic anemia. Baseline Hgb of appx 8.5 - 7.1 today Mild elevated in Cr from baseline as well On exam she is afebrile, HD stable, NAD. Presently receiving blood x 1 unit Skin - warm, dry, intact, slight pallor HEENT - NC/AT, PERRL, MMM, Neck supple Heart - +S1/S2, regular, no m/r/g Lungs - CTA Abd - +BS, soft, NT/ND Ext - No edema Labs and images reviewed Assessment/Plan - -Transfusion of 1u PRBCs -Repeat labs in AM -Remainder of plan as above Resident Activity Tracking Resident Involvement: Resident Care Provided Care Provided: Adult Hospital Medicine (1) Depression Depression Type: unspecified Qualified Code(s): F32.9 - Major depressive disorder, single episode, unspecified (2) GERD (gastroesophageal reflux disease) Esophagitis bleeding: without hemorrhage Esophagitis presence: with esop hagitis Qualified Code(s): K21.00 - Gastro-esophageal reflux disease with esophagitis, without bleeding (3) Hypertension Hypertension type: essential hypertension Qualified Code(s): I10 - Essential (primary) hypertension
[2021-02-24] MEDS ORDERED: LORazepam 0.5 MG TAB PO PRN (01:22)
[2021-02-24] MEDS ORDERED: ONDANSETRON INJ 2 MG/ML 2 ML VIAL IV PRN (01:22)
[2021-02-24] MEDS ORDERED: LORATADINE 10 MG TAB PO PRN (01:22)
[2021-02-24] MEDS ORDERED: oxyCODONE/ACETAMINOPHEN 5mg/325mg TAB PO PRN (01:22)
[2021-02-24] MEDS ORDERED: MELATONIN 3 MG TAB PO PRN (01:22)
[2021-02-24] MEDS ORDERED: ACETAMINOPHEN 325 MG TAB PO PRN (01:22)
--- NOTE | 2021-02-24 07:37 | XRay Report ---
XR chest 1V portable CLINICAL HISTORY: weakness COMPARISON STUDY: December 24, 2020 FINDINGS: No pneumothorax. No pleural effusion. Diffuse prominence of pulmonary interstitium is seen bilaterally and improved since prior study. Ther e is hazy circumscribed opacity is superimposed on the left cardiac border which is unchanged since p rior and might represent hiatal hernia. Cardiac silhouette is within normal limits for size. Redemonstration of right paratracheal stripe wid ening which is unchanged since prior study. No significant pulmonary vascular congestion.. Osseous structures: unremarkable Stable position of left-sided Chemo-Port. Overlying skin fold is seen. Evaluation is limited due to patient's body habitus. IMPRESSION: 1. No large infiltrates or consolidative lesions are seen. 2. Large hiatal hernia. ACT 112: Negative or not required by law. The above report was generated using voice recognition software. It may contain grammatical, syntax o r spelling errors. Electronically signed by: Madhavi Jones DO 02/24/2021 7:35 AM
[2021-02-24 07:38] LABS: Hematocrit (blood only) 24.3 % (37-47); Hemoglobin 8.4 g/dL (12.0-16.0); Mean Corpuscular Hemoglobin 34.9 pg (25-34); Mean Corpuscular Hgb Conc 34.6 g/dL (32-36); Mean Corpuscular Volume 100.8 fL (80-100); RDW Coefficient of Variation 16.4 % (11.5-14.5); RDW Standard Deviation 58.9 fL (36.4-46.3); Red Blood Count 2.41 M/uL (4.2-5.4); White Blood Count 4.95 K/uL (4.8-10.8)
[2021-02-24 07:49] LABS: Mean Platelet Volume 8.9 fL (7.4-10.4); Platelet Count 78 K/uL (130-400)
[2021-02-24 07:58] LABS: Basophils # (auto) 0.01 K/uL (0-0.2); Basophils % (auto) 0.2 %; Eosinophils # (auto) 0.17 K/uL (0-0.5); Eosinophils % (auto) 3.4 %; Immature Granulocytes # (auto) 0.01 K/uL (0.00-0.02); Immature Granulocytes % (auto) 0.2 %; Lymphocytes % (auto) 10.1 %; Monocytes # (auto) 0.07 K/uL (0.11-0.59); Monocytes % (auto) 1.4 %; Neutrophils # (auto) 4.19 K/uL (1.4-6.5); Neutrophils % (auto) 84.7 %
[2021-02-24 08:16] LABS: BUN Creatinine Ratio 21.3 (10-20); Calcium 9.2 mg/dl (8.5-10.1); Creatinine Clr Calc Pharmacy 50.1 ml/min; Est GFR (African American) 51.6 ml/min; Est GFR (Non-African American) 44.6 ml/min; Potassium 3.7 mmol/L (3.5-5.1)
[2021-02-24] MEDS ORDERED: ESCITALOPRAM OXALATE 20 MG TAB PO SCH (09:00)
[2021-02-24] MEDS ORDERED: ENOXAPARIN INJ 40 MG/0.4 ML SYR SQ SCH (09:00)
[2021-02-24] MEDS ORDERED: PANTOprazole 40 MG TAB PO SCH (09:00)
[2021-02-24] MEDS ORDERED: POLYETHYLENE (MIRALAX) 17 GM PACK PO SCH (09:00)
--- NOTE | 2021-02-24 11:21 | Discharge Summary ---
Date of Service February 24, 2021 Admission HPI Per Admitting Provider 60 yo F Hx ovarian cancer on chemo, HTN, HFpEF, GERD, depression/anxiety presented to the ER for complaints of full body weakness and aches. Has a history of requiring admission for blood transfusion as recently as early December due to chemotherapy regimen causing bone marrow suppression. Does endorse some breathlessness with activity like climbing stairs over the last several days; has felt this way in the past when significantly anemic. No recent bleeding. Denies chest pain, dizziness, headaches, fevers or chills. In the ER patient's labwork revealed Hgb 7.1. Was hypotensive on arrival to systolic 90s, improved to 120s on my interview after receiving some blood. CXR without signs of pneumonia or fluid overload. Patient was ordered 1u PRBCs and hospitalist service was consulted for admission. Admission Exam Per Admitting Provider Constitutional: WD/WN, vitals as above Eyes: PERRL, conjunctivae normal, anicteric sclerae ENMT: external ear and nose normal, oropharynx normal Neck: normal visual inspection Respiratory: normal respiratory effort, lungs clear to auscultation Cardiovascular: RRR, no murmur, no edema Heart Sounds: + murmur (systolic murmur at RUSB 2/6) Gastrointestinal (Abdomen): normal bowel sounds, soft, nontender, no hepatosplenomegaly Musculoskeletal: no cyanosis or clubbing, extremities motor strength 5/5 Skin: no rashes, warm and dry Neurologic: AAOx3, normal speech Psychiatric: A+Ox3, euthymic affect Principal Diagnosis Symptomatic anemia, BRIAN, secondary to chemotherapy complicated by ovarian cancer and CHF Discharge Exam General: Lying in bed in no acute distress HEENT: Normocephalic atraumatic Neck: Normal to visual inspection, trachea midline Cardiac: Regular rate and rhythm systolic ejection murmur grade 2 out of 6 otherwise no rubs or gallops, negative pedal edema, negative calf tenderness Respiratory: Clear to auscultation bilaterally with symmetrical chest expansion I did not appreciate any significant wheezes, rales, rhonchi GI: Soft, nontender, nondistended Neuro: Alert and oriented x4 Psych: Calm and cooperative with the interview Discharge Data Allergies Allergy/AdvReac Type Severity Reaction Status Date / Time desflurane Allergy Severe MALIGNANT Verified 02/23/21 20:13 HYPERTHERMIA adhesive Allergy Mild SKIN Verified 02/23/21 20:13 IRRITATION WITH EKG STICKIES codeine AdvReac Mild headache/na Verified 02/23/21 20:13 [From Tylenol-Codeine] usea Consultations 02/23/21 22:05 ED Decision to Admit Stat Hospital Course (1) Symptomatic anemia: 60 yo F Hx ovarian cancer, HTN, HFpEF, GERD, depression/anxiety admitted for symptomatic anemia requiring PRBC transfusion and BRIAN. Symptomatic anemia: Presented to ER with full body weakness, similar presentation to previous episodes of symptomatic anemia. Hypotensive systolic 90s, otherwise hemodynamically stable.Has required transfusion in the past due to bone marrow suppression from chemotherapy; baseline Hgb for her is about 8.5. transfused with 1u leukoreduced PRBCs in ER; repeat hemoglobin was 8.4, baseline is 8.5. Patient reports anemia symptoms have resolved, was able to ambulate around the room without difficulties, requesting discharge. -CBC ordered for or Wednesday HTN: BP hypotensive on arrival to ER. Suspect due to low volume state. -BP acceptable on discharge -Hold hydrochlorothiazide and losartan pending results of repeat BMP and CBC at the end of the week BRIAN: Creatinine in ER of 1.48; baseline 1.10. Suspect multifactorial with low blood volume and poor oral intake of fluids over the last several days. Given Hx CHF will hold off on fluids and encourage PO intake.Suspect improvement with blood volume. -Follow-up BMP hold antihypertensives in the interim CHF: History of diastolic heart failure, last Echo 09/2020 showed EF 55-60%. -Resume spironolactone Ovarian cancer: Currently undergoing chemotherapy (gemcitabine), last treatment . Has a history of pancytopenia due to chemo, and has required transfusions previously (last admission in early December for the same. GERD: - Continue home PPI. Depression/Anxiety: - Continue escitalopram. (2) CHF (congestive heart failure): (3) GERD (gastroesophageal reflux disease): (4) Anxiety: (5) Hypertension: (6) Depression: (7) Ovarian cancer: Total Time Total Time Spent Total Time Spent (In Minutes): <30 Discharge Plan Discharge Items Patient Disposition: Home - Self-Care Reason For Visit: WEAKNESS, SYMPTOMATIC ANEMIA Discharge Diagnosis: Symptomatic anemia, BRIAN, secondary to chemotherapy complicated by ovarian cancer and CHF Activity: Resume your previous activity Non-emergency contact: Primary Care Provider Call non-emergency contact if: you have any medication questions, your pain is not controlled and your temperature is above 101.5 Follow-up/Referrals: Nirali Eugene CRNP [Primary Care Provider] - 03/03/21 3:30 pm (Please keep your appointment with Nirali Eugene on March 03. If you have any questions or need to change this appointment, please call [phone].) Ambulatory Orders: Basic Metabolic Panel (Routine) Timeframe: 20210227 Location: Determined by Patient Ordered By: Andrés Guzman Complete Blood Count with Diff (Routine) Timeframe: 20210227 Location: Determined by Patient Ordered By: Andrés Guzman Addtl Attending Provider Instructions: Care instructions: You were admitted to [facility] for treatment of symptomatic anemia and acute kidney injury secondary to your chemotherapy. While hospitalized you were given a blood transfusion, your electrolytes were monitore d, and you are provided with gentle hydration. After careful monitoring overnight you reported your symptoms had improved. You were able to get up in your room and ambulate without significant difficulties. And denied other acute issues. He was subsequently discharged from the hospital. Upon discharge we requested: - or Wednesday of this week you obtain a set of labs including a BMP and a CBC -Please do not take your losartan or hydrochlorothiazide until advised to do so by your primary care provider after review of your follow-up labs this week A discharge summary will be sent to your primary care physician to ensure continuity of care. Please bring this discharge summary with you to your next office appointment so that your provider can review it at that time. Follow-up appointments: - Keep all your follow-up appointments as already scheduled. If you cannot make an appointment, notify your provider. - Please call to request a follow-up appointment with your primary care physician within one week of discharge. Please let us know if you are unable to obtain an appointment Follow-up labs: - Please go to a lab nearest you and obtain the requested lab work. Please have this completed at least 3 hours before your doctor's appointment (or the day before your appointment if possible). Medications: - Your medication list has been reviewed and reconciled upon discharge to ensure accuracy and continuity of care. - You are provided with a list of all your current medications at this time. Please review this list closely and make note of any changes. - Please take all of your medications exactly as prescribed. - Tell your primary care provider if you cannot afford your medications. - Call your primary care provider if you are having any side effects or any other problems. - Call your primary care provider before taking any over the counter medications or supplements, including herbals and vitamins, because some of these may interact with your current medications and/or make your symptoms worse. Symptoms: Please call your primary care provider for symptoms including, but not limited to: fevers (temperatures greater than 100.4), chills, intractable nausea or vomiting, diarrhea, rash, shortness of breath, bleeding, pain, or if you experience any worsening of the symptoms that brought you to the hospital. For EMERGENCY and VERY SERIOUS health-related issues, such as chest pain, shortness of breath, or sudden onset of the symptoms that brought you to the hospital, you may need to call 911 or go directly to the Emergency Room It has been our privilege to take care of you during your hospital stay. And Above All Else Feel Better! Best Wishes, Andrés Guzman MD PGY2 Resident, Family & Community Medicine [facility] Residency at [facility] - [address], [address] : [place] [address] Pending Studies at Discharge: No Stand-Alone Forms: My [facility], Smoking Cessation Medications and DC Order Prescriptions: Continued ferrous sulfate 325 mg (65 mg iron) tablet 325 mg PO PM Qty: 30 RF: 5 loratadine 10 mg tablet 10 mg PO DAILY PRN (Reason: allergy symptoms) Qty: 30 RF: 5 pantoprazole 40 mg tablet,delayed release (DR/EC) 40 mg PO DAILY Qty: 30 RF: 11 metoprolol succinate 100 mg tablet extended release 24 hr 100 mg PO DAILY Qty: 30 RF: 11 lorazepam 0.5 mg tablet 0.5 mg PO BID PRN (Reason: anxiety) Qty: 30 RF: 0 escitalopram oxalate 20 mg tablet 20 mg PO DAILY Qty: 30 RF: 6 fexofenadine [Nessa Allergy] 180 mg tablet 180 mg PO PM RF: 0 spironolactone 25 mg Tablet 25 mg PO DAILY 30 Days Qty: 30 RF: 2 oxycodone-acetaminophen 5-325 mg tablet 1 tab PO Q8 PRN (Reason: Pain) RF: 0 losartan 100 mg tablet 100 mg PO PM RF: 0 lidocaine-prilocaine 2.5-2.5 % cream 1 applic topical UD RF: 0 furosemide [Lasix] 40 mg tablet 40 mg PO DAILY Qty: 30 RF: 5 Discharge Orders: Discharge Order (Routine); Ordered 02/24/21 Ordered By: Andrés Guzman Admission Data Admit Date/Time: 02/23/21 22:59 Attending Provider: Dell Driver Admit Provider: Radha Mcfadden Primary Care Provider: Nirali Eugene Other Providers: Alondra Guzman Other Interventions: Discharge Summary Assessment (RN) Last Done: 02/24/21 12:10 Supervising Physician Co-Signing Physician Notes I personally examined the patient and verified all live points of history and exam, discussed case, and agree with decision making with Dr Guzman feeling better/wants to go home/walked around without much of any symptoms vitals noted nad heent nc at mmm breathing unlabored no accessory muscles good e ffort skin no rashes no pallor or icterus symptomatic anemia and BRIAN - related to chemo - both improved post transfusion. stable for home. repeat labs later this week. otherwise as above Resident Activity Tracking Resident Involvement: Resident Care Provided Care Provided: Adult Hospital Medicine
--- NOTE | 2021-02-24 12:59 | Billing Data ---
Date of Service February 24, 2021 Coding Level of Care Code D/C Day Management <30 mins
--- NOTE | 2021-02-24 17:14 | Electrocardiogram Report ---
Test Reason : Blood Pressure : / mmHG Vent. Rate : 075 BPM Atrial Rate : 075 BPM P-R Int : 144 ms QRS Dur : 070 ms QT Int : 394 ms P-R-T Axes : 035 007 135 degrees QTc Int : 439 ms Normal sinus rhythm T wave abnormality, consider anterior ischemia Abnormal ECG When compared with ECG of 24-DEC-2020 17:46, Inverted T waves have replaced nonspecific T wave abnormality in Anterior leads Confirmed by Abel Godinez ([id number]) on 02/24/2021 5:14:08 PM Referred By: REFERRED SELF Confirmed By:Abel Godinez
[2021-02-24] MEDS ORDERED: FEXOFENADINE HCL 180 MG TAB PO SCH (21:00)
[2021-02-24] MEDS ORDERED: FERROUS SULFATE 325 MG TAB PO SCH (21:00)
--- NOTE | 2021-02-24 23:57 | Billing Data ---
Date of Service February 23, 2021 Coding Level of Care Code 17498 Initial Inpt Care Lvl 2
--- NOTE | 2021-03-05 10:50 | Coding Letter ---
CODING QUERY To promote full compliance with coding requirements relating to patient care, provider participation is requested in all cases of custom shop worker uncertainty. Please assist us with the question(s) below: Coding Question(s): Anemia, BRIAN, secondary to chemotherapy..." is documented on discharge but no where else in account. Please clarify below: ( ) Anemia due to Chemotherapy ( ) Anemia NOS ( ) Other Please Explain: Thank you Dawit Vaughn Principal Diagnosis: "that condition established after study, to be chiefly responsible for occasioning the admission of the patient to the hospital for care." Co-Existing Principal Diagnosis: "when two or more diagnoses equally meet the criteria for principal diagnosis as determined by the circumstances of admission, diagnostic work up, and/or therapy provided, and the Alphabetic Index, Tabular List, or another coding guideline does not provide sequencing direction, any one of the diagnoses may be sequenced first." "When the physician has documented what appears to be a current diagnosis in the body of the record, but has not included the diagnosis in the final diagnostic statement, the physician should be asked whether the diagnosis should be added." (Source Coding Clinic 2 QTR90. p3-4) BELL
== END 2021-02-24 13:01 | disposition home or self-care (01) | DRG 812 ==
LOC: ED 18:49 → SUATTDRO 22:59 → 2W 22:59

== ENCOUNTER 2021-04-23 16:17 | Inpatient (IN) ==
[2021-04-23] MEDS ORDERED: ONDANSETRON INJ 2 MG/ML 2 ML VIAL ONE (17:19)
[2021-04-23] MEDS ORDERED: ONDANSETRON INJ 2 MG/ML 2 ML VIAL IV STA (17:22)
[2021-04-23] MEDS ORDERED: SODIUM CHLORIDE 0.9% 1000ML 2,000 ML IV SCH (17:30)
[2021-04-23] MEDS ORDERED: SODIUM CHLORIDE 0.9% 1000ML 1,000 ML IV SCH (17:30)
--- NOTE | 2021-04-23 17:37 | Emergency Department Note ---
Impression & Plan Acute hypotension, Ovarian cancer, Atrial flutter with rapid ventricular response, Sepsis, UTI (urinary tract infection), Elevated troponin, Hydronephrosis, BRIAN (acute kidney injury), Diverticulitis of colon with perforation ED Provider Note INFORMANT: Patient and ED PROVIDER(S): Silvano Lazcano MD CHIEF COMPLAINT: Abdominal pain PLAN: Disposition: Admitted Condition: Critical Outpatient prescription management: none Referral: None MEDICAL DECISION MAKING: Patient presented to the emergency department because of abdominal pain. She was hypotensive and tachycardic. She noted not taking her medications which included metoprolol but also was not eating. She is been vomiting. Her Mediport was accessed. IV access peripherally was attempted but was unsuc cessful. Blood work was not available through her Mediport. She was started on IV fluids. The patient was bolused however fluid concerns were present as the patient has a history of CHF. She continued to be tachycardic and hypotensive. An ECG was performed and was concerning for atrial flutter with rapid ventricular response. She was given additional fluids and IV metoprolol. She was still hypotensive with this. I did place a central line in the right groin under ultrasound guidance secondary to the lack of access. Patient and consented. Additional Lopressor doses were given. She only slowed down from the 170s to the 160s. The ECG appeared to be in a flutter but SVT was also question. She was given a dose of IV adenosine and during the break clearly had flutter waves. At this point she was hypotensive not responding to the beta- blockers. I did discuss the need for cardioversion with the and the patient. Emergent cardioversion needed to be performed as the patient was hypotensive and still extremely tachycardic. She was hypokalemic as well. She was given IV potassium. The patient was given IV fentanyl and underwent cardioversion. This was successful. She converted to a sinus rhythm and her blood pressure improved significantly. She was in the low 100s. She was given IV vancomycin and IV Zosyn due to concerns about sepsis. Her white count was elevated. The patient was anemic but stable compared to prior. She had findings consistent with UTI. Due to the persistent abdominal pains she underwent CT imaging. I did place a consult with the hospitalist service and cardiology. CT imaging was concerning for a perforated diverticulitis but also hydronephrosis from an advancing ovarian mass. I did discuss the case with Dr. Austin Calderon of radiology. A consult was placed with general surgery as well as urology. I discussed the case with with Dr. Charles Giordano of the [facility] service. Patient was evaluated in the ER for further management. I also discussed case with Ap Choudhary PA-C who [facility] He discussed with Dr. Go who presented to the ER and evaluated the patient. I discussed the case with Dr. Godinez from cardiology as well. He agreed with the treatment at this point and recommended IV amiodarone if she had any additional episodes of flutter. Dr. Tay of urology and I discussed the case. He recommended conservative management due to the patient's overall illness and was not planning on doing an emergent stenting unless she needed operative intervention by general surgery. General surgery is looking at having the patient go to the operating room due to the perforation with stool in the pelvis. I did notify Ap Choudhary to discuss with Dr. Tay regarding this turn of events. Internal medicine also notified critical care service and the patient was evaluated in the ER. She was evaluated by anesthesia as well. She is being taken to the operative suite for emergency surgery after being stabilized in the ER but is still in critical condition in light of the multitude of complex problems. Triage Nursing notes reviewed and agree them. Vital Signs: reviewed and remarkable for hypotension and tachycardia Differential diagnosis: Complication of cancer, infection, dehydration, metabolic abnormality, hypo/hyperglycemia, electrolyte disturbance, anemia, hypoxia, cardiac sources, intracerebral event, toxicologic, neurologic, as well as other pathologies. Diagnostics interpreted by me: ECG: Twelve-lead ECG #1 reveals atrial flutter at [address] and T wave changes present. When compared to prior, a flutter is replaced sinus rhythm. ECG #2 reveals atrial flutter at 168 bpm with a nonspecific ST changes. No ST elevation or depression. No PVCs. Normal axis. ECG #3 reveals a sinus tachycardia at 103 bpm. There is nonspecific ST and T wave changes. There is no ST elevation. No PACs or PVCs. Normal axis. Cardiac Monitoring: Cardiac monitoring ordered by me: The patient was placed on continuous cardiac monitoring and observed. It revealed atrial flutter at 176 bpm. Imaging studies: Chest x-ray reveals mild central congestion but no infiltrate. CT scan of the abdomen pelvis is concerning for perforated diverticulitis. Free air noted. Hydronephrosis noted. Ovarian cancer noted as well. I refer you to the EMR for further details. HPI: The patient is a 60 year old female who presents to the Emergency Room with complaints of abdominal pain. This started 5 days ago and is persisting. The patient also notes the following associated symptoms, passing out, feeling weak, vomiting, nausea. The patient has tried Percocet unsuccessfully for relieving factors. Current pain is rated as 10/10. Patient has the unfortunate history of ovarian cancer. She is undergoing chemotherapy. The patient states her last chemotherapy was last week. She notes over the recent weeks that after her chemotherapy with an a day or 2 she starts to develop abdominal pain. The abdominal pain worsens. He gets somewhat better but then chemotherapy occurs again and then she has more abdominal pain. She feels like today is the worst episode. Family wanted to bring her up a few days ago but she was refusing. Pt denies headache, fevers, chills, diaphoresis, visual changes, neck pain, chest pain, breathing difficulties, back pain, melena, hematochezia, urinary symptoms, numbness, , lymphadenopathy, rash, or other complaints. ROS: See above HPI for pertinent positives & negatives. A total of 10 systems reviewed and were otherwise negative. PAST MEDICAL HISTORY:See Below , ovarian cancer, CHF, anemia, pancytopenia PAST SURGICAL HISTORY:See Below, Mediport FAMILY HISTORY:See Below SOCIAL HISTORY:See Below, HOME MEDICATIONS:See Below ALLERGIES:See Below VITALS:See Below PHYSICAL EXAMINATION: GENERAL: Awake, alert, uncomfortable-appearing, in no distress HENT: Normocephalic, atraumatic. Oropharynx unremarkable. EYES: Pale conjunctiva. Sclera non-icteric. NECK: Inspection normal. Non-tender. Supple. No nuchal rigidity. FROM. No masses. RESPIRATORY: Clear to auscultation. No wheezes. No rales. Normal respiratory effort. CARDIAC: Tachycardic rate. Normal rhythm. No murmurs. No rubs. Extremities warm and well perfused. Pulses equal. No JVD. GI: Soft, non-distended. Diffuse tenderness to palpation. Moderate rebound and guarding. No masses. RECTAL: Deferred. MUSCULOSKELETAL: Atraumatic. Chest examination reveals no tenderness, Mediport in the left upper chest. The back is symmetrical on inspection without obvious abnormality. There is no CVA tenderness to palpation. No joint edema. LOWER EXTREMITIES: Calves are equal size bilaterally and non-tender. 1+ edema. No discoloration. NEURO: Normal sensorium. No sensory or motor deficits noted. SKIN: No rash or jaundice noted. CRITICAL CARE: I have personally spent greater than 125 minutes of critical care time in the direct management of this patient. This includes bedside care, interpretation of diagnostic studies, and testing, discussion with consultants, patient, and family members, and other required patient management activities. These minutes are in excess of all separately billable procedures. FEMORAL CENTRAL VENOUS CATHETER: Indication: Hypotension, lack of venous access Catheter Type: Triple-lumen Location: Right groin Verbal consent was obtained after the risks and benefits were explained, including but not limited to intra-abdominal injury, vessel injury, bleeding, scarring, infection, pain, and bone/joint/nerve damage. At this time, the risks of the procedure are less than the risks of NOT performing the procedure. A time out was taken and the correct patient and site identified. The patient was placed in the supine position and the skin was prepped in the standard fashion with chlorhexidine and full sterile drapes applied. The proper landmarks were identified with ultrasound, anesthetized with 1% lidocaine without epinephrine, and the needle was inserted through the skin in the standard fashion. The needle was carefully advanced into blood vessel lumen with ultrasound guidance. The guidewire was placed uneventfully. Guidewire confirmed in the vessel lumen with ultrasound. The vessel is dilated and the catheter was placed. It was sutured into position. There was good blood return from all ports. The patient tolerated the procedure well and there were no complications. EMERGENT CARDIOVERSION: Indication: Hypotensive rapid a flutter Verbal consent was obtained after the risks and benefits were explained, including but not limited to pain, thermal burn, allergic reaction, aspiration, airway obstruction, laryngospasm, infection, hypotension, and cardiorespiratory arrest. At this time, the risks of the procedure are less than the risks of NOT performing the procedure. A time out was taken and the correct patient and procedure identified. The patient was given fentanyl IV prior to the procedure.. Suction, airway equipment, medications, respiratory equipment, ACLS cart, and appropriate personnel were prepared prior to the initiation of the procedure. The biphasic defibrillator was set to 50 joules of energy and synched. After confirmation of sedation and "all clear" safety check the synchronized shock was delivered. This resulted in successful conversion of the dysrhythmia back into sinus rhythm. See nursing notes for times. There were no complications and the patient recovered uneventfully from the procedure. Silvano Lazcano MD Past Med/Surg History Medical History Acute heart failure with preserved ejection fraction (HFpEF) Back pain Breathlessness Cancer OVARIAN CANCER>CHEMO > GETS HALF HR TREATMENTS Q 2 WEEKS @ [facility] Cancer related pain Elevated troponin I level Hiatal hernia MODERATE TO LARGE PER CHEST CT Hypomagnesemia Left ventricular hypertrophy Malignant hyperthermia Nephrolithiasis Neutropenia Osteoarthritis Ovarian cancer Ovarian mass Pancytopenia due to chemotherapy Seasonal allergies Snoring "NO SLEEP STUDY" PER RECORDS Symptomatic anemia Surgical History H/O tympanomastoidectomy History of bilateral tubal ligation History of colonoscopy History of cystoscopy KIDNEY STONE EXTRACTION WITH STENT PLACEMENT History of difficult intubation Right tympanomastoidectomy = 11/26/17= Grade 2 view with glidescope #3, ETT 7.5 at [facility] PT UNAWARE OF THIS History of dilatation and curettage D&C, HYSTEROSCOPY= 04/29/18= LMA#4 AT [facility] History of ear surgery RT/LEFT EAR SURGERIES History of exploratory laparotomy History of myringotomy History of open reduction and internal fixation (ORIF) procedure Right arm History of total abdominal hysterectomy and bilateral salpingo-oophorectomy History of vascular access device A PORT PLACEMENT>LEFT INTACT CURRENTLY S/P exploratory laparotomy Tumor BILAT EAR TUMOR REMOVAL Family History Unknown No problems noted. Denies family history of Ovarian cancer Prostate cancer Myocardial infarction Breast cancer Colorectal cancer Social History Smoking Status: Never smoker Cigarettes Per Day: Quit smokimg 20-30 years ago; Second Hand Exposure: No; Hx Alcohol Use: No Hx Substance Use: No Preferred Language: Citizen Of [place] Communication Ability: Effective Visual Impairment: No Limitations [employer] Equipment Technician Required: Yes Beliefs That Will Affect Care: None marital status: Current Living Situation: Significant Other Current Living Situation Comment: POLLY Feels Safe at Home: Yes Assistive Devices: Glasses Allergies Allergies Allergy/AdvReac Type Severity Reaction Status Date / Time desflurane Allergy Severe MALIGNANT Verified 04/23/21 17:56 HYPERTHERMIA adhesive Allergy Mild SKIN Verified 04/23/21 17:56 IRRITATION WITH EKG STICKIES codeine AdvReac Mild headache/na Verified 04/23/21 17:56 [From Tylenol-Codeine] usea Home Meds Home Medications Medication Instructions Recorded Confirmed fexofenadine 180 mg tablet 180 mg PO PM 08/07/19 04/23/21 (Nessa Allergy) losartan 100 mg tablet 100 mg PO PM 10/10/20 04/23/21 oxycodone-acetaminophen 5 mg-325 1 tab PO Q8 PRN 10/10/20 04/23/21 mg tablet lidocaine-prilocaine 2.5 %-2.5 % 1 applic TOPICAL UD 12/24/20 04/23/21 topical cream Previous Rx's Medication Instructions Recorded escitalopram oxalate 20 mg tablet 20 mg PO DAILY #30 tab 08/29/20 pantoprazole 40 mg tablet,delayed 40 mg PO DAILY #30 tab 09/27/20 release spironolactone 25 mg tablet 25 mg PO DAILY 30 Days #30 tab 10/22/20 lorazepam 0.5 mg tablet 0.5 mg PO BID PRN #30 tab 11/19/20 metoprolol succinate 100 mg 100 mg PO DAILY #30 tab 11/19/20 tablet,extended release 24 hr furosemide 40 mg tablet (Lasix) 40 mg PO DAILY #30 tab 12/25/20 ferrous sulfate 325 mg (65 mg 325 mg PO PM #30 tab 03/07/21 iron) tablet loratadine 10 mg tablet 10 mg PO DAILY PRN #30 tab 04/01/21 Results & Data (ED) Vital Signs Vital Signs - 24 hr 04/23/21 17:02 04/23/21 17:08 04/23/21 17:55 Temperature 36.2 C L Temperature Source Temporal Artery Scan Pulse Rate 178 H Pulse Rate [Apical] Pulse Rate [Right Finger] 175 H 174 H Pulse Rate from SpO2 Sensor Respiratory Rate 20 46 H 27 H Respiratory Effort / Characteristics Non-Labored Respiratory Depth Normal Normal Blood Pressure Blood Pressure [Left Arm] Blood Pressure [Right Arm] 83/61 L 80/64 L Blood Pressure Mean Blood Pressure Mean [Left Arm] Blood Pressure Mean [Right Arm] 68 69 Blood Pressure Position [Left Arm] Pulse Oximetry 96 93 Oxygen Delivery Method Room Air Room Air Oxygen Flow Rate Sepsis Recent Fever Within 48 Hours No Sepsis New/Unexplained Change in Mental Status Yes Sepsis Action Taken by Nursing No Action Required 04/23/21 17:57 04/23/21 18:00 04/23/21 18:02 Temperature Temperature Source Pulse Rate 174 H 178 H Pulse Rate [Apical] 178 H Pulse Rate [Right Finger] Pulse Rate from SpO2 Sensor Respiratory Rate 20 Respiratory Effort / Characteristics Respiratory Depth Blood Pressure 80/64 L 82/62 L Blood Pressure [Left Arm] 82/64 L Blood Pressure [Right Arm] 82/62 L Blood Pressure Mean Blood Pressure Mean [Left Arm] 70 Blood Pressure Mean [Right Arm] 68 Blood Pressure Position [Left Arm] Lying Pulse Oximetry 84 L Oxygen Delivery Method Room Air Oxygen Flow Rate Sepsis Recent Fever Within 48 Hours Sepsis New/Unexplained Change in Mental Status Sepsis Action Taken by Nursing 04/23/21 18:05 04/23/21 18:13 04/23/21 18:15 Temperature Temperature Source Pulse Rate 168 H Pulse Rate [Apical] 168 H 170 H Pulse Rate [Right Finger] Pulse Rate from SpO2 Sensor Respiratory Rate 24 20 Respiratory Effort / Characteristics Respiratory Depth Blood Pressure 80/60 L Blood Pressure [Left Arm] 84/60 L 82/62 L Blood Pressure [Right Arm] Blood Pressure Mean Blood Pressure Mean [Left Arm] 68 68 Blood Pressure Mean [Right Arm] Blood Pressure Position [Left Arm] Pulse Oximetry 99 99 Oxygen Delivery Method Nasal Cannula Nasal Cannula Oxygen Flow Rate 4 4 Sepsis Recent Fever Within 48 Hours Sepsis New/Unexplained Change in Mental Status Sepsis Action Taken by Nursing 04/23/21 18:35 04/23/21 18:55 04/23/21 19:00 Temperature Temperature Source Pulse Rate Pulse Rate [Apical] 169 H 178 H Pulse Rate [Right Finger] 103 H Pulse Rate from SpO2 Sensor Respiratory Rate 24 22 30 H Respiratory Effort / Characteristics Non-Labored Respiratory Depth Normal Blood Pressure Blood Pressure [Left Arm] 80/60 L 82/60 L Blood Pressure [Right Arm] 100/64 Blood Pressure Mean Blood Pressure Mean [Left Arm] 66 67 Blood Pressure Mean [Right Arm] 76 Blood Pressure Position [Left Arm] Pulse Oximetry 100 100 Oxygen Delivery Method Nasal Cannula Nasal Cannula Oxygen Flow Rate 4 4 Sepsis Recent Fever Within 48 Hours Sepsis New/Unexplained Change in Mental Status Sepsis Action Taken by Nursing 04/23/21 19:15 04/23/21 19:48 04/23/21 19:50 Temperature Temperature Source Pulse Rate 104 H 104 H Pulse Rate [Apical] Pulse Rate [Right Finger] Pulse Rate from SpO2 Sensor 104 H 104 H 104 H Respiratory Rate 23 25 H Respiratory Effort / Characteristics Respiratory Depth Blood Pressure 115/73 Blood Pressure [Left Arm] Blood Pressure [Right Arm] Blood Pressure Mean 87 Blood Pressure Mean [Left Arm] Blood Pressure Mean [Right Arm] Blood Pressure Position [Left Arm] Pulse Oximetry 100 97 99 Oxygen Delivery Method Oxygen Flow Rate Sepsis Recent Fever Within 48 Hours Sepsis New/Unexplained Change in Mental Status Sepsis Action Taken by Nursing 04/23/21 20:00 04/23/21 20:15 04/23/21 20:30 Temperature Temperature Source Pulse Rate 101 H 102 H 100 H Pulse Rate [Apical] Pulse Rate [Right Finger] Pulse Rate from SpO2 Sensor 101 H 102 H 100 H Respiratory Rate 26 H 24 25 H Respiratory Effort / Characteristics Respiratory Depth Blood Pressure 108/62 109/66 104/76 Blood Pressure [Left Arm] Blood Pressure [Right Arm] Blood Pressure Mean 77 80 85 Blood Pressure Mean [Left Arm] Blood Pressure Mean [Right Arm] Blood Pressure Position [Left Arm] Pulse Oximetry 100 100 100 Oxygen Delivery Method Oxygen Flow Rate Sepsis Recent Fever Within 48 Hours Sepsis New/Unexplained Change in Mental Status Sepsis Action Taken by Nursing Laboratory Data Result diagrams: 04/23/21 18:25 04/23/21 18:25 Lab Results 04/23/21 04/23/21 04/23/21 Range/Units 17:58 17:58 18:25 WBC 10.93 H (4.8-10.8) K/uL RBC 2.45 L (4.2-5.4) M/uL Hgb 8.0 L (12.0-16.0) g/dL Hct 24.5 L (37-47) % MCV 100.0 (80-100) fL MCH 32.7 (25-34) pg MCHC 32.7 (32-36) g/dL RDW Std Deviation 50.2 H (36.4-46.3) fL RDW Coeff of Camilo 13.7 (11.5-14.5) % Plt Count 146 (130-400) K/uL MPV 10.6 H (7.4-10.4) fL Immature Gran % (Auto) 1.0 % Neut % (Auto) 86.0 % Lymph % (Auto) 4.9 % Lynn % (Auto) 8.0 % Eos % (Auto) 0.0 % Baso % (Auto) 0.1 % Neut # (Auto) 9.40 H (1.4-6.5) K/uL Lymph # (Auto) 0.54 L (1.2-3.4) K/uL Lynn # (Auto) 0.87 H (0.11-0.59) K/uL Eos # (Auto) 0.00 (0-0.5) K/uL Baso # (Auto) 0.01 (0-0.2) K/uL Immature Gran # (Auto) 0.11 H (0.00-0.02) K/uL Absolute Nucleated RBC 0.02 H (0-0) K/uL Nucleated RBC % (auto) 0.2 % Dohle Bodies 2+ Sodium (136-145) mmol/L Potassium (3.5-5.1) mmol/L Chloride (98-107) mmol/L Carbon Dioxide (21-32) mmol/L Anion Gap (3-11) BUN (7-18) mg/dl Creatinine (0.6-1.2) mg/dl Est Cr Clr Drug Dosing Est GFR ( Amer) ml/min Est GFR (Non-Af Amer) ml/min BUN/Creatinine Ratio (10-20) Glucose (70-99) mg/dl Lactate (0.4-2.0) mmol/L Calcium (8.5-10.1) mg/dl Magnesium (1.8-2.4) mg/dl Total Bilirubin (0.2-1) mg/dl AST (15-37) U/L ALT (12-78) U/L Alkaline Phosphatase (45-117) U/L Troponin I (0-0.045) ng/ml Total Protein (6.4-8.2) gm/dl Albumin (3.4-5.0) gm/dl Globulin (2.5-4.0) gm/dl Albumin/Globulin Ratio (0.9-2) TSH (0.300-4.500) uIu/ml Urine Color Urine Appearance (Clear) Urine pH (4.5-7.5) Ur Specific [place] (1.000-1.030) Urine Protein (Negative) Urine Glucose (UA) (Negative) Urine Ketones (Negative) Urine Blood (Negative) Urine Nitrite (Negative) Urine Bilirubin (Negative) Urine Urobilinogen (Negative) Ur Leukocyte Esterase (Negative) Urine WBC (Auto) (0-5) /hpf Urine RBC (Auto) (0-4) /hpf U Hyaline Cast (Auto) (0-5) /lpf U Epithel Cells (Auto) (0-5) /lpf Urine Bacteria (Auto) (Negative) Granular Casts (0) /lpf Urine Yeast COVID-19 Eval Order Covid19 at [facility] SARS-CoV-2 (PCR) NEGATIVE (Negative) 04/23/21 04/23/21 04/23/21 Range/Units 18:25 18:25 19:17 WBC (4.8-10.8) K/uL RBC (4.2-5.4) M/uL Hgb (12.0-16.0) g/dL Hct (37-47) % MCV (80-100) fL MCH (25-34) pg MCHC (32-36) g/dL RDW Std Deviation (36.4-46.3) fL RDW Coeff of Camilo (11.5-14.5) % Plt Count (130-400) K/uL MPV (7.4-10.4) fL Immature Gran % (Auto) % Neut % (Auto) % Lymph % (Auto) % Lynn % (Auto) % Eos % (Auto) % Baso % (Auto) % Neut # (Auto) (1.4-6.5) K/uL Lymph # (Auto) (1.2-3.4) K/uL Lynn # (Auto) (0.11-0.59) K/uL Eos # (Auto) (0-0.5) K/uL Baso # (Auto) (0-0.2) K/uL Immature Gran # (Auto) (0.00-0.02) K/uL Absolute Nucleated RBC (0-0) K/uL Nucleated RBC % (auto) % Dohle Bodies Sodium 137 (136-145) mmol/L Potassium 3.3 L (3.5-5.1) mmol/L Chloride 106 (98-107) mmol/L Carbon Dioxide 22 (21-32) mmol/L Anion Gap 9.0 (3-11) BUN 37 H (7-18) mg/dl Creatinine 2.03 H (0.6-1.2) mg/dl Est Cr Clr Drug Dosing Not Reportable Est GFR ( Amer) 30.1 ml/min Est GFR (Non-Af Amer) 26.0 ml/min BUN/Creatinine Ratio 18.4 (10-20) Glucose 147 H (70-99) mg/dl Lactate 3.4 H* (0.4-2.0) mmol/L Calcium 7.7 L (8.5-10.1) mg/dl Magnesium 2.0 (1.8-2.4) mg/dl Total Bilirubin 1.0 (0.2-1) mg/dl AST 59 H (15-37) U/L ALT 24 (12-78) U/L Alkaline Phosphatase 167 H (45-117) U/L Troponin I 1.450 H* (0-0.045) ng/ml Total Protein 5.4 L (6.4-8.2) gm/dl Albumin 1.7 L (3.4-5.0) gm/dl Globulin 3.7 (2.5-4.0) gm/dl Albumin/Globulin Ratio 0.5 L (0.9-2) TSH 1.230 (0.300-4.500) uIu/ml Urine Color Dark Yellow Urine Appearance Cloudy A (Clear) Urine pH 5.0 (4.5-7.5) Ur Specific [place] 1.022 (1.000-1.030) Urine Protein 1+ H (Negative) Urine Glucose (UA) Negative (Negative) Urine Ketones Negative (Negative) Urine Blood Negative (Negative) Urine Nitrite Positive A (Negative) Urine Bilirubin 1+ H (Negative) Urine Urobilinogen Negative (Negative) Ur Leukocyte Esterase Trace H (Negative) Urine WBC (Auto) 1-5 (0-5) /hpf Urine RBC (Auto) 0-4 (0-4) /hpf U Hyaline Cast (Auto) 5-10 H (0-5) /lpf U Epithel Cells (Auto) 20-30 H (0-5) /lpf Urine Bacteria (Auto) Negative (Negative) Granular Casts 5-10 H (0) /lpf Urine Yeast Not Reportable COVID-19 Eval Order SARS-CoV-2 (PCR) (Negative) 04/23/21 Range/Units 20:13 WBC (4.8-10.8) K/uL RBC (4.2-5.4) M/uL Hgb (12.0-16.0) g/dL Hct (37-47) % MCV (80-100) fL MCH (25-34) pg MCHC (32-36) g/dL RDW Std Deviation (36.4-46.3) fL RDW Coeff of Camilo (11.5-14.5) % Plt Count (130-400) K/uL MPV (7.4-10.4) fL Immature Gran % (Auto) % Neut % (Auto) % Lymph % (Auto) % Lynn % (Auto) % Eos % (Auto) % Baso % (Auto) % Neut # (Auto) (1.4-6.5) K/uL Lymph # (Auto) (1.2-3.4) K/uL Lynn # (Auto) (0.11-0.59) K/uL Eos # (Auto) (0-0.5) K/uL Baso # (Auto) (0-0.2) K/uL Immature Gran # (Auto) (0.00-0.02) K/uL Absolute Nucleated RBC (0-0) K/uL Nucleated RBC % (auto) % Dohle Bodies Sodium (136-145) mmol/L Potassium (3.5-5.1) mmol/L Chloride (98-107) mmol/L Carbon Dioxide (21-32) mmol/L Anion Gap (3-11) BUN (7-18) mg/dl Creatinine (0.6-1.2) mg/dl Est Cr Clr Drug Dosing Est GFR ( Amer) ml/min Est GFR (Non-Af Amer) ml/min BUN/Creatinine Ratio (10-20) Glucose (70-99) mg/dl Lactate 2.4 H* (0.4-2.0) mmol/L Calcium (8.5-10.1) mg/dl Magnesium (1.8-2.4) mg/dl Total Bilirubin (0.2-1) mg/dl AST (15-37) U/L ALT (12-78) U/L Alkaline Phosphatase (45-117) U/L Troponin I (0-0.045) ng/ml Total Protein (6.4-8.2) gm/dl Albumin (3.4-5.0) gm/dl Globulin (2.5-4.0) gm/dl Albumin/Globulin Ratio (0.9-2) TSH (0.300-4.500) uIu/ml Urine Color Urine Appearance (Clear) Urine pH (4.5-7.5) Ur Specific [place] (1.000-1.030) Urine Protein (Negative) Urine Glucose (UA) (Negative) Urine Ketones (Negative) Urine Blood (Negative) Urine Nitrite (Negative) Urine Bilirubin (Negative) Urine Urobilinogen (Negative) Ur Leukocyte Esterase (Negative) Urine WBC (Auto) (0-5) /hpf Urine RBC (Auto) (0-4) /hpf U Hyaline Cast (Auto) (0-5) /lpf U Epithel Cells (Auto) (0-5) /lpf Urine Bacteria (Auto) (Negative) Granular Casts (0) /lpf Urine Yeast COVID-19 Eval Order SARS-CoV-2 (PCR) (Negative) Administered Medications Fentanyl Citrate (Fentanyl Citrate 100 Mcg/2 Ml Vial) 50 mcg IV Q15M PRN PRN Reason: Pain Stop: 05/07/21 17:21 Last Admin: 04/23/21 19:04 Dose: 50 mcg Documented by: [id number] Admin: 04/23/21 18:56 Dose: 50 mcg Documented by: [id number] Sodium Chloride (Nss 1000ml) 1,000 mls @ 125 mls/hr IV .Q8H ALVIN Stop: 04/24/21 01:29 Last Admin: 04/23/21 18:39 Dose: 125 mls/hr Documented by: [id number] Vancomycin HCl 2,000 mg/ (Sodium Chloride) 540 mls @ 200 mls/hr IV NOW ONE Stop: 04/23/21 21:44 Last Admin: 04/23/21 19:51 Dose: 200 mls/hr Documented by: [id number] Discontinued Medications Adenosine (Adenosine Iv Soln 3 Mg/Ml 2 Ml Vial) 6 mg IV NOW STA Stop: 04/23/21 18:42 Last Admin: 04/23/21 18:49 Dose: 6 mg Documented by: [id number] Adenosine (Adenosine Iv Soln 3 Mg/Ml 2 Ml Vial) Confirm Administered Dose 18 mg IV .STK-MED ONE Stop: 04/23/21 18:43 Last Admin: 04/23/21 18:45 Dose: 6 mg Documented by: [id number] Sodium Chloride (Nss 1000ml) 2,000 mls @ 999 mls/hr IV .Q2H1M ALVIN Stop: 04/23/21 19:30 Last Infusion: 04/23/21 20:15 Dose: 0 mls/hr Documented by: [id number] Admin: 04/23/21 17:27 Dose: 999 mls/hr Documented by: [id number] Potassium Chloride (K Raymundo / Wtr) 10 meq in 100 mls @ 100 mls/hr IV ONE ONE Stop: 04/23/21 19:40 Last Infusion: 04/23/21 19:57 Dose: 0 mls/hr Documented by: [id number] Admin: 04/23/21 18:30 Dose: 100 mls/hr Documented by: [id number] Piperacillin Sod/Tazobactam Sod (Zosyn) 4.5 gm in 120 mls @ 240 mls/hr IV NOW ONE Stop: 04/23/21 19:32 Last Infusion: 04/23/21 19:57 Dose: 0 mls/hr Documented by: [id number] Admin: 04/23/21 19:25 Dose: 240 mls/hr Documented by: [id number] Metoprolol Tartrate (Metoprolol Tartrate 1 Mg/Ml Vial) 2.5 mg IV NOW STA Stop: 04/23/21 17:53 Last Admin: 04/23/21 17:57 Dose: 2.5 mg Documented by: [id number] Metoprolol Tartrate (Metoprolol Tartrate 1 Mg/Ml Vial) 2.5 mg IV NOW STA Stop: 04/23/21 18:42 Last Admin: 04/23/21 18:00 Dose: 2.5 mg Documented by: [id number] Metoprolol Tartrate (Metoprolol Tartrate 1 Mg/Ml Vial) 2.5 mg IV NOW STA Stop: 04/23/21 18:42 Last Admin: 04/23/21 18:15 Dose: 2.5 mg Documented by: [id number] Ondansetron HCl (Ondansetron Inj 2 Mg/Ml 2 Ml Vial) Confirm Administered Dose 4 mg .ROUTE .STK-MED ONE Stop: 04/23/21 17:20 Last Admin: 04/23/21 17:26 Dose: 4 mg Documented by: [id number] Ondansetron HCl (Ondansetron Inj 2 Mg/Ml 2 Ml Vial) 4 mg IV NOW STA Stop: 04/23/21 17:23 Last Admin: 04/23/21 17:27 Dose: Not Given Documented by: [id number] Potassium Chloride (Potassium Chloride 10 Meq / 100ml Wtr) Confirm Administered Dose 10 meq IV .STK-MED ONE Stop: 04/23/21 18:28 Last Admin: 04/23/21 18:39 Dose: 10 meq Documented by: [id number] Imaging Data Radiologist's Impression: Chest X-Ray 04/23/21 17:22 XR chest 1V portable HISTORY: weakness COMPARISON: Chest 02/23/2021. FINDINGS: No pneumothorax. No pleural effusions. There is a large hiatus hernia, unchanged. Left subclavian Port-A-Cath terminates in the SVC. There is mild central pulmonary vascular congestion without overt edema. No new focal lung consolidations. IMPRESSION: 1. Mild central pulmonary vascular congestion without overt edema. 2. Large hiatus hernia, unchanged. ACT 112: Negative or not required by law. Electronically signed by: Austin Calderon M.D. 04/23/2021 8:34 PM Abdomen/Pelvis CT 04/23/21 19:[address] WITHOUT CONTRAST CT DOSE: 1042.71 mGy.cm HISTORY: Generalized abdominal pain, ovarian cancer TECHNIQUE: Multiaxial CT images of the abdomen and pelvis were performed without contrast. A dose lowering technique was utilized adhering to the principles of ALARA. COMPARISON STUDY: Abdomen and pelvis CT 10/16/2020. FINDINGS: Stable 4 mm nodule within the right middle lobe on image 10. Patchy densities within the lung bases favor dependent change. There is a long segment of thickened sigmoid colon involving the proximal to mid colon. There is extensive inflammatory change and extensive extraluminal gas within the midabdomen and pelvis. Therefore, these findings favor perforated acute diverticulitis. The site of perforation may be located within the mid sigmoid colon best seen on image 264. However, there is inflammatory change and fluid as well as extraluminal gas at the cecal base at the expected location of the appendix. Therefore, this could also represent perforated acute appendicitis. Collection of fecal contents and gas within the mid anterior pelvis measuring approximately 7.3 cm. This consistent with a phlegmon. There is severe bilateral hydroureteronephrosis, right greater then left. The distal right ureter is o bstructed by the large right pelvic solid or cystic mass which is increased in size. This currently measures 11 cm, previously measuring 5 cm. This is consistent with the patient's known history of ovarian carcinoma. This compresses and displaces the bladder anteriorly. The bladder is decompressed by a Barrera catheter. The uterus is surgically absent. There is a small amount of free air. There is extensive extraluminal gas extending into the retroperitoneum and into the large hiatus hernia. The hernia contains the majority of the stomach and a short segment of the transverse colon. 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 A 4.9 cm hypodense lesion within the right hepatic lobe is again noted. Cholelithiasis. The spleen and adrenal glands are unremarkable. No dilated loops of small bowel to suggest an obstruction. A right femoral venous catheter terminates in the right external iliac vein. Bilateral pelvic lymphadenopathy has progressed. The obstructed distal left ureter may be secondary to the inflamed colon. IMPRESSION: 1. There is a long segment of thickened sigmoid colon involving the proximal to mid colon. There is extensive inflammatory change and extensive extraluminal gas within the midabdomen and pelvis which extends into the mesentery and retroperitoneum. Therefore, these findings favor perforated acute diverticulitis. The site of perforation may be located within the mid sigmoid colon as described above. However, there is also inflammatory change and fluid as well as extraluminal gas at the cecal base at the expected location of the appendix. Therefore, a perforated acute appendicitis could also have a similar appearance but is considered less likely. 2. A 7.3 cm extraluminal collection of fecal contents and gas in the mid anterior pelvis as described above. This is consistent with a phlegmon. 3. Severe bilateral hydronephrosis as described above. 4. Increase in size in the 11 cm right pelvic complex mass. This consistent with patient's known history of ovarian cancer. 5. Omental carcinomatosis is again noted. 6. Cholelithiasis. 7. Progressive bilateral pelvic lymphadenopathy. ACT 112: Negative or not required by law. Electronically signed by: Austin Calderon M.D. 04/23/2021 8:16 PM Discharge Plan Visit Data Chief Complaint: Abdominal Pain Stated Complaint: STOMACH PAIN, UNABLE TO STAND, WEAKNESS ED Provider: Silvano Lazcano Discharge Problem: Acute hypotension, Ovarian cancer, Atrial flutter with rapid ventricular response, Sepsis, UTI (urinary tract infection), Elevated troponin, Hydronephrosis, BRIAN (acute kidney injury), Diverticulitis of colon with perforat ion Forms Stand Alone Forms: [employer] Prescriptions Prescriptions: No Action pantoprazole 40 mg tablet,delayed release (DR/EC) 40 mg PO DAILY Qty: 30 RF: 11 metoprolol succinate 100 mg tablet extended release 24 hr 100 mg PO DAILY Qty: 30 RF: 11 lorazepam 0.5 mg tablet 0.5 mg PO BID PRN (Reason: anxiety) Qty: 30 RF: 0 ferrous sulfate 325 mg (65 mg iron) tablet 325 mg PO PM Qty: 30 RF: 5 loratadine 10 mg tablet 10 mg PO DAILY PRN (Reason: allergy symptoms) Qty: 30 RF: 11 escitalopram oxalate 20 mg tablet 20 mg PO DAILY Qty: 30 RF: 6 fexofenadine [Nessa Allergy] 180 mg tablet 180 mg PO PM RF: 0 spironolactone 25 mg Tablet 25 mg PO DAILY 30 Days Qty: 30 RF: 2 oxycodone-acetaminophen 5-325 mg tablet 1 tab PO Q8 PRN (Reason: Pain) RF: 0 losartan 100 mg tablet 100 mg PO PM RF: 0 Hold Instructions: To hold until PCP visit after labs lidocaine-prilocaine 2.5-2.5 % cream 1 applic topical UD RF: 0 furosemide [Lasix] 40 mg tablet 40 mg PO DAILY Qty: 30 RF: 5 Referrals Referrals: Nirali Eugene CRNP [Primary Care Provider] -
[2021-04-23] MEDS ORDERED: METOPROLOL TARTRATE 1 MG/ML VIAL IV STA ×3 (17:52→18:41)
[2021-04-23] MEDS ORDERED: POTASSIUM CHLORIDE 10 MEQ / 100ML WTR IV ONE (18:27)
[2021-04-23 18:36] LABS: Hematocrit (blood only) 24.5 % (37-47); Mean Corpuscular Hemoglobin 32.7 pg (25-34); Mean Corpuscular Hgb Conc 32.7 g/dL (32-36); Mean Platelet Volume 10.6 fL (7.4-10.4); Nucleated RBC # (auto) 0.02 K/uL (0-0); Nucleated RBC % (auto) 0.2 %; Platelet Count 146 K/uL (130-400); RDW Coefficient of Variation 13.7 % (11.5-14.5); RDW Standard Deviation 50.2 fL (36.4-46.3); Red Blood Count 2.45 M/uL (4.2-5.4); White Blood Count 10.93 K/uL (4.8-10.8)
[2021-04-23] MEDS ORDERED: POTASSIUM CHLORIDE / WTR 10 MEQ/100 ML PLCT IV ONE (18:41)
[2021-04-23] MEDS ORDERED: ADENOSINE IV SOLN 3 MG/ML 2 ML VIAL IV STA (18:41)
[2021-04-23] MEDS ORDERED: ADENOSINE IV SOLN 3 MG/ML 2 ML VIAL IV ONE (18:42)
[2021-04-23 18:55] LABS: Basophils # (auto) 0.01 K/uL (0-0.2); Basophils % (auto) 0.1 %; Dohle Bodies 2+; Immature Granulocytes # (auto) 0.11 K/uL (0.00-0.02); Lymphocytes # (auto) 0.54 K/uL (1.2-3.4); Lymphocytes % (auto) 4.9 %; Monocytes # (auto) 0.87 K/uL (0.11-0.59)
[2021-04-23] MEDS: fentaNYL citrate 100 MCG/2 ML VIAL IV PRN ×3 (18:56→21:50)
[2021-04-23] MEDS ORDERED: VANCOMYCIN HCL 2,000 MG in SODIUM CHLORIDE 0.9% 500 ML IV ONE (19:03)
[2021-04-23] MEDS ORDERED: PIPERACILLIN/TAZOBACTAM 4.5 GM/120 ML BAG IV ONE (19:03)
[2021-04-23] MEDS ORDERED: VANCOMYCIN CONSULT ACTIVE PRN (19:03)
[2021-04-23] MEDS ORDERED: PIPERACILL/TAZOBAC CONSULT ACTIVE PRN ×2 (19:03→23:36)
[2021-04-23 19:10] LABS: Alanine Aminotransferase 24 U/L (12-78); Albumin Level 1.7 gm/dl (3.4-5.0); Aspartate Aminotransferase 59 U/L (15-37); BUN Creatinine Ratio 18.4 (10-20); Blood Urea Nitrogen 37 mg/dl (7-18); Calcium 7.7 mg/dl (8.5-10.1); Carbon Dioxide 22 mmol/L (21-32); Chloride 106 mmol/L (98-107); Est GFR (African American) 30.1 ml/min; Glucose 147 mg/dl (70-99); Potassium 3.3 mmol/L (3.5-5.1); Sodium 137 mmol/L (136-145)
[2021-04-23 19:29] LABS: Appearance Urine Cloudy (Clear); Bacteria Urine Automated Negative (Negative); Blood Urine Negative (Negative); Color Urine Dark Yellow; Epithelial Cell Urine Auto 20-30 /lpf (0-5); Glucose Urine UA Negative (Negative); Ketones Urine Negative (Negative); Leukocyte Esterase Urine Trace (Negative); Nitrite Urine Positive (Negative); Protein Urine 1+ (Negative); Specific Gravity Urine 1.022 (1.000-1.030); Urobilinogen Urine Negative (Negative)
[2021-04-23 19:37] LABS: Bilirubin Urine 1+ (Negative)
[2021-04-23 19:38] LABS: Albumin Globulin Ratio 0.5 (0.9-2); Alkaline Phosphatase 167 U/L (45-117); Globulin 3.7 gm/dl (2.5-4.0); Total Protein 5.4 gm/dl (6.4-8.2)
[2021-04-23 19:57] LABS: RBC Urine Automated 0-4 /hpf (0-4)
--- NOTE | 2021-04-23 20:18 | CT Scan Report ---
ABDOMEN AND PELVIS CT WITHOUT CONTRAST CT DOSE: 1042.71 mGy.cm HISTORY: Generalized abdominal pain, ovarian cancer TECHNIQUE: Multiaxial CT images of the abdomen and pelvis were performed without contrast. A dose lo wering technique was utilized adhering to the principles of ALARA. COMPARISON STUDY: Abdomen and pelvis CT 10/16/2020. FINDINGS: Stable 4 mm nodule within the right middle lobe on image 10. Patchy densities within the elisabeth ng bases favor dependent change. There is a long segment of thickened sigmoid colon involving the pro ximal to mid colon. There is extensive inflammatory change and extensive extraluminal gas within the midabdomen and pelvis. Therefore, these findings favor perforated acute diverticulitis. The site of p erforation may be located within the mid sigmoid colon best seen on image 264. However, there is infl ammatory change and fluid as well as extraluminal gas at the cecal base at the expected location of t he appendix. Therefore, this could also represent perforated acute appendicitis. Collection of fecal contents and gas within the mid anterior pelvis measuring approximately 7.3 cm. This consistent with a phlegmon. There is severe bilateral hydroureteronephrosis, right greater then left. The distal righ t ureter is obstructed by the large right pelvic solid or cystic mass which is increased in size. Thi s currently measures 11 cm, previously measuring 5 cm. This is consistent with the patient's known hi story of ovarian carcinoma. This compresses and displaces the bladder anteriorly. The bladder is deco mpressed by a Barrera catheter. The uterus is surgically absent. There is a small amount of free air. T here is extensive extraluminal gas extending into the retroperitoneum and into the large hiatus herni a. The hernia contains the majority of the stomach and a short segment of the transverse colon. Oment al carcinomatosis is again noted within the left upper quadrant. A 4.9 cm hypodense lesion within the right hepatic lobe is again noted. Cholelithiasis. The spleen and adrenal glands are unremarkable. N o dilated loops of small bowel to suggest an obstruction. A right femoral venous catheter terminates in the right external iliac vein. Bilateral pelvic lymphadenopathy has progressed. The obstructed dis vickey left ureter may be secondary to the inflamed colon. IMPRESSION: 1. There is a long segment of thickened sigmoid colon involving the proximal to mid colon. There is e xtensive inflammatory change and extensive extraluminal gas within the midabdomen and pelvis which ex tends into the mesentery and retroperitoneum. Therefore, these findings favor perforated acute divert iculitis. The site of perforation may be located within the mid sigmoid colon as described above. How ever, there is also inflammatory change and fluid as well as extraluminal gas at the cecal base at th e expected location of the appendix. Therefore, a perforated acute appendicitis could also have a sim ilar appearance but is considered less likely. 2. A 7.3 cm extraluminal collection of fecal contents and gas in the mid anterior pelvis as described above. This is consistent with a phlegmon. 3. Severe bilateral hydronephrosis as described above. 4. Increase in size in the 11 cm right pelvic complex mass. This consistent with patient's known hist ory of ovarian cancer. 5. Omental carcinomatosis is again noted. 6. Cholelithiasis. 7. Progressive bilateral pelvic lymphadenopathy. ACT 112: Negative or not required by law. Electronically signed by: Austin Calderon M.D. 04/23/2021 8:16 PM
--- NOTE | 2021-04-23 20:35 | XRay Report ---
XR chest 1V portable HISTORY: weakness COMPARISON: Chest 02/23/2021. FINDINGS: No pneumothorax. No pleural effusions. There is a large hiatus hernia, unchanged. Left subc lavian Port-A-Cath terminates in the SVC. There is mild central pulmonary vascular congestion without overt edema. No new focal lung consolidations. IMPRESSION: 1. Mild central pulmonary vascular congestion without overt edema. 2. Large hiatus hernia, unchanged. ACT 112: Negative or not required by law. Electronically signed by: Austin Calderon M.D. 04/23/2021 8:34 PM
--- NOTE | 2021-04-23 20:38 | Surgery Consultation ---
Date of Consultation April 23, 2021 Assessment & Plan (1) Abdominal pain: Pain appears to be secondary to perforated diverticulitis After discussion with patient and family plan will be to take to OR for emergent ex lap Type and Cross for 2 units PRBCs ordered COVID test (-) Abx. (vancomycin and zosyn) given in ED Prognosis guarded Dr. Go-patient has perforated sigmoid colon with very large abscess/abscess/phlegmon in the pelvis also disseminated ovarian cancer with possible carcinomatosis-if the patient does not have surgery she will certainly of her current disease however she is very high risk and may even arrest during the operation. I have had the anesthesia and the intensive care unit team evaluate the patient The patient and her want to try to proceed with surgery and do not want comfort measures as the present time Her ovarian cancer is untreatable but they are trying palliative chemotherapy which she did have last week Plan is for attempted laparotomy colostomy abdominal washout and drainage and then admission to the intensive care unit History of Present Illness Reason for Consultation: Abdominal pain History of Present Illness This is a 60-year-old female with a history of ovarian cancer. Patient currently is undergoing chemotherapy as directed by [id number]. She notes her most recent chemotherapy session was last week. Her next chemotherapy session she reports is due on May 01. Patient reports that she typically gets abdominal pain several days after her chemotherapy which occurred after her most recent session. She has had abdominal pain for approximately 5 days. She has not been able to eat or drink over this time. She has had associated nausea vomiting. She does not note any palliative factors to abdominal pain but she does note that the pain is worse with movement. Denies any fevers but has had shakes and chills. She denies any dysuria. Because of her abdominal pain she presented to the emergency department In the emergency department patient had labs and imaging which independent reviewed. A CT scan of her abdomen and pelvis showed the patient had a thickened segment of sigmoid colon with extensive inflammatory changes felt to represent sigmoid diverticulitis. There is concern for perforation as the patient was felt to have a perforated site within the mid sigmoid colon and the patient also had a 7.3 cm extraluminal collection of fecal contents and gas felt to represent a phlegmon.A chest x-ray did not show any evidence of pneumonia. A Covid test was performed and was noted to be negative. Labs were performed her white blood cell count was 10.9. Her hemoglobin hematocrit were 8.0 and 24.5. Platelet count was within the normal range. Chemistry profile showed patient's sodium was 137. Her potassium was 3.3. BUN and creatinine were 37 and 2.0.A lactic acid level was noted to be elevated at 3.4.A troponin level was performed and was noted to be 1.4. In addition the patient had a EKG that showed concern for SVT. Urinalysis showed positive nitrite as well as trace positive leukocyte esterase. There is no bacteria noted. In the emergency department the patient had resuscitation with intravenous fluids initiated. She also received broad-spectrum antibiotics in form of Zosyn and vancomycin. Because of her SVT attempts were made to chemically cardiovert her which were unsuccessful and the patient required cardioversion. In addition the treating emergency room physician started central line via the right groin. At the time of my interview the patient was resting in bed and she did appear somewhat uncomfortable. Allergies Allergy/AdvReac Type Severity Reaction Status Date / Time desflurane Allergy Severe MALIGNANT Verified 04/23/21 17:56 HYPERTHERMIA adhesive Allergy Mild SKIN Verified 04/23/21 17:56 IRRITATION WITH EKG STICKIES codeine AdvReac Mild headache/na Verified 04/23/21 17:56 [From Tylenol-Codeine] usea Home Medications Medication Instructions Recorded Confirmed Type fexofenadine 180 mg tablet 180 mg PO PM 08/07/19 04/23/21 History (Nessa Allergy) escitalopram oxalate 20 mg tablet 20 mg PO DAILY #30 tab 08/29/20 04/23/21 Rx pantoprazole 40 mg tablet,delayed 40 mg PO DAILY #30 tab 09/27/20 04/23/21 Rx release losartan 100 mg tablet 100 mg PO PM 10/10/20 04/23/21 History oxycodone-acetaminophen 5 mg-325 1 tab PO Q8 PRN 10/10/20 04/23/21 History mg tablet spironolactone 25 mg tablet 25 mg PO DAILY 30 Days #30 tab 10/22/20 04/23/21 Rx lorazepam 0.5 mg tablet 0.5 mg PO BID PRN #30 tab 11/19/20 04/23/21 Rx metoprolol succinate 100 mg 100 mg PO DAILY #30 tab 11/19/20 04/23/21 Rx tablet,extended release 24 hr lidocaine-prilocaine 2.5 %-2.5 % 1 applic TOPICAL UD 12/24/20 04/23/21 History topical cream furosemide 40 mg tablet (Lasix) 40 mg PO DAILY #30 tab 12/25/20 04/23/21 Rx ferrous sulfate 325 mg (65 mg 325 mg PO PM #30 tab 03/07/21 04/23/21 Rx iron) tablet loratadine 10 mg tablet 10 mg PO DAILY PRN #30 tab 04/01/21 04/23/21 Rx Patient History Medical History Acute heart failure with preserved ejection fraction (HFpEF) Back pain Breathlessness Cancer OVARIAN CANCER>CHEMO > GETS HALF HR TREATMENTS Q 2 WEEKS @ [facility] Cancer related pain Elevated troponin I level Hiatal hernia MODERATE TO LARGE PER CHEST CT Hypomagnesemia Left ventricular hypertrophy Malignant hyperthermia Nephrolithiasis Neutropenia Osteoarthritis Ovarian cancer Ovarian mass Pancytopenia due to chemotherapy Seasonal allergies Snoring "NO SLEEP STUDY" PER RECORDS Symptomatic anemia Surgical History H/O tympanomastoidectomy History of bilateral tubal ligation History of colonoscopy History of cystoscopy KIDNEY STONE EXTRACTION WITH STENT PLACEMENT History of difficult intubation Right tympanomastoidectomy = 11/26/17= Grade 2 view with glidescope #3, ETT 7.5 at [facility] PT UNAWARE OF THIS History of dilatation and curettage D&C, HYSTEROSCOPY= 04/29/18= LMA#4 AT [facility] History of ear surgery RT/LEFT EAR SURGERIES History of exploratory laparotomy History of myringotomy History of open reduction and internal fixation (ORIF) procedure Right arm History of total abdominal hysterectomy and bilateral salpingo-oophorectomy History of vascular access device A PORT PLACEMENT>LEFT INTACT CURRENTLY S/P exploratory laparotomy Tumor BILAT EAR TUMOR REMOVAL Family History Unknown No problems noted. 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 Beliefs That Will Affect Care: None marital status: Current Living Situation: Significant Other Current Living Situation Comment: [place] Feels Safe at Home: Yes Assistive Devices: Glasses Review of Systems Constitutional: + chills; no fever Eyes: no diplopia Ear, Nose, Mouth, Throat: no ear pain and no sore throat Respiratory: no cough and no dyspnea Cardiovascular: no chest pain Gastrointestinal: + abdominal pain, + nausea and + vomiting Genitourinary: no dysuria Musculoskeletal: no back pain Integumentary: no rash Neurologic: no localized weakness Physical Exam Constitutional: well developed, well nourished and + ill appearing Eyes: no conjunctival abnormality ENMT: Ears: + hearing impairment Nose: no external nose abnormality Mucous membranes are dry Neck: trachea midline Respiratory: normal respiratory effort; no respiratory distress and no labored breathing Breath sounds are noted to be slightly decreased at the bases Cardiovascular: Rate/Rhythm: regular rate and regular rhythm Gastrointestinal (Abdomen): Abdomen is rotund and soft. There is no d istention. Bowel sounds are hypoactive. Patient had pain noted with palpation in a generalized fashion which appear to be greatest in the left lower quadrant. There is associated rebound tenderness. Musculoskeletal: No calf tenderness. Feet are warm and well-perfused. Skin: no rashes Neurologic: moves all extremities Psychiatric: A+Ox3, euthymic affect Results & Data ([facility]) Vital Signs (Past 12 Hours) Vital Signs Temp Pulse Pulse Pulse Resp BP BP 04/23/21 19:50 104 H 25 H 04/23/21 19:48 04/23/21 19:15 104 H 23 115/73 04/23/21 19:00 103 H 30 H 04/23/21 18:55 178 H 22 82/60 L 04/23/21 18:35 169 H 24 80/60 L 04/23/21 18:15 168 H 80/60 L 04/23/21 18:13 170 H 20 82/62 L 04/23/21 18:05 168 H 24 84/60 L 04/23/21 18:02 04/23/21 18:00 178 H 178 H 20 82/62 L 82/64 L 04/23/21 17:57 174 H 80/64 L 04/23/21 17:55 174 H 27 H 04/23/21 17:08 175 H 46 H 04/23/21 17:02 36.2 C L 178 H 20 BP Pulse Ox 04/23/21 19:50 99 04/23/21 19:48 97 04/23/21 19:15 100 04/23/21 19:00 100/64 04/23/21 18:55 100 04/23/21 18:35 100 04/23/21 18:15 04/23/21 18:13 99 04/23/21 18:05 99 04/23/21 18:02 82/62 L 04/23/21 18:00 84 L 04/23/21 17:57 04/23/21 17:55 80/64 L 93 04/23/21 17:08 83/61 L 04/23/21 17:02 96 PG Care Time/CCT Total # of Minutes Spent Total Time Spent with Patient: Total time spent is greater than 50% in coordination of care (as documented) at patient's floor/unit and/or counseling patient: Coding Level of Care Code 57442 Inpt Consult Level 5 Diagnoses Abdominal pain R10.9
[2021-04-23] MEDS ORDERED: SODIUM CHLORIDE 0.9% 250 ML IV PRN (21:29)
--- NOTE | 2021-04-23 21:33 | History & Physical Report ---
Date of Service April 23, 2021 Assessment & Plan (1) Sepsis: Plan: Patient is a 60 year old female with PMHx Ovarian cancer on chemotherapy, Anemia, Thrombocytopenia, GERD, CHF that presents with 3-4 day history of abdominal pain found to be septic secondary to diverticulitis with perforation of the colon. Sepsis secondary to Diverticulitis with perforation -CT Ab/Pelv with extensive inflammatory changes and extraluminal gas within the midabdomen and pelvis with site of perforation suspected around the mid sigmoid colon in addition to 7.3cm extraluminal collection of fecal contents. -Lactate 3.4 on admission -Received 2L NSS in ED, continue NSS 125 ml/hr -Started on Vancomycin and Zosyn in ED, will continue -Surgery consulted - will take patient to OR now for closure of perforation and wash out -ICU consulted for post surgical care - patient to remain intubated post surgery for recovery Atrial Flutter/SVT -Noted on EKG in ED, treated initially with IV Lopressor pushes 2.5mg x3 in addition to Adenosine -Ultimately A Flutter cardioverted in ED and now in sinus rhythm -Cardiology consulted - if recurrent flutter consider amiodarone gtt -Electrolyte replacement, K>4 and Mag >2 Elevated Troponin -Troponin elevated to 1.45 -Suspect secondary to above flutter/SVT -continue to trend for peak B/L Hydronephrosis -CT Ab/Pelv noting severe bilateral hydronephrosis secondary to obstruction from complex R pelvic mass -R Pelvic mass has increased in size to 11cm from 5cm -Urology consulted in ED, no emergent stent at this time. Will reevaluate once patient stable. UTI -With positive UA -Coverage with Zosyn Vancomycin above. Dispo: ICU post surgery for close monitoring and management of ventilation FEN: NPO DVT: Defer chemoprophylaxis pending surgery Code: Full (2) Diverticulitis of colon with perforation: (3) BRIAN (acute kidney injury): (4) Elevated troponin: (5) Hydronephrosis: (6) UTI (urinary tract infection): (7) Atrial flutter with rapid ventricular response: History of Present Illness Chief Complaint: Abdominal Pain Primary Care Provider: STEPHEN Reardon Patient is a 60 year old female with PMHx Ovarian cancer on chemotherapy, Anemia, Thrombocytopenia, GERD, CHF that presents with 3-4 day history of abdominal pain found to be septic secondary to diverticulitis with perforation of the colon. Patient notes she had chemotherapy last and that since then she has been having abdominal pain, anorexia, and nausea. She notes she has not been taking her medications appropriately secondary to the pain. In the emergency department she was also found to be in atrial flutter and was given pushes of lopressor 2.5mg x3, followed by adenosine 6mg for a rhythm concerning for SVT. She was ultimately found to be in atrial flutter and cardioverted to NSR. She also had a CT scan of her abdomen which was concerning for diverticu litis with perforation including a 7.3cm extraluminal collection of fecal contents and gas suspicious for phlegmon. Patient's case was discussed with General Surgery. Patient elected to undergo surgery for closure of the colonic rupture and wash out. Patient at this time does appear uncomfortable and is primarily noting significant abdominal pain. She denies fever, chills, SOB, chest pain. Allergies Allergy/AdvReac Type Severity Reaction Status Date / Time desflurane Allergy Severe MALIGNANT Verified 04/23/21 17:56 HYPERTHERMIA adhesive Allergy Mild SKIN Verified 04/23/21 17:56 IRRITATION WITH EKG STICKIES codeine AdvReac Mild headache/na Verified 04/23/21 17:56 [From Tylenol-Codeine] usea Home Medications Medication Instructions Recorded Confirmed Type fexofenadine 180 mg tablet 180 mg PO PM 08/07/19 04/23/21 History (Nessa Allergy) escitalopram oxalate 20 mg tablet 20 mg PO DAILY #30 tab 08/29/20 04/23/21 Rx pantoprazole 40 mg tablet,delayed 40 mg PO DAILY #30 tab 09/27/20 04/23/21 Rx release losartan 100 mg tablet 100 mg PO PM 10/10/20 04/23/21 History oxycodone-acetaminophen 5 mg-325 1 tab PO Q8 PRN 10/10/20 04/23/21 History mg tablet spironolactone 25 mg tablet 25 mg PO DAILY 30 Days #30 tab 10/22/20 04/23/21 Rx lorazepam 0.5 mg tablet 0.5 mg PO BID PRN #30 tab 11/19/20 04/23/21 Rx metoprolol succinate 100 mg 100 mg PO DAILY #30 tab 11/19/20 04/23/21 Rx tablet,extended release 24 hr lidocaine-prilocaine 2.5 %-2.5 % 1 applic TOPICAL UD 12/24/20 04/23/21 History topical cream furosemide 40 mg tablet (Lasix) 40 mg PO DAILY #30 tab 12/25/20 04/23/21 Rx ferrous sulfate 325 mg (65 mg 325 mg PO PM #30 tab 03/07/21 04/23/21 Rx iron) tablet loratadine 10 mg tablet 10 mg PO DAILY PRN #30 tab 04/01/21 04/23/21 Rx Past Med/Surg History Medical History Acute heart failure with preserved ejection fraction (HFpEF) Back pain Breathlessness Cancer OVARIAN CANCER>CHEMO > GETS HALF HR TREATMENTS Q 2 WEEKS @ [facility] Cancer related pain Elevated troponin I level Hiatal hernia MODERATE TO LARGE PER CHEST CT Hypomagnesemia Left ventricular hypertrophy Malignant hyperthermia Nephrolithiasis Neutropenia Osteoarthritis Ovarian cancer Ovarian mass Pancytopenia due to chemotherapy Seasonal allergies Snoring "NO SLEEP STUDY" PER RECORDS Symptomatic anemia Surgical History H/O tympanomastoidectomy History of bilateral tubal ligation History of colonoscopy History of cystoscopy KIDNEY STONE EXTRACTION WITH STENT PLACEMENT History of difficult intubation Right tympanomastoidectomy = 11/26/17= Grade 2 view with glidescope #3, ETT 7.5 at [facility] PT UNAWARE OF THIS History of dilatation and curettage D&C, HYSTEROSCOPY= 04/29/18= LMA#4 AT [facility] History of ear surgery RT/LEFT EAR SURGERIES History of exploratory laparotomy History of myringotomy History of open reduction and internal fixation (ORIF) procedure Right arm History of total abdominal hysterectomy and bilateral salpingo-oophorectomy History of vascular access device A PORT PLACEMENT>LEFT INTACT CURRENTLY S/P exploratory laparotomy Tumor BILAT EAR TUMOR REMOVAL Family History Unknown No problems noted. Denies family history of Ovarian cancer Prostate cancer Myocardial infarction Breast cancer Colorectal cancer Social History Smoking Status: Unknown if ever smoked Cigarettes Per Day: Quit smokimg 20-30 years ago; Second Hand Exposure: No; Preferred Language: Burkinan Communication Ability: Unable Visual Impairment: No Limitations Back Pad Inspector Required: Yes Beliefs That Will Affect Care: None marital status: Current Living Situation: Other Current Living Situation Comment: unknown Feels Safe at Home: Yes Assistive Devices: Oxygen - Continuous Review of Systems Review of Systems: as above Physical Exam Constitutional: + ill appearing and + in distress Eyes: normal visual holman by confrontation; no conjunctival abnormality ENMT: Ears: + hearing impairment Nose: no external nose abnormality Mucous membranes are dry Neck: trachea midline Respiratory: normal respiratory effort; no respiratory distress and no labored breathing Auscultation: lungs clear to auscultation bilaterally Breath sounds are noted to be slightly decreased at the bases Cardiovascular: Rate/Rhythm: regular rate and regular rhythm Heart Sounds: no murmur Chest (Breasts): Chest: + vascular access device or port Gastrointestinal (Abdomen): Inspection/Auscultation: abdomen normal to inspection and + hypoactive bowel sounds Percussion/Palpation: + abdomen tender (worse in the lower quadrants ) +rebound Musculoskeletal: Head/Neck/Chest: normocephalic and head atraumatic No calf tenderness. Feet are warm and well-perfused. Skin: no rashes Neurologic: moves all extremities Psychiatric: Orientation: alert and oriented x 3 Affect: + anxious affect Results & Data Results & Data ([facility]) Vital Signs (Past 12 Hours) Vital Signs Temp Pulse Pulse Pulse Resp BP BP 04/23/21 21:15 101 H 29 H 103/76 04/23/21 21:00 98 H 28 H 104/67 04/23/21 20:45 101 H 24 106/72 04/23/21 20:30 100 H 25 H 104/76 04/23/21 20:15 102 H 24 109/66 04/23/21 20:00 101 H 26 H 108/62 04/23/21 19:50 104 H 25 H 04/23/21 19:48 04/23/21 19:15 104 H 23 115/73 04/23/21 19:00 103 H 30 H 04/23/21 18:55 178 H 22 82/60 L 04/23/21 18:35 169 H 24 80/60 L 04/23/21 18:15 168 H 80/60 L 04/23/21 18:13 170 H 20 82/62 L 04/23/21 18:05 168 H 24 84/60 L 04/23/21 18:02 04/23/21 18:00 178 H 178 H 20 82/62 L 82/64 L 04/23/21 17:57 174 H 80/64 L 04/23/21 17:55 174 H 27 H 04/23/21 17:08 175 H 46 H 04/23/21 17:02 36.2 C L 178 H 20 BP Pulse Ox 04/23/21 21:15 100 04/23/21 21:00 99 04/23/21 20:45 100 04/23/21 20:30 100 04/23/21 20:15 100 04/23/21 20:00 100 04/23/21 19:50 99 04/23/21 19:48 97 04/23/21 19:15 100 04/23/21 19:00 100/64 04/23/21 18:55 100 04/23/21 18:35 100 04/23/21 18:15 04/23/21 18:13 99 04/23/21 18:05 99 04/23/21 18:02 82/62 L 04/23/21 18:00 84 L 04/23/21 17:57 04/23/21 17:55 80/64 L 93 04/23/21 17:08 83/61 L 04/23/21 17:02 96 Code Status & VTE Plan VTE Prophylaxis Plan VTE Prophylaxis will be ordered: No Critical Care Time 45 minutes Supervising Physician Co-Signing Physician Notes Attending addendum: I have physically seen this patient, have supervised the medical residents activ ities, and agree with the H&P unless as otherwise noted. Assessment and Plan: Sepsis due to diverticulitis with perforation- Status post 2 L normal saline in the ED Continue NSS at 125 mils per hour Vancomycin IV and Zosyn IV Surgery Dr. Go taking the patient to the OR, and will get postop care in the ICU ICU consulted Atrial flutter/SVT/elevated troponin Improved rate control after IV Lopressor and IV adenosine Increase drip likely secondary to accelerated heart rate Echocardiogram in a.m. Optimize potassium and magnesium Consult cardiology Remaining orders and notations as noted Resident Activity Tracking Resident Involvement: Resident Care Provided Care Provided: Adult Hospital Medicine
[2021-04-23] MEDS: POTASSIUM CHLORIDE / WTR 10 MEQ/100 ML PLCT IV SCH ×2 (21:50→21:51)
[2021-04-23] MEDS ORDERED: fentaNYL citrate 100 MCG/2 ML VIAL ONE (21:55)
[2021-04-23] MEDS ORDERED: MIDAZOLAM HCL 1 MG/ML 2ML VIAL ONE (21:56)
--- NOTE | 2021-04-23 21:57 | Anesthesiology Consultation ---
Date of Service April 23, 2021 Assessment & Plan Chart Review Chart Review: Acceptable Risk for Surgery Consults Requested none ASA [id number] Proposed Anesthesia Anesthesia Type: General Anesthesia Line Insertion: Arterial line Risk / Benefits Reviewed With: PT / POA / Parent / Guardian, Accepts Plan and Informed Consent Obtained Additional Comments: Malignant hyperthermia precautions will be taken. I spoke to the patient and her , and they are aware that she will remain intubated post-procedure. History Height/Weight Height: 5 ft 3 in Weight: 105 kg Allergies Allergy/AdvReac Type Severity Reaction Status Date / Time desflurane Allergy Severe MALIGNANT Verified 04/23/21 17:56 HYPERTHERMIA adhesive Allergy Mild SKIN Verified 04/23/21 17:56 IRRITATION WITH EKG STICKIES codeine AdvReac Mild headache/na Verified 04/23/21 17:56 [From Tylenol-Codeine] usea Medications Home Medications Medication Instructions Recorded Confirmed Last Taken fexofenadine 180 mg tablet 180 mg PO PM 08/07/19 04/23/21 02/22/21 (Nessa Allergy) escitalopram oxalate 20 mg tablet 20 mg PO DAILY #30 tab 08/29/20 04/23/21 02/22/21 pantoprazole 40 mg tablet,delayed 40 mg PO DAILY #30 tab 09/27/20 04/23/21 02/22/21 release losartan 100 mg tablet 100 mg PO PM 10/10/20 04/23/21 02/22/21 oxycodone-acetaminophen 5 mg-325 1 tab PO Q8 PRN 10/10/20 04/23/21 02/23/21 mg tablet spironolactone 25 mg tablet 25 mg PO DAILY 30 Days #30 tab 10/22/20 04/23/21 02/22/21 lorazepam 0.5 mg tablet 0.5 mg PO BID PRN #30 tab 11/19/20 04/23/21 02/23/21 metoprolol succinate 100 mg 100 mg PO DAILY #30 tab 11/19/20 04/23/21 02/22/21 tablet,extended release 24 hr lidocaine-prilocaine 2.5 %-2.5 % 1 applic TOPICAL UD 12/24/20 04/23/21 Unknown topical cream furosemide 40 mg tablet (Lasix) 40 mg PO DAILY #30 tab 12/25/20 04/23/21 02/23/21 ferrous sulfate 325 mg (65 mg 325 mg PO PM #30 tab 03/07/21 04/23/21 Unknown iron) tablet loratadine 10 mg tablet 10 mg PO DAILY PRN #30 tab 04/01/21 04/23/21 Unknown Active Medications Generic Name Dose Route Start Last Admin Trade Name Toneq PRN Reason Stop Dose Admin Fentanyl Citrate 50 mcg 04/23/21 17:22 04/23/21 21:50 Fentanyl Citrate 100 Mcg/2 Ml Vial IV 05/07/21 17:21 50 mcg Q15M PRN Administration Pain Sodium Chloride 1,000 mls @ 125 mls/hr 04/23/21 17:30 04/23/21 18:39 Nss 1000ml IV 04/24/21 01:29 125 mls/hr .Q8H ALVIN Administration Potassium Chloride 10 meq in 100 mls @ 100 mls/hr 04/23/21 21:45 04/23/21 21:51 K Raymundo / Wtr IV 04/24/21 00:44 100 mls/hr Q1H ALVIN Administration Past Medical History Medical History Acute heart failure with preserved ejection fraction (HFpEF) Back pain Breathlessness Cancer OVARIAN CANCER>CHEMO > GETS HALF HR TREATMENTS Q 2 WEEKS @ [facility] Cancer related pain Elevated troponin I level Hiatal hernia MODERATE TO LARGE PER CHEST CT Hypomagnesemia Left ventricular hypertrophy Malignant hyperthermia Nephrolithiasis Neutropenia Osteoarthritis Ovarian cancer Ovarian mass Pancytopenia due to chemotherapy Seasonal allergies Snoring "NO SLEEP STUDY" PER RECORDS Symptomatic anemia Exercise / Class Metabolic Activity III < 4 Walking/Shop/Light housework Past Family History Family History Unknown No problems noted. Denies family history of Ovarian cancer Prostate cancer Myocardial infarction Breast cancer Colorectal cancer Past Surgical History Surgical History H/O tympanomastoidectomy History of bilateral tubal ligation History of colonoscopy History of cystoscopy KIDNEY STONE EXTRACTION WITH STENT PLACEMENT History of difficult intubation Right tympanomastoidectomy = 11/26/17= Grade 2 view with glidescope #3, ETT 7.5 at [facility] PT UNAWARE OF THIS History of dilatation and curettage D&C, HYSTEROSCOPY= 04/29/18= LMA#4 AT [facility] History of ear surgery RT/LEFT EAR SURGERIES History of exploratory laparotomy History of myringotomy History of open reduction and internal fixation (ORIF) procedure Right arm History of total abdominal hysterectomy and bilateral salpingo-oophorectomy History of vascular access device A PORT PLACEMENT>LEFT INTACT CURRENTLY S/P exploratory laparotomy Tumor BILAT EAR TUMOR REMOVAL Past Anesthesia History No Hx of Anesthesia Complications and No Family Hx of Anesthesia Complications History of PONV No Hx of PONV and No Hx of Motion Sickness Social History Smoking Status: Never smoker tobacco type: cigarettes Smoking cigarettes per day: Quit smokimg 20-30 years ago Hx Alcohol Use: No Alcohol type: beer, wine and hard liquor alcohol intake frequency: holidays/special occasions only Hx Substance Use: No substance use type: opiates Substance Use Type Other:: MEDICAL WITH CARD Last Used Substance: Unknown Last Used Substance Other:: LAST USED MONTH AGO IF HAS IT TAKES ONCE A DAY AT HS Physical Exam Vital Signs Last Vital Signs Temp 97.2 F L 04/23/21 17:02 Pulse 101 H 04/23/21 21:15 Resp 29 H 04/23/21 21:15 BP 103/76 04/23/21 21:15 Pulse Ox 100 04/23/21 21:15 Constitutional + morbidly obese and + lethargic ENMT Mouth: no dentition abnormality Thyromental Distance: > or= 3.5 Finger Breadths Mallampati Class: IV Neck normal visual inspection Respiratory normal respiratory effort Auscultation: lungs clear to auscultation bilaterally Cardiovascular Rate/Rhythm: regular rhythm and + tachycardic Testing Laboratory Results 04/23/21 18:25 04/23/21 18:25 Urine Color Dark Yellow 04/23/21 19:17 Urine Appearance Cloudy (Clear) A 04/23/21 19:17 Urine pH 5.0 (4.5-7.5) 04/23/21 19:17 Ur Specific [place] 1.022 (1.000-1.030) 04/23/21 19:17 Urine Protein 1+ (Negative) H 04/23/21 19:17 Urine Glucose (UA) Negative (Negative) 04/23/21 19:17 Urine Ketones Negative (Negative) 04/23/21 19:17 Urine Nitrite Positive (Negative) A 04/23/21 19:17 Ur Leukocyte Esterase Trace (Negative) H 04/23/21 19:17 Urine WBC (Auto) 1-5 /hpf (0-5) 04/23/21 19:17 Urine RBC (Auto) 0-4 /hpf (0-4) 04/23/21 19:17 U Hyaline Cast (Auto) 5-10 /lpf (0-5) H 04/23/21 19:17 U Epithel Cells (Auto) 20-30 /lpf (0-5) H 04/23/21 19:17 Urine Bacteria (Auto) Negative (Negative) 04/23/21 19:17 Electrocardiogram Date: 04/23/21 Supraventricular tachycardia, rate [address] and T wave abnormality Abnormal ECG When compared with ECG of 23-APR-2021 17:09, (unconfirmed) ST elevation now present in Inferior leads Chest X-Ray Date: 04/23/21 IMPRESSION: 1. Mild central pulmonary vascular congestion without overt edema. 2. Large hiatus hernia, unchanged. Echocardiogram Date: 10/17/20 Mild concentric LVH LV wall motion is normal LV EF = 55-60% The RV is not well visualized, however the chamber size and systolic function is grossly normal on limited visualization The LA is mildly dilated Doppler findings are consistent with elevated left sided filling pressures
[2021-04-23] MEDS ORDERED: PROPOFOL IV EMULSION 10 MG/ML 100 ML VIAL IV ONE (22:07)
[2021-04-23] MEDS ORDERED: KETAMINE 50 MG/5 ML SYRINGE ONE (22:22)
[2021-04-23] MEDS ORDERED: ROCURONIUM BROMIDE 10 MG/ML 5 ML VIAL IV ONE (23:06)
[2021-04-23] MEDS ORDERED: ETOMIDATE 2 MG/ML 20 ML VIAL IV ONE (23:07)
[2021-04-23] MEDS ORDERED: LIDOCAINE 2% 2 ML VIAL/AMP(20MG/ML) INFIL ONE (23:07)
[2021-04-23] MEDS ORDERED: ACETAMINOPHEN 1,000 MG/100 ML VIAL IV ONE (23:30)
--- NOTE | 2021-04-23 23:30 | Post Operative Brief Note ---
PG Immediate Post Op with CF Date of Surgery April 23, 2021 Pre & Post Diagnosis Operation Date: 04/23/21 22:45 Pre-Op Diagnosis: Abdominal Pain; Perforated diverticulitis Post-Op Diagnosis: Perforated colon with carcinomatosis, intra-abdominal and retroperitoneal abscess I identified the patient and participated in the time-out.: Yes Procedure Operation Date: 04/23/21 22:45 Actual Procedures p Exploratory Laparotomy; Drainage of Abscess; Abdominal Washout and Drain placement - Jack Go MD, FACS Closure of colon perforation Surgeon Jack Go MD, FACS [employer] Barrie Camilo Estimated Blood Loss 25 Findings Consistent with Post-Op Diagnosis Drains Kai-Peterson Drain (19Fr. Round) and Wolf Drain (1/2in)
[2021-04-23] MEDS ORDERED: PIPERACILLIN/TAZOBACTAM 3.375 GM in DEXTROSE 5% 100 ML IV SCH (23:45)
[2021-04-23] MEDS ORDERED: propofoL 1,000 MG/100 ML VIAL IV SCH (23:45)
[2021-04-23] MEDS ORDERED: PROPOFOL BOLUS FROM BAG IV PRN (23:59)
[2021-04-23] MEDS ORDERED: STAT IV Infusion **Titration per Protocol STA (23:59)
[2021-04-24] MEDS ORDERED: PROPOFOL IV EMULSION 10 MG/ML 20 ML VIAL IV ONE
[2021-04-24] MEDS ORDERED: PHENYLEPHRINE HCL 10 MG/ML VIAL ONE (00:01)
[2021-04-24] MEDS ORDERED: PROPOFOL IV EMULSION 10 MG/ML 100 ML VIAL IV ONE ×2 (00:04→07:26)
[2021-04-24] MEDS ORDERED: PIPERACILL/TAZOBAC CONSULT ACTIVE PRN (00:08)
[2021-04-24] MEDS ORDERED: ICU PROTOCOL FOR HYPERGLYCEMIA PRN ×2 (00:08)
[2021-04-24] MEDS ORDERED: VANCOMYCIN HCL 1,500 MG in SODIUM CHLORIDE 0.9% 500 ML IV SCH (00:08)
[2021-04-24] MEDS ORDERED: VANCOMYCIN CONSULT ACTIVE PRN (00:08)
[2021-04-24] MEDS: POTASSIUM CHLORIDE / WTR 10 MEQ/100 ML PLCT IV SCH (00:13)
[2021-04-24 00:20] LABS: Hematocrit (blood only) 27.9 % (37-47); Mean Corpuscular Hemoglobin 32.3 pg (25-34); Mean Corpuscular Hgb Conc 32.3 g/dL (32-36); Mean Platelet Volume 10.9 fL (7.4-10.4); Nucleated RBC # (auto) 0.02 K/uL (0-0); Nucleated RBC % (auto) 0.3 %; Platelet Count 144 K/uL (130-400); RDW Coefficient of Variation 13.8 % (11.5-14.5); RDW Standard Deviation 50.4 fL (36.4-46.3); Red Blood Count 2.79 M/uL (4.2-5.4); White Blood Count 8.61 K/uL (4.8-10.8)
[2021-04-24] MEDS ORDERED: HYDROmorphone INJ 1 MG/ML SYRINGE IV PRN (00:20)
[2021-04-24] MEDS ORDERED: HYDROmorphone INJ 2 MG/ML SYR/VIAL IV PRN (00:20)
--- NOTE | 2021-04-24 00:22 | Anesthesiology Progress Note ---
Date of Service April 24, 2021 Anesthesia Post Procedure Vital Signs Vital Signs: Temp Pulse Pulse Pulse Resp BP BP 04/24/21 00:19 18 04/24/21 00:02 100 H 16 04/23/21 22:17 99 H 22 106/60 04/23/21 22:00 99 H 30 H 118/62 04/23/21 21:45 97 H 20 112/71 04/23/21 21:30 98 H 22 114/74 04/23/21 21:15 101 H 29 H 103/76 04/23/21 21:00 98 H 28 H 104/67 04/23/21 20:45 101 H 24 106/72 04/23/21 20:30 100 H 25 H 104/76 04/23/21 20:15 102 H 24 109/66 04/23/21 20:00 101 H 26 H 108/62 04/23/21 19:50 104 H 25 H 04/23/21 19:48 04/23/21 19:15 104 H 23 115/73 04/23/21 19:00 103 H 30 H 04/23/21 18:55 178 H 22 82/60 L 04/23/21 18:35 169 H 24 80/60 L 04/23/21 18:15 168 H 80/60 L 04/23/21 18:13 170 H 20 82/62 L 04/23/21 18:05 168 H 24 84/60 L 04/23/21 18:02 04/23/21 18:00 178 H 178 H 20 82/62 L 82/64 L 04/23/21 17:57 174 H 80/64 L 04/23/21 17:55 174 H 27 H 04/23/21 17:08 175 H 46 H 04/23/21 17:02 97.2 F L 178 H 20 BP Pulse Ox 04/24/21 00:19 04/24/21 00:02 95 04/23/21 22:17 100 04/23/21 22:00 99 04/23/21 21:45 100 04/23/21 21:30 100 04/23/21 21:15 100 04/23/21 21:00 99 04/23/21 20:45 100 04/23/21 20:30 100 04/23/21 20:15 100 04/23/21 20:00 100 04/23/21 19:50 99 04/23/21 19:48 97 04/23/21 19:15 100 04/23/21 19:00 100/64 04/23/21 18:55 100 04/23/21 18:35 100 04/23/21 18:15 04/23/21 18:13 99 04/23/21 18:05 99 04/23/21 18:02 82/62 L 04/23/21 18:00 84 L 04/23/21 17:57 04/23/21 17:55 80/64 L 93 04/23/21 17:08 83/61 L 04/23/21 17:02 96 Pain Intensity Abdomen: Pain Intensity: 10 Transfer of Care Handoff Completed per policy Notes Mental Status: see notes below Patient Amnestic to Procedure: Yes Nausea / Vomiting: adequately controlled Pain: adequately controlled Airway Patency, RR, SpO2: stable & adequate BP & HR: stable & adequate Hydration State: stable & adequate Anesthetic Complications: no major complications apparent and Pt Satisfied with anesthetic care Notes: Patient remained intubated and sedated post-procedure. Patient was transported to the ICU with monitors and O2. Patient was stable during transport. Report was given to the ICU team. Care was transferred to the ICU team.
--- NOTE | 2021-04-24 00:28 | Critical Care Consultation ---
Date of Consultation April 23, 2021 Assessment & Plan (1) Perforated sigmoid colon: Reason Critically Ill: 60-year-old female with metastatic uterine cancer presents to the ICU postop following exploratory laparotomy for perforated colon with carcinomatosis and intra-abdominal retroperitoneal abscess where she underwent drainage of abscess abdominal washout with drain placement with closure of colon perforation. Neuro - Sedation: Propofol Cardiac - CHFlast TTE 10/13 with mild concentric left ventricular hypertrophy, normal EF 55 to 60%, mildly dilated left atrium consistent with elevated left-sided filling pressures -Hold on diuretics at this time this patient presents with BRIAN and expect to become hypotensive soon considering severity of sepsis HTNhold antihypertensives for now SVTpatient had episode of SVT in the emergency department with rate 170s, and was unresponsive to adenosine. She she underwent successful cardioversion to normal sinus rhythm which she has remained. -Maximize electrolytes -Continuous monitor on telemetry Elevated troponintroponin I 0.45 in the emergency department, suspect this is demand ischemia following SVT. No chest pain on exam. Will trend for now Respiratory - Mechanically ventilatedpatient remains ventilated postop with plan to trial extubation if patient remains hemodynamically stable overnight -No prior history of pulmonary disease -Vent settings: 18/400/5/40 percent -Follow-up ABG in a.m. -Continuous monitor on pulse ox GI - Sigmoid colon perforationpatient initially was thought to have perforated diverticulitis on CT abdomen pelvis, however or findings more consistent with perforated colon with carcinomatosis. She was also have found to have intra- abdominal and retroperitoneal abscesses. She underwent ex lap with drainage of abscess, abdominal washout and drain placement and closure of colon perforation. In conversation with Dr. Go, prognosis is extremely poor and this is likely nonsurvivable. -Continue with antibiotics, see ID -General surgery following, will follow recommendations Metastatic uterine cancerPer oncology note, patient had recent progression of disease and was started on Taxol with first dose 03/27 for palliative therapy as her disease is noted to be incurable. RENAL/LYTES - AKIsuspect likely prerenal as patient reported no p.o. intake since Wednesday. We will continue with IV fluid resuscitation -Baseline creatinine appears to be around 1.3 currently at 2.1 -Monitor routine BMPs -Avoid nephrotoxins and renally adjust dosing -Maintain maps greater than 65 - Foleystrict I's and O's ENDO - No history of diabetes or thyroid disease ICU hyperglycemic protocol HEME - Anemiahemoglobin stable at 8 appears to be at baseline -Transfuse for hemoglobin less than 7 -Continue iron supplements when taking p.o. -Platelets stable -Monitor CBC, transfuse if indicated ID - Sepsiscurrently patient is afebrile but did have elevated lactate. Procalcitonin pending. She does have perforation of the colon with stool in her peritoneum and expect that she may develop septic shock soon. Blood cultures pending Continue broad-spectrum antibiotics with Zosyn and vancomycin for now COVID-19 negative LINES/IV ACCESS - CVC, A-line, ET tube DVT PROPHYLAXIS - SCDs, hold anticoagulation following surgery for now Patient's prognosis remains extremely poor and is unlikely that she will survive this hospitalization. OR findings were discussed between Dr. Go and the patient's . Comfort measures were recommended by surgical team. I further discussed CODE STATUS and prognosis with the patient's . At this point he wants the patient to remain full code even after it was explained that CPR and defibrillation would likely serve no benefit as this is likely a nonsurvivable event. The patient's daughters are currently on their way to the hospital and plan to further discuss the patient's prognosis and plan of care with them at the bedside. May need palliative care to assist pending this conversation. I have personally spent 65 minutes of critical care time in the direct management of this patient. This is a life/limb threatening event. This includes time spent evaluating patient, direct bedside care, chart review, placing orders, interpretation of diagnostic studies, discussion with consultants, patient, and family members, as well as other required patient management activities. This time is exclusive of all separately billable procedures, and teaching time and separate from and in addition to any other critical care service time. Thank you for allowing us to participate in the care of this patient. Please refer to my attending physician's documentation for any further recommendations. (2) SVT (supraventricular tachycardia): (3) Sepsis: (4) Elevated troponin: (5) Hydronephrosis: (6) BRIAN (acute kidney injury): (7) CHF (congestive heart failure): (8) Anemia: (9) Thrombocytopenia: (10) Ovarian cancer: History of Present Illness History of Present Illness Ms. Yeager is a 60-year-old female who has past medical history significant for recurrent ovarian cancer with peritoneal carcinomatosis with metastatic disease. She underwent debulking surgery in 2018 and has been trialed on multiple chemotherapies without response. She was recently noted to have significant progression of disease in February and was started on Taxol. This was noted to be palliative as her disease is unfortunately incurable per oncology note. Patient presented to the emergency department earlier this evening with symptoms of generalized abdominal pain and fatigue with associated nausea and vomiting which had started on Wednesday. She also had an episode of SVT in the ER which was unresponsive to adenosine and had to be cardioverted. She underwent CT abdomen and pelvis which revealed extensive inflammatory change and extensive extraluminal gas within the mid abdomen and pelvis extending to the mesentery and retroperitoneum with findings favoring perforated acute diverticulitis. She underwent emergent exploratory laparotomy where she was found to have perforated colon with carcinomatosis and intra-abdominal and retroperitoneal abscesses. She underwent drainage of abscess, abdominal washout and drain placement and closure of colon perforation. Unfortunately, in conversation with Dr. Go, it appears that these findings are most consistent with progression of the patient's metastatic disease. Her prognosis is extremely poor and it is unlikely that she will survive this hospital admission. Findings were discussed with the patient's . Unfortunately, patient's is not ready to make decisions regarding her CODE STATUS and she remains full code at this time. She does have 2 daughters that are on their way to the hospital and plan to discuss prognosis and CODE STATUS further once they arrive. As of now, patient arrives to the ICU mechanically ventilated and sedated. She is currently hemodynamically stable without requirement of vasopressor support and has remained in normal sinus rhythm since cardioversion in the ER. Patient to remain in ICU for further management at this time. Allergies Allergy/AdvReac Type Severity Reaction Status Date / Time desflurane Allergy Severe MALIGNANT Verified 04/23/21 17:56 HYPERTHERMIA adhesive Allergy Mild SKIN Verified 04/23/21 17:56 IRRITATION WITH EKG STICKIES codeine AdvReac Mild headache/na Verified 04/23/21 17:56 [From Tylenol-Codeine] usea Home Medications Medication Instructions Recorded Confirmed Type fexofenadine 180 mg tablet 180 mg PO PM 08/07/19 04/23/21 History (Nessa Allergy) escitalopram oxalate 20 mg tablet 20 mg PO DAILY #30 tab 08/29/20 04/23/21 Rx pantoprazole 40 mg tablet,delayed 40 mg PO DAILY #30 tab 09/27/20 04/23/21 Rx release losartan 100 mg tablet 100 mg PO PM 10/10/20 04/23/21 History oxycodone-acetaminophen 5 mg-325 1 tab PO Q8 PRN 10/10/20 04/23/21 History mg tablet spironolactone 25 mg tablet 25 mg PO DAILY 30 Days #30 tab 10/22/20 04/23/21 Rx lorazepam 0.5 mg tablet 0.5 mg PO BID PRN #30 tab 11/19/20 04/23/21 Rx metoprolol succinate 100 mg 100 mg PO DAILY #30 tab 11/19/20 04/23/21 Rx tablet,extended release 24 hr lidocaine-prilocaine 2.5 %-2.5 % 1 applic TOPICAL UD 12/24/20 04/23/21 History topical cream furosemide 40 mg tablet (Lasix) 40 mg PO DAILY #30 tab 12/25/20 04/23/21 Rx ferrous sulfate 325 mg (65 mg 325 mg PO PM #30 tab 03/07/21 04/23/21 Rx iron) tablet loratadine 10 mg tablet 10 mg PO DAILY PRN #30 tab 04/01/21 04/23/21 Rx Patient History Medical History Acute heart failure with preserved ejection fraction (HFpEF) Back pain Breathlessness Cancer OVARIAN CANCER>CHEMO > GETS HALF HR TREATMENTS Q 2 WEEKS @ [facility] Cancer related pain Elevated troponin I level Hiatal hernia MODERATE TO LARGE PER CHEST CT Hypomagnesemia Left ventricular hypertrophy Malignant hyperthermia Nephrolithiasis Neutropenia Osteoarthritis Ovarian cancer Ovarian mass Pancytopenia due to chemotherapy Seasonal allergies Snoring "NO SLEEP STUDY" PER RECORDS Symptomatic anemia Surgical History H/O tympanomastoidectomy History of bilateral tubal ligation History of colonoscopy History of cystoscopy KIDNEY STONE EXTRACTION WITH STENT PLACEMENT History of difficult intubation Right tympanomastoidectomy = 11/26/17= Grade 2 view with glidescope #3, ETT 7.5 at [facility] PT UNAWARE OF THIS History of dilatation and curettage D&C, HYSTEROSCOPY= 04/29/18= LMA#4 AT [facility] History of ear surgery RT/LEFT EAR SURGERIES History of exploratory laparotomy History of myringotomy History of open reduction and internal fixation (ORIF) procedure Right arm History of total abdominal hysterectomy and bilateral salpingo-oophorectomy History of vascular access device A PORT PLACEMENT>LEFT INTACT CURRENTLY S/P exploratory laparotomy Tumor BILAT EAR TUMOR REMOVAL Family History Unknown No problems noted. Denies family history of Ovarian cancer Prostate cancer Myocardial infarction Breast cancer Colorectal cancer Social History Smoking Status: Unknown if ever smoked Cigarettes Per Day: Quit smokimg 20-30 years ago; Second Hand Exposure: No; Preferred Language: Turkish Communication Ability: Effective Visual Impairment: No Limitations Veterinary X Ray Operator Required: Yes Beliefs That Will Affect Care: None marital status: Current Living Situation: Other Current Living Situation Comment: unknown Feels Safe at Home: Yes Assistive Devices: Glasses and Oxygen - Continuous Review of Systems Review of Systems: Unobtainable due to endotracheal tube Physical Exam Constitutional: + mechanically ventilated Eyes: PERRL, conjunctivae normal, anicteric sclerae ENMT: external ear and nose normal, oropharynx normal Neck: trachea midline, no thyromegaly Respiratory: normal respiratory effort, lungs clear to auscultation Symmetrical chest wall movement Cardiovascular: RRR, no murmur, no edema Heart Sounds: normal S1 and normal S2 Extremities: normal capillary refill; no edema Gastrointestinal (Abdomen): Abdomen round, distended, midline surgical incision well approximated Musculoskeletal: Unable to assess due to sedation/paralytics Skin: No rashes, warm and dry Neurologic: Unable to assess due to sedation/paralytics Psychiatric: Unable to assess due to sedation/paralytics Genitourinary: Indwelling Barrera catheter present Results & Data Results & Data ([facility]) Vital Signs (Past 12 Hours) Vital Signs Temp Pulse Pulse Pulse Resp BP BP 04/23/21 22:17 99 H 22 106/60 04/23/21 22:00 99 H 30 H 118/62 04/23/21 21:45 97 H 20 112/71 04/23/21 21:30 98 H 22 114/74 04/23/21 21:15 101 H 29 H 103/76 04/23/21 21:00 98 H 28 H 104/67 04/23/21 20:45 101 H 24 106/72 04/23/21 20:30 100 H 25 H 104/76 04/23/21 20:15 102 H 24 109/66 04/23/21 20:00 101 H 26 H 108/62 04/23/21 19:50 104 H 25 H 04/23/21 19:48 04/23/21 19:15 104 H 23 115/73 04/23/21 19:00 103 H 30 H 04/23/21 18:55 178 H 22 82/60 L 04/23/21 18:35 169 H 24 80/60 L 04/23/21 18:15 168 H 80/60 L 04/23/21 18:13 170 H 20 82/62 L 04/23/21 18:05 168 H 24 84/60 L 04/23/21 18:02 04/23/21 18:00 178 H 178 H 20 82/62 L 82/64 L 04/23/21 17:57 174 H 80/64 L 04/23/21 17:55 174 H 27 H 04/23/21 17:08 175 H 46 H 04/23/21 17:02 36.2 C L 178 H 20 BP Pulse Ox 04/23/21 22:17 100 04/23/21 22:00 99 04/23/21 21:45 100 04/23/21 21:30 100 04/23/21 21:15 100 04/23/21 21:00 99 04/23/21 20:45 100 04/23/21 20:30 100 04/23/21 20:15 100 04/23/21 20:00 100 04/23/21 19:50 99 04/23/21 19:48 97 04/23/21 19:15 100 04/23/21 19:00 100/64 04/23/21 18:55 100 04/23/21 18:35 100 04/23/21 18:15 04/23/21 18:13 99 04/23/21 18:05 99 04/23/21 18:02 82/62 L 04/23/21 18:00 84 L 04/23/21 17:57 04/23/21 17:55 80/64 L 93 04/23/21 17:08 83/61 L 04/23/21 17:02 96 Coding Level of Care Code Critical Care 1st 30-74 mins Diagnoses SVT (supraventricular tachycardia) I47.1 Sepsis A41.9 Elevated troponin R77.8 Hydronephrosis N13.30 BRIAN (acute kidney injury) N17.9 CHF (congestive heart failure) I50.9 Anemia D64.9 Anemia type: unspecified type Thrombocytopenia D69.6 Ovarian cancer C56.9 Perforated sigmoid colon K63.1 (1) Anemia Anemia type: unspecified type Qualified Code(s): D64.9 - Anemia, unspecified
[2021-04-24 00:30] LABS: iSTAT Art Bld Gas pCO2 Correct 40 mmHg (35-46); iSTAT Art Bld Gas pH Corrected 7.312 (7.35-7.45); iSTAT Arterial Blood Gas HCO3 20 meg/L (19-24); iSTAT Arterial Blood Gas pCO2 40 mmHg (35-46); iSTAT Arterial Blood Gas pH 7.31 (7.35-7.45); iSTAT Arterial Blood Gas pO2 71 mmHg (80-95); iSTAT Arterial Blood Gas pO2 C 71; iSTAT Carbon Dioxide 21 mmol/L (24-31); iSTAT FiO2 40 %; iSTAT Hematocrit 24 % (37-47); iSTAT Hemoglobin 8.2 g/dl (12.0-16.0); iSTAT Potassium 3.9 mmol/L (3.3-5.0); iSTAT Site Art Line; iSTAT Sodium 135 mmol/L (135-144)
[2021-04-24 00:51] LABS: Calcium 7.6 mg/dl (8.5-10.1); Creatinine Clr Calc Pharmacy 28.7 ml/min; Est GFR (African American) 26.3 ml/min; Est GFR (Non-African American) 22.7 ml/min; Magnesium 1.7 mg/dl (1.8-2.4); Troponin I 1.56 ng/ml (0-0.045)
[2021-04-24] MEDS ORDERED: PIPERACILLIN/TAZOBACTAM 4.5 GM in DEXTROSE 5% 100 ML IV SCH (01:00)
[2021-04-24] MEDS ORDERED: FAMOTIDINE 20 MG in SYRINGE 3 ML IV SCH (01:00)
[2021-04-24] MEDS ORDERED: STAT IV Infusion **Titration per Protocol STA ×4 (01:08→09:48)
[2021-04-24] MEDS ORDERED: NOREPINEPHRINE/D5W 8 MG/508 ML IV ONE (01:08)
[2021-04-24] MEDS ORDERED: NOREPINEPHRINE/D5W 8 MG/508 ML BAG IV SCH (01:18)
[2021-04-24] MEDS ORDERED: NORMOSOL-R 1,000 ML IV ONE (01:18)
[2021-04-24] MEDS: MAGNESIUM SULFATE / D5W 1 GM/100 ML BAG IV SCH ×2 (01:48→03:46)
--- NOTE | 2021-04-24 02:45 | Pharmacy Report ---
Pharmacy Abx Initial Consult - Date of Service April 24, 2021 - Pharmacy Dosing Scope Date of Consult: 04/23/21 Consultation requested by: Dr. Alvarez Pharmacy is consulted to initiate Vancomycin and Zosyn IV dosing therapy, order appropriate labs and adjust drug dose/frequency. - Subjective The patient is a 60 year old F admitted on 04/23/21 23:36. - Objective Height: 5 ft 3 in Weight: 93.6 kg Vital Signs (Past 12hrs): Vital Signs Temp Pulse Pulse Pulse Resp BP BP 04/24/21 00:22 105 H 112/67 04/24/21 00:19 18 04/24/21 00:17 107 H 129/75 04/24/21 00:12 104 H 113/72 04/24/21 00:07 103 H 117/70 04/24/21 00:02 102 H 16 112/69 04/24/21 00:01 37.6 C H 102 H 16 112/69 04/23/21 23:55 37.0 C 101 H 18 04/23/21 23:45 37.6 C H 97 H 18 107/72 04/23/21 22:17 99 H 22 106/60 04/23/21 22:00 99 H 30 H 118/62 04/23/21 21:45 97 H 20 112/71 04/23/21 21:30 98 H 22 114/74 04/23/21 21:15 101 H 29 H 103/76 04/23/21 21:00 98 H 28 H 104/67 04/23/21 20:45 101 H 24 106/72 04/23/21 20:30 100 H 25 H 104/76 04/23/21 20:15 102 H 24 109/66 04/23/21 20:00 101 H 26 H 108/62 04/23/21 19:50 104 H 25 H 04/23/21 19:48 04/23/21 19:15 104 H 23 115/73 04/23/21 19:00 103 H 30 H 04/23/21 18:55 178 H 22 82/60 L 04/23/21 18:35 169 H 24 80/60 L 04/23/21 18:15 168 H 80/60 L 04/23/21 18:13 170 H 20 82/62 L 04/23/21 18:05 168 H 24 84/60 L 04/23/21 18:02 04/23/21 18:00 178 H 178 H 20 82/62 L 82/64 L 04/23/21 17:57 174 H 80/64 L 04/23/21 17:55 174 H 27 H 04/23/21 17:08 175 H 46 H 04/23/21 17:02 36.2 C L 178 H 20 BP BP Pulse Ox 04/24/21 00:22 96 04/24/21 00:19 04/24/21 00:17 95 04/24/21 00:12 95 04/24/21 00:07 96 04/24/21 00:02 95 04/24/21 00:01 94 04/23/21 23:55 114/56 L 110/73 97 04/23/21 23:45 100 04/23/21 22:17 100 04/23/21 22:00 99 04/23/21 21:45 100 04/23/21 21:30 100 04/23/21 21:15 100 04/23/21 21:00 99 04/23/21 20:45 100 04/23/21 20:30 100 04/23/21 20:15 100 04/23/21 20:00 100 04/23/21 19:50 99 04/23/21 19:48 97 04/23/21 19:15 100 04/23/21 19:00 100/64 04/23/21 18:55 100 04/23/21 18:35 100 04/23/21 18:15 04/23/21 18:13 99 04/23/21 18:05 99 04/23/21 18:02 82/62 L 04/23/21 18:00 84 L 04/23/21 17:57 04/23/21 17:55 80/64 L 93 04/23/21 17:08 83/61 L 04/23/21 17:02 96 Lab Results (24hrs): Laboratory Tests (24 Hours) 04/24/21 04/24/21 04/24/21 00:09 00:09 00:09 WBC 8.61 Neut # (Auto) Creatinine 2.27 H Est Cr Clr Drug Dosing 28.7 Procalcitonin 14.06 H 04/23/21 04/23/21 18:25 18:25 WBC 10.93 H Neut # (Auto) 9.40 H Creatinine 2.03 H Est Cr Clr Drug Dosing Not Reportable Procalcitonin Micro Results: 04/23/21 19:17 Urine Culture - Pending Urine,Clean Catch 04/23/21 18:25 Aerobic Blood Culture - Pending Blood Anaerobic Blood Culture - Pending 04/23/21 18:29 Aerobic Blood Culture - Pending Blood Anaerobic Blood Culture - Pending - Risk Factors for Resistance * Hospitalization for 48 hours or more within the past 90 days * Immunocompromised (chemotherapy) - Assessment & Plan Assessment 60 year old F started on Vancomycin and Zosyn secondary to possible septic shock * PMHx significant for metastatic uterine cancer currently on chemotherapy * Underwent exploratory laparotomy today for perforated colon with carcinomatosis and intra-abdominal retroperitoneal abscess * Abscess was drained and washed out with drain placement and closure of colon * Afebrile. WBCs 8600. BRIAN with SCr at 2.27. Lactate elevated at 3.4 and has since trended down to 1.3. Procalcitonin of 14.1 which is likely unreliable in a patient with active cancer. * Cultures pending. Plan Vancomycin and Zosyn for treatment of septic shock/GI infection/abscess Vancomycin IV * Loading Dose: 2000 mg (20 mg/kg) IV x 1 * No maintenance dose entered at this time. Will order a random vancomycin level with AM labs on 04/24/21. * This level is to assess patient's clearance given BRIAN. Also, there's a chance SCr improves this AM which could change dosing interval. * Expecting Random level to be near 15 mcg/mL in AM Piperacillin/tazobactam * 4.5 g bolus administered over 30 minutes, then 4.5 g IV extended infusion every 8 hours for CrCl greater than 20 mL/min * Aggressive dosing selected due to critically ill status/BMI 35 or more. Pharmacy will continue to follow and will adjust dose/frequency as necessary. Thank you.
[2021-04-24] MEDS ORDERED: VASOPRESSIN 20 UNITS in 0.9 % SODIUM CHLORIDE 100 ML IV SCH (04:00)
[2021-04-24] MEDS: SODIUM CHLORIDE 0.9% 500 ML IV SCH ×3 (04:12→14:03)
[2021-04-24] MEDS ORDERED: fentaNYL citrate 100 MCG/2 ML VIAL IV PRN (04:16)
[2021-04-24 04:39] LABS: Nucleated RBC # (auto) 0.06 K/uL (0-0); Nucleated RBC % (auto) 0.5 %
[2021-04-24 04:49] LABS: Hematocrit (blood only) 30.1 % (37-47); Mean Corpuscular Hgb Conc 33.2 g/dL (32-36); Mean Corpuscular Volume 99.3 fL (80-100); Mean Platelet Volume 11.3 fL (7.4-10.4); Platelet Count 224 K/uL (130-400); RDW Coefficient of Variation 13.9 % (11.5-14.5); RDW Standard Deviation 50.1 fL (36.4-46.3); Red Blood Count 3.03 M/uL (4.2-5.4); White Blood Count 11.45 K/uL (4.8-10.8)
[2021-04-24 05:01] LABS: Albumin Level 1.6 gm/dl (3.4-5.0); BUN Creatinine Ratio 16.8 (10-20); Bilirubin Direct 1.1 mg/dl (0-0.2); Calcium 7.5 mg/dl (8.5-10.1); Creatinine Clr Calc Pharmacy 28.4 ml/min; Est GFR (Non-African American) 22.5 ml/min; Magnesium 2.7 mg/dl (1.8-2.4)
[2021-04-24 05:03] LABS: ALC (manual) 1.59 K/uL (1.2-3.4); ANC (manual) 8.67 K/uL (1.4-6.5); Dohle Bodies Occasional; INR 1.1 (0.9-1.1); Lymphocytes # (manual) 1.59 K/uL (1.2-3.4); Lymphocytes % (manual) 13.9 %; Metamyelocytes # (manual) 0.19 K/uL (0-0); Metamyelocytes % (manual) 1.7 %; Monocytes % (manual) 8.7 %; Neutrophils # (manual) 8.67 K/uL (1.4-6.5); Neutrophils % (manual) 75.7 %; Partial Thromboplastin Time 25.9 Seconds (21.0-31.0); Prothrombin Time 11.5 Seconds (9.0-12.0); Toxic Granulation Occasional; Toxic Vacuolation 3+
[2021-04-24 05:07] LABS: Bilirubin,Total 1.4 mg/dl (0.2-1); Phosphorus 3.8 mg/dl (2.5-4.9); Total Protein 5.4 gm/dl (6.4-8.2); Troponin I 1.31 ng/ml (0-0.045)
[2021-04-24] MEDS ORDERED: LORazepam 0.5 MG TAB PO PRN (06:33)
[2021-04-24] MEDS ORDERED: ONDANSETRON 4 MG OD TAB SL PRN (06:33)
[2021-04-24] MEDS ORDERED: ONDANSETRON INJ 2 MG/ML 2 ML VIAL IV PRN (06:33)
[2021-04-24] MEDS ORDERED: LORazepam 0.5 MG/1 ML VIAL IV PRN (06:33)
[2021-04-24] MEDS ORDERED: MoRPHine BOLUS FROM BAG IV ONE (06:39)
[2021-04-24] MEDS ORDERED: MoRPHine SULF/NSS 250 MG/250 ML BTL IV SCH (06:45)
--- NOTE | 2021-04-24 06:56 | Communication Note ---
Date of Service: April 24, 2021 I spoke with the patient's family regarding CODE STATUS and prognosis further once they arrive this morning. At the time, they wanted to continue with supportive care to see if her status improved. Unfortunately, patient has become increasingly hypotensive is now on multiple vasopressors. Patient's family was updated and meeting was held at the bedside including all family members. We discussed the patient's poor prognosis and declining clinical status. Patient's family was given time to discuss wishes at the bedside in visit. At this time, the patient's family is in agreement to withdraw care and palliatively extubate. Starting a morphine drip to ensure the patient is comfortable with analgesia as she would likely be in significant pain once sedation is discontinued and will then withdrawal ET tube and discontinue pressors. Comfort measures ordered. Family at bedside. Coding Level of Care Code None
--- NOTE | 2021-04-24 06:56 | Surgery Progress Note ---
Date of Service April 24, 2021 Assessment & Plan (1) Perforated sigmoid colon: Plan: Patient currently in the ICU intubated Many many family members at the bedside Patient with perforation of her colon and diffuse solid stool with spread into the retroperitoneum and left abdomen Severe carcinomatosis with metastatic ovarian cancer Family has decided to proceed with comfort measures and withdraw aggressive care Admission and Anticipated Discharge Date Admission Date: April 23, 2021 Results & Data ([facility]) Vital Signs (Past 12 Hours) Vital Signs Temp Pulse Pulse Pulse Resp BP BP 04/24/21 05:52 37.3 C 112 H 108/87 04/24/21 05:37 37.3 C 110 H 121/75 04/24/21 05:22 37.2 C 111 H 119/75 04/24/21 05:07 36.9 C 113 H 119/78 04/24/21 04:53 36.6 C 04/24/21 04:52 113 H 123/77 04/24/21 04:37 116 H 100/71 04/24/21 04:22 116 H 85/54 L 04/24/21 04:07 112 H 89/56 L 04/24/21 03:58 111 H 88/56 L 04/24/21 03:52 111 H 96/60 L 04/24/21 03:48 109 H 93/65 L 04/24/21 03:37 108 H 101/60 04/24/21 03:35 36.8 C 04/24/21 03:22 107 H 94/70 L 04/24/21 03:20 109 H 25 H 04/24/21 03:07 106 H 99/58 L 04/24/21 02:52 106 H 88/63 L 04/24/21 02:37 104 H 88/61 L 04/24/21 02:32 99 H 87/55 L 04/24/21 02:27 98 H 96/58 L 04/24/21 02:22 97 H 110/59 L 04/24/21 02:17 97 H 91/57 L 04/24/21 02:12 97 H 92/71 L 04/24/21 02:07 100 H 101/63 04/24/21 02:02 97 H 107/66 04/24/21 01:57 97 H 98/75 L 04/24/21 01:52 96 H 103/65 04/24/21 01:47 98 H 93/57 L 04/24/21 01:42 94 H 84/54 L 04/24/21 01:37 94 H 99/56 L 04/24/21 01:32 94 H 88/61 L 04/24/21 01:27 95 H 88/56 L 04/24/21 01:22 96 H 92/60 L 04/24/21 01:17 97 H 84/62 L 04/24/21 01:12 96 H 60/50 L 04/24/21 01:07 99 H 79/49 L 04/24/21 01:03 100 H 76/53 L 04/24/21 00:57 103 H 101/62 04/24/21 00:52 102 H 98/66 L 04/24/21 00:47 107 H 113/68 04/24/21 00:42 103 H 103/67 04/24/21 00:37 101 H 108/72 04/24/21 00:32 101 H 115/63 04/24/21 00:27 102 H 95/70 L 04/24/21 00:22 105 H 112/67 04/24/21 00:19 18 04/24/21 00:17 107 H 129/75 04/24/21 00:12 104 H 113/72 04/24/21 00:07 103 H 117/70 04/24/21 00:02 102 H 16 112/69 04/24/21 00:01 37.6 C H 102 H 16 112/69 04/23/21 23:55 37.0 C 101 H 18 04/23/21 23:45 37.6 C H 97 H 18 107/72 04/23/21 22:17 99 H 22 106/60 04/23/21 22:00 99 H 30 H 118/62 04/23/21 21:45 97 H 20 112/71 04/23/21 21:30 98 H 22 114/74 04/23/21 21:15 101 H 29 H 103/76 04/23/21 21:00 98 H 28 H 104/67 04/23/21 20:45 101 H 24 106/72 04/23/21 20:30 100 H 25 H 104/76 04/23/21 20:15 102 H 24 109/66 04/23/21 20:00 101 H 26 H 108/62 09/01/21 19:50 104 H 25 H 04/23/21 19:48 04/23/21 19:15 104 H 23 115/73 04/23/21 19:00 103 H 30 H 04/23/21 18:55 178 H 22 82/60 L BP BP Pulse Ox 04/24/21 05:52 97 04/24/21 05:37 97 04/24/21 05:22 96 04/24/21 05:07 95 04/24/21 04:53 04/24/21 04:52 96 04/24/21 04:37 94 04/24/21 04:22 95 04/24/21 04:07 94 04/24/21 03:58 94 04/24/21 03:52 94 04/24/21 03:48 97 04/24/21 03:37 97 04/24/21 03:35 04/24/21 03:22 98 04/24/21 03:20 98 04/24/21 03:07 97 04/24/21 02:52 98 04/24/21 02:37 98 04/24/21 02:32 99 04/24/21 02:27 98 04/24/21 02:22 98 04/24/21 02:17 99 04/24/21 02:12 99 04/24/21 02:07 99 04/24/21 02:02 98 04/24/21 01:57 98 04/24/21 01:52 99 04/24/21 01:47 98 04/24/21 01:42 97 04/24/21 01:37 97 04/24/21 01:32 96 04/24/21 01:27 96 04/24/21 01:22 95 04/24/21 01:17 95 04/24/21 01:12 95 04/24/21 01:07 96 04/24/21 01:03 98 04/24/21 00:57 97 04/24/21 00:52 95 04/24/21 00:47 95 04/24/21 00:42 94 04/24/21 00:37 95 04/24/21 00:32 93 04/24/21 00:27 95 04/24/21 00:22 96 04/24/21 00:19 04/24/21 00:17 95 04/24/21 00:12 95 04/24/21 00:07 96 04/24/21 00:02 95 04/24/21 00:01 94 04/23/21 23:55 114/56 L 110/73 97 04/23/21 23:45 100 04/23/21 22:17 100 04/23/21 22:00 99 04/23/21 21:45 100 04/23/21 21:30 100 04/23/21 21:15 100 04/23/21 21:00 99 04/23/21 20:45 100 04/23/21 20:30 100 04/23/21 20:15 100 04/23/21 20:00 100 04/23/21 19:50 99 04/23/21 19:48 97 04/23/21 19:15 100 04/23/21 19:00 100/64 04/23/21 18:55 100 PG Care Time/CCT Total # of Minutes Spent Total Time Spent with Patient: Total time spent is greater than 50% in coordination of care (as documented) at patient's floor/unit and/or counseling patient: Coding Level of Care Code None Diagnoses Perforated sigmoid colon K63.1
--- NOTE | 2021-04-24 08:08 | XRay Report ---
XR chest 1V portable HISTORY: Endotracheal tube placement. COMPARISON: Chest 04/23/2021. FINDINGS: No pneumothorax. There is again noted a large hiatus hernia. The nasogastric tube terminate s at the diaphragm but is likely located within the large hiatus hernia which contains the majority o f the stomach. The heart remains mildly enlarged. Trace left pleural effusion. Left subclavian Port-A -Cath terminates in the SVC. Endotracheal tube terminates 2.5 cm from the steven. Mild central pulmon naveed vascular congestion without overt edema. IMPRESSION: 1. Satisfactory support line placement with the nasogastric tube terminating at within the stomach lo cated within the large hiatus hernia. 2. Cardiomegaly and a trace left pleural effusion. 3. Mild central pulmonary vascular congestion without overt edema. ACT 112: Negative or not required by law. Electronically signed by: Austin Calderon M.D. 04/24/2021 8:07 AM
--- NOTE | 2021-04-24 08:57 | Operative Report (OR) ---
DATE OF OPERATION:. 04/23/2021 NAME OF OPERATION: Exploratory laparotomy, closure of colon perforation, drainage of abscess, abdomi nal washout and drain placement. PREOPERATIVE DIAGNOSIS: Colon perforation with abscess. POSTOPERATIVE DIAGNOSES: Colon perforation with abscess with carcinomatosis. STAFF SURGEON: Jack Go MD. MARKET RESEARCH INTERN: YASMANY Gutiérrez ANESTHESIA: General. DESCRIPTION OF PROCEDURE: The patient was brought in the operating room, placed on the operating tab le in supine position, emergently. Her abdomen was prepped and draped in the usual fashion. Incisio n was made through previous scar tissue carrying dissection down into the abdomen encountering saira stool within the abdomen with some difficulty. This was removed, although it was evident that the pa tient had a large colon perforation, most likely from diffuse carcinomatosis and tumor. She had a la rge area of abscess anteriorly and it tracked into the left gutter and then it was obvious that it tr acked very high up retroperitoneal at least 20 cm. With some difficulty, we attempted to wash this ou t. There was no way, I was able to mobilize the colon because of the diffuse tumor. Essentially, I f elt that we needed to try to close and not create more problems with bleeding. We did close the colo gricelda or colon perforation using 0 chromic suture and then placed drains into the retroperitoneum and left colic gutter. These were 19 round Kai-Peterson drains through separate stab incisions and secu red using 3-0 nylon suture. I felt the decision to close was appropriate and that the patient would be mostly comfort measures and that this was not a survivable situation with the extent of her tumor and intraabdominal pathology. The fascia was closed using #1 PDS suture. Vandiver drain placed in th e subcutaneous space, secured using 4-0 nylon suture. Skin loosely reapproximated using yvonne and then moist gauze placed into the incision openings. Dressing applied. The patient was transferred t o recovery room in very guarded serious condition. Job ID: [id number]
[2021-04-24] MEDS: GLYCOPYRROLATE 0.2 MG/ML VIAL IV PRN ×3 (09:24→22:25)
[2021-04-24] MEDS ORDERED: HYDROmorphone/NSS 100 MG/100 ML BAG IV SCH (10:00)
--- NOTE | 2021-04-24 11:34 | Critical Care Progress Note ---
Date of Service April 24, 2021 Assessment & Plan (1) Perforated sigmoid colon: Plan: Reason Critically Ill: 60-year-old female with metastatic uterine cancer presen ts to the ICU postop following exploratory laparotomy for perforated colon with carcinomatosis and intra-abdominal retroperitoneal abscess where she underwent drainage of abscess abdominal washout with drain placement with closure of colon perforation. Neuro - Sedation: Propofol Cardiac - CHFlast TTE 10/13 with mild concentric left ventricular hypertrophy, normal EF 55 to 60%, mildly dilated left atrium consistent with elevated left-sided filling pressures -Hold on diuretics at this time this patient presents with BRIAN and expect to become hypotensive soon considering severity of sepsis HTNhold antihypertensives for now SVTpatient had episode of SVT in the emergency department with rate 170s, and was unresponsive to adenosine. She she underwent successful cardioversion to normal sinus rhythm which she has remained. -Maximize electrolytes -Continuous monitor on telemetry Elevated troponintroponin I 0.45 in the emergency department, suspect this is demand ischemia following SVT. No chest pain on exam. Will trend for now --Shock Post-OR A combination of being on sedation, on the periphery cannot be ruled out Continue with vasopressor support to keep MAP greater than 65 Respiratory - Mechanically ventilatedpatient remains ventilated postop with plan to trial extubation if patient remains hemodynamically stable overnight -No prior history of pulmonary disease -Vent settings: 18/400/5/40 percent -Follow-up ABG in a.m. -Continuous monitor on pulse ox GI - Sigmoid colon perforationpatient initially was thought to have perforated diverticulitis on CT abdomen pelvis, however or findings more consistent with perforated colon with carcinomatosis. She was also have found to have intra- abdominal and retroperitoneal abscesses. She underwent ex lap with drainage of abscess, abdominal washout and drain placement and closure of colon perforation. In conversation with Dr. Go, prognosis is extremely poor and this is likely nonsurvivable. -Continue with antibiotics, see ID -General surgery following, will follow recommendations Metastatic uterine cancerPer oncology note, patient had recent progression of disease and was started on Taxol with first dose / for palliative therapy as her disease is noted to be incurable. RENAL/LYTES - AKIsuspect likely prerenal as patient reported no p.o. intake since Wednesday. We will continue with IV fluid resuscitation -Baseline creatinine appears to be around 1.3 currently at 2.1 -Monitor routine BMPs -Avoid nephrotoxins and renally adjust dosing -Maintain maps greater than 65 - Foleystrict I's and O's ENDO - No history of diabetes or thyroid disease ICU hyperglycemic protocol HEME - Anemiahemoglobin stable at 8 appears to be at baseline -Transfuse for hemoglobin less than 7 -Continue iron supplements when taking p.o. -Platelets stable ID - Sepsiscurrently patient is afebrile but did have elevated lactate. Procalcitonin pending. She does have perforation of the colon with stool in her peritoneum and expect that she may develop septic shock soon. Blood cultures pending On Zosyn and vancomycin for now COVID-19 negative LINES/IV ACCESS - CVC, A-line, ET tube DVT PROPHYLAXIS - SCDs Plan: Patient's family decided to go towards comfort measures given the comorbidities as well as advanced cancer Dr. Yeager has also been consulted for palliative care Patient will be started on morphine drip Once the family is ready we will take the ET tube out stop the vasopressors Keep the patient comfortable Please note the above document was generated using voice recognition software. It may contain grammatical, syntax or spelling errors.Any formal questions or concerns about the content, text or information contained within the body of this dictation should be directly addressed to the provider for clarification. (2) SVT (supraventricular tachycardia): (3) Sepsis: (4) Elevated troponin: (5) Hydronephrosis: (6) BRIAN (acute kidney injury): (7) CHF (congestive heart failure): (8) Anemia: (9) Thrombocytopenia: (10) Ovarian cancer: Admission and Anticipated Discharge Date Admission Date: April 23, 2021 Subjective Patient seen and examined at bedside Intubated On propofol Family at bedside They have decided to make the patient comfort care. Patient is not in any acute distress Morphine has just been started. Current level vasopressor support Review of Systems Review of Systems: Unobtainable due to mental health condition and Unobtainable due to endotracheal tube Physical Exam Physical Exam: Constitutional: No acute distress HEENT: Positive ETT Respiratory system: Decreased air entry bilaterally, no wheeze, normal, positive crackles bilaterally CVS: S1-S2 positive Abdomen: Soft, nontender, nondistended, positive bowel sounds x4 Extremities: + 1 pulses bilaterally radialis/ dorsalis pedis, no cyanosis Neuro: Sedated, positive gag, positive corneal Psych: Unable to assess G/U: Positive Barrera Skin: no rashes, warm and dry Lymphatic: no cervical or axillary lymphadenopathy Results & Data Results & Data ([facility]) Vital Signs (Past 12 Hours) Vital Signs Temp Pulse Pulse Resp BP BP BP 04/24/21 10:37 37.2 C 120 H 84/52 L 04/24/21 10:07 37.3 C 104 H 72/50 L 04/24/21 09:37 37.6 C H 100 H 61/39 L 04/24/21 09:08 37.6 C H 98 H 68/38 L 04/24/21 08:37 37.6 C H 104 H 132/112 H 04/24/21 08:07 37.4 C 111 H 115/85 04/24/21 08:00 107 H 04/24/21 07:37 37.5 C 112 H 121/80 04/24/21 07:07 37.5 C 109 H 128/83 04/24/21 07:04 107 H 23 04/24/21 05:52 37.3 C 112 H 108/87 04/24/21 05:37 37.3 C 110 H 121/75 04/24/21 05:22 37.2 C 111 H 119/75 04/24/21 05:07 36.9 C 113 H 119/78 04/24/21 04:53 36.6 C 04/24/21 04:52 113 H 123/77 04/24/21 04:37 116 H 100/71 04/24/21 04:22 116 H 85/54 L 04/24/21 04:07 112 H 89/56 L 04/24/21 03:58 111 H 88/56 L 04/24/21 03:52 111 H 96/60 L 04/24/21 03:48 109 H 93/65 L 04/24/21 03:37 108 H 101/60 04/24/21 03:35 36.8 C 04/24/21 03:22 107 H 94/70 L 04/24/21 03:20 109 H 25 H 04/24/21 03:07 106 H 99/58 L 04/24/21 02:52 106 H 88/63 L 04/24/21 02:37 104 H 88/61 L 04/24/21 02:32 99 H 87/55 L 04/24/21 02:27 98 H 96/58 L 04/24/21 02:22 97 H 110/59 L 04/24/21 02:17 97 H 91/57 L 04/24/21 02:12 97 H 92/71 L 04/24/21 02:07 100 H 101/63 04/24/21 02:02 97 H 107/66 04/24/21 01:57 97 H 98/75 L 04/24/21 01:52 96 H 103/65 04/24/21 01:47 98 H 93/57 L 04/24/21 01:42 94 H 84/54 L 04/24/21 01:37 94 H 99/56 L 04/24/21 01:32 94 H 88/61 L 04/24/21 01:27 95 H 88/56 L 04/24/21 01:22 96 H 92/60 L 04/24/21 01:17 97 H 84/62 L 04/24/21 01:12 96 H 60/50 L 04/24/21 01:07 99 H 79/49 L 04/24/21 01:03 100 H 76/53 L 04/24/21 00:57 103 H 101/62 04/24/21 00:52 102 H 98/66 L 04/24/21 00:47 107 H 113/68 04/24/21 00:42 103 H 103/67 04/24/21 00:37 101 H 108/72 04/24/21 00:32 101 H 115/63 04/24/21 00:27 102 H 95/70 L 04/24/21 00:22 105 H 112/67 04/24/21 00:19 18 04/24/21 00:17 107 H 129/75 04/24/21 00:12 104 H 113/72 04/24/21 00:07 103 H 117/70 04/24/21 00:02 102 H 16 112/69 04/24/21 00:01 37.6 C H 102 H 16 112/69 04/23/21 23:55 37.0 C 101 H 18 114/56 L 04/23/21 23:45 37.6 C H 97 H 18 107/72 BP Pulse Ox 04/24/21 10:37 91 04/24/21 10:07 90 04/24/21 09:37 92 04/24/21 09:08 91 04/24/21 08:37 97 04/24/21 08:07 93 04/24/21 08:00 04/24/21 07:37 96 04/24/21 07:07 96 04/24/21 07:04 95 04/24/21 05:52 97 04/24/21 05:37 97 04/24/21 05:22 96 04/24/21 05:07 95 04/24/21 04:53 04/24/21 04:52 96 04/24/21 04:37 94 04/24/21 04:22 95 04/24/21 04:07 94 04/24/21 03:58 94 04/24/21 03:52 94 04/24/21 03:48 97 04/24/21 03:37 97 04/24/21 03:35 04/24/21 03:22 98 04/24/21 03:20 98 04/24/21 03:07 97 04/24/21 02:52 98 04/24/21 02:37 98 04/24/21 02:32 99 04/24/21 02:27 98 04/24/21 02:22 98 04/24/21 02:17 99 04/24/21 02:12 99 04/24/21 02:07 99 04/24/21 02:02 98 04/24/21 01:57 98 04/24/21 01:52 99 04/24/21 01:47 98 04/24/21 01:42 97 04/24/21 01:37 97 04/24/21 01:32 96 04/24/21 01:27 96 04/24/21 01:22 95 04/24/21 01:17 95 04/24/21 01:12 95 04/24/21 01:07 96 04/24/21 01:03 98 04/24/21 00:57 97 04/24/21 00:52 95 04/24/21 00:47 95 04/24/21 00:42 94 04/24/21 00:37 95 04/24/21 00:32 93 04/24/21 00:27 95 04/24/21 00:22 96 04/24/21 00:19 04/24/21 00:17 95 04/24/21 00:12 95 04/24/21 00:07 96 04/24/21 00:02 95 04/24/21 00:01 94 04/23/21 23:55 110/73 97 04/23/21 23:45 100 04/24/21 04:24 04/24/21 04:24 PG Care Time/CCT Total # of Minutes Spent Total Time Spent with Patient: Total time spent is greater than 50% in coordination of care (as documented) at patient's floor/unit and/or counseling patient: Coding Level of Care Code 35807 Subseq Hosp Care Lv 2 Diagnoses Perforated sigmoid colon K63.1 SVT (supraventricular tachycardia) I47.1 Sepsis A41.9 Elevated troponin R77.8 Hydronephrosis N13.30 BRIAN (acute kidney injury) N17.9 CHF (congestive heart failure) I50.9 Anemia D64.9 Anemia type: unspecified type Thrombocytopenia D69.6 Ovarian cancer C56.9 (1) Anemia Anemia type: unspecified type Qualified Code(s): D64.9 - Anemia, unspecified
--- NOTE | 2021-04-24 12:05 | Palliative Care Consultation ---
Date of Consultation April 24, 2021 Assessment & Plan (1) Abdominal pain: Currently on morphine infusion at 7mg per hour which is concerning for opioid toxicity given her renal failure. Will rotate to hydromorphone infusion, starting at 1mg/hr. (2) Anxiety: Restless, telling me that she wants it to be all better. We talked about not being able to fix her cancer and overwhelming infection but that we can focus on controlling her pain and symptoms so that her time with her family is as good as it can be. She does have lorazepam ordered prn. (3) Palliative care encounter: Family at bedside, grieving and trying to process Jessi's poor prognosis. They deny questions and concerns. We talked about medications for comfort and they are in support of this. Palliative care will follow. (4) BRIAN (acute kidney injury): (5) Perforated sigmoid colon: (6) Ovarian cancer: History of Present Illness Reason for Consultation: goals of care Requesting Physician: STEPHEN Murdock Attending Physician: Jack Go MD, FACS History of Present Illness 60 yo lady with a history of ovarian cancer with peritoneal carcinomatosis. She has been receiving chemotherapy with her last treatment one week ago. She also has a history of thrombocytopenia and heart failure. She was admitted with a 3- 4 day history of abdominal pain and found to have pneumoperitoneum with colon perforation. CT showed extensive inflammation and extraluminal free air with a 7.3 cm collection of extraluminal fecal material. She was taken to the OR for laparotomy and had closure to the perforation with washout but was noted to have an extensive abscess along approximately 20cm of her colon. After discussion of her current status and poor prognosis Mrs. Crowley and her family have opted for comfort directed care. Mrs. Crowley is awake at the time of my visit and complains of abdominal pain on a morphine infusion at 7mg/hr. She does have renal failure with bilateral hydronephrosis. Her GFR is in the 20s. She also complains of dry mouth and is taking sips of water. Allergies Allergy/AdvReac Type Severity Reaction Status Date / Time desflurane Allergy Severe MALIGNANT Verified 04/23/21 17:56 HYPERTHERMIA adhesive Allergy Mild SKIN Verified 04/23/21 17:56 IRRITATION WITH EKG STICKIES codeine AdvReac Mild headache/na Verified 04/23/21 17:56 [From Tylenol-Codeine] usea Home Medications Medication Instructions Recorded Confirmed Type fexofenadine 180 mg tablet 180 mg PO PM 08/07/19 04/23/21 History (Nessa Allergy) escitalopram oxalate 20 mg tablet 20 mg PO DAILY #30 tab 08/29/20 04/23/21 Rx pantoprazole 40 mg tablet,delayed 40 mg PO DAILY #30 tab 09/27/20 04/23/21 Rx release losartan 100 mg tablet 100 mg PO PM 10/10/20 04/23/21 History oxycodone-acetaminophen 5 mg-325 1 tab PO Q8 PRN 10/10/20 04/23/21 History mg tablet spironolactone 25 mg tablet 25 mg PO DAILY 30 Days #30 tab 10/22/20 04/23/21 Rx lorazepam 0.5 mg tablet 0.5 mg PO BID PRN #30 tab 11/19/20 04/23/21 Rx metoprolol succinate 100 mg 100 mg PO DAILY #30 tab 11/19/20 04/23/21 Rx tablet,extended release 24 hr lidocaine-prilocaine 2.5 %-2.5 % 1 applic TOPICAL UD 12/24/20 04/23/21 History topical cream furosemide 40 mg tablet (Lasix) 40 mg PO DAILY #30 tab 12/25/20 04/23/21 Rx ferrous sulfate 325 mg (65 mg 325 mg PO PM #30 tab 03/07/21 04/23/21 Rx iron) tablet loratadine 10 mg tablet 10 mg PO DAILY PRN #30 tab 04/01/21 04/23/21 Rx Patient History Medical History Acute heart failure with preserved ejection fraction (HFpEF) Back pain Breathlessness Cancer OVARIAN CANCER>CHEMO > GETS HALF HR TREATMENTS Q 2 WEEKS @ [facility] Cancer related pain Elevated troponin I level Hiatal hernia MODERATE TO LARGE PER CHEST CT Hypomagnesemia Left ventricular hypertrophy Malignant hyperthermia Nephrolithiasis Neutropenia Osteoarthritis Ovarian cancer Ovarian mass Pancytopenia due to chemotherapy Seasonal allergies Snoring "NO SLEEP STUDY" PER RECORDS Symptomatic anemia Surgical History H/O tympanomastoidectomy History of bilateral tubal ligation History of colonoscopy History of cystoscopy KIDNEY STONE EXTRACTION WITH STENT PLACEMENT History of difficult intubation Right tympanomastoidectomy = 11/26/17= Grade 2 view with glidescope #3, ETT 7.5 at [facility] PT UNAWARE OF THIS History of dilatation and curettage D&C, HYSTEROSCOPY= 04/29/18= LMA#4 AT [facility] History of ear surgery RT/LEFT EAR SURGERIES History of exploratory laparotomy History of myringotomy History of open reduction and internal fixation (ORIF) procedure Right arm History of total abdominal hysterectomy and bilateral salpingo-oophorectomy History of vascular access device A PORT PLACEMENT>LEFT INTACT CURRENTLY S/P exploratory laparotomy Tumor BILAT EAR TUMOR REMOVAL Family History Unknown No problems noted. 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 Beliefs That Will Affect Care: None marital status: Current Living Situation: Other Current Living Situation Comment: unknown Feels Safe at Home: Yes Assistive Devices: Glasses and Oxygen - Continuous Review of Systems Review of Systems: [place] Symptom Assessment Scale Pain 3/3 Dyspnea 0/3 Anxiety 1/3 Fatigue 3/3 Nausea 0/3 Drowsiness 1/3 Palliative Performance Score 20% Physical Exam Constitutional: + ill appearing; + uncomfortable ENMT: Mouth: + dry oral mucous membranes Respiratory: no labored breathing and does not use accessory muscles Cardiovascular: hypotensive, tachycardic Gastrointestinal (Abdomen): obese, dressing intact Neurologic: awake; not confused Results & Data ([facility]) Vital Signs (Past 12 Hours) Vital Signs Temp Pulse Resp BP Pulse Ox 04/24/21 10:37 99.0 F 120 H 84/52 L 91 04/24/21 10:07 99.1 F 104 H 72/50 L 90 04/24/21 09:37 99.7 F H 100 H 61/39 L 92 04/24/21 09:08 99.7 F H 98 H 68/38 L 91 04/24/21 08:37 99.7 F H 104 H 132/112 H 97 04/24/21 08:07 99.3 F 111 H 115/85 93 04/24/21 08:00 107 H 04/24/21 07:37 99.5 F 112 H 121/80 96 04/24/21 07:07 99.5 F 109 H 128/83 96 04/24/21 07:04 107 H 23 95 04/24/21 05:52 99.1 F 112 H 108/87 97 04/24/21 05:37 99.1 F 110 H 121/75 97 04/24/21 05:22 99.0 F 111 H 119/75 96 04/24/21 05:07 98.4 F 113 H 119/78 95 04/24/21 04:53 97.9 F 04/24/21 04:52 113 H 123/77 96 04/24/21 04:37 116 H 100/71 94 04/24/21 04:22 116 H 85/54 L 95 04/24/21 04:07 112 H 89/56 L 94 04/24/21 03:58 111 H 88/56 L 94 04/24/21 03:52 111 H 96/60 L 94 04/24/21 03:48 109 H 93/65 L 97 04/24/21 03:37 108 H 101/60 97 04/24/21 03:35 98.2 F 04/24/21 03:22 107 H 94/70 L 98 04/24/21 03:20 109 H 25 H 98 04/24/21 03:07 106 H 99/58 L 97 04/24/21 02:52 106 H 88/63 L 98 04/24/21 02:37 104 H 88/61 L 98 04/24/21 02:32 99 H 87/55 L 99 04/24/21 02:27 98 H 96/58 L 98 04/24/21 02:22 97 H 110/59 L 98 04/24/21 02:17 97 H 91/57 L 99 04/24/21 02:12 97 H 92/71 L 99 04/24/21 02:07 100 H 101/63 99 04/24/21 02:02 97 H 107/66 98 04/24/21 01:57 97 H 98/75 L 98 04/24/21 01:52 96 H 103/65 99 04/24/21 01:47 98 H 93/57 L 98 04/24/21 01:42 94 H 84/54 L 97 04/24/21 01:37 94 H 99/56 L 97 04/24/21 01:32 94 H 88/61 L 96 04/24/21 01:27 95 H 88/56 L 96 04/24/21 01:22 96 H 92/60 L 95 04/24/21 01:17 97 H 84/62 L 95 04/24/21 01:12 96 H 60/50 L 95 04/24/21 01:07 99 H 79/49 L 96 04/24/21 01:03 100 H 76/53 L 98 04/24/21 00:57 103 H 101/62 97 04/24/21 00:52 102 H 98/66 L 95 04/24/21 00:47 107 H 113/68 95 04/24/21 00:42 103 H 103/67 94 04/24/21 00:37 101 H 108/72 95 04/24/21 00:32 101 H 115/63 93 04/24/21 00:27 102 H 95/70 L 95 04/24/21 00:22 105 H 112/67 96 04/24/21 00:19 18 04/24/21 00:17 107 H 129/75 95 04/24/21 00:12 104 H 113/72 95 04/24/21 00:07 103 H 117/70 96 PG Care Time/CCT Total # of Minutes Spent Total Time Spent: 60 Total Time Spent with Patient: Total time spent is greater than 50% in coordination of care (as documented) at patient's floor/unit and/or counseling patient:symptom management, family education and support Coding Level of Care Code 36993 Initial Inpt Care Lvl 2 Diagnoses Abdominal pain R10.9 Anxiety F41.9 Palliative care encounter Z51.5 BRIAN (acute kidney injury) N17.9 Perforated sigmoid colon K63.1 Ovarian cancer C56.9
[2021-04-24] MEDS ORDERED: oxyCODONE/ACETAMINOPHEN 5mg/325mg TAB PO PRN (13:15)
[2021-04-24] MEDS ORDERED: LACTATED RINGER'S 1,000 ML IV SCH (14:15)
[2021-04-24] MEDS ORDERED: GLYCOPYRROLATE 0.2 MG/ML VIAL IV PRN (14:37)
--- NOTE | 2021-04-24 19:45 | Hospitalist Progress Note ---
Date of Service April 24, 2021 Assessment & Plan (1) Sepsis: Plan: Patient is a 60 year old female with PMHx Ovarian cancer on chemotherapy, Anemia, Thrombocytopenia, GERD, CHF that presents with 3-4 day history of abdominal pain found to be septic secondary to diverticulitis with perforation of the colon. Patient currently on comfort measures. All unnecessary testing and medications have been discontinued. She still receives medication for comfort such as pain management as well as medications for acid reflux. Anything to make her more comfortable. For current work-up please see below: Sepsis secondary to Diverticulitis with perforation -CT Ab/Pelv with extensive inflammatory changes and extraluminal gas within the midabdomen and pelvis with site of perforation suspected around the mid sigmoid colon in addition to 7.3cm extraluminal collection of fecal contents. -Lactate 3.4 on admission -Received 2L NSS in ED, continue NSS 125 ml/hr -Started on Vancomycin and Zosyn in ED, will continue -Surgery consulted - will take patient to OR now for closure of perforation and wash out -Currently extubated Atrial Flutter/SVT -Noted on EKG in ED, treated initially with IV Lopressor pushes 2.5mg x3 in addition to Adenosine -Ultimately A Flutter cardioverted in ED and now in sinus rhythm -Cardiology consulted - if recurrent flutter consider amiodarone gtt -Electrolyte replacement, K>4 and Mag >2 Elevated Troponin -Troponin elevated to 1.45 -Suspect secondary to above flutter/SVT -continue to trend for peak B/L Hydronephrosis -CT Ab/Pelv noting severe bilateral hydronephrosis secondary to obstruction from complex R pelvic mass -R Pelvic mass has increased in size to 11cm from 5cm -Urology consulted in ED, no emergent stent at this time. Will reevaluate once patient stable. UTI -With positive UA -Coverage with Zosyn Vancomycin above. Dispo: ICU post surgery for close monitoring and management of ventilation FEN: NPO DVT: Defer chemoprophylaxis pending surgery Code: Full (2) Diverticulitis of colon with perforation: (3) BRIAN (acute kidney injury): (4) Elevated troponin: (5) Hydronephrosis: (6) UTI (urinary tract infection): (7) Atrial flutter with rapid ventricular response: Admission and Anticipated Discharge Date Admission Date: April 23, 2021 Supervising Physician Co-Signing Physician Notes I personally examined the patient and verified all live points of history and exam, discussed case, and agree with decision making with Dr Pollack no HPI or ROS obtainable from pt family notes she's appearing comfortable. updated family on situation and answered quetsions to the best of my ability pt in no distress, some snoring respirations, some apneas. otherwise appearing calm and peaceful severe sepsis/septic shock in te context of perforated diverticulitis superimposed on baseline of ovarian cancer -- comfort care. offered empathy and support Subjective Patient seen at bedside this morning. Family is present in the room during this time. She is currently on comfort measures only and the family is agreeable with this. Patient is unable to converse at this time. Family had no additional questions and they are aware of the patient's condition. No other complaints at this time. Review of Systems Review of Systems: All systems reviewed & are unremarkable except as noted in HPI & below Physical Exam Physical Exam: Physical exam deferred as patient is resting and comfortable. Family was also present in the room and it seemed inappropriate. Patient seems to be comfortable and is breathing well. Patient opens her eyes every once in a while and ganders at the room and closes them shortly after. Results & Data Results & Data ([facility]) Vital Signs (Past 12 Hours) Vital Signs Temp Pulse BP Pulse Ox 04/24/21 12:07 37.1 C 109 H 69/53 L 86 L 04/24/21 11:37 37.1 C 110 H 87/49 L 86 L 04/24/21 11:07 37.1 C 115 H 89/56 L 89 L 04/24/21 10:37 37.2 C 120 H 84/52 L 91 04/24/21 10:07 37.3 C 104 H 72/50 L 90 04/24/21 09:37 37.6 C H 100 H 61/39 L 92 04/24/21 09:08 37.6 C H 98 H 68/38 L 91 04/24/21 08:37 37.6 C H 104 H 132/112 H 97 04/24/21 08:07 37.4 C 111 H 115/85 93 04/24/21 08:00 107 H Resident Activity Tracking Resident Involvement: Resident Care Provided Care Provided: [facility] Medicine
--- NOTE | 2021-04-24 20:43 | Billing Data ---
Date of Service April 24, 2021 Coding Level of Care Code Critical Care 1st - mins
--- NOTE | 2021-04-24 20:54 | Billing Data ---
Date of Service April 24, 2021 Coding Level of Care Code 73728 Subseq Hosp Care Lvl 2
[2021-04-24] MEDS ORDERED: FEXOFENADINE HCL 180 MG TAB PO SCH (21:00)
--- NOTE | 2021-04-25 04:57 | Death Pronouncement Note ---
Date of Service April 25, 2021 Pronouncement Note Admission Date Admission Date: April 23, 2021 Date and Time of Date of : 04/25/21 Time of : 04:51 Contributing Factors (1) Sepsis: (2) Diverticulitis of colon with perforation: (3) BRIAN (acute kidney injury): (4) Elevated troponin: (5) Hydronephrosis: (6) UTI (urinary tract infection): (7) Perforated sigmoid colon: (8) Ovarian cancer: Hospital Course Hospital Course: See summary note Summary Additional details: See summary note Additional Data Confirmation of : no pulse, no respirations, no heart sounds, pupils fixed and dilated and other (no response to stimulation ) Family: at bedside Attending/PCP notified?: No Attending physician: Jack Go MD, FACS Was code activated?: No Autopsy requested?: No examiner of currency notified?: No Organ bank notified?: No Resident Activity Tracking Resident Involvement: Resident Care Provided and Employment Representative Coverage Note Care Provided: Adult Hospital Medicine
--- NOTE | 2021-04-25 05:48 | Electrocardiogram Report ---
Test Reason : Blood Pressure : / mmHG Vent. Rate : 177 BPM Atrial Rate : 177 BPM P-R Int : 098 ms QRS Dur : 086 ms QT Int : 222 ms P-R-T Axes : 092 009 178 degrees QTc Int : 381 ms Poor data quality, interpretation may be adversely affected Supraventricular tachycardia Abnormal ECG When compared with ECG of 23-FEB-2021 19:24, Supraventricular tachycardia has replaced Sinus rhythm Vent. rate has increased BY 102 BPM T wave inversion no longer evident in Anterior leads Confirmed by Abel Godinez ([id number]) on 04/25/2021 5:48:02 AM Referred By: REFERRED SELF Confirmed By:Abel Godinez
--- NOTE | 2021-04-25 05:51 | Electrocardiogram Report ---
Test Reason : Blood Pressure : / mmHG Vent. Rate : 168 BPM Atrial Rate : 170 BPM P-R Int : 000 ms QRS Dur : 068 ms QT Int : 282 ms P-R-T Axes : 000 014 107 degrees QTc Int : 471 ms Supraventricular tachycardia Nonspecific ST and T wave abnormality Abnormal ECG When compared with ECG of 23-APR-2021 17:09, No significant change Confirmed by Abel Godinez ([id number]) on 04/25/2021 5:50:31 AM Referred By: REFERRED SELF Confirmed By:Abel Godinez
--- NOTE | 2021-04-25 05:52 | Electrocardiogram Report ---
Test Reason : Blood Pressure : / mmHG Vent. Rate : 103 BPM Atrial Rate : 103 BPM P-R Int : 142 ms QRS Dur : 068 ms QT Int : 314 ms P-R-T Axes : 027 016 084 degrees QTc Int : 411 ms Poor data quality, interpretation may be adversely affected Sinus tachycardia Nonspecific ST and T wave abnormality Abnormal ECG When compared with ECG of 23-APR-2021 18:33, Vent. rate has decreased BY 65 BPM Sinus rhythm has replaced Supraventricular tachycardia ST now depressed in Anterior leads Anterior T wave abnormality is no longer present Confirmed by Abel Godinez ([id number]) on 04/25/2021 5:52:13 AM Referred By: REFERRED SELF Confirmed By:Abel Godinez
[2021-04-25] MEDS ORDERED: ESCITALOPRAM OXALATE 20 MG TAB PO SCH (09:00)
[2021-04-25] MEDS ORDERED: PANTOprazole 40 MG TAB PO SCH (09:00)
--- NOTE | 2021-04-25 12:54 | Discharge Summary ---
Date of Service April 25, 2021 Admission HPI Per Admitting Provider Patient is a 60 year old female with PMHx Ovarian cancer on chemotherapy, Anemia, Thrombocytopenia, GERD, CHF that presents with 3-4 day history of abdominal pain found to be septic secondary to diverticulitis with perforation of the colon. Patient notes she had chemotherapy last and that since then she has been having abdominal pain, anorexia, and nausea. She notes she has not been taking her medications appropriately secondary to the pain. In the emergency department she was also found to be in atrial flutter and was given pushes of lopressor 2.5mg x3, followed by adenosine 6mg for a rhythm concerning for SVT. She was ultimately found to be in atrial flutter and cardioverted to NSR. She also had a CT scan of her abdomen which was concerning for diverticulitis with perforation including a 7.3cm extraluminal collection of fecal contents and gas suspicious for phlegmon. Patient's case was discussed with General Surgery. Patient elected to undergo surgery for closure of the colonic rupture and wash out. Patient at this time does appear uncomfortable and is primarily noting significant abdominal pain. She denies fever, chills, SOB, chest pain. Admission Exam Per Admitting Provider Constitutional: + ill appearing and + in distress Eyes: normal visual holman by confrontation; no conjunctival abnormality ENMT: Ears: + hearing impairment Nose: no external nose abnormality Mucous membranes are dry Neck: trachea midline Respiratory: normal respiratory effort; no respiratory distress and no labored breathing Auscultation: lungs clear to auscultation bilaterally Breath sounds are noted to be slightly decreased at the bases Cardiovascular: Rate/Rhythm: regular rate and regular rhythm Heart Sounds: no murmur Chest (Breasts): Chest: + vascular access device or port Gastrointestinal (Abdomen): Inspection/Auscultation: abdomen normal to inspection and + hypoactive bowel sounds Percussion/Palpation: + abdomen tender (worse in the lower quadrants ) +rebound Musculoskeletal: Head/Neck/Chest: normocephalic and head atraumatic No calf tenderness. Feet are warm and well-perfused. Skin: no rashes Neurologic: moves all extremities Psychiatric: Orientation: alert and oriented x 3 Affect: + anxious affect Principal Diagnosis Sepsis secondary to perforated bowel secondary to ovarian cancer. Discharge Exam Per Dr. Castillo's examination on his note: "Confirmation of : no pulse, no respirations, no heart sounds, pupils fixed and dilated and other (no response to stimulation." Discharge Data Allergies Allergy/AdvReac Type Severity Reaction Status Date / Time desflurane Allergy Severe MALIGNANT Verified 04/23/21 17:56 HYPERTHERMIA adhesive Allergy Mild SKIN Verified 04/23/21 17:56 IRRITATION WITH EKG STICKIES codeine AdvReac Mild headache/na Verified 04/23/21 17:56 [From Tylenol-Codeine] usea Consultations 04/23/21 21:17 Consult Cardiology Stat Consult General Surgery Stat ED Decision to Admit Stat 04/24/21 00:08 Consult Resource Engineer Routine Consult Resource Engineer Routine 04/24/21 03:54 Consult Palliative Care Routine Procedures Performed Operation Date: 04/23/21 22:45 Actual Procedures p Exploratory Laparotomy; Drainage of Abscess; Abdominal Washout and Drain placement - Jack Go MD, FACS Ordered Studies 04/23/21 19:03 CT abd pelvis wo con Stat 04/23/21 21:30 US - OR guided needle placemen Stat Hospital Course (1) Sepsis: Patient is a 60 year old female with PMHx Ovarian cancer on chemotherapy, Anemia, Thrombocytopenia, GERD, CHF that presents with 3-4 day history of abdominal pain found to be septic secondary to diverticulitis with perforation of the colon. Patient at 4:51 on 04/25/2021. For hospital work-up prior to expiration please see below: Sepsis secondary to Diverticulitis with perforation -CT Ab/Pelv with extensive inflammatory changes and extraluminal gas within the midabdomen and pelvis with site of perforation suspected around the mid sigmoid colon in addition to 7.3cm extraluminal collection of fecal contents. -Lactate 3.4 on admission -Received 2L NSS in ED, continue NSS 125 ml/hr -Surgery consulted -Pt had closure of perforation and washout -Currently extubated Atrial Flutter/SVT -Noted on EKG in ED, treated initially with IV Lopressor pushes 2.5mg x3 in addition to Adenosine -Ultimately A Flutter cardioverted in ED -Cardiology consulted - if recurrent flutter consider amiodarone gtt -Electrolyte replacement, K>4 and Mag >2 Elevated Troponin -Troponin elevated to 1.45 -Suspect secondary to above flutter/SVT B/L Hydronephrosis -CT Ab/Pelv noting severe bilateral hydronephrosis secondary to obstruction from complex R pelvic mass -R Pelvic mass has increased in size to 11cm from 5cm -Urology consulted in ED, no emergent stent at this time. Will reevaluate once patient stable. UTI -With positive UA Dispo: FEN: NPO DVT: Defer chemoprophylaxis pending surgery Code: DNR/DNI (2) Diverticulitis of colon with perforation: (3) BRIAN (acute kidney injury): (4) Elevated troponin: (5) Hydronephrosis: (6) UTI (urinary tract infection): (7) Perforated sigmoid colon: (8) Ovarian cancer: Total Time Total Time Spent Total Time Spent (In Minutes): <30 Discharge Plan Discharge Items Patient Disposition: Discharge Diagnosis: secondary to sepsis from bowel perforation Addtl Attending Provider Instructions: Patient passed at 04:51 on 04/25/21. See summary for details of patient's hospital course. Supervising Physician Co-Signing Physician Notes pt not seen by myself - discussed with dr valdovinos and agree with above
== END 2021-04-25 09:44 | disposition expired | DRG 853 ==
LOC: ED 16:17 → 1E 22:08 → 3E 04-24 10:05
DX: C79.61 Secondary malignant neoplasm of right ovary; N13.6 Pyonephrosis; E87.6 Hypokalemia; Z88.8 Allergy status to other drugs, medicaments and biological substances; N17.9 Acute kidney failure, unspecified; Z91.048 Other nonmedicinal substance allergy status; I11.0 Hypertensive heart disease with heart failure; K57.20 Diverticulitis of large intestine with perforation and abscess without bleeding; R65.21 Severe sepsis with septic shock; Z20.822 Contact with and (suspected) exposure to COVID-19; I48.92 Unspecified atrial flutter; Z79.899 Other long term (current) drug therapy; J30.2 Other seasonal allergic rhinitis; K68.19 Other retroperitoneal abscess; I47.1 Supraventricular tachycardia; K65.1 Peritoneal abscess; K21.9 Gastro-esophageal reflux disease without esophagitis; C55 Malignant neoplasm of uterus, part unspecified; I50.9 Heart failure, unspecified; I24.8 Other forms of acute ischemic heart disease; R57.9 Shock, unspecified; Z87.891 Personal history of nicotine dependence; Z66 Do not resuscitate; K63.1 Perforation of intestine (nontraumatic); D69.6 Thrombocytopenia, unspecified; Z88.6 Allergy status to analgesic agent; Z51.5 Encounter for palliative care; C78.6 Secondary malignant neoplasm of retroperitoneum and peritoneum; D64.9 Anemia, unspecified; A41.9 Sepsis, unspecified organism